=== PATIENT | female | born 1995 | race Caucasian/White ===

== ENCOUNTER 2018-04-21 10:37 | Emergency (ER) | payer SELFPAY ==
[2018-04-21 13:28] LABS: Urine Blood 2+ (NEG); Urine Glucose NEGATIVE (NEG); Urine Protein 1+ (NEG)
[2018-04-21] MEDS ORDERED: NA CHLORIDE 0.9% 1,000 ML ONE (13:29)
[2018-04-21] MEDS ORDERED: PANTOPRAZOLE 40 MG INJ ONE (13:43)
[2018-04-21 13:47] LABS: Absolute Monocytes 0.5 K/uL (0.1-1.3); Basophils % 0.5 % (0-1.3); Eosinophils % 0.9 % (0-4.4); Hematocrit 41.1 % (36.0-45.0); Lymphocytes % 22.9 % (15.3-44.8); MCV 88.7 fL (80-100); MPV 9.9 fL (7.6-11.3); Monocytes % 6.1 % (3.3-12.3); RBC Red Blood Cell Count 4.63 M/uL (3.86-4.86)
[2018-04-21 13:49] LABS: Urine Bacteria LOADED /HPF (<20)
[2018-04-21 13:50] LABS: Urine Culture Reflex Order REFLEXED; Urine Mucus 1+ /HPF (NONE SEEN)
[2018-04-21 13:57] LABS: ALT/SGPT 18 U/L (12-78); AST/SGOT 13 U/L (15-37); Albumin 4.3 g/dL (3.4-5.0); Alkaline Phosphatase 112 U/L (45-117); BUN Blood Urea Nitrogen 13 mg/dL (7-18); Bicarbonate 30 mmol/L (21-32); Bilirubin Direct 0.2 mg/dL (0-0.2); Bilirubin Total 0.5 mg/dL (0.2-1.0); Glucose Level 88 mg/dL (74-106); Lipase 102 U/L (73-393); Potassium 3.7 mmol/L (3.5-5.1); Protein, Total 8.2 g/dL (6.4-8.2); Sodium Level 138 mmol/L (136-145)
[2018-04-21] MEDS ORDERED: CEFTRIAXONE/SWI 1gm 1 GM/10 ML SYR ONE (14:14)
[2018-04-21] MEDS ORDERED: NA CHLORIDE 0.9% 100 ML IV ONE (14:15)
--- NOTE | 2018-04-21 14:56 | EDPHYS ---
Physician Documentation [facility] Name: Wilma Batres Age: 22 yrs Sex: Female : 1995 Arrival Date: 04/21/2018 Time: 10:42 Bed 26 Private MD: ED Physician Miky Driscoll HPI: 04/21 14:25 This 22 yrs old Female presents to ER via Ambulatory with complaints of kb Abdominal Pain, Vomiting. 14:25 The patient presents with abdominal pain in the upper abdomen. kb 14:25 Onset: The symptoms/episode began/occurred 4 day(s) ago. The symptoms radiate to kb Associated signs and symptoms: Pertinent positives: nausea, vomiting, and diarrhea. The symptoms are described as constant. Modifying factors: The symptoms are alleviated by nothing, the symptoms are aggravated by nothing. Severity of pain: At its worst the pain was moderate in the emergency department the pain is unchanged. The patient has not experienced similar symptoms in the past. The patient has not recently seen a physician. 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 - Social history:: Smoking status: Patient/guardian denies using tobacco. - Ebola Screening: : No symptoms or risks identified at this time. ROS: 14:25 Constitutional: Negative for fever, chills, and weight loss, Cardiovascular: Negative kb for chest pain, palpitations, and edema, Respiratory: Negative for shortness of breath, cough, wheezing, and pleuritic chest pain, Back: Negative for injury and pain, : Negative for injury, bleeding, discharge, and swelling, MS/Extremity: Negative for injury and deformity, Skin: Negative for injury, rash, and discoloration, Neuro: Negative for headache, weakness, numbness, tingling, and seizure. 14:25 Abdomen/GI: Positive for abdominal pain, nausea, vomiting, and diarrhea, Negative for constipation, abdominal cramps, abdominal distension, anorexia. Exam: 14:25 Constitutional: This is a well developed, well nourished patient who is awake, alert, kb and in no acute distress. Head/Face: Normocephalic, atraumatic. Chest/axilla: Normal chest wall appearance and motion. Nontender with no deformity. No lesions are appreciated. Cardiovascular: Regular rate and rhythm with a normal S1 and S2. No gallops, murmurs, or rubs. Normal PMI, no JVD. No pulse deficits. Respiratory: Lungs have equal breath sounds bilaterally, clear to auscultation and percussion. No rales, rhonchi or wheezes noted. No increased work of breathing, no retractions or nasal flaring. Abdomen/GI: Soft, non-tender, with normal bowel sounds. No distension or tympany. No guarding or rebound. No evidence of tenderness throughout. Back: No spinal tenderness. No costovertebral tenderness. Full range of motion. Skin: Warm, dry with normal turgor. Normal color with no rashes, no lesions, and no evidence of cellulitis. MS/ Extremity: Pulses equal, no cyanosis. Neurovascular intact. Full, normal range of motion. Neuro: Awake and alert, GCS 15, oriented to person, place, time, and situation. Cranial nerves II-XII grossly intact. Motor strength 5/5 in all extremities. Sensory grossly intact. Cerebellar exam normal. Normal gait. Vital Signs: 10:58 BP 111 / 67; Pulse 85; Resp 18; Temp 97.6; Pulse Ox 97% ; Weight 47.63 kg; Height 5 ft. sv 4 in. (162.56 cm); Pain 6/10; 13:47 BP 95 / 58; Pulse 66; Pulse Ox 100% on R/A; Pain 6/10; rv 15:07 BP 95 / 67; Pulse 74; Pulse Ox 100% on R/A; rv 10:58 Body Mass Index 18.02 (47.63 kg, 162.56 cm) sv MDM: 13:00 Patient medically screened. kb 14:25 Data reviewed: vital signs, nurses notes. Data interpreted: Pulse oximetry: on room air kb is 100 %. Interpretation: normal. 14:27 Counseling: I had a detailed discussion with the patient and/or guardian regarding: the kb historical points, exam findings, and any diagnostic results supporting the discharge/admit diagnosis, lab results, the need for outpatient follow up, a family practitioner, to return to the emergency department if symptoms worsen or persist or if there are any questions or concerns that arise at home. 04/21 13:04 Order name: Basic Metabolic Panel; Complete Time: 14:02 kb 04/21 13:04 Order name: CBC with Diff; Complete Time: 13:57 kb 04/21 13:04 Order name: Hepatic Function; Complete Time: 14:02 kb 04/21 13:04 Order name: Lipase; Complete Time: 14:02 kb 04/21 13:23 Order name: Urine Dipstick--Ancillary (enter results); Complete Time: 13:33 eb 04/21 13:23 Order name: Urine --Ancillary (enter results); Complete Time: 13:33 eb 04/21 13:04 Order name: IV Saline Lock; Complete Time: 13:46 kb 04/21 13:04 Order name: Labs collected and sent; Complete Time: 13:46 kb 04/21 13:05 Order name: Urine Dipstick-Ancillary (obtain specimen); Complete Time: 13:46 kb 04/21 13:23 Order name: Urine Microscopic Only; Complete Time: 13:51 eb 04/21 13:52 Order name: Urine Culture EDMS Administered Medications: 13:30 Drug: NS 0.9% 1000 ml Route: IV; Rate: 1000 ml; Site: right antecubital; rv 14:14 Follow up: IV Status: Completed infusion rv 13:30 Drug: ProTONIX 40 mg Route: IVP; Site: right antecubital; rv 14:14 Follow up: Response: No adverse reaction rv 14:00 Drug: Rocephin 1 grams Route: IV; Rate: calculated rate; Site: right antecubital; rv 15:05 Follow up: IV Status: Completed infusion rv Disposition: 18:50 Co-signature as Attending Physician, Miky Driscoll MD. rn Disposition: 04/21/18 14:55 Discharged to Home. Impression: Urinary tract infection, site not specified. - Condition is Stable. - Discharge Instructions: Urinary Tract Infection, Adult, [id number]. - Prescriptions for Zofran 4 mg Oral Tablet - take 1 tablet by ORAL route every 6 hours As needed; 20 tablet. Macrobid 100 mg Oral Capsule - take 1 capsule by ORAL route every 12 hours for 7 days; 14 capsule. - Medication Reconciliation Form, Thank You Letter, Antibiotic Education, Prescription Opioid Use form. - Work release form (04/21/18 15:09). eb - Follow up: Emergency Department; When: As needed; Reason: Worsening of condition. Follow up: Private Physician; When: 2 - 3 days; Reason: Recheck today's complaints, Continuance of care, Re-evaluation by your physician. Signatures: Dispatcher [employer] Keturah Gipson, GEOFF TRANSIT VEHICLE INSPECTOR-Angelia De Santiago, RN RN Miky Fall MD MD rn Vicente, Ronaldo, RN RN rv Botello, Elizabeth eb Corrections: (The following items were deleted from the chart) 14:27 14:27 Counseling: I had a detailed discussion with the patient and/or guardian louis regarding: the historical points, exam findings, and any diagnostic results supporting the discharge/admit diagnosis, lab results, radiology results, the need for outpatient follow up, a family practitioner, to return to the emergency department if symptoms worsen or persist or if there are any questions or concerns that arise at home, louis 15:07 14:55 04/21/2018 14:55 Discharged to Home. Impression: Urinary tract infection, site rv not specified. Condition is Stable. Discharge Instructions: Urinary Tract Infection, Adult, [id number]. Prescriptions for Zofran 4 mg Oral Tablet - take 1 tablet by ORAL route every 6 hours As needed; 20 tablet, Macrobid 100 mg Oral Capsule - take 1 capsule by ORAL route every 12 hours for 7 days; 14 capsule. and Forms are Medication Reconciliation Form, Thank You Letter, Antibiotic Education, Prescription Opioid Use. Follow up: Emergency Department; When: As needed; Reason: Worsening of condition. Follow up: Private Physician; When: 2 - 3 days; Reason: Recheck today's complaints, Continuance of care, Re-evaluation by your physician. kb
--- NOTE | 2018-04-21 14:56 | ER ---
Nurse's Notes [facility] Name: Wilma Batres Age: 22 yrs Sex: Female : 1995 Arrival Date: 04/21/2018 Time: 10:42 Bed 26 Private MD: Diagnosis: Urinary tract infection, site not specified Presentation: 04/21 10:56 Presenting complaint: Patient states: RUQ pain started Wednesday and diarrhea and vomiting sv this morning. Transition of care: patient was not received from another setting of care. Onset of symptoms was April 18, 2018. Care prior to arrival: None. 10:56 Method Of Arrival: Ambulatory sv 10:56 Acuity: AMOR 3 sv 13:04 Risk Assessment: Do you want to hurt yourself or someone else? Patient reports no rv desire to harm self or others. Initial Sepsis Screen: Does the patient meet any 2 criteria? No. Patient's initial sepsis screen is negative. Does the patient have a suspected source of infection? No. Patient's initial sepsis screen is negative. Triage Assessment: 10:59 General: Appears uncomfortable, slender, Behavior is calm, cooperative, appropriate for sv age. Pain: Complains of pain in right upper quadrant Pain currently is 6 out of 10 on a pain scale. Neuro: Level of Consciousness is awake, alert, obeys commands, Oriented to person, place, time, situation, Moves all extremities. Full function Gait is steady. Respiratory: Respiratory effort is even, unlabored, Respiratory pattern is regular, symmetrical. GI: Reports upper abdominal pain, diarrhea, nausea, vomiting. 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 - Social history:: Smoking status: Patient/guardian denies using tobacco. - Ebola Screening: : No symptoms or risks identified at this time. Screenin:04 Abuse screen: Denies threats or abuse. Denies injuries from another. Nutritional rv screening: No deficits noted. Tuberculosis screening: No symptoms or risk factors identified. Fall Risk None identified. Assessment: 13:03 General: Appears in no apparent distress. uncomfortable, Behavior is calm, cooperative. rv Pain: Complains of pain in abdomen Pain radiates to back. Neuro: Level of Consciousness is awake, alert, obeys commands, Oriented to person, place, time, situation. Cardiovascular: Capillary refill < 3 seconds. Respiratory: Airway is patent. GI: Bowel sounds present X 4 quads. Abd is soft and non tender X 4 quads. : No signs and/or symptoms were reported regarding the genitourinary system. EENT: No signs and/or symptoms were reported regarding the EENT system. Derm: Skin is intact. Vital Signs: 10:58 BP 111 / 67; Pulse 85; Resp 18; Temp 97.6; Pulse Ox 97% ; Weight 47.63 kg; Height 5 ft. sv 4 in. (162.56 cm); Pain 6/10; 13:47 BP 95 / 58; Pulse 66; Pulse Ox 100% on R/A; Pain 6/10; rv 15:07 BP 95 / 67; Pulse 74; Pulse Ox 100% on R/A; rv 10:58 Body Mass Index 18.02 (47.63 kg, 162.56 cm) sv ED Course: 10:42 Patient arrived in ED. mr 10:57 Triage completed. sv 10:59 Arm band placed on. sv 13:00 Keturah Garg FNP-C is PHCP. kb 13:00 Miky Driscoll MD is Attending Physician. kb 13:04 Patient has correct armband on for positive identification. Bed in low position. Call rv light in reach. Side rails up X 1. Pulse ox on. NIBP on. 13:15 Inserted saline lock: 20 gauge in right antecubital area, using aseptic technique. rv Blood collected. 13:15 Lab(s) recollected, by me, sent to lab. Urine collected: clean catch specimen, clear. rv 15:06 No provider procedures requiring assistance completed. IV discontinued, bleeding rv controlled, No redness/swelling at site. Pressure dressing applied. Administered Medications: 13:30 Drug: NS 0.9% 1000 ml Route: IV; Rate: 1000 ml; Site: right antecubital; rv 14:14 Follow up: IV Status: Completed infusion rv 13:30 Drug: ProTONIX 40 mg Route: IVP; Site: right antecubital; rv 14:14 Follow up: Response: No adverse reaction rv 14:00 Drug: Rocephin 1 grams Route: IV; Rate: calculated rate; Site: right antecubital; rv 15:05 Follow up: IV Status: Completed infusion rv Outcome: 14:55 Discharge ordered by MD. myers 15:06 Discharged to home ambulatory. rv 15:06 Condition: good 15:06 Discharge instructions given to patient, Instructed on discharge instructions, follow up and referral plans. medication usage, Demonstrated understanding of instructions, follow-up care, medications, Prescriptions given X 2. 15:07 Patient left the ED. rv Addendum: 04/25/2018 08:00 Addendum: Culture Results: Positive urine culture. No further action required. Bacteria i w sensitive to prescribed antibiotic. Signatures: Keturah Garg, STEAM SHOVEL OPERATOR-C STEAM SHOVEL OPERATOR-Angelia De Santiago, RN RN Faina Marino Irene, RN Juma Templeton RN RN rv
[2018-04-21 15:18] VITALS: TEMP 97.6
[2018-04-21 15:19] VITALS: O2SAT 100
[2018-04-21 15:20] VITALS: BP 95/67
== END 2018-04-21 15:07 | disposition home or self-care (01) ==
LOC: ER 10:37
DX: N39.0 Urinary tract infection, site not specified (principal); Z88.1 Allergy status to other antibiotic agents
CPT/HCPCS: 36415; 80048; 80076; 81003; 81015; 81025; 83690; 85025; 87077; 87086; 87088; 87186; 96365; 96375; 99284; C9113; J0696; J7030

== ENCOUNTER 2020-03-03 00:21 | Emergency (ER) | payer SELFPAY ==
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
[2020-03-03 01:08] LABS: Absolute Lymphocytes (CBC) 2.2 K/uL (0.7-4.9); Basophils % 0.6 % (0-1.3); Hematocrit 31.3 % (36.0-45.0); Lymphocytes % 22.5 % (15.3-44.8); MPV 9.1 fL (7.6-11.3); RBC Red Blood Cell Count 3.48 M/uL (3.86-4.86)
[2020-03-03] MEDS ORDERED: NA CHLORIDE 0.9% 1,000 ML ONE (01:12)
[2020-03-03 01:21] LABS: BUN Blood Urea Nitrogen 4 mg/dL (7-18); Bicarbonate 27 mmol/L (21-32); Glucose Level 86 mg/dL (74-106); Potassium 3.3 mmol/L (3.5-5.1); Sodium Level 141 mmol/L (136-145)
[2020-03-03 01:47] LABS: Urine Blood NEGATIVE (NEG); Urine Glucose NEGATIVE (NEG); Urine Protein NEGATIVE (NEG); Urine Specific Gravity 1.025 (1.005-1.030)
[2020-03-03] MEDS ORDERED: CALCIUM CARBONATE 500 MG TAB ONE (02:09)
--- NOTE | 2020-03-03 02:09 | ER ---
Nurse's Notes [facility] Name: Wilma Batres Age: 24 yrs Sex: Female : 1995 Arrival Date: 03/03/2020 Time: 00:25 Bed 18 Private MD: Diagnosis: Urinary tract infection, site not specified;Hypokalemia;Hypocalcemia;Dizziness and giddiness Presentation: 03/03 00:32 Chief complaint: Patient states: 4 days episode of dizziness, 2-3 times a day. Pt is 26 weeks and was advised by Ob if it gets worse to come to the ER. Coronavirus screen: Client denies travel out of the [place] in the last 14 days. At this time, the client does not indicate any symptoms associated with coronavirus-19. Ebola Screen: Patient negative for fever greater than or equal to 101.5 degrees Fahrenheit, and additional compatible Ebola Virus Disease symptoms Patient denies exposure to infectious person. Initial Sepsis Screen: Does the patient meet any 2 criteria? HR > 90 bpm. Does the patient have a suspected source of infection? No. Patient's initial sepsis screen is negative. Risk Assessment: Do you want to hurt yourself or someone else? Patient reports no desire to harm self or others. Onset of symptoms was March 03, 2020. 00:32 Method Of Arrival: Ambulatory 00:32 Acuity: AMOR 3 Triage Assessment: 01:26 Respiratory: Onset: The symptoms/episode began/occurred at an unknown time. the patient reports symptoms have resolved. 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 - Social history:: Smoking status: Patient/guardian denies using. Screenin:25 Abuse screen: Denies threats or abuse. Denies injuries from another. Nutritional screening: No deficits noted. Tuberculosis screening: No symptoms or risk factors identified. Fall Risk None identified. Assessment: 01:25 General: Appears in no apparent distress. Behavior is calm, cooperative, appropriate for age. Pain: Denies pain. Neuro: Level of Consciousness is awake, alert, obeys commands, Oriented to person, place, time, situation, Appropriate for age. Neuro: Reports dizziness. Cardiovascular: Heart tones S1 S2 Rhythm is sinus tachycardia. Respiratory: Airway is patent Respiratory effort is even, unlabored, Respiratory pattern is regular, symmetrical, Breath sounds are clear bilaterally. GI: Abdomen is round. : No signs and/or symptoms were reported regarding the genitourinary system. EENT: No signs and/or symptoms were reported regarding the EENT system. Derm: Skin is intact, is healthy with good turgor, Skin is pink, warm \T\ dry. normal. Musculoskeletal: Circulation, motion, and sensation intact. 02:27 Reassessment: Patient appears in no apparent distress at this time. No changes from previously documented assessment. Patient and/or family updated on plan of care and expected duration. Pain level reassessed. Patient is alert, oriented x 3, equal unlabored respirations, skin warm/dry/pink. Vital Signs: 00:32 BP 101 / 69; Pulse 119; Resp 18; Temp 98.7; Pulse Ox 100% ; Weight 46.27 kg; Height 5 ft. 4 in. (162.56 cm); 01:24 BP 93 / 63 Supine; Pulse 129; 01:24 BP 100 / 71 Sitting; Pulse 137; 01:24 BP 93 / 68 Standing; Pulse 134; wh 02:27 BP 102 / 74; Pulse 91; Resp 18; Pulse Ox 100% on R/A; 00:32 Body Mass Index 17.51 (46.27 kg, 162.56 cm) Vitals: 01:28 Heart Tones 164 . ED Course: 00:25 Patient arrived in ED. bp1 00:29 Philip Larkin is Primary Nurse. wh 00:32 Miky Driscoll MD is Attending Physician. rn 00:45 EKG done, by ED staff, reviewed by Miky Driscoll MD. Inserted saline lock: 20 gauge in right antecubital area, using aseptic technique. Blood collected. 01:07 Triage completed. 01:26 Arm band placed on right wrist. 01:27 Patient has correct armband on for positive identification. Placed in gown. Bed in low position. Call light in reach. Side rails up X 1. monitoring analyst on. Pulse ox on. NIBP on. 02:27 No provider procedures requiring assistance completed. IV discontinued, intact, bleeding controlled, No redness/swelling at site. Administered Medications: 01:00 Drug: NS 0.9% 1000 ml Route: IV; Rate: 1000 ml; Site: right antecubital; 02:28 Follow up: Response: No adverse reaction; IV Status: Completed infusion 02:05 Drug: Potassium Chloride 40 mEq Route: PO; 02:28 Follow up: Response: No adverse reaction 02:05 Drug: Calcium Carbonate 500 mg Route: PO; 02: Follow up: Response: No adverse reaction 02:12 Drug: Macrobid 100 mg Route: PO; 02: Follow up: Response: No adverse reaction Outcome: 02:08 Discharge ordered by . rn 02:30 Discharged to home ambulatory. 02:30 Condition: stable 02:30 Discharge instructions given to patient, Instructed on discharge instructions, follow up and referral plans. medication usage, POC Demonstrated understanding of instructions, follow-up care, medications, POC Prescriptions given X 1. 02:31 Patient left the ED. Signatures: Keturah Garg, DIVEMASTER-C DIVEMASTER-Ckb Miky Driscoll MD MD rn Trae, Philip Sophia De La Torre
--- NOTE | 2020-03-03 02:09 | EDPHYS ---
Physician Documentation [facility] Name: Wilma Batres Age: 24 yrs Sex: Female : 1995 Arrival Date: 03/03/2020 Time: 00:25 Bed 18 Private MD: ED Physician Miky Driscoll HPI: 03/03 00:34 This 24 yrs old Female presents to ER via Unassigned with complaints of kb Blurred Vision, Shortness Of Breath, Dizziness. 00:34 The patient presents with dizziness. Onset: The symptoms/episode began/occurred 4 kb day(s) ago. Patient's baseline: Neuro: alert and fully oriented, Motor: no deficits, Ambulation: walks without assistance, Speech: normal. The patient has not experienced similar symptoms in the past. The patient has not recently seen a physician. 00:36 Context: occurred at home, just prior to the episode the patient experienced no kb apparent symptoms. Modifying factors: The symptoms are alleviated by nothing, the symptoms are aggravated by nothing. Associated signs and symptoms: Pertinent positives: blurred vision, , Pertinent negatives: abdominal pain, agitation, ataxia, chest pain, combativeness, confusion, diaphoresis, focal weakness, head injury, headache, nausea, near-syncope, numbness, palpitations, seizure, shortness of breath, syncope, tingling, vomiting. Severity of symptoms: At their worst the symptoms were moderate in the emergency department the symptoms have resolved. Pt reports she has had 2-3 episodes a day of dizziness with blurred vision for the past 4 days. States she called her OB and was told to come to the ER for evaluation if symptoms continued. Pt had an episode just travel pta which prompted her to come in. Pt is 26 weeks , OB at [facility]. . Denies vaginal bleeding/discharge or abd pain. . 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 - Social history:: Smoking status: Patient/guardian denies using. ROS: 00:34 Constitutional: Negative for fever, chills, and weight loss, Eyes: Negative for injury, kb pain, redness, and discharge, ENT: Negative for injury, pain, and discharge, Neck: Negative for injury, pain, and swelling, Cardiovascular: Negative for chest pain, palpitations, and edema, Respiratory: Negative for shortness of breath, cough, wheezing, and pleuritic chest pain, Abdomen/GI: Negative for abdominal pain, nausea, vomiting, diarrhea, and constipation, Back: Negative for injury and pain, MS/Extremity: Negative for injury and deformity, Skin: Negative for injury, rash, and discoloration. 00:34 Neuro: Positive for dizziness, visual changes. Exam: 00:38 Constitutional: This is a well developed, well nourished patient who is awake, alert, kb and in no acute distress. Head/Face: Normocephalic, atraumatic. Eyes: Pupils equal round and reactive to light, extra-ocular motions intact. Lids and lashes normal. Conjunctiva and sclera are non-icteric and not injected. Cornea within normal limits. Periorbital areas with no swelling, redness, or edema. ENT: Nares patent. No nasal discharge, no septal abnormalities noted. Tympanic membranes are normal and external auditory canals are clear. Oropharynx with no redness, swelling, or masses, exudates, or evidence of obstruction, uvula midline. Mucous membranes moist. Neck: Trachea midline, no thyromegaly or masses palpated, and no cervical lymphadenopathy. Supple, full range of motion without nuchal rigidity, or vertebral point tenderness. No Meningismus. Chest/axilla: Normal chest wall appearance and motion. Nontender with no deformity. No lesions are appreciated. Cardiovascular: Regular rate and rhythm with a normal S1 and S2. No gallops, murmurs, or rubs. Normal PMI, no JVD. No pulse deficits. Respiratory: Lungs have equal breath sounds bilaterally, clear to auscultation and percussion. No rales, rhonchi or wheezes noted. No increased work of breathing, no retractions or nasal flaring. Abdomen/GI: Soft, non-tender, with normal bowel sounds. No distension or tympany. No guarding or rebound. No evidence of tenderness throughout. Skin: Warm, dry with normal turgor. Normal color with no rashes, no lesions, and no evidence of cellulitis. MS/ Extremity: Pulses equal, no cyanosis. Neurovascular intact. Full, normal range of motion. Neuro: Awake and alert, GCS 15, oriented to person, place, time, and situation. Cranial nerves II-XII grossly intact. Motor strength 5/5 in all extremities. Sensory grossly intact. Cerebellar exam normal. Normal gait. Vital Signs: 00:32 BP 101 / 69; Pulse 119; Resp 18; Temp 98.7; Pulse Ox 100% ; Weight 46.27 kg; Height 5 wh ft. 4 in. (162.56 cm); 01:24 BP 93 / 63 Supine; Pulse 129; wh 01:24 BP 100 / 71 Sitting; Pulse 137; wh 01:24 BP 93 / 68 Standing; Pulse 134; wh 02:27 BP 102 / 74; Pulse 91; Resp 18; Pulse Ox 100% on R/A; wh 00:32 Body Mass Index 17.51 (46.27 kg, 162.56 cm) wh MDM: 00:32 Patient medically screened. rn 02:05 Differential diagnosis: anemia, dehydration, UTI, electrolyte problem. Data reviewed: rn vital signs, nurses notes, lab test result(s), EKG, and as a result, I will discharge patient. Counseling: I had a detailed discussion with the patient and/or guardian regarding: the historical points, exam findings, and any diagnostic results supporting the discharge/admit diagnosis, lab results, the need for outpatient follow up, to return to the emergency department if symptoms worsen or persist or if there are any questions or concerns that arise at home. Response to treatment: the patient's symptoms have markedly improved after treatment, and as a result, I will discharge patient. Special discussion: I discussed with the patient/guardian in detail that at this point there is no indication for admission to the hospital. It is understood, however, that if the symptoms persist or worsen the patient needs to return immediately for re-evaluation. ED course: Pt feels better, no longer feeling dizzy, + mild electrolyte abnormalities, better with fluids, + UTI, has appt with her OB this week, will dc home with abx and return precautions. . 03/03 00:34 Order name: CBC with Diff; Complete Time: 01:33 kb 03/03 00:34 Order name: Basic Metabolic Panel; Complete Time: 01:33 kb 09/13 01:43 Order name: Urine Dipstick--Ancillary (enter results); Complete Time: 02:00 tt3 03/03 00:34 Order name: IV Start; Complete Time: kb 03/03 00:34 Order name: Orthostatics; Complete Time: kb 03/03 00:34 Order name: Urine Dipstick-Ancillary (obtain specimen); Complete Time: : kb 03/03 00:34 Order name: EKG; Complete Time: 00:35 kb 03/03 00:34 Order name: EKG - Nurse/Tech; Complete Time: kb 03/03 00:35 Order name: FHT's; Complete Time: : kb Administered Medications: 01:00 Drug: NS 0.9% 1000 ml Route: IV; Rate: 1000 ml; Site: right antecubital; 02:28 Follow up: Response: No adverse reaction; IV Status: Completed infusion 02:05 Drug: Potassium Chloride 40 mEq Route: PO; 02:28 Follow up: Response: No adverse reaction 02:05 Drug: Calcium Carbonate 500 mg Route: PO; 02:28 Follow up: Response: No adverse reaction 02:12 Drug: Macrobid 100 mg Route: PO; 02:28 Follow up: Response: No adverse reaction Disposition: 04:46 Co-signature as Attending Physician, Miky Driscoll MD. rn Disposition: 03/03/20 02:08 Discharged to Home. Impression: Urinary tract infection, site not specified, Hypokalemia, Hypocalcemia, Dizziness and giddiness. - Condition is Stable. - Discharge Instructions: Dizziness, Urinary Tract Infection, Adult, and Urinary Tract Infection. - Prescriptions for Macrobid 100 mg Oral Capsule - take 1 capsule by ORAL route every 12 hours for 7 days; 14 capsule. - Medication Reconciliation Form, Thank You Letter, Antibiotic Education, Prescription Opioid Use form. - Follow up: Private Physician; When: As needed; Reason: Recheck today's complaints, Re-evaluation by your physician. - Problem is an ongoing problem. - Symptoms have improved. Signatures: Dispatcher [employer] Keturah Gipson, SUPERVISOR LENDING ACTIVITIES-C SUPERVISOR LENDING ACTIVITIES-Miky Gant MD MD rn [place], Winsy Corrections: (The following items were deleted from the chart) 02:31 02:08 03/03/2020 02:08 Discharged to Home. Impression: Urinary tract infection, site wh not specified; Hypokalemia; Hypocalcemia; Dizziness and giddiness. Condition is Stable. Forms are Medication Reconciliation Form, Thank You Letter, Antibiotic Education, Prescription Opioid Use. Follow up: Private Physician; When: As needed; Reason: Recheck today's complaints, Re-evaluation by your physician. Problem is an ongoing problem. Symptoms have improved. rn
[2020-03-03] MEDS ORDERED: POTASSIUM CL SA 10 MEQ TAB PO ONE (02:16)
[2020-03-03] MEDS ORDERED: NITROFURAN MACRO 100 MG CAP PO ONE (02:22)
[2020-03-03 02:40] VITALS: TEMP 98.7; O2SAT 100
[2020-03-03 02:43] VITALS: BP 102/74
--- NOTE | 2020-03-03 09:44 | EKG ---
Test Date: 2020-03-03 Test Time: 00:47:05 Principal Hardware Architect: MEASUREMENT RESULTS: Intervals: Rate: 122 NV: 128 QRSD: 70 QT: 308 QTc: 438 [place]: P: 71 NV: 128 QRS: 87 T: 57 INTERPRETIVE STATEMENTS: Sinus tachycardia Otherwise normal ECG No previous ECG available for comparison Electronically Signed On 03-03-20 09:43:58 CDT by Kota Ladd
== END 2020-03-03 02:31 | disposition home or self-care (01) ==
LOC: ER 00:21
DX: O23.42 Unspecified infection of urinary tract in pregnancy, second trimester (principal); O99.280 Endocrine, nutritional and metabolic diseases complicating pregnancy, unspecified trimester; E83.51 Hypocalcemia; E87.6 Hypokalemia; Z3A.26 26 weeks gestation of pregnancy; Z88.1 Allergy status to other antibiotic agents
CPT/HCPCS: 36415; 80048; 81003; 85025; 93005; 96360; 99285; J7030

== ENCOUNTER 2021-03-08 17:04 | Emergency (ER) | payer OTHER ==
[2021-03-08 17:43] LABS: Urine Blood Negative (Negative); Urine Glucose Negative (Negative); Urine Protein Negative (Negative); Urine Specific Gravity >=1.030 (1.005-1.030)
--- NOTE | 2021-03-08 18:06 | RAD REPORT ---
EXAM DESCRIPTION: CT - Stone Protocol - 03/08/2021 5:50 pm CLINICAL HISTORY: FLANK PAIN COMPARISON: CT ABD PELVIS W CONTRAST dated 08/11/2007 TECHNIQUE: Axial 3 mm thick images were obtained without oral or IV contrast. The [id number] span s the entirety of the system including uppermost abdomen and lung bases. All CT scans are performed using dose optimization technique as appropriate and may include automated exposure control or mA/KV adjustment according to patient size. FINDINGS: No hydronephrosis is present and no obstructing ureteral calculi. No suspicious renal mass es. Isodense masses and pyelonephritis are not excluded on a stone protocol CT scan. No significant a drenal finding. No urinary bladder suspicious finding. Uterus is retroverted with no focal abnormality. Left ovary does not show suspicious finding. . Right ovary is enlarged relative to the left and could contain complex or hemorrhagic cyst. No cyst ruptur e. Imaged portions of the liver, spleen and pancreas show no suspicious findings on non-contrast imaging . No gallbladder or biliary tree abnormality identified. Stomach is filled with food. No gastric wall thickening or gastric wall mass. No dilated small bowel loops. No appendicitis. There is a large amount of stool filling but not dilating the entirety of the colon. No hernia, mass or bulky lymphadenopathy noted. No free air, free fluid or inflammatory stranding. No significant bony abnormality. IMPRESSION: No hydronephrosis present. No obstructing or nonobstructing calculi seen. Isodense masses and pyelonephritis are not excluded on stone protocol technique. Right ovary is enlarged relative to the left and could contain 1 or more cysts. A complex or hemorrha gic cyst cannot be excluded. There is no free fluid or evidence for ovarian cyst rupture. Constipation pattern with a large amount of stool filling the entirety of the colon.
[2021-03-08 18:07] LABS: Absolute Lymphocytes (CBC) 1.7 K/uL (0.7-4.9); Hematocrit 36.8 % (36.0-45.0); Lymphocytes % 49.3 % (15.3-44.8); MPV 9.3 fL (7.6-11.3); RBC Red Blood Cell Count 4.64 M/uL (3.86-4.86)
[2021-03-08] MEDS ORDERED: NA CHLORIDE 0.9% 1,000 ML ONE (18:27)
[2021-03-08 18:33] LABS: Potassium 4.1 mmol/L (3.5-5.1)
--- NOTE | 2021-03-08 18:43 | ER ---
Nurse's Notes [facility] Name: Wilma Batres Age: 25 yrs Sex: Female : 1995 Arrival Date: 03/08/2021 Time: 17:07 Bed 6 Private MD: Diagnosis: Constipation Presentation: 03/08 17:19 Chief complaint: Patient states: right low back pain radiating to RLQ x 1 week ago. Pt aa5 also reports burning with urination. Pt denies fever, denies nausea/vomiting/diarrhea. Coronavirus screen: At this time, the client does not indicate any symptoms associated with coronavirus-19. Ebola Screen: Patient negative for fever greater than or equal to 101.5 degrees Fahrenheit, and additional compatible Ebola Virus Disease symptoms. Initial Sepsis Screen: Does the patient meet any 2 criteria? No. Patient's initial sepsis screen is negative. Does the patient have a suspected source of infection? No. Patient's initial sepsis screen is negative. Risk Assessment: Do you want to hurt yourself or someone else? Patient reports no desire to harm self or others. Onset of symptoms was February 2021. 17:19 Method Of Arrival: Ambulatory aa5 17:19 Acuity: AMOR 3 aa5 Historical: - Allergies: 17:19 Amoxicillin; aa5 - PMHx: 17:20 None; aa5 - PSHx: 17:20 section; Bladder repair (after cut from ); aa5 - Immunization history:: Client reports having NOT received the Covid vaccine. - Social history:: Smoking status: Patient denies any tobacco usage or history of. Screenin:14 Abuse screen: Denies threats or abuse. Denies injuries from another. Nutritional ch5 screening: No deficits noted. Tuberculosis screening: No symptoms or risk factors identified. Fall Risk None identified. Assessment: 18:08 Reassessment: No changes from previously documented assessment. 5 18:14 Pain: Complains of pain in right lower quadrant that radiates to her back. GI: Reports ch5 lower abdominal pain. Vital Signs: 17:19 BP 95 / 75; Pulse 95; Resp 16 S; Temp 99.0(TE); Pulse Ox 100% on R/A; Weight 40.37 kg aa5 (R); Height 5 ft. 4 in. (162.56 cm) (R); 19:30 BP 102 / 64; Pulse 94; Resp 18; Temp 98.9; Pulse Ox 99% on R/A; Pain 0/10; wg 17:19 Body Mass Index 15.28 (40.37 kg, 162.56 cm) [facility] ED Course: 17:07 Patient arrived in ED. as 17:18 Keturah Garg FNP-C [facility]. kb 17:18 Senthil Schuster MD is Attending Physician. kb 17:18 Arm band placed on. aa5 17:20 Triage completed. aa5 17:43 Dani Garrido, RN is Primary Nurse. ch5 17:50 CT Stone Protocol In Process Unspecified. EDMS 18:05 Basic Metabolic Panel Sent. 5 18:05 CBC with Diff Sent. ch5 18:14 Patient has correct armband on for positive identification. Bed in low position. Call ch5 light in reach. Side rails up X 1. 18:14 No provider procedures requiring assistance completed. Inserted saline lock: 20 gauge ch5 in right antecubital area, using aseptic technique. 18:18 Urine --Ancillary (enter results) Sent. 5 19:30 IV discontinued, intact, bleeding controlled, No redness/swelling at site. Pressure wg dressing applied. Administered Medications: 18:05 Drug: NS 0.9% 1000 ml Route: IV; Rate: 1000 ml; Site: right antecubital; [facility] 19:41 Follow up: IV Status: Completed infusion; IV Intake: 1000ml 19:13 Drug: Dulcolax (bisacodyl) Delayed Release Tablet 5 mg Route: PO; 19:41 Follow up: Response: No adverse reaction wg Intake: 19:41 IV: 1000ml; Total: 1000ml. wg Outcome: 18:42 Discharge ordered by . kb 19:42 Discharged to home ambulatory. wg 19:42 Condition: stable 19:42 Discharge instructions given to patient, Instructed on discharge instructions, follow up and referral plans. medication usage, Demonstrated understanding of instructions, follow-up care, medications. 19:42 Patient left the ED. wg Signatures: Dispatcher [employer] EDNH Keturah Garg FNP-C FNP-Aleisha Rosenberg Audri, RN RN [facility] Dani Garrido, RN RN [facility] Kevin Kelley RN Corrections: (The following items were deleted from the chart) 17 17:20 PSHx: None; aa5 aa5 18:16 18:08 Pain: Complains of pain in abdomen [place] [id number] 18:16 18:08 GI: Reports nausea, 5 5
--- NOTE | 2021-03-08 18:43 | EDPHYS ---
Physician Documentation [facility] Name: Wilma Batres Age: 25 yrs Sex: Female : 1995 Arrival Date: 03/08/2021 Time: 17:07 Bed 6 Private MD: ED Physician Senthil Schuster HPI: 03/08 17:36 This 25 yrs old Female presents to ER via Ambulatory with complaints of kb Abdominal Pain. 17:36 The patient complains of pain in the right flank. The pain radiates to the right lower kb quadrant. Onset: The symptoms/episode began/occurred 1 week(s) ago. Modifying factors: The symptoms are alleviated by nothing. the symptoms are aggravated by nothing. Associated signs and symptoms: Pertinent positives: dysuria. Severity of pain: At its worst the pain was moderate in the emergency department the pain is unchanged. The patient has not experienced similar symptoms in the past. The patient has not recently seen a physician. Pt reports right flank pain that radiates to right lower quadrant for a week. States she had dysuria at the beginning that resolved after taking azo. Historical: - Allergies: 17:19 Amoxicillin; aa5 - PMHx: 17:20 None; aa5 - PSHx: 17:20 section; Bladder repair (after cut from ); aa5 - Immunization history:: Client reports having NOT received the Covid vaccine. - Social history:: Smoking status: Patient denies any tobacco usage or history of. ROS: 17:35 Constitutional: Negative for fever, chills, and weight loss. kb 17:35 Abdomen/GI: Positive for abdominal pain. 17:35 : Positive for flank pain, burning with urination. 17:35 All other systems are negative. Exam: 17:35 Constitutional: This is a well developed, well nourished patient who is awake, alert, kb and in no acute distress. Head/Face: Normocephalic, atraumatic. ENT: Moist Mucous membranes Cardiovascular: Regular rate and rhythm with a normal S1 and S2. No gallops, murmurs, or rubs. No pulse deficits. Respiratory: Respirations even and unlabored. No increased work of breathing, no retractions or nasal flaring. Skin: Warm, dry with normal turgor. Normal color. MS/ Extremity: Pulses equal, no cyanosis. Neurovascular intact. Full, normal range of motion. Neuro: Awake and alert, GCS 15, oriented to person, place, time, and situation. Moves all extremities. Normal gait. Psych: Awake, alert, with orientation to person, place and time. Behavior, mood, and affect are within normal limits. 17:35 Abdomen/GI: Inspection: abdomen appears normal, Bowel sounds: normal, in all quadrants, Palpation: soft, in all quadrants, mild abdominal tenderness, in the right lower quadrant. 17:35 Back: CVA tenderness, that is moderate, is noted on the right. Vital Signs: 17:19 BP 95 / 75; Pulse 95; Resp 16 S; Temp 99.0(TE); Pulse Ox 100% on R/A; Weight 40.37 kg aa5 (R); Height 5 ft. 4 in. (162.56 cm) (R); 19:30 BP 102 / 64; Pulse 94; Resp 18; Temp 98.9; Pulse Ox 99% on R/A; Pain 0/10; wg 17:19 Body Mass Index 15.28 (40.37 kg, 162.56 cm) aa5 MDM: 17:18 Patient medically screened. 17:36 Differential diagnosis:. Data reviewed: vital signs, nurses notes. Data interpreted: Pulse oximetry: on room air is 100 %. Interpretation: normal. 18:41 Counseling: I had a detailed discussion with the patient and/or guardian regarding: the historical points, exam findings, and any diagnostic results supporting the discharge/admit diagnosis, lab results, radiology results, the need for outpatient follow up, a family practitioner, to return to the emergency department if symptoms worsen or persist or if there are any questions or concerns that arise at home. 03/08 17:21 Order name: Basic Metabolic Panel 03/08 17:21 Order name: CBC with Diff 03/08 17:21 Order name: Urine Microscopic Only; Complete Time: 19:09 kb 03/08 17:22 Order name: Basic Metabolic Panel; Complete Time: 18:41 EDOK 03/08 17:22 Order name: CBC with Automated Diff; Complete Time: 18:28 EDOK 03/08 17:43 Order name: Urine Dipstick-Ancillary; Complete Time: 17:52 EDOK 03/08 17:21 Order name: CT Stone Protocol; Complete Time: 18:11 kb 03/08 17:21 Order name: IV Saline Lock; Complete Time: 18:06 kb 03/08 17:21 Order name: Labs collected and sent; Complete Time: 18:06 kb 03/08 17:43 Order name: Urine --Ancillary (enter results) eb 03/08 17:44 Order name: Urine --Ancillary; Complete Time: 19:09 EDOK 03/08 19:06 Order name: Urine Culture [facility] 03/08 17:21 Order name: Urine Dipstick-Ancillary (obtain specimen); Complete Time: 17:42 kb Administered Medications: 18:05 Drug: NS 0.9% 1000 ml Route: IV; Rate: 1000 ml; Site: right antecubital; [facility] 19:41 Follow up: IV Status: Completed infusion; IV Intake: 1000ml 19:13 Drug: Dulcolax (bisacodyl) Delayed Release Tablet 5 mg Route: PO; 19:41 Follow up: Response: No adverse reaction Disposition Summary: 03/08/21 18:42 Discharge Ordered Location: Home kb Condition: Stable kb Diagnosis - Constipation kb Followup: kb - With: Emergency Department - When: As needed - Reason: Worsening of condition Followup: kb - With: Private Physician - When: 2 - 3 days - Reason: Recheck today's complaints, Continuance of care, Re-evaluation by your physician Discharge Instructions: - Discharge Summary Sheet kb - Constipation, Adult, [id number] kb Forms: - Medication Reconciliation Form kb - Thank You Letter kb - Antibiotic Education kb - Prescription Opioid Use kb Addendum: 03/10/2021 10:10 Co-signature as Attending Physician, Senthil Schuster MD I agree with the assessment and k dr plan of care. Signatures: Dispatcher [employer] EDKeturah Solitario, CONSULTING PRACTICE MANAGER-C CONSULTING PRACTICE MANAGER-Senthil Shields MD MD [facility] Annlaee Powell RN RN aa5 Dani Garrido RN RN ch5 Kevin Kelley RN Corrections: (The following items were deleted from the chart) 03/08 17:24 17:20 PSHx: None; aaKelvin aaKelvin
[2021-03-08 19:06] LABS: Urine Bacteria 20-50 /HPF (<20); Urine Mucus 4+ /HPF (NONE SEEN); Urine RBC <5 /HPF (NONE SEEN)
[2021-03-08] MEDS ORDERED: BISACODYL E.C. 5 MG TAB PO ONE ×2 (19:35→19:38)
[2021-03-08 20:53] VITALS: BP 102/64; TEMP 98.9; O2SAT 99
== END 2021-03-08 19:42 | disposition home or self-care (01) ==
LOC: ER 17:04
DX: K59.00 Constipation, unspecified (principal); Z88.1 Allergy status to other antibiotic agents
CPT/HCPCS: 96361; 87088; 85025; 87086; 80048; 36415; 81025; 76377; 74176; 96360; 99284; J7030; 81003; 81015

== ENCOUNTER 2022-02-28 12:40 | Inpatient (IN) | payer OTHER ==
--- OUTSIDE RECORDS SUMMARY | 2022-02-28 13:02 | XMS REPORT | Continuity of Care Document ---
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 F [place], [place] [address] LOC: F.ERS PHONE #: [phone] EXAM DATE: 06/25/2020 STATUS: REG ER FAX #: [phone] RAD NO: Page 2 Signed Report Patient Name: DEBORAH SANDOVAL Unit No: [id number] EXAMS: CPT CODE: [id number] US PELVIS COMPLETE 82630 (Continued) [facility] NAME: DEBORAH SANDOVAL Radiology Department PHYS: Alf Hamilton [address] : 1995 AGE: 24 SEX: F [place], [place] [address] LOC: F.ERS PHONE #: [phone] EXAM DATE: 06/25/2020 STATUS: REG ER FAX #: [phone] RAD NO: Page 3 Signed ReportCoronavirus 2019 nCoV [id number] 01:53:00 Test Item Value Reference Range Interpretation Comments Coronavirus 2019 nCoV Negative Negative This result does not Bedside (test code = rule ou t co-infections [id number]) with otherpath ogens. * False negative results may occur if a specimen isimproperly co llected, transported or handled. False negativer esults may also occur if amplification i nhibitors arepresent in t he specimen or if inadequate leve ls of virusesare pres ent in the specimen. * As with any molecular t est, if the virus mutat es in thetarget regio n, COVID-19 may no t be detected or may bedetected less predictably.APARNA T PERFORMED UNDER AN EMERGENCY USE AUTHORIZATION F ROM FDA - CT ABD PELVIS [id number] 01:53:00 [facility] : 1995 Sex: F Patient Name: DEBORAH SANDOVAL Unit No: [id number] EXAMS: CPT CODE: [id number] CT ABD PELVIS W/CONT 01492 STUDY: - CT ABD PELVIS W/CONT 06/25/2020 1:00 AM Ordering Physician: Alf Patel MD Patient Name: DEBORAH SANDOVAL MR: [id number] : 1995; Age: 24 years y/o Female Clinical Indication: s/p 1219, bladdeer anuj, abd pain, fever, tachy,n/v Comparison: None TECHNIQUE: Multiple contiguous postcontrast transaxial CT images were obtained from the diaphragm through the symphysis pubis. Sagittal and coronal reformatted images were prepared. CT imaging performed at this location utilizes radiation dose optimization techniques which include one or more of the following: -Automated exposure control -Adjustment of the mA and/or kV according to patient size -Use of iterative reconstruction technique IV CONTRAST: [id number] Radiation Dose DLP: 350.55 mGy-cm CT ABDOMEN AND PELVIS WITHCONTRAST: VISUALIZED LUNG BASES: No significant abnormality. BOWEL GAS: Moderate constipation. APPENDIX: Limited visualization of the appendix likely gas-filled projecting medially from the cecum and obscured by adjacent bowel loops. STOMACH: Under distended mildly thick-walled stomach. PERITONEUM ANDMESENTERY: Free Air: No definitive pneumoperitoneum is appreciated. Some gas seen posteriorly to theleft hepatic lobe appears to be present in the gastric antrum. A percutaneous catheter is seen in the anterior lower pelvis with tip located in the right lower abdominal quadrant. Free Fluid: Low-attenuation fluid collection dependently in the right hemipelvis measuring 4.8 x 2.5 x 4.8 cm associated with mild [facility] NAME: DEBORAH SANDOVAL Radiology Department PHYS: Alf Hamilton [address] : 1995 AGE: 24 SEX: F [place], [place] [address] LOC: MarioERS PHONE #: [phone] EXAM DATE: 06/25/2020 STATUS: REG ER FAX #: [phone] RAD NO: Page 1 Signed Report 1 Patient Name: DEBORAH SANDOVAL Unit No: [id number] EXAMS: CPT CODE: [id number] CT ABD PELVIS W/CONT 81404 (Continued) peripheral enhancement suggesting abscess or less likely a rightadnexal cystic structure. Ill-defined low-attenuation in the left adnexal region appears to represent follicles in the left ovary rather than free fluid. Mesenteric and peritoneal fat: Mild to moderatehazy induration throughout the peritoneal fat greatest in the lower abdomen and pelvis. LYMPH NODES:Multiple nonspecific small mesenteric and respiratory lymph nodes. VASCULAR: Abdominal Aorta: Normalcaliber abdominal aorta without aneurysm or dissection. IVC: Normal caliber nonenhanced. ABDOMINAL ORGANS: Liver: Normal size and morphology without discrete lesion. Gallbladder: Normal appearing gallbladder without calcified gallstones, gallbladder wall thickening, or pericholecystic inflammation. Biliary Tree: Normal without dilatation. Kidneys: Normal size kidneys without focal lesion or nephrolithiasis. Heterogeneous enhancement in the left superior renal pole suspicious for nephritis. Bilateral ureteral stents are in place extending from the renal pelves to the urinary bladder. Adrenal Glands:Normal size and morphology without discrete lesion. Pancreas: Normal size and morphology without discrete lesion. Spleen: Mild to moderate splenomegaly measuring 14.7 cm cranial caudal dimension without discrete lesion. PELVIC ORGANS: Urinary bladder: Under distended thick-walled urinary bladder. [facility] NAME: DEBORAH SANDOVAL Radiology Department PHYS: Alf Hamilton [address] : 1995 AGE: 24 SEX: F [place], [place] [address] LOC: [place] PHONE #: [phone] EXAM DATE: 06/25/2020 STATUS: REG ER FAX #: [phone] RAD NO: Page 2 Signed Report 1 Patient Name: DEBORAH SANDOVAL Unit No: [id number] EXAMS: CPT CODE: [id number] CT ABD PELVIS W/CONT 63206 (Continued) Minimal urinary bladder enhancement on delayed images limiting assessment forcontrast extravasation. Reproductive organs: Mildly enlarged and heterogeneous recently uterus. SOFT TISSUES: No suspicious soft tissue lesion or abnormality. OSSEOUS STRUCTURES: No fracture, dislocation, or suspicious focal osseous lesion. IMPRESSION: Mild to moderate induration within the peritoneal fat greatest in the lower abdomen and pelvis suggesting nonspecific inflammation or infection. Low-attenuation collection in the right hemipelvis exhibiting mild peripheral enhancement suspicious for an abscess although a right ovarian cystic lesion is difficult to exclude with absolute certainty. Follow-up pelvic ultrasound may be helpful. Heterogeneous enhancement superiorly in the left kidney nephritis. Under distended thick-walled urinary bladder limiting further characterization. Underlying cystitis cannot be excluded. Mild splenomegaly. Moderate constipation. Status post lower abdominal percutaneous stent and bilateral ureteral stent placement. Prominent to enlarged recently uterus. SL: [facility] Radiology DepartmentPHYS: Alf Hamilton [address] : 1995 AGE: 24 SEX: F [place] [address] LOC: .ERS PHONE #: [phone] EXAM DATE: 06/25/2020 STATUS: REG ER FAX #: [phone] RAD NO: Page 3 Signed Report 1 Patient Name: DEBORAH SANDOVAL Unit No: [id number] EXAMS: CPT CODE: [id number] CT ABD PELVIS W/CONT 56696 (Continued) at 0153 Reported and signed by: Maksim Shields MD CC: Laureano Wolf MD Technologist: Anuj Mcmahon, RT CTDI: 3.42 DLP: 350.55 Trnscrbd D/ (0153) [email or web address] [facility] NAME: [facility] Radiology Department PHYS: Alf Hamilton [address] : 1995 AGE: 24 SEX: F [place] [address] LOC: F.ERS PHONE #: [phone] EXAM DATE: 06/25/2020 STATUS: REG ER FAX #: [phone] RAD NO: Page 4 Signed Re port 1 Patient Name: DEBORAH SANDOVAL Unit No: [id number] EXAMS: CPT CODE: [id number] CT ABD PELVIS W/CONT 92033 (Continued) Orig Print D/T: S: 06/25/2020 (0156) [facility] NAME: DEBORAH SANDOVAL Radiology Department PHYS: Alf Hamilton [address] : 1995 AGE: 24 SEX: F [place], [place] [address] LOC: [place] PHONE #: [phone] EXAM DATE: 06/25/2020 STATUS: REG ER FAX #: [phone] RAD NO: Page 5 Signed Report 1COMPREHENSIVE METABOLIC [id number] 00:50:00 Test Item Value Reference Range Interpretation Comments SODIUM (test code = NA) 138 mEq/L 135-145 N POTASSIUM (test code = K) 3.1 mEq/L 3.5-5.0 L CHLORIDE (test code = CL) 101 mEq/L 100-115 N CARBON DIOXIDE (test code = CO2) 27 mEq/L 22-31 N ANION GAP (test code = GAP) 13.30 10-20 N GLUCOSE (test code = GLU) 163 mg/dL 65-110 H BLOOD UREA NITROGEN (test code = 13 mg/dL 7-18 N BUN) GLOMERULAR FILTRATION RATE (test 78 ml/min >60 N code = GFR) CREATININE (test code = CREAT) 0.9 mg/dL 0.5-1.0 N TOTAL PROTEIN (test code = PROT) 6.7 gm/dL 6.3-8.2 N ALBUMIN (test code = ALB) 2.7 gm/dL 3.4-4.8 L CALCIUM (test code = CA) 8.0 mg/dL 8.4-10.2 L BILIRUBIN TOTAL (test code = BILT) 0.3 mg/dL 0.2-1.0 N SGOT/AST (test code = AST) 14 units/L 15-37 L SGPT/ALT (test code = ALT) 13 units/L 12-78 N ALKALINE PHOSPHATASE TOTAL (test 88 units/L 46-116 N code = ALKP) [id number] 00:50:00 Test Item Value Reference Range Interpretation Comments LIPASE (test code = LIP) 84 units/L 73-393 N [id number] 00:50:00 Test Item Value Reference Range Interpretation Comments TROPONIN-I (test code = TROPI) <0.017 ng/mL <0.056 N LACTIC [id number] 00:50:00 Test Item Value Reference Range Interpretation Comments LACTIC ACID (test code = LACT) 1.2 MMOL/L 0.5-2.2 N PROTHROMBIN [id number] 00:48:00 Test Item Value Reference Range Interpretation Comments PROTHROMBIN TIME PATIENT (test code 13.2 secs 10.4-12.4 H = PTP) IS PATIENT ON ANTICOAGULANTS ? NINTERNATIONAL NORMAL [id number] 00:48:00 Test Item Value Reference Range Interpretation Comments INTERNATIONAL NORMAL 1.22 The INR is to be used RATIO (test code = INR) only for monitoring oral anticoagulantth erapy. INDICATION INR VALUE 1. Prophylaxis inc luding high risk surge ry 2.0 - 2.52. Deep veno us thrombosis. Pul monary embolism. Atria l fibrillation or bioprosthetic h eart valves 2.0 - 3. 03. Mechanical hear t valves or recurrent sy stemic embolism. 3.0 - 3.5 IS PATIENT ON ANTICOAGULANTS ? NTHROMBOPLASTIN TIME [id number] 00:48:00 Test Item Value Reference Range Interpretation Comments THROMBOPLASTIN TIME PARTIAL (test 35.9 secs 22-38 N code = PTT) IS PATIENT ON ANTICOAGULANTS ? N- XR CHEST 1 [id number] 00:32:00 [facility] 1995 Sex: F Patient Name: DEBORAH SANDOVAL Unit No: [id number] EXAMS: CPT CODE: [id number] XR CHEST 1 V 57668 Chest x-ray 1 view History: Code sepsis Comparison: None. Findings: Overlying shield projects over the visualized upper abdomen. Mediastinum: The cardiomediastinal contours are unremarkable. Lungs and pleural spaces: There is no focal consolidation. No pulmonary vascularity is normal. Impression: No acute cardiopulmonary findings. at 0032 Reported and signed by: ADAM NAVAS MD CC: Laureano Wolf MD Technologist: RT Tye Trnscrbd D/ (003) [email or web address] Orig Print D/T: S: 06/25/2020 (0036) [facility] NAME: DEBORAH SANDOVAL Radiology Department PHYS: Alf Hamilton [address] : 1995 AGE: 24 SEX: F [place], [place] [address] LOC: [place] PHONE #: [phone] EXAM DATE: 06/24/2020 STATUS: REG ER FAX #: [phone] RAD NO: Page 1 Signed ReportCBC W/AUTO [id number] 00:26:00 Test Item Value Reference Range Interpretation Comments WHITE BLOOD CELL (test code = WBC) 7.3 K/mm3 6.6-12.1 N RED BLOOD CELL (test code = RBC) 3.56 M/mm3 3.45-5.01 N HEMOGLOBIN (test code = HGB) 9.4 g/dL 10.7-13.9 L HEMATOCRIT (test code = HCT) 30.7 % 32.1-42.1 L MEAN CELL VOLUME (test code = MCV) 86 fL 84.1-94.8 N MEAN CELL HGB (test code = MCH) 26.4 pg 27-35 L MEAN CELL HGB CONCETRATION (test 30.6 gm/dL 32.2-34.1 L code = MCHC) RED CELL DISTRIBUTION WIDTH (test 15.1 % 12.4-16.5 N code = RDW) PLATELET COUNT (test code = PLT) 626 K/mm3 133-385 H MEAN PLATELET VOLUME (test code = 10.2 fl 9.1-12.7 N MPV) NEUTROPHIL % (test code = NT%) 71.4 % 56.5-79.4 N LYMPHOCYTE % (test code = LY%) 19.5 % 14.3-34.3 N MONOCYTE % (test code = MO%) 5.1 % 5.1-10.4 N EOSINOPHIL % (test code = EO%) 2.5 % 0.1-3.0 N BASOPHIL % (test code = BA%) 1.1 % 0.1-1.0 H NEUTROPHIL # (test code = NT#) 5.2 K/mm3 LYMPHOCYTE # (test code = LY#) 1.4 K/mm3 MONOCYTE # (test code = MO#) 0.4 K/mm3 EOSINOPHIL # (test code = EO#) 0.18 K/mm3 BASOPHIL # (test code = BA#) 0.1 K/mm3 RBC MORPHOLOGY REQUIRED (test code NORMAL NORMAL = RBCM) PLATELET MORPHOLOGY REQUIRED (test NORMAL NORMAL code = PLTMR) UA RFLX MICR CULT IF [id number] 00:13:00 Test Item Value Reference Range Interpretation Comments UA COLOR (test code = FAMILIA YELLOW A COLU) UA APPEARANCE (test code CLOUDY CLEAR A = APPU) UA GLUCOSE DIPSTICK (test NEGATIVE NEG code = DGLUU) UA BILIRUBIN DIPSTICK NEGATIVE NEG (test code = BILU) UA KETONE DIPSTICK (test 1+ NEG A code = KETU) UA SPECIFIC GRAVITY (test 1.014 1.001-1.035 N code = SGU) UA BLOOD DIPSTICK (test 3+ NEG A code = DWAIN) UA PH DIPSTICK (test code 6.0 5-9 = ANGELES) UA PROTEIN DIPSTICK (test 2+ NEG A code = PROU) UA UROBILINIOGEN DIPSTICK NEGATIVE mg/dL NEG (test code = URO) UA NITRITE DIPSTICK (test POSITIVE NEG A code = CLEM) UA LEUKOCYTE ESTERASE 3+ NEG A DIPSTICK (test code = LEUU) UA WBC (test code = WBCU) TOO NUMEROUS TO CNT NONE SEEN A #/hpf UA RBC (test code = RBCU) TOO NUMEROUS TO CNT NONE SEEN A #/hpf UA EPITHELIAL CELLS (test RARE #/HPF RARE-FEW code = EPIU) UA BACTERIA (test code = NEGATIVE /HPF RARE-FEW BACU) UA MUCUS (test code = 3+ NONE SEEN MUCU) UA YEAST (test code = RARE #/hpf NONE SEEN A YEASTU) Indication for culture: Dysuria/FrequencySpecimen Description: CLEAN CATCHSpecimen Comment: CLEAN CATCHPLACENTA THIRD [id number] 12:24:00 Test Item Value Reference Range Interpretation Comments PLACENTA THIRD TRIMESTER (test code = PLACIII) RUN DATE: 06/25/20 [facility] PAGE 1 RUN TIME: 1913 Specimen Inquiry RUN USER: INTERFACE PATIENT: DEBORAH SANDOVAL LOC: JyothiKIRSTIE U #: [id number] AGE/SX: 24/F ROOM: [facility] RE06/07/20REG DR: Laureano Wolf MD : [birth year] BED: A DIS: 06/14/20 STATUS: DIS IN TLOC: SPEC #: [id number] RECD: 06/10/20 STATUS: AISSATOU DOBBS #: [id number] EARL: 06/08/20- SUBM DR: Laureano Wolf MD ENTERED: 06/10/20 SP TYPE: PLACIII OTHR DR: ORDERED: LEVEL V SURGICA CODES: [id number] - PLACENTA, NOS PROCEDURES: LEVEL V SURGICA (Incomplete) TISSUES: PLACENTA, NOS - PLACENTA CLINICAL HISTORY 24 year old, 40.1 weeks, section, nonreassuring monitoring (kr) FINAL DIAGNOSIS Placenta, coon gestation (40.1 weeks): - delayed villous maturation - acute subchorionitis (Stage 1 - early, Grade 1 - moderate) - acute funisitis (Stage 2 - intermediate, Grade 1 - mild) - meconium macrophages in membranes - umbilical cord: insertion 5 cm from margin, 3-vessel, 8 cm length - placental weight: actual 654 gms/expected mean 510 gms (50-75th percentile) CPT: 49207, 60407 cds/wpd GROSS DESCRIPTION The specimen was received in a container, labeled with the patient's name, unit number and designated "placenta". The following attributes are observed: Cord insertion: 5 cm from margin Cord length: 8 cm Number of vessels: 3 Cord color: Blue-mayer Other cord findings: None surface findings: Steel blue, wrinkled, glistening and contains complete circumvallate insertion of the membranes (in A4) Vasculature: Unremarkable blood vasculature Membranes rupture site: At the margin Membrane color: Mayer Other membrane findings: Thickened and opaque CONTINUED ON NEXT PAGE RUN DATE: 06/25/20 [facility] PAGE 2 RUN TIME: 1913 Specimen Inquiry RUN USER: INTERFACE SPEC #: [id number] PATIENT: DEBORAH SANDOVAL #[id number] (Continued) --- GROSS DESCRIPTION (Continued) The trimmed placental weight: 564 gm Disk measurement: 19 x 18 x 3.5 cm in greatest dimension Accessory lobes: None Maternal surface: Lobulated, intact and contains pinpoint calcium deposits Parenchyma: Red, beefy, and spongy Parenchyma lesions: None Cassettes: A1 through A4 hz/wpd 06/10/20 MICROSCOPIC DESCRIPTION GMS stain of the umbilical cord on block A1 is negative for fungi. cds/wpd Signed Deniz Cerda 06/24/20 1224 END OF REPORT - XR CYSTOURETHRO [id number] 10:56:00 [facility] : 1995 Sex: F Patient Name: DEBORAH SANDOVAL Unit No: [id number] EXAMS: CPT CODE: [id number] XR CYSTOURETHRO VDNG 95404 Exam: Cystogram Exam date: June 24, 2020 Comparison: None. HISTORY: Bladder injury . Director Of Coding film demonstrates bilateral ureteral stents with the distal pigtail in the region of the bladder and peritoneal drain in the lower pelvic region. Marked amount of fecal matter is identified throughout the visualized colon. There is no evidence of obstruction or ileus. Visualized osseous structures demonstrate no acute findings. Contrast was instilled in a retrograde manner. With approximately 200 mL within the bladder the patient complained of extreme back pain. Scan into the region of the kidneys dem onstrated contrast refluxing through the ureteral stent into the renal collecting system distending the collecting system. The exam was stopped at that time secondary to the patient's intolerance. The bladder was incompletely distended. There is irregularity at the dome of the bladder. No contrast extr avasation was identified however, the bladder was not distended to a point of maximal bladder distention. Contrast was then allowed to drain into the bottle. IMPRESSION: Irregularity at the dome of the bladder. There is no definite extravasation however, the patient could not tolerate filling of the bladder to a point of maximal stress. Ureteral reflux of contrast into the bilateral collecting systems causing the patient pain. Constipation. These findings were given by phone to Dr. Oh post exam 06/24/2020. Total number of images four Total fluoroscopy time 75 seconds Total patient dose 66.63 mGy Total DAP 6.52 Gycm2 at 1056 Reported and signed by: Rubina Mccauley MD CC: Laureano Wolf MD; Steven Oh MD Technologist: Merle Lemus, RT, CT Trnscrbd D/ (5982) [email or web address] Orig Print D/T: S: 06/24/2020 (9790) [facility] NAME: DEBORAH SANDOVAL Radiology Department PHYS: SONDRA Steven Oh MD [address] : 1995 AGE: 24 SEX: F [place] [address] LOC: F.RAD PHONE #: [phone] EXAM DATE: 06/24/2020 STATUS: REG CLI FAX #: [phone] RAD NO: Page 1 Signed Report- CT ABD PELVIS [id number] 19:36:00[facility] : 1995 Sex: F Patient Name: DEBORAH SANDOVAL Unit No: [id number] EXAMS: CPT CODE: [id number] CT ABD PELVIS W/CONT [address]3460 CT ABDOMEN AND PELVIS WITH CONTRAST INDICATION: R ABDOMINAL PAIN S/P SURGERY. TECHNIQUE: Isovue Intravenous contrast was administered followed by CT imaging of the abdomen and pelvis with axial, coronaland sagittal reconstructions. CT imaging performed at this location utilizes radiation dose optimization technique which includes one or more of the followin) Automated exposure control; 2) Adjustment of the mA and/or kV according to patient's size; 3) Use of iterative reconstruction techniques. DLP (mGy-cm): 322 COMPARISONS: None. FINDINGS: There is no acute osseous fracture or dislocation. There are recent surgical changes suggesting section. There is mild edema in the surgical bed soft tissues but no organized soft tissue fluid collection. There is a small amount of subcutaneous emphysema. The aorta reveals no aneurysm or acute process. The inferior vena cava reveals no acute process. The lung bases reveal no acute process. There is a 6 mm nonspecific hypodense lesion in the posterior inferior right hepatic segment that requires no specific additional follow-up in a patient of this age without significant risk factors. There is no acute hepatic process. The gallbladder and bile ducts reveal no acute process. The pancreas reveals no acute process. The spleen reveals no acute process. The adrenal glands reveal no acute process or mass. There is no acute renal process. There are normally positioned bilateral ureteral stents. [facility] NAME: DEBORAH SANDOVAL Radiology Department PHYS: CEE Yaw Ross [address] : 1995 AGE: 24 SEX: [place] [address] LOC: [place] PHONE #: [phone] EXAM DATE: 06/18/2020 STATUS: REG ER FAX #: [phone] RAD NO: Page 1 Signed Report 1 Patient Name: DEBORAH SANDOVAL Unit No: [id number] EXAMS: CPT CODE: [id number] CT ABD PELVIS W/CONT 12886 (Continued) The urinary bladder is minimally distended with an intraluminal catheter present. There is urinary bladder wall thickening. There is a trace amount of nonorganized simple density free fluid in the right pelvis. There is an immediately adjacent percutaneous peritoneal drain catheter. There is a 1.3 x 1.8 x 0.9 cm small organizedappearing fluid collection in the left pelvis on axial image 93 and coronal image 36. There is no intra-abdominal free gas. There is no lymphadenopathy. There is a typical appearance of the uterus with generalized prominence and hypodensity of the endometrial stripe. There is no gas in the endometrial canal. There is no bowel obstruction. There is no bowel mucosal thickening or inflammation. There is a moderate amount of retained colonic stool. The appendix appears normal as visualized. Postcontrast images reveal no leakage of contrast from the urinary system. The bilateral ureters appear patent and there is contrast in the urinary bladder. There is no peritoneal contrast spillage. There is no evidence of active peritoneal hemorrhage. IMPRESSION: 1. There are postoperative changes suggesting recent section. There is a 1.3 x 1.8 x 0.9 cm is nonspecific complex density (28 HU) postoperative fluid collection in the left peritoneum of the pelvis interposed between the left uterus and urinary bladder. There is a trace amount of simple density free fluid in the anterior pelvis adjacent to the percutaneous peritoneal drain catheter. 2. There is no intraabdominal free gas. 3. Normally positioned bilateral ureteral stents. No evidence of urinary obstruction, perforation or ureteral contrast leakage into the peritoneum. 4. The urinary bladder is suboptimally distended around a intraluminal catheter. There is urinary bladder wall thickening which may be due to spasm and under distention or cystitis. 5. There is a moderate amount of retained colonic stool predominantly in the right colon. There is no bowel obstruction or perforation. 6. Normal appendix. [facility] NAME: DEBORAH SANDOVAL Radiology Department PHYS: Yaw Giles [address] : 1995 AGE: 24 SEX: F [place], [place] [address] LOC: MarioERS PHONE #: [phone] DATE: 06/18/2020 STATUS: REG ER FAX #: [phone] RAD NO: Page 2 Signed Report 1 Patient Name: DEBORAH SANDOVAL Unit No: [id number] EXAMS: CPT CODE: [id number] CT ABD PELVIS W/CONT 35780 (Continued) at 1936 Reported and signed by: Felix Shine DO CC: Yaw Ross MD; Laureano Wolf MD Technologist: Jose Luis Martinez, RT,CT CTDI: 3.34 DLP: 321.89 Trnscrbd D/ (193) [id number] [facility] NAME: DEBORAH SANDOVAL Radiology Department PHYS: [facility] [address] : 1995 AGE: 24 SEX: F [place] [id number] LOC: F.ERS PHONE #: [phone] EXAMDATE: 06/18/2020 STATUS: REG ER FAX #: [phone] RAD NO: Page 3 Signed Report 1 Patient Name: DEBORAH SANDOVAL Unit No: [id number] EXAMS: CPT CODE: [id number] CT ABD PELVIS W/CONT 90242 (Continued) Orig Print D/T: S: 06/18/2020 (194) [facility] NAME: DEBORAH SANDOVAL Radiology Department PHYS: [facility],Yaw [address] : 1995 AGE: 24 SEX: F [place], [place] [address] LOC: F.ERS PHONE #: [phone] EXAM DATE: 06/18/2020 STATUS: REG ER FAX #: [phone] RAD NO: Page 4 Signed Report 1COMPREHENSIVE METABOLIC [id number] 19:18:00 Test Item Value Reference Range Interpretation Comments SODIUM (test code = NA) 142 mEq/L 135-145 N POTASSIUM (test code = K) 4.0 mEq/L 3.5-5.0 N CHLORIDE (test code = CL) 105 mEq/L 100-115 N CARBON DIOXIDE (test code = CO2) 30 mEq/L 22-31 N ANION GAP (test code = GAP) 11.10 10-20 N GLUCOSE (test code = GLU) 78 mg/dL 65-110 N BLOOD UREA NITROGEN (test code = 11 mg/dL 7-18 N BUN) GLOMERULAR FILTRATION RATE (test 90 ml/min >60 N code = GFR) CREATININE (test code = CREAT) 0.8 mg/dL 0.5-1.0 N TOTAL PROTEIN (test code = PROT) 5.7 gm/dL 6.3-8.2 L ALBUMIN (test code = ALB) 2.2 gm/dL 3.4-4.8 L CALCIUM (test code = CA) 7.8 mg/dL 8.4-10.2 L BILIRUBIN TOTAL (test code = BILT) 0.2 mg/dL 0.2-1.0 N SGOT/AST (test code = AST) 22 units/L 15-37 N SGPT/ALT (test code = ALT) 21 units/L 12-78 N ALKALINE PHOSPHATASE TOTAL (test 96 units/L 46-116 N code = ALKP) CBC W/AUTO [id number] 18:48:00 Test Item Value Reference Range Interpretation Comments WHITE BLOOD CELL (test code = WBC) 6.6 K/mm3 6.6-12.1 N RED BLOOD CELL (test code = RBC) 3.31 M/mm3 3.45-5.01 L HEMOGLOBIN (test code = HGB) 8.8 g/dL 10.7-13.9 L HEMATOCRIT (test code = HCT) 29.0 % 32.1-42.1 L MEAN CELL VOLUME (test code = MCV) 88 fL 84.1-94.8 N MEAN CELL HGB (test code = MCH) 26.6 pg 27-35 L MEAN CELL HGB CONCETRATION (test 30.3 gm/dL 32.2-34.1 L code = MCHC) RED CELL DISTRIBUTION WIDTH (test 14.9 % 12.4-16.5 N code = RDW) PLATELET COUNT (test code = PLT) 594 K/mm3 133-385 H MEAN PLATELET VOLUME (test code = 9.5 fl 9.1-12.7 N MPV) NEUTROPHIL % (test code = NT%) 59.2 % 56.5-79.4 N LYMPHOCYTE % (test code = LY%) 28.4 % 14.3-34.3 N MONOCYTE % (test code = MO%) 4.9 % 5.1-10.4 L EOSINOPHIL % (test code = EO%) 5.9 % 0.1-3.0 H BASOPHIL % (test code = BA%) 0.8 % 0.1-1.0 N NEUTROPHIL # (test code = NT#) 3.9 K/mm3 LYMPHOCYTE # (test code = LY#) 1.9 K/mm3 MONOCYTE # (test code = MO#) 0.3 K/mm3 EOSINOPHIL # (test code = EO#) 0.39 K/mm3 BASOPHIL # (test code = BA#) 0.1 K/mm3 RBC MORPHOLOGY REQUIRED (test code NORMAL NORMAL = RBCM) PLATELET MORPHOLOGY REQUIRED (test NORMAL NORMAL code = PLTMR) UA RFLX MICR CULT IF [id number] 17:21:00 Test Item Value Reference Range Interpretation Comments UA COLOR (test code = YELLOW YELLOW COLU) UA APPEARANCE (test code CLOUDY CLEAR A = APPU) UA GLUCOSE DIPSTICK (test NEGATIVE NEG code = DGLUU) UA BILIRUBIN DIPSTICK NEGATIVE NEG (test code = BILU) UA KETONE DIPSTICK (test NEGATIVE NEG code = KETU) UA SPECIFIC GRAVITY (test 1.011 1.001-1.035 N code = SGU) UA BLOOD DIPSTICK (test 3+ NEG A code = DWAIN) UA PH DIPSTICK (test code 6.0 5-9 = ANGELES) UA PROTEIN DIPSTICK (test 2+ NEG A code = PROU) UA UROBILINIOGEN DIPSTICK NEGATIVE mg/dL NEG (test code = URO) UA NITRITE DIPSTICK (test NEG NEG code = CLEM) UA LEUKOCYTE ESTERASE 2+ NEG A DIPSTICK (test code = LEUU) UA WBC (test code = WBCU) 16-20 #/hpf NONE SEEN A UA RBC (test code = RBCU) TOO NUMEROUS TO CNT NONE SEEN A #/hpf UA EPITHELIAL CELLS (test FEW #/HPF RARE-FEW code = EPIU) UA BACTERIA (test code = FEW /HPF RARE-FEW BACU) UA MUCUS (test code = RARE NONE SEEN MUCU) Indication for culture: Suprapubic PainSpecimen Description: CLEAN CATCHCBC W/AUTO [id number] 18:54:00 Test Item Value Reference Range Interpretation Comments WHITE BLOOD CELL (test 8.2 K/mm3 6.6-12.1 N code = WBC) RED BLOOD CELL (test 3.23 M/mm3 3.45-5.01 L code = RBC) HEMOGLOBIN (test code = 8.8 g/dL 10.7-13.9 L HGB) HEMATOCRIT (test code = 28.0 % 32.1-42.1 L HCT) MEAN CELL VOLUME (test 87 fL 84.1-94.8 N code = MCV) MEAN CELL HGB (test code 27.2 pg 27-35 N = MCH) MEAN CELL HGB 31.4 gm/dL 32.2-34.1 L CONCETRATION (test code = MCHC) RED CELL DISTRIBUTION 15.2 % 12.4-16.5 N WIDTH (test code = RDW) PLATELET COUNT (test 367 K/mm3 133-385 Results verified by code = PLT) repeat analysis MEAN PLATELET VOLUME 10.6 fl 9.1-12.7 N (test code = MPV) NEUTROPHIL % (test code 67.9 % 56.5-79.4 N = NT%) LYMPHOCYTE % (test code 22.9 % 14.3-34.3 N = LY%) MONOCYTE % (test code = 5.0 % 5.1-10.4 L MO%) EOSINOPHIL % (test code 3.3 % 0.1-3.0 H = EO%) BASOPHIL % (test code = 0.2 % 0.1-1.0 N BA%) NEUTROPHIL # (test code 5.6 K/mm3 = NT#) LYMPHOCYTE # (test code 1.9 K/mm3 = LY#) MONOCYTE # (test code = 0.4 K/mm3 MO#) EOSINOPHIL # (test code 0.27 K/mm3 = EO#) BASOPHIL # (test code = 0.0 K/mm3 BA#) RBC MORPHOLOGY REQUIRED NORMAL NORMAL (test code = RBCM) PLATELET MORPHOLOGY NORMAL NORMAL REQUIRED (test code = PLTMR) COMPREHENSIVE METABOLIC [id number] 09:11:00 Test Item Value Reference Range Interpretation Comments SODIUM (test code = NA) 142 mEq/L 135-145 N POTASSIUM (test code = K) 3.9 mEq/L 3.5-5.0 N CHLORIDE (test code = CL) 107 mEq/L 100-115 N CARBON DIOXIDE (test code = CO2) 29 mEq/L 22-31 N ANION GAP (test code = GAP) 10.00 10-20 N GLUCOSE (test code = GLU) 81 mg/dL 65-110 N BLOOD UREA NITROGEN (test code = 5 mg/dL 7-18 L BUN) GLOMERULAR FILTRATION RATE (test 125 ml/min >60 N code = GFR) CREATININE (test code = CREAT) 0.6 mg/dL 0.5-1.0 N TOTAL PROTEIN (test code = PROT) 4.0 gm/dL 6.3-8.2 L ALBUMIN (test code = ALB) 1.5 gm/dL 3.4-4.8 L CALCIUM (test code = CA) 7.5 mg/dL 8.4-10.2 L BILIRUBIN TOTAL (test code = 0.2 mg/dL 0.2-1.0 N BILT) SGOT/AST (test code = AST) 24 units/L 15-37 N SGPT/ALT (test code = ALT) 20 units/L 12-78 N ALKALINE PHOSPHATASE TOTAL (test 105 units/L 46-116 N code = ALKP) CBC W/AUTO [id number] 09:03:00 Test Item Value Reference Range Interpretation Comments WHITE BLOOD CELL (test 7.7 K/mm3 6.6-12.1 Resul ts verified by code = WBC) repeat analysis RED BLOOD CELL (test 2.96 M/mm3 3.45-5.01 L code = RBC) HEMOGLOBIN (test code = 8.0 g/dL 10.7-13.9 L HGB) HEMATOCRIT (test code = 25.8 % 32.1-42.1 L HCT) MEAN CELL VOLUME (test 87 fL 84.1-94.8 N code = MCV) MEAN CELL HGB (test code 27.0 pg 27-35 N = MCH) MEAN CELL HGB 31.0 gm/dL 32.2-34.1 L CONCETRATION (test code = MCHC) RED CELL DISTRIBUTION 15.0 % 12.4-16.5 N WIDTH (test code = RDW) PLATELET COUNT (test 261 K/mm3 133-385 N code = PLT) MEAN PLATELET VOLUME 11.1 fl 9.1-12.7 N (test code = MPV) NEUTROPHIL % (test code 71.0 % 56.5-79.4 N = NT%) LYMPHOCYTE % (test code 22.0 % 14.3-34.3 N = LY%) MONOCYTE % (test code = 4.4 % 5.1-10.4 L MO%) EOSINOPHIL % (test code 1.7 % 0.1-3.0 N = EO%) BASOPHIL % (test code = 0.1 % 0.1-1.0 N BA%) NEUTROPHIL # (test code 5.5 K/mm3 = NT#) LYMPHOCYTE # (test code 1.7 K/mm3 = LY#) MONOCYTE # (test code = 0.3 K/mm3 MO#) EOSINOPHIL # (test code 0.13 K/mm3 = EO#) BASOPHIL # (test code = 0.0 K/mm3 BA#) RBC MORPHOLOGY REQUIRED NORMAL NORMAL (test code = RBCM) PLATELET MORPHOLOGY NORMAL NORMAL REQUIRED (test code = PLTMR) COMPREHENSIVE METABOLIC [id number] 07:39:00 Test Item Value Reference Range Interpretation Comments SODIUM (test code = NA) 138 mEq/L 135-145 N POTASSIUM (test code = K) 3.6 mEq/L 3.5-5.0 N CHLORIDE (test code = CL) 105 mEq/L 100-115 N CARBON DIOXIDE (test code = CO2) 26 mEq/L 22-31 N ANION GAP (test code = GAP) 10.40 10-20 N GLUCOSE (test code = GLU) 91 mg/dL 65-110 N BLOOD UREA NITROGEN (test code = 7 mg/dL 7-18 N BUN) GLOMERULAR FILTRATION RATE (test 125 ml/min >60 N code = GFR) CREATININE (test code = CREAT) 0.6 mg/dL 0.5-1.0 N TOTAL PROTEIN (test code = PROT) 3.8 gm/dL 6.3-8.2 L ALBUMIN (test code = ALB) 1.5 gm/dL 3.4-4.8 L CALCIUM (test code = CA) 7.5 mg/dL 8.4-10.2 L BILIRUBIN TOTAL (test code = 0.2 mg/dL 0.2-1.0 N BILT) SGOT/AST (test code = AST) 28 units/L 15-37 N SGPT/ALT (test code = ALT) 16 units/L 12-78 N ALKALINE PHOSPHATASE TOTAL (test 107 units/L 46-116 N code = ALKP) CBC W/AUTO [id number] 07:10:00 Test Item Value Reference Range Interpretation Comments WHITE BLOOD CELL (test 15.1 K/mm3 6.6-12.1 H code = WBC) RED BLOOD CELL (test 2.83 M/mm3 3.45-5.01 L code = RBC) HEMOGLOBIN (test code = 7.9 g/dL 10.7-13.9 L HGB) HEMATOCRIT (test code = 24.6 % 32.1-42.1 L HCT) MEAN CELL VOLUME (test 87 fL 84.1-94.8 N code = MCV) MEAN CELL HGB (test code 27.9 pg 27-35 N = MCH) MEAN CELL HGB 32.1 gm/dL 32.2-34.1 L CONCETRATION (test code = MCHC) RED CELL DISTRIBUTION 14.9 % 12.4-16.5 N WIDTH (test code = RDW) PLATELET COUNT (test 221 K/mm3 133-385 Results verified by code = PLT) repeat analysis MEAN PLATELET VOLUME 11.6 fl 9.1-12.7 N (test code = MPV) NEUTROPHIL % (test code 78.8 % 56.5-79.4 N = NT%) LYMPHOCYTE % (test code 13.9 % 14.3-34.3 L = LY%) MONOCYTE % (test code = 4.8 % 5.1-10.4 L MO%) EOSINOPHIL % (test code 1.7 % 0.1-3.0 N = EO%) BASOPHIL % (test code = 0.1 % 0.1-1.0 N BA%) NEUTROPHIL # (test code 11.9 K/mm3 = NT#) LYMPHOCYTE # (test code 2.1 K/mm3 = LY#) MONOCYTE # (test code = 0.7 K/mm3 MO#) EOSINOPHIL # (test code 0.26 K/mm3 = EO#) BASOPHIL # (test code = 0.0 K/mm3 BA#) RBC MORPHOLOGY REQUIRED NORMAL NORMAL (test code = RBCM) PLATELET MORPHOLOGY NORMAL NORMAL REQUIRED (test code = PLTMR) COMPREHENSIVE METABOLIC [id number] 10:31:00 Test Item Value Reference Range Interpretation Comments SODIUM (test code = NA) 140 mEq/L 135-145 N POTASSIUM (test code = 4.5 mEq/L 3.5-5.0 N K) CHLORIDE (test code = 108 mEq/L 100-115 N CL) CARBON DIOXIDE (test 27 mEq/L 22-31 N code = CO2) ANION GAP (test code = 9.80 10-20 L GAP) GLUCOSE (test code = 59 mg/dL 65-110 L GLU) BLOOD UREA NITROGEN 6 mg/dL 7-18 L (test code = BUN) GLOMERULAR FILTRATION 90 ml/min >60 N RATE (test code = GFR) CREATININE (test code = 0.8 mg/dL 0.5-1.0 N CREAT) TOTAL PROTEIN (test 3.8 gm/dL 6.3-8.2 L code = PROT) ALBUMIN (test code = 1.6 gm/dL 3.4-4.8 L ALB) CALCIUM (test code = 7.6 mg/dL 8.4-10.2 L CA) BILIRUBIN TOTAL (test 0.4 mg/dL 0.2-1.0 N code = BILT) SGOT/AST (test code = 39 units/L 15-37 H Result s verified by AST) repeat analysis SGPT/ALT (test code = 16 units/L 12-78 N ALT) ALKALINE PHOSPHATASE 119 units/L 46-116 H Results verified by TOTAL (test code = repeat an alysis ALKP) [id number] 10:31:00 Test Item Value Reference Range Interpretation Comments AMYLASE (test code = GT) 127 units/L 30-110 H [id number] 10:31:00 Test Item Value Reference Range Interpretation Comments LIPASE (test code = LIP) 43 units/L 73-393 L HGB [id number] 07:51:00 Test Item Value Reference Range Interpretation Comments HEMOGLOBIN (test code = HGB) 8.6 g/dL 10.7-13.9 L HEMATOCRIT (test code = HCT) 27.2 % 32.1-42.1 L CBC W/AUTO [id number] 01:33:00 Test Item Value Reference Range Interpretation Comments WHITE BLOOD CELL (test 15.0 K/mm3 6.6-12.1 H code = WBC) RED BLOOD CELL (test 2.87 M/mm3 3.45-5.01 L code = RBC) HEMOGLOBIN (test code = 7.8 g/dL 10.7-13.9 L RESU LTS VERIFIED BY HGB) REPEAT ANALYSIS HEMATOCRIT (test code = 23.9 % 32.1-42.1 L RESU LTS VERIFIED BY HCT) REPEAT ANALYSIS MEAN CELL VOLUME (test 83 fL 84.1-94.8 L code = MCV) MEAN CELL HGB (test code 27.2 pg 27-35 N = MCH) MEAN CELL HGB 32.6 gm/dL 32.2-34.1 N CONCETRATION (test code = MCHC) RED CELL DISTRIBUTION 14.4 % 12.4-16.5 N WIDTH (test code = RDW) PLATELET COUNT (test 156 K/mm3 133-385 N code = PLT) MEAN PLATELET VOLUME 11.4 fl 9.1-12.7 N (test code = MPV) NEUTROPHIL % (test code 82.5 % 56.5-79.4 H = NT%) LYMPHOCYTE % (test code 13.0 % 14.3-34.3 L = LY%) MONOCYTE % (test code = 3.7 % 5.1-10.4 L MO%) EOSINOPHIL % (test code 0.1 % 0.1-3.0 N = EO%) BASOPHIL % (test code = 0.2 % 0.1-1.0 N BA%) NEUTROPHIL # (test code 12.4 K/mm3 = NT#) LYMPHOCYTE # (test code 2.0 K/mm3 = LY#) MONOCYTE # (test code = 0.6 K/mm3 MO#) EOSINOPHIL # (test code 0.02 K/mm3 = EO#) BASOPHIL # (test code = 0.0 K/mm3 BA#) RBC MORPHOLOGY REQUIRED NORMAL NORMAL (test code = RBCM) PLATELET MORPHOLOGY NORMAL NORMAL REQUIRED (test code = PLTMR) PROTHROMBIN [id number] 13:18:00 Test Item Value Reference Range Interpretation Comments PROTHROMBIN TIME PATIENT (test code 11.5 secs 10.4-12.4 N = PTP) THROMBOPLASTIN TIME [id number] 13:18:00 Test Item Value Reference Range Interpretation Comments THROMBOPLASTIN TIME PARTIAL (test 26.0 secs 22-38 N code = PTT) [id number] 13:18:00 Test Item Value Reference Range Interpretation Comments FIBRINOGEN (test code = FIB) 313 mg/dL 309-518 N CBC W/AUTO [id number] 12:44:00 Test Item Value Reference Range Interpretation Comments WHITE BLOOD CELL (test code = WBC) 17.3 K/mm3 6.6-12.1 H RED BLOOD CELL (test code = RBC) 3.71 M/mm3 3.45-5.01 N HEMOGLOBIN (test code = HGB) 10.2 g/dL 10.7-13.9 L HEMATOCRIT (test code = HCT) 32.8 % 32.1-42.1 MEAN CELL VOLUME (test code = MCV) 88 fL 84.1-94.8 N MEAN CELL HGB (test code = MCH) 27.5 pg 27-35 N MEAN CELL HGB CONCETRATION (test 31.1 gm/dL 32.2-34.1 L code = MCHC) RED CELL DISTRIBUTION WIDTH (test 13.9 % 12.4-16.5 N code = RDW) PLATELET COUNT (test code = PLT) 165 K/mm3 133-385 N MEAN PLATELET VOLUME (test code = 12.3 fl 9.1-12.7 N MPV) NEUTROPHIL % (test code = NT%) 92.0 % 56.5-79.4 H LYMPHOCYTE % (test code = LY%) 2.8 % 14.3-34.3 L MONOCYTE % (test code = MO%) 4.6 % 5.1-10.4 L EOSINOPHIL % (test code = EO%) 0.0 % 0.1-3.0 L BASOPHIL % (test code = BA%) 0.1 % 0.1-1.0 N NEUTROPHIL # (test code = NT#) 15.9 K/mm3 LYMPHOCYTE # (test code = LY#) 0.5 K/mm3 MONOCYTE # (test code = MO#) 0.8 K/mm3 EOSINOPHIL # (test code = EO#) 0 K/mm3 BASOPHIL # (test code = BA#) 0.0 K/mm3 RBC MORPHOLOGY REQUIRED (test code NORMAL NORMAL = RBCM) PLATELET MORPHOLOGY REQUIRED (test NORMAL NORMAL code = PLTMR) RESULTS VERIFIED BY [facility] W/AUTO [id number] 10:53:00 Test Item Value Reference Range Interpretation Comments WHITE BLOOD CELL (test 14.6 K/mm3 6.6-12.1 H code = WBC) RED BLOOD CELL (test 2.47 M/mm3 3.45-5.01 L code = RBC) HEMOGLOBIN (test code = 6.7 g/dL 10.7-13.9 LL RESU LTS CALLED TO HGB) JOSE.READ B ACK & CONFIRMED? Y. BY F.LAB.[facility] 06/08 1053.RESULTS VERIFIED BY REP EAT ANALYSIS HEMATOCRIT (test code = 21.4 % 32.1-42.1 L HCT) MEAN CELL VOLUME (test 87 fL 84.1-94.8 N code = MCV) MEAN CELL HGB (test code 27.1 pg 27-35 N = MCH) MEAN CELL HGB 31.3 gm/dL 32.2-34.1 L CONCETRATION (test code = MCHC) RED CELL DISTRIBUTION 14.2 % 12.4-16.5 N WIDTH (test code = RDW) PLATELET COUNT (test 155 K/mm3 133-385 N code = PLT) MEAN PLATELET VOLUME 11.6 fl 9.1-12.7 N (test code = MPV) NEUTROPHIL % (test code 91.9 % 56.5-79.4 H = NT%) LYMPHOCYTE % (test code 2.9 % 14.3-34.3 L = LY%) MONOCYTE % (test code = 4.8 % 5.1-10.4 L MO%) EOSINOPHIL % (test code 0.0 % 0.1-3.0 L = EO%) BASOPHIL % (test code = 0.1 % 0.1-1.0 N BA%) NEUTROPHIL # (test code 13.4 K/mm3 = NT#) LYMPHOCYTE # (test code 0.4 K/mm3 = LY#) MONOCYTE # (test code = 0.7 K/mm3 MO#) EOSINOPHIL # (test code 0 K/mm3 = EO#) BASOPHIL # (test code = 0.0 K/mm3 BA#) RBC MORPHOLOGY REQUIRED NORMAL NORMAL (test code = RBCM) PLATELET MORPHOLOGY NORMAL NORMAL REQUIRED (test code = PLTMR) PROTHROMBIN [id number] 10:05:00 Test Item Value Reference Range Interpretation Comments PROTHROMBIN TIME PATIENT (test code 11.9 secs 10.4-12.4 N = PTP) Comments to Route Sales Specialist: DRAWING IN ORTHROMBOPLASTIN TIME [id number] 10:05:00 Test Item Value Reference Range Interpretation Comments THROMBOPLASTIN TIME PARTIAL (test 27.1 secs 22-38 N code = PTT) Comments to Route Sales Specialist: DRAWING IN [id number] 10:05:00 Test Item Value Reference Range Interpretation Comments FIBRINOGEN (test code = FIB) 266 mg/dL 309-518 L Comments to Route Sales Specialist: DRAWING IN ORPROTHROMBIN [id number] 07:07:00 Test Item Value Reference Range Interpretation Comments PROTHROMBIN TIME PATIENT (test code 11.0 secs 10.4-12.4 N = PTP) THROMBOPLASTIN TIME [id number] 07:07:00 Test Item Value Reference Range Interpretation Comments THROMBOPLASTIN TIME PARTIAL (test 28.0 secs 22-38 N code = PTT) [id number] 07:07:00 Test Item Value Reference Range Interpretation Comments FIBRINOGEN (test code = FIB) 138 mg/dL 309-518 L CBC W/AUTO [id number] 06:26:00 Test Item Value Reference Range Interpretation Comments WHITE BLOOD CELL (test code = WBC) 12.5 K/mm3 6.6-12.1 H RED BLOOD CELL (test code = RBC) 3.30 M/mm3 3.45-5.01 L HEMOGLOBIN (test code = HGB) 8.4 g/dL 10.7-13.9 L HEMATOCRIT (test code = HCT) 28.7 % 32.1-42.1 L MEAN CELL VOLUME (test code = MCV) 87 fL 84.1-94.8 N MEAN CELL HGB (test code = MCH) 25.5 pg 27-35 L MEAN CELL HGB CONCETRATION (test 29.3 gm/dL 32.2-34.1 L code = MCHC) RED CELL DISTRIBUTION WIDTH (test 13.9 % 12.4-16.5 N code = RDW) PLATELET COUNT (test code = PLT) 230 K/mm3 133-385 N MEAN PLATELET VOLUME (test code = 11.9 fl 9.1-12.7 N MPV) NEUTROPHIL % (test code = NT%) 79.7 % 56.5-79.4 H LYMPHOCYTE % (test code = LY%) 15.3 % 14.3-34.3 N MONOCYTE % (test code = MO%) 4.1 % 5.1-10.4 L EOSINOPHIL % (test code = EO%) 0.2 % 0.1-3.0 N BASOPHIL % (test code = BA%) 0.2 % 0.1-1.0 N NEUTROPHIL # (test code = NT#) 10.0 K/mm3 LYMPHOCYTE # (test code = LY#) 1.9 K/mm3 MONOCYTE # (test code = MO#) 0.5 K/mm3 EOSINOPHIL # (test code = EO#) 0.03 K/mm3 BASOPHIL # (test code = BA#) 0.0 K/mm3 RBC MORPHOLOGY REQUIRED (test code NORMAL NORMAL = RBCM) PLATELET MORPHOLOGY REQUIRED (test NORMAL NORMAL code = PLTMR) CAPILLARY BLOOD [id number] 06:03:00 Test Item Value Reference Range Interpretation Comments CAPILLARY BLOOD GAS PH (test code 7.172 7.35-7.45 LL = PHC) CAPILLARY BLOOD GAS PCO2 (test 65.5 mmHg code = PCO2C) CBG HCO3 (test code = HCO3C) 23.5 meq/L CBG BASE EXCESS (test code = BEC) -6.3 CAPILLARY BLOOD GAS TYPE (test CBLA code = TYPEC) CAPILLARY BLOOD GAS FIO2 (test 21.0 % code = FIO2C) CAPILLARY BLOOD [id number] 06:02:00 Test Item Value Reference Range Interpretation Comments CAPILLARY BLOOD GAS PH (test code 7.272 7.35-7.45 L = PHC) CAPILLARY BLOOD GAS PCO2 (test 45.4 mmHg code = PCO2C) CAPILLARY BLOOD GAS PO2 (test code 18.5 mmHg = PO2C) CBG HCO3 (test code = HCO3C) 20.5 meq/L CBG BASE EXCESS (test code = BEC) -6.4 CBG O2 SATURATION (test code = 23.1 % SATC) CAPILLARY BLOOD GAS TYPE (test CBLV code = TYPEC) CAPILLARY BLOOD GAS FIO2 (test 21.0 % code = FIO2C) COMPREHENSIVE METABOLIC [id number] 17:43:00 Test Item Value Reference Range Interpretation Comments SODIUM (test code = NA) 137 mEq/L 135-145 N POTASSIUM (test code = K) 4.1 mEq/L 3.5-5.0 N CHLORIDE (test code = CL) 103 mEq/L 100-115 N CARBON DIOXIDE (test code = CO2) 25 mEq/L 22-31 N ANION GAP (test code = GAP) 13.30 10-20 N GLUCOSE (test code = GLU) 64 mg/dL 65-110 L BLOOD UREA NITROGEN (test code = 6 mg/dL 7-18 L BUN) GLOMERULAR FILTRATION RATE (test 125 ml/min >60 N code = GFR) CREATININE (test code = CREAT) 0.6 mg/dL 0.5-1.0 N TOTAL PROTEIN (test code = PROT) 6.0 gm/dL 6.3-8.2 L ALBUMIN (test code = ALB) 2.6 gm/dL 3.4-4.8 L CALCIUM (test code = CA) 8.0 mg/dL 8.4-10.2 L BILIRUBIN TOTAL (test code = 0.4 mg/dL 0.2-1.0 N BILT) SGOT/AST (test code = AST) 17 units/L 15-37 N SGPT/ALT (test code = ALT) 11 units/L 12-78 L ALKALINE PHOSPHATASE TOTAL (test 259 units/L 46-116 H code = ALKP) AG HEPATITIS B [id number] 16:53:00 Test Item Value Reference Range Interpretation Comments AG HEPATITIS B SURFACE (test code NONREACTIVE NONREACTIVE = HBSAG) AB HEPATITIS C [id number] 16:53:00 Test Item Value Reference Range Interpretation Comments AB HEPATITIS C (test code = NONREACTIVE NONREACTIVE HCVAB) SIGNAL TO CUTOFF (test code = 0.06 <0.80 N CUTOFF) AB [id number] 16:53:00 Test Item Value Reference Range Interpretation Comments AB TREPONEMA (test code = TREPAB) NONREACTIVE NONREACTIVE AG HEPATITIS B [id number] 16:28:00 Test Item Value Reference Range Interpretation Comments AG HEPATITIS B SURFACE (test code NONREACTIVE NONREACTIVE = HBSAG) AB HEPATITIS C [id number] 16:28:00 Test Item Value Reference Range Interpretation Comments AB HEPATITIS C (test code = HCVAB) NONREACTIVE SIGNAL TO CUTOFF (test code = CUTOFF) <0.80 AB [id number] 16:28:00 Test Item Value Reference Range Interpretation Comments AB TREPONEMA (test code = TREPAB) NONREACTIVE NONREACTIVE CBC W/AUTO [id number] 15:48:00 Test Item Value Reference Range Interpretation Comments WHITE BLOOD CELL (test code = WBC) 7.2 K/mm3 6.6-12.1 N RED BLOOD CELL (test code = RBC) 3.75 M/mm3 3.45-5.01 N HEMOGLOBIN (test code = HGB) 9.4 g/dL 10.7-13.9 L HEMATOCRIT (test code = HCT) 30.9 % 32.1-42.1 L MEAN CELL VOLUME (test code = MCV) 82 fL 84.1-94.8 L MEAN CELL HGB (test code = MCH) 25.1 pg 27-35 L MEAN CELL HGB CONCETRATION (test 30.4 gm/dL 32.2-34.1 L code = MCHC) RED CELL DISTRIBUTION WIDTH (test 13.8 % 12.4-16.5 N code = RDW) PLATELET COUNT (test code = PLT) 253 K/mm3 133-385 N MEAN PLATELET VOLUME (test code = 11.7 fl 9.1-12.7 N MPV) NEUTROPHIL % (test code = NT%) 69.0 % 56.5-79.4 N LYMPHOCYTE % (test code = LY%) 23.6 % 14.3-34.3 N MONOCYTE % (test code = MO%) 6.2 % 5.1-10.4 N EOSINOPHIL % (test code = EO%) 0.4 % 0.1-3.0 N BASOPHIL % (test code = BA%) 0.4 % 0.1-1.0 N NEUTROPHIL # (test code = NT#) 4.9 K/mm3 LYMPHOCYTE # (test code = LY#) 1.7 K/mm3 MONOCYTE # (test code = MO#) 0.4 K/mm3 EOSINOPHIL # (test code = EO#) 0.03 K/mm3 BASOPHIL # (test code = BA#) 0.0 K/mm3 RBC MORPHOLOGY REQUIRED (test code NORMAL NORMAL = RBCM) PLATELET MORPHOLOGY REQUIRED (test NORMAL NORMAL code = PLTMR) COVID 19 Asymptomatic IH [id number] 15:30:00 Test Item Value Reference Range Interpretation Comments COVID 19 NEGATIVE NEGATIVE This test has b een Asymptomatic IH AG authorize d only for the (test code = detection ofpro teins from COVNONPUIAG) SARS-CoV-2, not for any other viruses orpathogens. Ne gative results should be treated as presumptive andconfirmed wi th a molecular assay , if necessary for patientmanageme nt. Negative result s do not rule out COVID- 19 andshould not b e used as the sole basis for treatment orpat ient management deci sions, including infec tion controldecision s. Negative result s should be considered i n thecontext of a patient's recent exposure s, history and thepresence of clinical signs and symptoms consis tent withCOVID-19. T his test has not been FD A cleared or approved; th e test hasbeen authori zed by FDA under an Emerge ncy Use Authorization(E UA) for use by laborato kelly certified under the CLIA thatmeet the re quirements to perform mode rate, high or waivedcomple xity tests. This aparna t is authorized for use at thePoint of Car e (POC), i.e., in patien t care settingsoperati ng under a CLIA Certificat e of Waiver, Certifi hillary ofCompliance, o r Certificate of Accreditation. This test is only authori zed for the duration of thedeclaration that circumstances e xist justifying theauthorizatio n of emergency use o f in vitro diagnostic test sfor detection and/o r diagnosis of CO VID-19 under Exmojcn69 4(b)(1) of the Act, 21 U.S .C. 360bbb-3(b)(1), unless theauthorizatio n is terminated or r evoked sooner. COMPREHENSIVE METABOLIC [id number] 16:14:00 Test Item Value Reference Range Interpretation Comments SODIUM (test code = NA) 137 mEq/L 135-145 N POTASSIUM (test code = K) 4.0 mEq/L 3.5-5.0 N CHLORIDE (test code = CL) 105 mEq/L 100-115 N CARBON DIOXIDE (test code = CO2) 23 mEq/L 22-31 N ANION GAP (test code = GAP) 13.00 10-20 N GLUCOSE (test code = GLU) 78 mg/dL 65-110 N BLOOD UREA NITROGEN (test code = 5 mg/dL 7-18 L BUN) GLOMERULAR FILTRATION RATE (test 154 ml/min >60 N code = GFR) CREATININE (test code = CREAT) 0.5 mg/dL 0.5-1.0 N TOTAL PROTEIN (test code = PROT) 5.9 gm/dL 6.3-8.2 L ALBUMIN (test code = ALB) 2.5 gm/dL 3.4-4.8 L CALCIUM (test code = CA) 8.3 mg/dL 8.4-10.2 L BILIRUBIN TOTAL (test code = 0.3 mg/dL 0.2-1.0 N BILT) SGOT/AST (test code = AST) 17 units/L 15-37 N SGPT/ALT (test code = ALT) 13 units/L 12-78 N ALKALINE PHOSPHATASE TOTAL (test 238 units/L 46-116 H code = ALKP) CBC W/AUTO [id number] 15:46:00 Test Item Value Reference Range Interpretation Comments WHITE BLOOD CELL (test code = WBC) 6.6 K/mm3 6.6-12.1 N RED BLOOD CELL (test code = RBC) 3.70 M/mm3 3.45-5.01 N HEMOGLOBIN (test code = HGB) 9.5 g/dL 10.7-13.9 L HEMATOCRIT (test code = HCT) 31.5 % 32.1-42.1 L MEAN CELL VOLUME (test code = MCV) 85 fL 84.1-94.8 N MEAN CELL HGB (test code = MCH) 25.7 pg 27-35 L MEAN CELL HGB CONCETRATION (test 30.2 gm/dL 32.2-34.1 L code = MCHC) RED CELL DISTRIBUTION WIDTH (test 13.2 % 12.4-16.5 N code = RDW) PLATELET COUNT (test code = PLT) 248 K/mm3 133-385 N MEAN PLATELET VOLUME (test code = 12.0 fl 9.1-12.7 N MPV) NEUTROPHIL % (test code = NT%) 71.2 % 56.5-79.4 N LYMPHOCYTE % (test code = LY%) 22.9 % 14.3-34.3 N MONOCYTE % (test code = MO%) 4.6 % 5.1-10.4 L EOSINOPHIL % (test code = EO%) 0.6 % 0.1-3.0 N BASOPHIL % (test code = BA%) 0.2 % 0.1-1.0 N NEUTROPHIL # (test code = NT#) 4.7 K/mm3 LYMPHOCYTE # (test code = LY#) 1.5 K/mm3 MONOCYTE # (test code = MO#) 0.3 K/mm3 EOSINOPHIL # (test code = EO#) 0.04 K/mm3 BASOPHIL # (test code = BA#) 0.0 K/mm3 RBC MORPHOLOGY REQUIRED (test code NORMAL NORMAL = RBCM) PLATELET MORPHOLOGY REQUIRED (test NORMAL NORMAL code = PLTMR) RUPTURE OF [id number] 11:57:00 Test Item Value Reference Range Interpretation Comments RUPTURE OF MEMBRANES (test code NON-RUPTURED = ROM) Specimen Comment: NOT RUPTURED
[2022-02-28 13:18] LABS: Urine Blood 1+ (Negative); Urine Glucose Negative (Negative); Urine Protein 1+ (Negative); Urine Specific Gravity 1.025 (1.005-1.030); Urine pH 5.5 (5.0-7.0)
[2022-02-28] MEDS ORDERED: NA CHLORIDE 0.9% 1,000 ML ONE (13:45)
[2022-02-28] MEDS ORDERED: CEFTRIAXONE 1000 MG/VIAL ONE (13:45)
--- NOTE | 2022-02-28 13:45 | RAD REPORT ---
EXAM DESCRIPTION: RAD - Chest Single View - 02/28/2022 1:30 pm CLINICAL HISTORY: abdominal pain COMPARISON: CHEST PA AND LAT 2 VIEW dated 07/27/2014 FINDINGS: Lines: None. Lungs: No evidence of edema or pneumonia. Pleural: No significant pleural effusions or pneumothorax. Cardiac: The heart size is within normal limits. Mediastinum: Within normal limits. Bones: No acute fractures. Other: None IMPRESSION: No acute cardiopulmonary disease.
[2022-02-28 13:46] LABS: Absolute Lymphocytes (CBC) 0.4 K/uL (0.7-4.9); Hematocrit 40.2 % (36.0-45.0); Lymphocytes % 4.5 % (15.3-44.8); MCV 84.4 fL (80-100); MPV 8.7 fL (7.6-11.3); RBC Red Blood Cell Count 4.77 M/uL (3.86-4.86)
[2022-02-28] MEDS ORDERED: KETOROLAC 30 MG/ML INJ ONE (13:46)
[2022-02-28 13:51] LABS: Protime INR 1.09
[2022-02-28 14:05] LABS: Urine RBC <5 /HPF (None Seen)
[2022-02-28 14:06] LABS: Urine Bacteria >50 /HPF (<20)
[2022-02-28 14:11] LABS: Urine Specific Gravity/Preg 1.025 (1.005-1.030)
[2022-02-28 14:15] LABS: Albumin 4.1 g/dL (3.4-5.0); Bilirubin Total 0.6 mg/dL (0.2-1.0); Magnesium 2.1 mg/dL (1.8-2.4); Potassium 4.2 mmol/L (3.5-5.1); Protein, Total 7.9 g/dL (6.4-8.2)
--- NOTE | 2022-02-28 14:35 | RAD REPORT ---
EXAM DESCRIPTION: US - Renal Ultrasound-Complete - 02/28/2022 2:14 pm CLINICAL HISTORY: PAIN COMPARISON: No comparisonsStone Protocol dated 03/08/2021 FINDINGS: Both kidneys are normal in size, shape and echotexture. The right kidney measures 11.3 cm. No hydronephrosis, focal mass or perinephric fluid. The left kidney measures 9.4 cm. No hydronephrosis, focal mass or perinephric fluid. The urinary bladder is incompletely distended without gross abnormality seen. IMPRESSION: Unremarkable renal sonogram.
[2022-02-28 14:42] LABS: SARS-CoV-2 Antigen Rapid Res Negative (Negative)
[2022-02-28] MEDS ORDERED: NA CHLORIDE 0.9% 500 ML ONE (14:47)
--- NOTE | 2022-02-28 15:21 | EDPHYS ---
Physician Documentation [facility] Name: Wilma Batres Age: 26 yrs Sex: Female : 1995 Arrival Date: 02/28/2022 Time: 12:46 Bed 13 Private MD: ED Physician Aldo Rosario HPI: 02/28 13:23 This 26 yrs old Female presents to ER via Ambulatory with complaints of snw Abdominal Pain, Vomiting/Diarrhea. 13:23 The patient presents with abdominal pain more left flank. Onset: The symptoms/episode snw began/occurred suddenly, this morning. The symptoms radiate to the left flank. Associated signs and symptoms: Pertinent positives: nausea, vomiting, and diarrhea. The symptoms are described as sharp. Modifying factors: The symptoms are alleviated by nothing. Severity of pain: At its worst the pain was moderate this morning. The patient has experienced similar episodes in the past. The patient has not recently seen a physician. LMP 02/02/22. 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 - Social history:: Smoking status: Patient denies any tobacco usage or history of. ROS: 13:21 Eyes: Negative for injury, pain, redness, and discharge, ENT: Negative for injury, snw pain, and discharge, Neck: Negative for injury, pain, and swelling, Cardiovascular: Negative for chest pain, palpitations, and edema, Respiratory: Negative for shortness of breath, cough, wheezing, and pleuritic chest pain, Abdomen/GI: Negative for abdominal pain, nausea, vomiting, diarrhea, and constipation. 13:21 MS/Extremity: Negative for injury and deformity, Skin: Negative for injury, rash, and discoloration, Neuro: Negative for headache, weakness, numbness, tingling, and seizure, Psych: Negative for depression, anxiety, suicide ideation, homicidal ideation, and hallucinations. 13:21 Constitutional: Positive for body aches, chills, malaise. 13:21 Back: Positive for flank pain, on the left. 13:21 : Positive for urinary symptoms, flank pain, burning with urination. Exam: 13:22 Head/Face: Normocephalic, atraumatic. Eyes: Pupils equal round and reactive to light, snw extra-ocular motions intact. Lids and lashes normal. Conjunctiva and sclera are non-icteric and not injected. Cornea within normal limits. Periorbital areas with no swelling, redness, or edema. ENT: Nares patent. No nasal discharge, no septal abnormalities noted. Tympanic membranes are normal and external auditory canals are clear. Oropharynx with no redness, swelling, or masses, exudates, or evidence of obstruction, uvula midline. Mucous membranes moist. Neck: Trachea midline, no thyromegaly or masses palpated, and no cervical lymphadenopathy. Supple, full range of motion without nuchal rigidity, or vertebral point tenderness. No Meningismus. Chest/axilla: Normal chest wall appearance and motion. Nontender with no deformity. No lesions are appreciated. 13:22 Respiratory: Lungs have equal breath sounds bilaterally, clear to auscultation and percussion. No rales, rhonchi or wheezes noted. No increased work of breathing, no retractions or nasal flaring. Abdomen/GI: Soft, non-tender, with normal bowel sounds. No distension or tympany. No guarding or rebound. No evidence of tenderness throughout. 13:22 Skin: Warm, dry with normal turgor. Normal color with no rashes, no lesions, and no evidence of cellulitis. MS/ Extremity: Pulses equal, no cyanosis. Neurovascular intact. Full, normal range of motion. Neuro: Awake and alert, GCS 15, oriented to person, place, time, and situation. Cranial nerves II-XII grossly intact. Motor strength 5/5 in all extremities. Sensory grossly intact. Cerebellar exam normal. Normal gait. Psych: Awake, alert, with orientation to person, place and time. Behavior, mood, and affect are within normal limits. 13:22 Constitutional: The patient appears alert, awake, frail. 13:22 Cardiovascular: Rate: tachycardic, Rhythm: regular, Pulses: no pulse deficits are appreciated, Heart sounds: normal. 13:22 Back: pain, that is moderate, of the left mid back, CVA tenderness, that is moderate, is noted on the left. Vital Signs: 12:53 BP 96 / 56; Pulse 132; Resp 16; Temp 99.2(TE); Pulse Ox 99% ; Weight 44.45 kg; Height 5 ll1 ft. 4 in. (162.56 cm); Pain 6/10; 13:18 BP 83 / 64; Pulse 131; Resp 21; Pulse Ox 100% on R/A; jg9 13:30 BP 83 / 69; Pulse 90; Resp 17 S; Pulse Ox 100% on R/A; jg9 13:45 BP 79 / 62; Pulse 93; Resp 16 S; Pulse Ox 99% on R/A; jg9 13:48 BP 81 / 67; Pulse 98; Resp 17 S; Pulse Ox 97% on R/A; jg9 14:00 BP 63 / 45; Pulse 101; Resp 18 S; Pulse Ox 100% on R/A; jg9 14:06 BP 79 / 61; Pulse 88; Resp 17 S; Pulse Ox 100% on R/A; jg9 14:15 BP 81 / 66; Pulse 96; Resp 25 S; Pulse Ox 94% on R/A; jg9 14:23 BP 81 / 68; Pulse 84; Resp 17 S; Pulse Ox 100% on R/A; jg9 14:30 BP 81 / 65; Pulse 104; Resp 20 S; Pulse Ox 96% on R/A; jg9 14:45 BP 79 / 66; Pulse 95; Resp 16 S; Pulse Ox 100% on R/A; jg9 15:00 BP 77 / 60; Pulse 92; Resp 14 S; Pulse Ox 98% on R/A; jg9 16:15 BP 102 / 70; Pulse 108; Resp 17 S; Pulse Ox 98% on R/A; Pain 2/10; jg9 16:30 BP 88 / 60; Pulse 113; Resp 16 S; Pulse Ox 92% on R/A; jg9 16:45 BP 90 / 63; Pulse 103; Resp 12 S; Pulse Ox 100% on R/A; jg9 17:00 BP 76 / 53; Pulse 96; Resp 17 S; Pulse Ox 100% on R/A; jg9 17:15 BP 81 / 62; Pulse 96; Resp 18 S; Pulse Ox 100% ; jg9 17:30 BP 89 / 66; Pulse 95; Resp 12 S; Pulse Ox 100% ; jg9 18:30 BP 91 / 63; Pulse 105; Resp 21 S; Pulse Ox 100% on R/A; jg9 19:15 BP 92 / 61; Pulse 99; Resp 17; Pulse Ox 100% on R/A; jb4 20:26 BP 102 / 66; Pulse 105; Resp 16; Temp 100.3(O); Pulse Ox 96% on R/A; jb4 12:53 Body Mass Index 16.82 (44.45 kg, 162.56 cm) ll1 MDM: 13:03 Patient medically screened. snw 13:07 Data reviewed: vital signs, nurses notes. ED course: A. possible UTI B. HR > >90 C. snw pending BP presently 96/56 but pt with low BMI and previous ED visits show similar blood pressures. 13:19 ED course: Pt states post C/S bladder injury, pt in septic shock post delivery. States snw s/s of current problem started this am. PCN causes hives. Discussed plan to treat for sepsis, awaiting results to r/o severe sepsis. 13:53 ED course: Pt's third BP is 81/67. Pt meets markers for severe sepsis with shock. snw Antibiotics started. Will give 30ml/kg bolus. +1350ml. 14:32 Post IV fluid administration reassessment for Sepsis: Client prescribed 30 mL/kg IVF. snw Focused Assessment performed: February 28, 2022 at 14:32 Heart: Regular rate/rhythm noted. HR down to 92 Lungs: Noted to be clear bilaterally. Capillary refill examination performed. Capillary refill noted to be brisk. Peripheral pulse evaluation performed. Peripheral pulses noted to be 3+ normal. Current vital signs reviewed: Yes. Neuro: Neurological examination improved from previous exam. Cardio: Cardiovascular examination improved from previous exam. Heart rate and blood pressure have improved. Respiratory: Respiratory exam improved from previous exam. Other: Pt with decreased pain, just had renal pelvis us. No results yet. Discussed admission. Pt voices understanding. Post 30ml/kg bolus re-evaluation complete. No need for pressors at this time. 14:33 Physician consultation: Jorge Chance was called at 14:34, was contacted at 14:34, snw regarding admission, to the telemetry unit. 15:19 Physician consultation: was contacted at 15:19. snw 02/28 13:05 Order name: Blood Culture Adult (2) snw 02/28 13:05 Order name: CBC with Diff; Complete Time: 13:48 snw 02/28 13:05 Order name: CMP; Complete Time: 14:25 snw 02/28 13:05 Order name: Lactate; Complete Time: 14:25 snw 02/28 13:05 Order name: Protime (+inr); Complete Time: 13:55 snw 02/28 13:05 Order name: Ptt, Activated; Complete Time: 13:55 snw 02/28 13:05 Order name: Urine Culture snw 02/28 13:05 Order name: Urine Microscopic Only; Complete Time: 14:25 snw 02/28 13:05 Order name: Chest Single View XRAY; Complete Time: 13:48 snw 02/28 13:06 Order name: Magnesium; Complete Time: 14:25 snw 02/28 13:18 Order name: Urine Dipstick-Ancillary; Complete Time: 13:19 EDMS 02/28 13:19 Order name: Urine --Ancillary (enter results); Complete Time: 14:25 eb 02/28 13:19 Order name: US Rp Exam Complete; Complete Time: 14:39 snw 02/28 13:37 Order name: SARS RAPID; Complete Time: 15:13 snw 02/28 13:05 Order name: Cardiac monitoring; Complete Time: 13:38 snw 02/28 13:05 Order name: EKG - Nurse/Tech; Complete Time: 13:37 snw 02/28 13:05 Order name: IV Saline Lock - Large Bore; Complete Time: 13:37 snw 02/28 13:05 Order name: Labs collected and sent; Complete Time: 13:37 snw 02/28 13:05 Order name: O2 Per Protocol; Complete Time: 13:20 snw 02/28 13:05 Order name: O2 Sat Monitoring; Complete Time: 13:20 snw 02/28 13:05 Order name: Urine Test (obtain specimen); Complete Time: 13:28 snw EC:39 Rate is 86 beats/min. Rhythm is regular. QRS [place] is Normal. [place] interval is normal. QRS snw interval is normal. QT interval is normal. No Q waves. T waves are Normal. No ST changes noted. Clinical impression: Normal ECG. Administered Medications: 13:45 Drug: Ketorolac 15 mg {Note: 7/10 BACK PAIN, RASS-0.} Route: IVP; Site: right jg9 antecubital; 14:40 Follow up: Response: No adverse reaction; Pain is decreased jg9 13:45 Drug: NS 0.9% 1000 ml Route: IV; Rate: 1 bolus; Site: right antecubital; jg9 14:40 Follow up: IV Status: Completed infusion; IV Intake: 1000ml jg9 13:49 Not Given (Other Intervention Used): Rocephin (cefTRIAXone) 1 grams IM once jg9 13:51 Drug: Rocephin (cefTRIAXone) 1 grams Route: IV; Rate: bolus; Site: right antecubital; jg9 14:40 Follow up: Response: No adverse reaction; IV Status: Completed infusion; IV Intake: [id number] 14:40 Drug: NS 0.9% 500 ml Route: IV; Rate: bolus; Site: right antecubital; jg9 15:26 Follow up: IV Status: Completed infusion; IV Intake: 500ml jg9 15:50 Not Given (not availablee): D5 -1/4 NS 1000 ml IV at 100 ml/hr continuous jg9 16:09 Drug: D5-1/2 NS 1000 ml Route: IV; Rate: 100 ml/hr; Site: right antecubital; jg9 Disposition Summary: 02/28/22 15:20 Hospitalization Ordered Hospitalization Status: Inpatient Admission snw Provider: Jorge Chance snw Condition: Stable snw Problem: new snw Symptoms: are unchanged snw Bed/Room Type: Standard snw Location: [facility](02/28/22 18:29) Room Assignment: [facility]-(02/28/22 18:29) Diagnosis - urosepsis snw - Severe sepsis with septic shock snw Forms: - Medication Reconciliation Form snw - SBAR form snw Signatures: Dispatcher [employer] Nicky Tavarez RN RN dw Waters, Shelly, GEOFF WILD OYSTER HARVESTER-Csnw Olena Stone RN RN ll1 Ariane Corado RN RN jg9 Corrections: (The following items were deleted from the chart) 13:37 13:05 Accucheck ordered. snw jg9 16:34 16:34 Home Meds: Vitamin Oral tab 1 tab once daily; jg9 jg9 18:29 15:20 Telemetry/MedSurg (Inpatient) snw dw 18:29 15:20 snw dw 20:09 13:53 ED course: Pt's third BP is 81/67. Pt meets markers for severe sepsis. snw Antibiotics started. Will give 30ml/kg bolus. +1350ml. snw 20:09 14:32 Post IV fluid administration reassessment for Sepsis: Client prescribed 30 mL/kg snw IVF. Focused Assessment performed: February 28, 2022 at 14:32 Heart: Regular rate/rhythm noted. HR down to 92 Lungs: Noted to be clear bilaterally. Capillary refill examination performed. Capillary refill noted to be brisk. Peripheral pulse evaluation performed. Peripheral pulses noted to be 3+ normal. Current vital signs reviewed: Yes. Neuro: Neurological examination improved from previous exam. Cardio: Cardiovascular examination improved from previous exam. Heart rate and blood pressure have improved. Respiratory: Respiratory exam improved from previous exam. Other: Pt with decreased pain, just had renal pelvis us. No results yet. Discussed admission. snw
--- NOTE | 2022-02-28 15:21 | ER ---
Nurse's Notes [facility] Name: Wilma Batres Age: 26 yrs Sex: Female : 1995 Arrival Date: 02/28/2022 Time: 12:46 Bed 13 Private MD: Diagnosis: urosepsis;Severe sepsis with septic shock Presentation: 02/28 12:53 Chief complaint: Patient states: N/V/D, abd pain, dysuria since 4 am. Daughter was sick ll1 with N/V/D. Coronavirus screen: Vaccine status: Patient reports being unvaccinated. Client denies travel out of the [place] in the last 14 days. diarrhea, fatigue, muscle pain, nausea, vomiting. Client presents with at least one sign or symptom that may indicate coronavirus-19. Standard/surgical mask placed on the client. Ebola Screen: Patient denies travel to an Ebola-affected area in the 21 days before illness onset. Initial Sepsis Screen: Does the patient meet any 2 criteria? HR > 90 bpm. No. Patient's initial sepsis screen is negative. Does the patient have a suspected source of infection? Yes: Acute abdominal pain. Risk Assessment: Do you want to hurt yourself or someone else? Patient reports no desire to harm self or others. Onset of symptoms was February 28, 2022. 12:53 Method Of Arrival: Ambulatory ll1 12:53 Acuity: AMOR 2 ss Triage Assessment: 12:55 General: Appears uncomfortable, ill, Behavior is cooperative, appropriate for age. kr3 Pain: Complains of pain in abdomen Quality of pain is described as aching, crampy. GI: Reports lower abdominal pain, upper abdominal pain, cramping, diarrhea, nausea, vomiting. 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 - Social history:: Smoking status: Patient denies any tobacco usage or history of. Screenin:33 Abuse screen: Denies threats or abuse. Denies injuries from another. Nutritional jg9 screening: patient is thin but reports her diet is good when she is not ill. Tuberculosis screening: No symptoms or risk factors identified. Fall Risk None identified. Assessment: 13:00 Reassessment: Patient and/or family updated on plan of care and expected duration. Pain jg9 level reassessed. Patient is alert, oriented x 3, equal unlabored respirations, skin warm/dry/pink. 13:53 Reassessment: Sepsis alert initated. jg9 14:00 Reassessment: Patient and/or family updated on plan of care and expected duration. Pain jg9 level reassessed. Patient is alert, oriented x 3, equal unlabored respirations, skin warm/dry/pink. Patient states feeling better. 15:00 Reassessment: Patient and/or family updated on plan of care and expected duration. Pain jg9 level reassessed. Patient is alert, oriented x 3, equal unlabored respirations, skin warm/dry/pink. 16:00 GI: Bowel sounds present X 4 quads. Abd is soft and non tender X 4 quads. jg9 16:00 Reassessment: Patient and/or family updated on plan of care and expected duration. Pain jg9 level reassessed. Patient is alert, oriented x 3, equal unlabored respirations, skin warm/dry/pink. 17:00 Reassessment: Patient and/or family updated on plan of care and expected duration. Pain jg9 level reassessed. Patient is alert, oriented x 3, equal unlabored respirations, skin warm/dry/pink. 18:00 Reassessment: Patient and/or family updated on plan of care and expected duration. Pain jg9 level reassessed. Patient is alert, oriented x 3, equal unlabored respirations, skin warm/dry/pink. 19:15 Reassessment: Patient appears in no apparent distress at this time. Patient and/or jb4 family updated on plan of care and expected duration. Pain level reassessed. Patient is alert, oriented x 3, equal unlabored respirations, skin warm/dry/pink. Patient states feeling better. 20:26 Reassessment: Patient appears in no apparent distress at this time. Patient and/or jb4 family updated on plan of care and expected duration. Pain level reassessed. Patient is alert, oriented x 3, equal unlabored respirations, skin warm/dry/pink. Pt ambulated to the restroom and back to bed with steady gait. Vital Signs: 12:53 BP 96 / 56; Pulse 132; Resp 16; Temp 99.2(TE); Pulse Ox 99% ; Weight 44.45 kg; Height 5 ll1 ft. 4 in. (162.56 cm); Pain 6/10; 13:18 BP 83 / 64; Pulse 131; Resp 21; Pulse Ox 100% on R/A; jg9 13:30 BP 83 / 69; Pulse 90; Resp 17 S; Pulse Ox 100% on R/A; jg9 13:45 BP 79 / 62; Pulse 93; Resp 16 S; Pulse Ox 99% on R/A; jg9 13:48 BP 81 / 67; Pulse 98; Resp 17 S; Pulse Ox 97% on R/A; jg9 14:00 BP 63 / 45; Pulse 101; Resp 18 S; Pulse Ox 100% on R/A; jg9 14:06 BP 79 / 61; Pulse 88; Resp 17 S; Pulse Ox 100% on R/A; jg9 14:15 BP 81 / 66; Pulse 96; Resp 25 S; Pulse Ox 94% on R/A; jg9 14:23 BP 81 / 68; Pulse 84; Resp 17 S; Pulse Ox 100% on R/A; jg9 14:30 BP 81 / 65; Pulse 104; Resp 20 S; Pulse Ox 96% on R/A; jg9 14:45 BP 79 / 66; Pulse 95; Resp 16 S; Pulse Ox 100% on R/A; jg9 15:00 BP 77 / 60; Pulse 92; Resp 14 S; Pulse Ox 98% on R/A; jg9 16:15 BP 102 / 70; Pulse 108; Resp 17 S; Pulse Ox 98% on R/A; Pain 2/10; jg9 16:30 BP 88 / 60; Pulse 113; Resp 16 S; Pulse Ox 92% on R/A; jg9 16:45 BP 90 / 63; Pulse 103; Resp 12 S; Pulse Ox 100% on R/A; jg9 17:00 BP 76 / 53; Pulse 96; Resp 17 S; Pulse Ox 100% on R/A; jg9 17:15 BP 81 / 62; Pulse 96; Resp 18 S; Pulse Ox 100% ; jg9 17:30 BP 89 / 66; Pulse 95; Resp 12 S; Pulse Ox 100% ; jg9 18:30 BP 91 / 63; Pulse 105; Resp 21 S; Pulse Ox 100% on R/A; jg9 19:15 BP 92 / 61; Pulse 99; Resp 17; Pulse Ox 100% on R/A; jb4 20:26 BP 102 / 66; Pulse 105; Resp 16; Temp 100.3(O); Pulse Ox 96% on R/A; jb4 12:53 Body Mass Index 16.82 (44.45 kg, 162.56 cm) ll1 ED Course: 12:46 Patient arrived in ED. mr 12:55 Triage completed. ll1 12:56 Arm band placed on Patient placed in an exam room, on a stretcher. ll1 12:59 Ariane Corado, RN is Primary Nurse. jg9 13:03 Bharati Javier FNP-C [facility]. snw 13:03 Aldo Rosario MD is Attending Physician. snw 13:10 Inserted saline lock: 22 gauge in right antecubital area, using aseptic technique. jg9 Blood collected. 13:32 Chest Single View XRAY In Process Unspecified. EDMS 14:16 US Rp Exam Complete In Process Unspecified. EDMS 15:20 Jorge Chance is Hospitalizing Provider. snw 16:00 Patient has correct armband on for positive identification. Bed in low position. Call jg9 light in reach. Side rails up X 1. 17:00 Patient requests food. brother vahid her chic-filet. jg9 19:08 Primary Nurse role handed off by Ariane Corado, RN mw2 19:15 No provider procedures requiring assistance completed. Patient admitted, IV remains in jb4 place. Administered Medications: 13:45 Drug: Ketorolac 15 mg {Note: 7/10 BACK PAIN, RASS-0.} Route: IVP; Site: right jg9 antecubital; 14:40 Follow up: Response: No adverse reaction; Pain is decreased jg9 13:45 Drug: NS 0.9% 1000 ml Route: IV; Rate: 1 bolus; Site: right antecubital; jg9 14:40 Follow up: IV Status: Completed infusion; IV Intake: 1000ml jg9 13:49 Not Given (Other Intervention Used): Rocephin (cefTRIAXone) 1 grams IM once jg9 13:51 Drug: Rocephin (cefTRIAXone) 1 grams Route: IV; Rate: bolus; Site: right antecubital; jg9 14:40 Follow up: Response: No adverse reaction; IV Status: Completed infusion; IV Intake: [id number] 14:40 Drug: NS 0.9% 500 ml Route: IV; Rate: bolus; Site: right antecubital; jg9 15:26 Follow up: IV Status: Completed infusion; IV Intake: 500ml jg9 15:50 Not Given (not availablee): D5 -1/4 NS 1000 ml IV at 100 ml/hr continuous jg9 16:09 Drug: D5-1/2 NS 1000 ml Route: IV; Rate: 100 ml/hr; Site: right antecubital; jg9 Intake: 14:40 IV: 1000ml; Total: 1000ml. jg9 14:40 IV: 10ml; Total: 1010ml. jg9 15:26 IV: 500ml; Total: 1510ml. jg9 Outcome: 15:20 Decision to Hospitalize by Provider. snw 20:46 Patient left the ED. jb4 Signatures: Dispatcher [employer] EDMS Bharati Javier, LANCEC FREIGHT CLAIM INVESTIGATOR-Miracle SureshFaina Shelby RN Anuj López RN RN jb4 Linda Moon 2 Olena Stone RN RN ll1 Ariane Corado RN RN jg9 Phoebe Stokes RN RN kr3 Sofie Chan kc6 Corrections: (The following items were deleted from the chart) 15:09 13:18 BP 83 / 64; kc6 jg9 15:09 13:30 BP 83 / 69; kc6 jg9 15:09 13:45 BP 79 / 62; kc6 jg9 15:09 13:48 BP 81 / 67; kc6 jg9 15:09 14:00 BP 63 / 45; kc6 jg9 15:09 14:06 BP 79 / 61; kc6 jg9 15:09 14:15 BP 81 / 66; kc6 jg9 15:09 14:23 BP 81 / 68; kc6 jg9 16:19 12:53 Acuity: AMOR 3 ll1 ss 16:34 16:34 Home Meds: Vitamin Oral tab 1 tab once daily; jg9 jg9 16:35 16:33 LMP N/A - Irregular menses jg9 jg9 16:37 14:00 Reassessment: Patient and/or family updated on plan of care and expected jg9 duration. Pain level reassessed. Patient is alert, oriented x 3, equal unlabored respirations, skin warm/dry/pink. jg9
[2022-02-28] MEDS ORDERED: D5 0.45 NS 1,000 ML IV ONE (16:15)
--- NOTE | 2022-02-28 17:07 | P.HP ---
Certification for Inpatient Patient admitted to: Inpatient With expected LOS: >2 Midnights Practitioner: I am a practitioner with admitting privileges, knowledge of patient current condition, hospital course, and medical plan of care. Services: Services provided to patient in accordance with Admission requirements found in Title 42 Section 412.3 of the Code of Federal Regulations Patient History Date of Service: 02/28/22 Reason for admission: Fever and chills, left flank pain History of Present Illness: 26-year-old woman with no known past medical history presented to the ED with a complaint of fever, chills, rigors, nausea and vomiting of onset this morning. Patient states that she started experiencing left flank pain yesterday. Symptoms associated with dysuria and increased urinary frequency. She suspected UTI, so she came to the emergency department for evaluation. Patient noted to have low blood pressure in the ED. no leukocytosis, no fever recorded. Sepsis protocol initiated in the ED. Patient given a bolus of normal saline and IV Rocephin. Renal ultrasound was unremarkable. She is admitted for further management of acute pyelonephritis. Allergies Penicillins Allergy (Mild, Verified 07/24/11 15:37) Hives Amoxicillin-Pot Clavulanate Allergy (Uncoded 01/11/15 20:12) Unknown - Past Medical/Surgical History -: None -: section - Family History Family History: Reviewed- Non-Contributory - Social History Smoking Status: Never smoker Alcohol use: No CD- Drugs: No Place of Residence: Home Review of Systems Other: She denied abdominal pain or diarrhea. She denied any cough. Except as documented, all other systems reviewed and negative. Physical Examination - Physical Exam General: Alert, In no apparent distress, Oriented x3 HEENT: Atraumatic, Mucous membr. moist/pink, Sclerae nonicteric Neck: Supple, JVD not distended Respiratory: Clear to auscultation bilaterally, Normal air movement Cardiovascular: No edema, Regular rate/rhythm, No murmurs Gastrointestinal: Normal bowel sounds, Soft and benign, Non-distended, No tenderness Musculoskeletal: No swelling Integumentary: No rashes, No cyanosis Neurological: Normal strength at 5/5 x4 extr, Cranial nerves 3-12 intact Lymphatics: No axilla or inguinal lymphadenopathy - Studies Laboratory Data (last 24 hrs) 02/28/22 13:15: PT 12.0, INR 1.09, APTT 33.7 02/28/22 13:15: Sodium 137, Potassium 4.2, BUN 17, Creatinine 0.75, Glucose 98, Magnesium 2.1, Total Bilirubin 0.6, AST 9 L, ALT 13, Alkaline Phosphatase 91 02/28/22 13:15: WBC 9.10, Hgb 13.6, Hct 40.2, Plt Count 269 Assessment and Plan - Problems (Diagnosis) (1) Acute pyelonephritis Current Visit: Yes Status: Acute (2) Sepsis Current Visit: Yes Status: Acute - Plan Admit to the medical floor. Continue rocephin started in the ED. Follow cultures pain management as needed. Continue IV hydration. I suspect patient has soft blood pressure given his lean body habitus. - Advance Directives Does patient have a Living Will: No Does patient have a Durable POA for Healthcare: No
[2022-02-28] MEDS ORDERED: ACETAMINOPHEN 500 MG TAB PO PRN (20:33)
[2022-02-28] MEDS ORDERED: ONDANSETRON 4 MG/2 ML VIAL IV PRN (20:33)
[2022-02-28] MEDS ORDERED: MORPHINE 2 MG/ML SYR IV PRN (20:33)
[2022-02-28] MEDS ORDERED: ACETAMINOPHEN 500 MG TAB ONE (20:48)
[2022-02-28 20:56] VITALS: BMI 15.6
[2022-02-28] MEDS: NA CHLORIDE 0.9% 1,000 ML IV SCH (21:20)
[2022-02-28 23:27] VITALS: O2SAT 96
[2022-03-01 06:38] LABS: Absolute Lymphocytes (CBC) 1.2 K/uL (0.7-4.9); Hematocrit 32.6 % (36.0-45.0); Lymphocytes % 28.9 % (15.3-44.8); MCV 84.3 fL (80-100); MPV 9.6 fL (7.6-11.3); RBC Red Blood Cell Count 3.87 M/uL (3.86-4.86)
[2022-03-01 06:40] LABS: Phosphorus 2.7 mg/dL (2.5-4.9); Potassium 3.6 mmol/L (3.5-5.1)
[2022-03-01] MEDS ORDERED: POTASSIUM CL SA 10 MEQ TAB PO ONE ×2 (07:30→07:36)
[2022-03-01] MEDS: NA CHLORIDE 0.9% 1,000 ML IV SCH (07:44)
[2022-03-01] MEDS: CEFTRIAXONE 1,000 MG in NA CHLORIDE 0.9% 50 ML IVPB SCH (08:31)
[2022-03-01] MEDS ORDERED: ENOXAPARIN 40 MG/0.4 ML SQ SCH (09:00)
--- NOTE | 2022-03-01 13:58 | P.PN ---
Subjective Date of Service: 03/01/22 Chief Complaint: Fever and chills, left flank pain Patient states she feels much better today. Her sister blood pressure is ranging from the 80s to the 90s. I suspect this is her baseline. Patient confirmed that. Her appetite has improved. She has no fever. Physical Examination - Vital Signs Temperature: 98.5 F Blood Pressure: 93/59 Pulse: 59 Respirations: 16 Pulse Ox (%): 100 - Studies Laboratory Data (last 24 hrs) 02/28/22 13:15: Sodium 137, Potassium 4.2, BUN 17, Creatinine 0.75, Glucose 98, Magnesium 2.1, Total Bilirubin 0.6, AST 9 L, ALT 13, Alkaline Phosphatase 91 Assessment And Plan - Current Problems (Diagnosis) (1) Acute pyelonephritis Current Visit: Yes Status: Acute (2) Sepsis Current Visit: Yes Status: Acute - Plan Physical Exam General: Alert, In no apparent distress, Oriented x3 HEENT: Atraumatic, Mucous membr. moist/pink, Sclerae nonicteric Neck: Supple, JVD not distended Respiratory: Clear to auscultation bilaterally, Normal air movement Cardiovascular: No edema, Regular rate/rhythm, No murmurs Gastrointestinal: Normal bowel sounds, Soft and benign, Non-distended, No tenderness Musculoskeletal: No swelling Integumentary: No rashes, No cyanosis Neurological: Normal strength at 5/5 x4 extr, Cranial nerves 3-12 intact Lymphatics: No axilla or inguinal lymphadenopathy Plan: Urine culture is growing gram-negative rods. Blood cultures: No growth to date. Continue rocephin. Follow cultures pain management as needed. Continue IV hydration.
[2022-03-02 05:00] LABS: Potassium 3.7 mmol/L (3.5-5.1)
[2022-03-02] MEDS: NA CHLORIDE 0.9% 1,000 ML IV SCH (06:59)
--- NOTE | 2022-03-02 08:50 | P.DS ---
Admission Date: 02/28/22 Discharge Date: 03/02/22 Disposition: ROUTINE DISCHARGE Discharge Condition: FAIR Reason for Admission: Fever and chills, left flank pain - Problems (1) Acute pyelonephritis Status: Acute (2) Sepsis Status: Acute Brief History of Present Illness: 26-year-old woman with no known past medical history presented to the ED with a complaint of fever, chills, rigors, nausea and vomiting of onset this morning. Patient states that she started experiencing left flank pain yesterday. Symptoms associated with dysuria and increased urinary frequency. She suspected UTI, so she came to the emergency department for evaluation. Patient noted to have low blood pressure in the ED. no leukocytosis, no fever recorded. Sepsis protocol initiated in the ED. Patient given a bolus of normal saline and IV Rocephin. Renal ultrasound was unremarkable. She is admitted for further management of acute pyelonephritis. Hospital Course: And admitted to the medical floor and treated with IV Rocephin. Urine culture grew E. coli which is pansensitive. His symptoms resolved with treatment. Patient hydrated with IV fluid. She endorsed low blood pressure at baseline. Blood cultures yielded no growth. She has clinically improved and deemed stable for discharge. She is discharged with ciprofloxacin to continue treatment for UTI/pyelonephritis. Vital Signs/Physical Exam: Temp Pulse Resp BP Pulse Ox 97.8 F 68 16 94/54 L 97 03/02/22 04:30 03/02/22 04:30 03/02/22 04:30 03/02/22 04:30 03/02/22 04:30 General: Alert, In no apparent distress, Oriented x3 HEENT: Mucous membr. moist/pink, Sclerae nonicteric Neck: JVD not distended Respiratory: Clear to auscultation bilaterally, Normal air movement Cardiovascular: No edema, Regular rate/rhythm, Normal S1 S2 Gastrointestinal: Soft and benign, Non-distended, No tenderness Musculoskeletal: No swelling Integumentary: No rashes, No cyanosis Neurological: Normal strength at 5/5 x4 extr Laboratory Data at Discharge: WBC 4.20 K/uL (4.3-10.9) L D 03/01/22 05:47 Hgb 11.2 g/dL (12.0-15.0) L 03/01/22 05:47 Hct 32.6 % (36.0-45.0) L D 03/01/22 05:47 Plt Count 218 K/uL (152-406) 03/01/22 05:47 PT 12.0 SECONDS (9.5-12.5) 02/28/22 13:15 INR 1.09 02/28/22 13:15 APTT 33.7 SECONDS (24.3-36.9) 02/28/22 13:15 Sodium 141 mmol/L (136-145) 03/02/22 04:02 Potassium 3.7 mmol/L (3.5-5.1) 03/02/22 04:02 BUN 7 mg/dL (7-18) 03/02/22 04:02 Creatinine 0.58 mg/dL (0.55-1.3) 03/02/22 04:02 Glucose 98 mg/dL (74-106) 03/02/22 04:02 Phosphorus 2.7 mg/dL (2.5-4.9) 03/01/22 05:47 Magnesium 2.0 mg/dL (1.8-2.4) 03/01/22 05:47 Total Bilirubin 0.6 mg/dL (0.2-1.0) 02/28/22 13:15 AST 9 U/L (15-37) L 02/28/22 13:15 ALT 13 U/L (12-78) 02/28/22 13:15 Alkaline Phosphatase 91 U/L (45-117) 02/28/22 13:15 Home Medications: Ciprofloxacin HCl [Cipro] 500 mg PO BID #10 03/02/22 New Medications: Ciprofloxacin HCl [Cipro] 500 mg PO BID #10 Followup: NONE,NONE [Primary Care Provider] - Time spent managing pt's care (in minutes): 35
[2022-03-02] MEDS: CEFTRIAXONE 1,000 MG in NA CHLORIDE 0.9% 50 ML IVPB SCH (09:01)
[2022-03-02 17:00] VITALS: BP 89/58; TEMP 99
--- NOTE | 2022-03-03 15:43 | EKG ---
Test Date: 2022-02-28 Test Time: 13:39:03 Member [employer]: GIGI MEASUREMENT RESULTS: Intervals: Rate: 86 CT: 124 QRSD: 76 QT: 342 QTc: 409 Lenora: P: 58 CT: 124 QRS: 83 T: 52 INTERPRETIVE STATEMENTS: Normal sinus rhythm Normal ECG Compared to ECG 03/03/2020 00:47:05 Sinus tachycardia no longer present Electronically Signed On 03-03-22 15:41:13 CDT by Eric Liz
== END 2022-03-02 16:45 | disposition home or self-care (01) | DRG 872 ==
LOC: ER 12:40 → ERHOLD 16:46 → 2ND-WC 20:36
PROVIDERS: ADMIT Internal Medicine; ATTEND Internal Medicine
DX: A41.51 Sepsis due to Escherichia coli [E. coli] (principal); N10 Acute pyelonephritis; Z88.0 Allergy status to penicillin; Z88.1 Allergy status to other antibiotic agents; Z28.310 Unvaccinated for COVID-19; Z20.822 Contact with and (suspected) exposure to COVID-19
CPT/HCPCS: 36415; 71045; 76770; 80048; 80053; 81003; 81015; 81025; 83605; 83735; 84100; 85025; 85610; 85730; 87040; 87077; 87086; 87088; 87186; 87811; 93005; 96361; 96365; 96375; 99284; J1650; J7030; J7040; J7799

== ENCOUNTER 2023-07-07 09:10 | Inpatient (IN) | payer SELFPAY ==
[2023-07-07 10:11] LABS: Specific Gravity 1.025 (1.005-1.030); Urine Bacteria >50 /HPF (<20); Urine Bilirubin NEGATIVE (Negative); Urine Blood Trace (Negative); Urine Clarity Extremely Turbid (Clear); Urine Color Yellow (Yellow); Urine Glucose NEGATIVE (Negative); Urine Mucus 4+ /HPF (None Seen); Urine Protein TRACE (Negative); Urine Urobilinogen 1+ (Normal); Urine WBC Clump Occasional /HPF (None Seen); Urine pH 5.5 (5.0-7.0)
[2023-07-07] MEDS ORDERED: CIPROFLOXACIN 400mg IV 400 MG/200 ML BAG IV ONE (10:21)
--- NOTE | 2023-07-07 10:25 | ER ---
Nurse's Notes [facility] Name: Wilma Batres Age: 27 yrs Sex: Female : 1995 Arrival Date: 07/07/2023 Time: 09:10 Bed 11 Private MD: Diagnosis: UTI/ Urinary tract infection, site not specified Presentation: 07/07 09:25 Chief complaint: Patient states: Fever and back pain started Wednesday. Urine has "bad ll1 smell" to it with dysuria. Coronavirus screen: Client denies travel out of the [place] in the last 14 days. At this time, the client does not indicate any symptoms associated with coronavirus-19. Ebola Screen: Patient denies travel to an Ebola-affected area in the 21 days before illness onset. Initial Sepsis Screen: Does the patient meet any 2 criteria? No. Patient's initial sepsis screen is negative. Does the patient have a suspected source of infection? Yes: Dysuria/Frequency/Urgency/UTI Skin breakdown/wound. Risk Assessment: Do you want to hurt yourself or someone else? Patient reports no desire to harm self or others. Onset of symptoms was July 05, 2023. 09:25 Method Of Arrival: Ambulatory [facility] 09:25 Acuity: AMOR 3 ll1 Triage Assessment: 09:26 General: Appears uncomfortable, ill, Behavior is calm, cooperative, appropriate for ll1 age. Pain: Complains of pain in back Pain currently is 4 out of 10 on a pain scale. Quality of pain is described as aching. : Reports burning with urination, urinary frequency, foul smelling urine. 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 - Social history:: Smoking status: Patient denies any tobacco usage or history of. - Family history:: not pertinent. - Hospitalizations: : No recent hospitalization is reported. Screenin:13 [facility] ED Fall Risk Assessment (Adult) Score/Fall Risk Level 0 - 2 = Low Risk. Abuse iw screen: Denies threats or abuse. Denies injuries from another. Nutritional screening: No deficits noted. Tuberculosis screening: No symptoms or risk factors identified. Assessment: 10:12 General: Appears in no apparent distress. Behavior is calm, cooperative. Pain: iw Complains of pain in back. Neuro: Level of Consciousness is awake, alert, obeys commands, Oriented to person, place, time, situation, Moves all extremities. Full function. : Reports burning with urination, pain in lower back. Derm: Skin is intact, is healthy with good turgor. Musculoskeletal: Range of motion: intact in all extremities. 11:30 Reassessment: Patient appears in no apparent distress at this time. Patient and/or iw family updated on plan of care and expected duration. Pain level reassessed. Patient is alert, oriented x 3, equal unlabored respirations, skin warm/dry/pink. PT c/o feeling dizzy and nausea, ERP notified. 13:47 Reassessment: No changes from previously documented assessment. Patient and/or family ll1 updated on plan of care and expected duration. Pain level reassessed. 16:58 Reassessment: No changes from previously documented assessment. Patient and/or family ll1 updated on plan of care and expected duration. Pain level reassessed. 17:07 Reassessment: No changes from previously documented assessment. Patient and/or family ll1 updated on plan of care and expected duration. Pain level reassessed. Vital Signs: 09:25 BP 103 / 87; Pulse 85; Resp 17; Temp 98; Pulse Ox 96% ; Weight 46.72 kg; Height 5 ft. 4 ll1 in. ; Pain 4/10; 11:32 BP 97 / 64; Pulse 87; Resp 16 S; Pulse Ox 100% on R/A; iw 12:00 BP 96 / 77; Pulse 79; Resp 18; Pulse Ox 100% on R/A; me1 13:00 BP 87 / 65; Pulse 72; Resp 14; Pulse Ox 100% on R/A; me1 13:30 BP 89 / 72; Pulse 72; Resp 18; Pulse Ox 100% on R/A; me1 13:47 BP 90 / 67; Pulse 72; ll1 14:08 BP 95 / 69; Pulse 74; Resp 16; ll1 15:00 BP 106 / 80; Pulse 80; Resp 17; Pulse Ox 100% ; ll1 16:58 BP 106 / 62; Pulse 86; Resp 17; Pulse Ox 98% on R/A; ll1 09:25 Body Mass Index 17.68 (46.72 kg, 162.56 cm) ll1 09:25 Pain Scale: Adult ll1 ED Course: 09:12 Patient arrived in ED. rg4 09:18 Miky Driscoll MD is Attending Physician. rn 09:24 Arm band placed on Patient placed in an exam room, on a stretcher. ll1 09:25 Cindy Stoner, ABDULLAHI is Primary Nurse. iw 09:26 Triage completed. ll1 10:13 Patient has correct armband on for positive identification. Provided Education on: . iw 10:13 No provider procedures requiring assistance completed. iw 14:08 Abdifatah Driscoll MD is Hospitalizing Provider. rn 14:58 Inserted saline lock: 22 gauge in left antecubital area, using aseptic technique. Blood ds4 collected. 16:12 US Transvaginal Ob In Process Unspecified. EDMS 17:07 HCG-Quantitative Sent. ll1 19:54 Patient admitted, IV remains in place. vc1 Administered Medications: 10:31 Drug: Ciprofloxacin IVPB 400 mg 200 ml IVPB once over 60 mins Volume: 200 ml; Route: iw IVPB; Infused Over: 60 mins; Site: right antecubital; 11:31 Follow up: Response: No adverse reaction; IV Status: Completed infusion me1 11:58 Drug: NS 0.9% IV 1000 ml IV at 1000 ml once Route: IV; Rate: 1000 ml; Site: right iw antecubital; 13:39 Follow up: IV Status: Completed infusion; IV Intake: 1000ml me1 11:58 Drug: Ondansetron IVP 4 mg IVP once; over 2 minutes Route: IVP; Site: right antecubital;iw 13:02 Follow up: Response: No adverse reaction; Nausea is decreased me1 13:39 Drug: NS 0.9% IV 1000 ml IV at 1000 ml once Route: IV; Rate: 1000 ml; Site: right me1 antecubital; 16:59 Follow up: Response: No adverse reaction; IV Status: Completed infusion; IV Intake: ll1 1000ml Medication: 10:13 VIS not applicable for this client. iw Intake: 13:39 IV: 1000ml; Total: 1000ml. me1 16:59 IV: 1000ml; Total: 2000ml. ll1 Outcome: 10:24 Discharge ordered by . rn 14:08 Decision to Hospitalize by Provider. rn 19:54 Admitted to Med/surg accompanied by tech, via wheelchair, room 209, vc1 19:54 Condition: good 19:54 Instructed on the need for admit, 19:54 Patient left the ED. vc1 Signatures: Dispatcher [employer] Cindy Suarez, RN Miky Carranza MD MD rn Swanson, Donovan ds4 Narda Blackwood rg4 Olena Stone RN RN 1 Marcy Burdick RN RN 1 Cheryl Moreno RN RN al1
--- NOTE | 2023-07-07 10:25 | EDPHYS ---
Physician Documentation [facility] Name: Wilma Batres Age: 27 yrs Sex: Female : 1995 Arrival Date: 07/07/2023 Time: 09:10 Bed 11 Private MD: ED Physician Miky Driscoll HPI: 07/07 09:34 This 27 yrs old Female presents to ER via Ambulatory with complaints of Back rn Pain, Fever. 09:34 The patient presents with pain that is acute, with no known mechanism of injury. The rn symptoms are located in the low back. Onset: The symptoms/episode began/occurred 2 day(s) ago. The pain does not radiate. Associated signs and symptoms: Pertinent positives: dysuria, fever, Pertinent negatives: abdominal pain, urinary retention, vomiting. Modifying factors: The patient symptoms are alleviated by nothing, the patient symptoms are aggravated by Urinating. Severity of symptoms: At their worst the symptoms were mild, in the emergency department the symptoms are unchanged. The patient has experienced similar episodes in the past. Patient reports right lower back pain associated with fever and dysuria. Has had urinary tract infections and sepsis in the past due to urinary infections. Reports subjective fever and chills. Positive for nausea but no vomiting. No history of kidney stones. Not . No cough or shortness of breath.. 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 - Social history:: Smoking status: Patient denies any tobacco usage or history of. - Family history:: not pertinent. - Hospitalizations: : No recent hospitalization is reported. ROS: 09:34 Constitutional: Positive for fever and chills Cardiovascular: Negative for chest pain, rn palpitations, and edema, Respiratory: Negative for shortness of breath, cough, wheezing, and pleuritic chest pain, Abdomen/GI: Negative for abdominal pain, nausea, vomiting, diarrhea, and constipation, Back: Positive for lower back pain : Positive for dysuria MS/Extremity: Negative for injury and deformity, Neuro: Negative for headache, weakness, numbness, tingling, and seizure, Exam: 09:34 Constitutional: This is a well developed, well nourished patient who is awake, alert, rn and in no acute distress. Cardiovascular: Regular rate and rhythm. No pulse deficits. Respiratory: No increased work of breathing, no retractions or nasal flaring. Abdomen/GI: Soft, nontender, no peritoneal signs Back: No spinal tenderness. No costovertebral tenderness. Full range of motion. MS/ Extremity: Pulses equal, no cyanosis. Neurovascular intact. Full, normal range of motion. Equal circumference. Neuro: Awake and alert, GCS 15 14:26 ECG was reviewed by the Attending Physician. rn Vital Signs: 09:25 BP 103 / 87; Pulse 85; Resp 17; Temp 98; Pulse Ox 96% ; Weight 46.72 kg; Height 5 ft. 4 ll1 in. ; Pain 4/10; 11:32 BP 97 / 64; Pulse 87; Resp 16 S; Pulse Ox 100% on R/A; iw 12:00 BP 96 / 77; Pulse 79; Resp 18; Pulse Ox 100% on R/A; me1 13:00 BP 87 / 65; Pulse 72; Resp 14; Pulse Ox 100% on R/A; me1 13:30 BP 89 / 72; Pulse 72; Resp 18; Pulse Ox 100% on R/A; me1 13:47 BP 90 / 67; Pulse 72; ll1 14:08 BP 95 / 69; Pulse 74; Resp 16; ll1 15:00 BP 106 / 80; Pulse 80; Resp 17; Pulse Ox 100% ; ll1 16:58 BP 106 / 62; Pulse 86; Resp 17; Pulse Ox 98% on R/A; ll1 09:25 Body Mass Index 17.68 (46.72 kg, 162.56 cm) ll1 09:25 Pain Scale: Adult ll1 MDM: 09:18 Patient medically screened. rn 10:23 Differential diagnosis: Pyelonephritis UTI. Data reviewed: vital signs, nurses notes, rn circulating test result(s), and as a result, I will discharge patient. Counseling: I had a detailed discussion with the patient and/or guardian regarding the historical points, exam findings, and any diagnostic results supporting the discharge/admit diagnosis, lab results, the need for outpatient follow up, to return to the emergency department if symptoms worsen or persist or if there are any questions or concerns that arise at home. Special discussion: I discussed with the patient/guardian in detail that at this point there is no indication for admission to the hospital. It is understood, however, that if the symptoms persist or worsen the patient needs to return immediately for re-evaluation. ED course: Patient with obvious urinary tract infection that is consistent with her symptomatology. Afebrile here with normal vital signs. No clinical signs of sepsis at this time. Clinically is a sending infection but not necessarily pyelonephritis at this time. Will give antibiotics and discharged with return precautions.. 14:06 ED course: Patient initially with normal blood pressure, diagnosed with urinary tract rn infection, possibly ascending infection. Initial plan was to administer antibiotics and discharged home. Initially received ciprofloxacin IV prior to any abnormal blood pressures or signs of sepsis. While patient getting antibiotics and shortly after was reevaluated and noted to have borderline low blood pressure. Decision to discharge home reversed, will get septic workup including blood cultures and lactic acid. Patient is getting second liter bolus due to the low blood pressures obtained with good response of blood pressure. Long discussion with patient and joint decision made to admit patient for further care.. 14:06 ED course: I personally spent 35 minutes engaged in work directly related to the rn individual patient's care. This does not include any time spent performing procedures. The patient has been deemed critically ill because of repeat assessments, fluid resuscitation and septic workup due to hypotensive episodes, consultation and admission.. 15:26 ED course: Still waiting on urine test to return. Patient reports negative rn test 1 week ago. . 15:31 ED course: Patient's test returned positive. Patient reports 1 to 2 weeks rn late, LMP early May, patient possibly just a couple weeks . Had negative test a week prior which is why original UPT was not performed. CT scan canceled and ultrasound ordered instead.. 07/07 09:18 Order name: Urinalysis w/ reflexes; Complete Time: 10:14 rn 07/07 10:18 Order name: Urine Culture EDMA 07/07 14:06 Order name: Blood Culture Adult (2) rn 07/07 14:06 Order name: CBC with Diff; Complete Time: 15:26 rn 07/07 14:06 Order name: CMP; Complete Time: 15:26 rn 07/07 14:06 Order name: Lactate w/ 2H reflex if indic.; Complete Time: 15: rn 07/07 14:06 Order name: Protime (+inr); Complete Time: 15: rn 07/07 14:06 Order name: Ptt, Activated; Complete Time: 15: rn 07/07 14:59 Order name: PREGU; Complete Time: 15:27 ld1 07/07 16:28 Order name: HCG-Quantitative; Complete Time: 17:38 rn 07/07 15:31 Order name: US Transvaginal Ob; Complete Time: 16:28 rn 07/07 14:06 Order name: EKG; Complete Time: 14: rn 07/07 10:14 Order name: IV Start; Complete Time: 10: rn 07/07 14:06 Order name: Cardiac monitoring; Complete Time: 14: rn 07/07 14:06 Order name: EKG - Nurse/Tech; Complete Time: 14: rn 07/07 14:06 Order name: IV Saline Lock - Large Bore; Complete Time: 14:07/07 14:06 Order name: Labs collected and sent; Complete Time: 14:07/07 14:06 Order name: O2 Per Protocol; Complete Time: 14:07/07 14:06 Order name: O2 Sat Monitoring; Complete Time: 14:07/07 14:06 Order name: Vital Signs; Complete Time: 14:07/07 17:03 Order name: Labs - recollect needed: Recollect HCG; Complete Time: 17:11 mv EC:26 Rate is 71 beats/min. Rhythm is regular. QRS [place] is Normal. CA interval is normal. QRS rn interval is normal. QT interval is normal. No Q waves. T waves are Normal. No ST changes noted. Clinical impression: Normal ECG. Interpreted by me. Reviewed by me. Administered Medications: 10:31 Drug: Ciprofloxacin IVPB 400 mg 200 ml IVPB once over 60 mins Volume: 200 ml; Route: iw IVPB; Infused Over: 60 mins; Site: right antecubital; 11:31 Follow up: Response: No adverse reaction; IV Status: Completed infusion me1 11:58 Drug: NS 0.9% IV 1000 ml IV at 1000 ml once Route: IV; Rate: 1000 ml; Site: right iw antecubital; 13:39 Follow up: IV Status: Completed infusion; IV Intake: 1000ml me1 11:58 Drug: Ondansetron IVP 4 mg IVP once; over 2 minutes Route: IVP; Site: right antecubital;iw 13:02 Follow up: Response: No adverse reaction; Nausea is decreased me1 13:39 Drug: NS 0.9% IV 1000 ml IV at 1000 ml once Route: IV; Rate: 1000 ml; Site: right me1 antecubital; 16:59 Follow up: Response: No adverse reaction; IV Status: Completed infusion; IV Intake: ll1 1000ml Disposition Summary: 07/07/23 14:08 Hospitalization Ordered Notes: Hospitalization Status: Inpatient Admission rn Provider: Abdifatah Driscoll rn Location: Telemetry/[facility] (Inpatient)(07/07/23 14:08) rn Condition: Stable(07/07/23 14:08) rn Problem: new(07/07/23 14:08) rn Symptoms: have improved(07/07/23 14:08) rn Bed/Room Type: Standard rn Room Assignment: [facility](07/07/23 18:26) Diagnosis - UTI/ Urinary tract infection, site not specified(07/07/23 14:08) rn Forms: - Medication Reconciliation Form rn - SBAR form rn - 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 Total time: 35 minutes rn Signatures: Dispatcher [employer] Cindy Suarez RN RN Miky Driscoll MD MD rn Lewis, Lynsay RN RN 1 Cheryl Moreno RN RN il1 Hoda Haque Corrections: (The following items were deleted from the chart) 14:06 10:24 Home rn rn 14:06 10:24 new rn rn 14:06 10:24 have improved rn rn 14:06 10:24 Stable rn rn 14:06 10:24 UTI/ Urinary tract infection, site not specified rn rn 15:30 14:15 Abdomen Pelvis W Con+CT.RAD.BRZ ordered. EDMA EDMS 16:59 14:06 Accucheck ordered. rn ll1 18:26 14:08 rn mv
[2023-07-07] MEDS ORDERED: ONDANSETRON 4 MG/2 ML VIAL ONE (11:44)
[2023-07-07] MEDS ORDERED: NA CHLORIDE 0.9% 1,000 ML ONE ×3 (11:44→21:56)
[2023-07-07 14:57] LABS: Absolute Lymphocytes (CBC) 1.3 K/uL (0.7-4.9); Hematocrit 30.2 % (36.0-45.0); Lymphocytes % 25.5 % (15.3-44.8); MCV 86.2 fL (80-100); MPV 9.6 fL (7.6-11.3); Platelets 212 thou/uL (152-406)
[2023-07-07 15:06] LABS: Protime INR 1.23
[2023-07-07 15:12] LABS: Specific Gravity 1.025 (1.005-1.030)
[2023-07-07 15:16] LABS: AST/SGOT 7 U/L (15-37); Albumin 3.1 g/dL (3.4-5.0); Alkaline Phosphatase 66 U/L (45-117); BUN Blood Urea Nitrogen 12 mg/dL (7-18); Bicarbonate 23 mEq/L (21-32); Bilirubin Total 0.3 mg/dL (0.2-1.0); Glomerular Filtration Rate 127 ml/min (=/>90); Glucose Level 81 mg/dL (74-106); Potassium 3.6 mEq/L (3.5-5.1); Protein, Total 6.4 g/dL (6.4-8.2); Sodium Level 138 mEq/L (136-145)
[2023-07-07 15:17] LABS: ALT/SGPT < 10 U/L (13-56)
--- NOTE | 2023-07-07 16:24 | RAD REPORT ---
EXAM DESCRIPTION: US - Transvaginal OB - 07/07/2023 4:10 pm CLINICAL HISTORY: ABD CRAMPING, COMPARISON: <Comparisons> FINDINGS: The uterus is normal sized. Endometrial thickness is 12 mm. No gestational sac or other IU P findings are evident. The maternal adnexa and ovaries are within normal limits. Normal Doppler blood flow was demonstrated to both ovaries. IMPRESSION: Thickened endometrial stripe is noted (12 mm) without gestational sac or IUP. If the pat ient has a positive HCG level, this would be considered a of unknown location. Follow-up se rial HCG levels and pelvic sonography in 7-10 days would be recommended.
--- NOTE | 2023-07-07 17:53 | P.HP ---
Certification for Inpatient Patient admitted to: Inpatient With expected LOS: >2 Midnights Patient will require the following post-hospital care: None Practitioner: I am a practitioner with admitting privileges, knowledge of patient current condition, hospital course, and medical plan of care. Services: Services provided to patient in accordance with Admission requirements found in Title 42 Section 412.3 of the Code of Federal Regulations Patient History Date of Service: 07/07/23 Reason for admission: Ascending UTI History of Present Illness: 27-year-old otherwise healthy female presents emergency department chief complaint of fever, dysuria for the past 24 to 48 hours. She has a history of multiple urinary tract infections in the past after having a complicated with a bladder injury requiring repair. She was evaluated in the emergency department her labs are significant for white blood cell 5.3 lactic acid 1.1 UA concerning for urinary tract infection, urine test was positive subsequent beta hCG was obtained which was 31 pelvic ultrasound was also obtained which showed thickened endometrial stripe noted without gestational sac or IUP. Follow-up serial hCG levels and pelvic sonography in 7 to 10 days to be recommended. Patient with history of pyelonephritis, unable to obtain CT given clinically likely to pyelonephritis. Will admit for antibiotics with Rocephin. Allergies Penicillins Allergy (Mild, Verified 07/24/11 15:37) Hives Amoxicillin-Pot Clavulanate Allergy (Uncoded 01/11/15 20:12) Unknown Home Medications: Ciprofloxacin HCl [Cipro] 500 mg PO BID #10 03/02/22 - Past Medical/Surgical History Diabetic: No -: None -: section -: Bladder repair Psychosocial/ Personal History: Lives at home with family - Social History Alcohol use: No CD- Drugs: No Caffeine use: Yes Review of Systems 10-point ROS is otherwise unremarkable General: Fever, Chills, Malaise Genitourinary: Dysuria Physical Examination - Physical Exam General: Alert, In no apparent distress, Oriented x3 HEENT: Atraumatic, PERRLA, Mucous membr. moist/pink, EOMI Neck: Supple, 2+ carotid pulse no bruit, No LAD Respiratory: Clear to auscultation bilaterally, Normal air movement Cardiovascular: Regular rate/rhythm, Normal S1 S2 Gastrointestinal: Normal bowel sounds Musculoskeletal: No tenderness Integumentary: No rashes Neurological: Normal speech, Normal strength at 5/5 x4 extr, Normal tone - Studies Laboratory Data (last 24 hrs) 07/07/23 07/07/23 07/07/23 14:45 14:45 14:45 WBC 5.30 Hgb 10.4 L Hct 30.2 L Plt Count 212 PT 13.5 H INR 1.23 APTT 35.1 Sodium 138 Potassium 3.6 BUN 12 Creatinine 0.61 Glucose 81 Total Bilirubin 0.3 AST 7 L ALT < 10 L Alkaline Phosphatase 66 Assessment and Plan - Plan Assessment: UTI-concern for ascending urinary tract infection/pyelonephritis Early Plan: UTI-concern for ascending urinary tract infection/pyelonephritis Penicillin allergic but has tolerated Rocephin in the past Previous UTIs pansensitive E. coli Fevers last 2 days up to 101.7 Await urine and blood cultures Early Last menstrual cycle mid May, hCG 31 Ultrasound with no gestational sac, recommend follow-up hCG/ultrasound in 7 days DVT PPX: SCDs Code status: Full Discharge Plan: Home Plan to discharge in: 48 Hours - Advance Directives Does patient have a Living Will: No Does patient have a Durable POA for Healthcare: No - Code Status/Comfort Care Code Status Assessed: Yes (Full code) Critical Care: No Time Spent Managing Pts Care (In Minutes): 55
[2023-07-07 21:16] VITALS: BMI 17.6
[2023-07-07] MEDS ORDERED: ACETAMINOPHEN 500 MG TAB PO PRN (21:53)
[2023-07-07] MEDS: NA CHLORIDE 0.9% 1,000 ML IV SCH (21:53)
[2023-07-07] MEDS: CEFTRIAXONE 1,000 MG in NA CHLORIDE 0.9% 50 ML IVPB SCH (22:11)
[2023-07-08 05:57] LABS: Potassium 3.9 mEq/L (3.5-5.1)
[2023-07-08 05:58] LABS: Absolute Lymphocytes (CBC) 2.2 K/uL (0.7-4.9); Hematocrit 33.4 % (36.0-45.0); Lymphocytes % 43.7 % (15.3-44.8); MCV 86.1 fL (80-100); MPV 9.2 fL (7.6-11.3); Platelets 275 thou/uL (152-406); RBC Red Blood Cell Count 3.88 M/uL (3.86-4.86)
[2023-07-08] MEDS ORDERED: NA CHLORIDE 0.9% 1,000 ML IV ONE (06:17)
--- NOTE | 2023-07-08 08:12 | RAD REPORT ---
EXAM DESCRIPTION: US - Renal Ultrasound-Complete - 07/08/2023 7:40 am CLINICAL HISTORY: uti, r/o obstruction /stone COMPARISON: Renal Ultrasound-Complete dated 02/28/2022 TECHNIQUE: Sonographic grayscale and color flow images of the kidneys and bladder were obtained. FINDINGS: Both kidneys are normal in size, shape, and echotexture. The right kidney measures 11.5 cm in length. No hydronephrosis, focal mass, or echogenic calculi. The left kidney measures 9.2 cm in length. No hydronephrosis, focal mass, or echogenic calculi. The urinary bladder is without gross abnormality seen. Borderline enlarged spleen measuring 12.7 cm in length. IMPRESSION: Unremarkable renal sonogram. Borderline enlarged spleen.
[2023-07-08] MEDS ORDERED: PRENATAL VITAMIN PO SCH (09:00)
[2023-07-08] MEDS: CEFTRIAXONE 1,000 MG in NA CHLORIDE 0.9% 50 ML IVPB SCH ×2 (10:47→20:39)
--- NOTE | 2023-07-08 11:33 | P.PN ---
Date of Service: 07/08/23 Subjective: Improving, less back pain No acute events overnight ROS: 10 point ROS as noted above, otherwise negative Physical exam GEN: Alert, oriented, NAD HEENT: Normal conjunctiva, sclera anicteric CV: Regular rate and rhythm, no edema Pulm: Nonlabored respirations on room air ABD: Soft, nontender, nondistended MSK: No joint tenderness Integumentary: No rashes Neuro: Normal speech, normal affect Vitals reviewed Assessment: UTI-concern for ascending urinary tract infection/pyelonephritis Early Plan UTI-concern for ascending urinary tract infection/pyelonephritis Preliminary urine culture 4+ gram-negative rods greater than 100,000 CFU Continue empiric Rocephin await urine culture Early Discussed hCG [id number], ultrasound results Recommend repeat hCG testing, pelvic ultrasound around 07/07/2023 VTE: SCD/ambulation Code: Full Dispo: 1 to 2 days Time Spent Managing Pts Care (In Minutes): 35
[2023-07-08] MEDS: MULTIVITAMIN TAB PO SCH (15:24)
[2023-07-08] MEDS: FOLIC ACID 1 MG TABLET PO SCH (15:24)
[2023-07-08] MEDS: NA CHLORIDE 0.9% 1,000 ML IV SCH (17:53)
[2023-07-08 23:39] VITALS: O2SAT 100
[2023-07-09] MEDS: NA CHLORIDE 0.9% 1,000 ML IV SCH ×3 (03:40→13:53)
[2023-07-09 07:33] LABS: Hematocrit 32.3 % (36.0-45.0); Lymphocytes % 46.6 % (15.3-44.8); MCV 86.2 fL (80-100); Platelets 286 thou/uL (152-406); RBC Red Blood Cell Count 3.75 M/uL (3.86-4.86)
[2023-07-09 07:45] LABS: Potassium 3.6 mEq/L (3.5-5.1)
[2023-07-09] MEDS: FOLIC ACID 1 MG TABLET PO SCH (08:47)
[2023-07-09] MEDS: CEFTRIAXONE 1,000 MG in NA CHLORIDE 0.9% 50 ML IVPB SCH ×2 (08:47→20:04)
[2023-07-09] MEDS: MULTIVITAMIN TAB PO SCH (08:47)
[2023-07-09] MEDS ORDERED: NA CHLORIDE 0.9% 1,000 ML IV ONE (09:20)
--- NOTE | 2023-07-09 12:58 | P.PN ---
Date of Service: 07/09/23 Subjective: Improving, less back pain No acute events overnight ROS: 10 point ROS as noted above, otherwise negative Physical exam GEN: Alert, oriented, NAD HEENT: Normal conjunctiva, sclera anicteric CV: Regular rate and rhythm, no edema Pulm: Nonlabored respirations on room air ABD: Soft, nontender, nondistended MSK: No joint tenderness Integumentary: No rashes Neuro: Normal speech, normal affect Vitals reviewed Assessment: UTI-concern for ascending urinary tract infection/pyelonephritis Early Plan UTI-concern for ascending urinary tract infection/pyelonephritis Urine culture resulted with pansensitive E. coli Continue Rocephin for now Blood pressure still on the soft side continue IV fluids Plan for DC when blood pressure normalized Early Discussed hCG , ultrasound results Recommend repeat hCG testing, pelvic ultrasound around 07/14/2023 VTE: SCD/ambulation Code: Full Dispo: 1 to 2 days Time Spent Managing Pts Care (In Minutes): 35
[2023-07-09] MEDS ORDERED: NA CHLORIDE 0.9% 1,000 ML IV SCH (18:06)
[2023-07-10 04:06] LABS: Absolute Lymphocytes (CBC) 2.7 K/uL (0.7-4.9); Hematocrit 35.8 % (36.0-45.0); Lymphocytes % 43.9 % (15.3-44.8); MCV 86.5 fL (80-100); Platelets 328 thou/uL (152-406); RBC Red Blood Cell Count 4.14 M/uL (3.86-4.86)
[2023-07-10 04:20] LABS: Potassium 3.8 mEq/L (3.5-5.1)
[2023-07-10] MEDS: FOLIC ACID 1 MG TABLET PO SCH (08:13)
[2023-07-10] MEDS: CEFTRIAXONE 1,000 MG in NA CHLORIDE 0.9% 50 ML IVPB SCH (08:14)
[2023-07-10] MEDS: MULTIVITAMIN TAB PO SCH (08:14)
--- NOTE | 2023-07-10 15:20 | P.DS ---
Admission Date: 07/07/23 Discharge Date: 07/10/23 Disposition: ROUTINE DISCHARGE Discharge Condition: GOOD Reason for Admission: Ascending UTI Brief History of Present Illness: 27-year-old otherwise healthy female presents emergency department chief complaint of fever, dysuria for the past 24 to 48 hours. She has a history of multiple urinary tract infections in the past after having a complicated with a bladder injury requiring repair. She was evaluated in the emergency department her labs are significant for white blood cell 5.3 lactic acid 1.1 UA concerning for urinary tract infection, urine test was positive subsequent beta hCG was obtained which was 31 pelvic ultrasound was also obtained which showed thickened endometrial stripe noted without gestational sac or IUP. Follow-up serial hCG levels and pelvic sonography in 7 to 10 days to be recommended. Patient with history of pyelonephritis, unable to obtain CT given clinically likely to pyelonephritis. Will admit for antibiotics with Rocephin. Hospital Course: Assessment: UTI-concern for ascending urinary tract infection/pyelonephritis Early Patient was admitted to the hospital for clinical pyelonephritis. She was having urinary symptoms, fevers at home and came to the emergency department for evaluation. In the emergency department urine test was performed was positive, hCG level was 31 on 07/07/2023, subsequent pelvic ultrasound was performed which showed no gestational sac or IUP. This is consistent with very early . Patient was admitted to the hospital for treatment for clinical pyelonephritis, UTI. Blood cultures with no growth, urine culture with pansensitive E. coli. Blood pressure was low throughout duration of hospitalization, previous records reviewed and patient blood pressure typically runs in the 80s to 90s systolic. Patient has been tolerating diet, ambulatory, afebrile and feeling well for the past 2 days. She will be discharged home with prescription for Keflex 500 mg by mouth twice daily for 10 days Please follow-up with primary care doctor in 1 to 2 weeks Please follow-up with [employer] in the next 1 week Recommend repeat hCG, pelvic ultrasound between 07/14/2023 and 07/17/2023 hCG 31 on 07/07/2023 Prescription for Keflex 500 mg by mouth twice daily sent to [facility] in [place] Please also begin taking vitamins If you begin to experience abdominal pain or vaginal bleeding go to the closest emergency department for further evaluation/to rule out ectopic . Vital Signs/Physical Exam: Temp Pulse Resp BP Pulse Ox 98.7 F 87 12 87/56 L 100 07/10/23 12:16 07/10/23 12:16 07/10/23 12:16 07/10/23 12:16 07/10/23 12:16 General: Alert, In no apparent distress, Oriented x3 HEENT: Atraumatic, PERRLA Neck: Supple, JVD not distended Respiratory: Clear to auscultation bilaterally, Normal air movement Cardiovascular: Regular rate/rhythm, Normal S1 S2 Gastrointestinal: Normal bowel sounds Musculoskeletal: No tenderness Integumentary: No rashes Neurological: Normal speech, Normal tone Laboratory Data at Discharge: WBC 6.10 thou/uL (4.3-10.9) 07/10/23 03:35 Hgb 12.3 g/dL (12.0-15.0) D 07/10/23 03:35 Hct 35.8 % (36.0-45.0) L 07/10/23 03:35 Plt Count 328 thou/uL (152-406) 07/10/23 03:35 PT 13.5 SECONDS (9.5-12.5) H 07/07/23 14:45 INR 1.23 07/07/23 14:45 APTT 35.1 SECONDS (24.3-36.9) 07/07/23 14:45 Sodium 136 mEq/L (136-145) 07/10/23 03:35 Potassium 3.8 mEq/L (3.5-5.1) 07/10/23 03:35 BUN 9 mg/dL (7-18) 07/10/23 03:35 Creatinine 0.66 mg/dL (0.55-1.02) 07/10/23 03:35 Glucose 92 mg/dL (74-106) 07/10/23 03:35 Total Bilirubin 0.3 mg/dL (0.2-1.0) 07/07/23 14:45 AST 7 U/L (15-37) L 07/07/23 14:45 ALT < 10 U/L (13-56) L 07/07/23 14:45 Alkaline Phosphatase 66 U/L (45-117) 07/07/23 14:45 Home Medications: cephALEXin [Cephalexin] 500 mg PO BID 10 Days #20 tab 07/10/23 New Medications: cephALEXin [Cephalexin] 500 mg PO BID 10 Days #20 tab Physician Discharge Instructions: Patient was admitted to the hospital for clinical pyelonephritis. She was having urinary symptoms, fevers at home and came to the emergency department for evaluation. In the emergency department urine test was performed was positive, hCG level was 31 on 07/07/2023, subsequent pelvic ultrasound was performed which showed no gestational sac or IUP. This is consistent with very early . Patient was admitted to the hospital for treatment for clinical pyelonephritis, UTI. Blood cultures with no growth, urine culture with pansensitive E. coli. Blood pressure was low throughout duration of hospitalization, previous records reviewed and patient blood pressure typically runs in the 80s to 90s systolic. Patient has been tolerating diet, ambulatory, afebrile and feeling well for the past 2 days. She will be discharged home with prescription for Keflex 500 mg by mouth twice daily for 10 days Please follow-up with primary care doctor in 1 to 2 weeks Please follow-up with [facility] [employer] in the next 1 week Recommend repeat hCG, pelvic ultrasound between 07/14/2023 and 07/17/2023 hCG 31 on 07/07/2023 Prescription for Keflex 500 mg by mouth twice daily sent to [facility] in [place] Please also begin taking vitamins If you begin to experience abdominal pain or vaginal bleeding go to the closest emergency department for further evaluation/to rule out ectopic . Diet: Regular Activity: Ad junie Followup: NONE,NONE [Primary Care Provider] - 1-2 Weeks Time spent managing pt's care (in minutes): 30
[2023-07-10 16:48] VITALS: BP 99/63; TEMP 98.1
--- NOTE | 2023-07-12 17:12 | EKG ---
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
== END 2023-07-10 16:40 | disposition home or self-care (01) | DRG 833 ==
LOC: ER 09:10 → ERHOLD 18:13 → 2ND 19:35
PROVIDERS: ADMIT Hospitalist; ATTEND Hospitalist
DX: O23.01 Infections of kidney in pregnancy, first trimester (principal); B96.20 Unspecified Escherichia coli [E. coli] as the cause of diseases classified elsewhere; Z88.1 Allergy status to other antibiotic agents; Z88.0 Allergy status to penicillin; Z3A.00 Weeks of gestation of pregnancy not specified
CPT/HCPCS: 36415; 76770; 76817; 80048; 80053; 81001; 81025; 83605; 84702; 85025; 85610; 85730; 87040; 87077; 87086; 87088; 87186; 93005; 96361; 96365; 96375; 99285; J0696; J0744; J2405; J7030

== ENCOUNTER 2024-03-01 09:13 | Emergency (ER) | payer OTHER ==
[2024-03-01 09:54] LABS: Absolute Lymphocytes (CBC) 1.5 K/uL (0.7-4.9); Absolute Monocytes 0.3 K/uL (0.1-1.3); Absolute Neutrophil 4.5 K/uL (1.8-8.0); Basophils % 0.4 % (0-1.3); Eosinophils % 0.5 % (0-4.4); Hematocrit 27.6 % (36.0-45.0); Hemoglobin 9.2 g/dL (12.0-15.0); Lymphocytes % 24.2 % (15.3-44.8); MCH 27.8 pg (27.0-35.0); MCHC 33.3 g/dL (32.0-36.0); MCV 83.5 fL (80-100); MPV 8.3 fL (7.6-11.3); Monocytes % 4.4 % (3.3-12.3); Neutrophils % 70.5 % (41.7-73.7); Nucleated Red Blood Cells % 0.1 % (0-0); Platelets 310 thou/uL (152-406); RBC Red Blood Cell Count 3.31 M/uL (3.86-4.86); Red Cell Distribution Width 14.2 % (12.1-15.2)
[2024-03-01 10:01] LABS: ALT/SGPT < 14 U/L (13-56); AST/SGOT 11 U/L (15-37); Albumin 2.5 g/dL (3.4-5.0); Albumin/Globulin Ratio 0.7 (1.1-1.8); Alkaline Phosphatase 73 U/L (45-117); Anion Gap 9.4 mEq/L (5.0-15.0); BUN Blood Urea Nitrogen 6 mg/dL (7-18); Bicarbonate 23 mEq/L (21-32); Bilirubin Direct < 0.2 mg/dL (0-0.2); Bilirubin Total 0.2 mg/dL (0.2-1.0); Globulin 3.7 g/dL (2.3-3.5); Glomerular Filtration Rate 127 ml/min (=/>90); Glucose Level 68 mg/dL (74-106); Potassium 3.4 mEq/L (3.5-5.1); Protein, Total 6.2 g/dL (6.4-8.2); Sodium Level 137 mEq/L (136-145)
[2024-03-01] MEDS ORDERED: NA CHLORIDE 0.9% 1,000 ML ONE (10:02)
--- NOTE | 2024-03-01 10:41 | RAD REPORT ---
EXAM DESCRIPTION: US - OB Limited - 03/01/2024 10:13 am CLINICAL HISTORY: ABD CRAMPING, Pelvic pain COMPARISON: Transvaginal OB dated 07/07/2023 FINDINGS: Limited examination requested by the emergency room. A single cephalic presenting gestatio n is identified. Heart rate normal. Estimated gestational age is 27 weeks 3 days, RODRICK 05/28/2024. Amn iotic fluid volume as within normal limits with ELLIOT of 13.7 cm. Placenta is posteriorly located. Cerv ix measures 3.3 cm and appears closed.
--- NOTE | 2024-03-01 11:44 | ER ---
Nurse's Notes [facility] Name: Wilma Batres Age: 28 yrs Sex: Female : 1995 Arrival Date: 03/01/2024 Time: 09:13 Bed 14 Private MD: Diagnosis: 27 weeks gestation of ;Weakness;Dizziness and giddiness;UTI/ Urinary tract infection, site not specified Presentation: 03/01 09:24 Chief complaint: Patient states: Near syncope, nausea, dizziness started suddenly while ll1 typing at work this AM. Approximately 27 weeks G3, P1. Coronavirus screen: Client denies travel out of the [place] in the last 14 days. At this time, the client does not indicate any symptoms associated with coronavirus-19. Ebola Screen: Patient denies travel to an Ebola-affected area in the 21 days before illness onset. Initial Sepsis Screen: Does the patient meet any 2 criteria? No. Patient's initial sepsis screen is negative. Does the patient have a suspected source of infection? No. Patient's initial sepsis screen is negative. Risk Assessment: Do you want to hurt yourself or someone else? Patient reports no desire to harm self or others. Onset of symptoms was March 01, 2024. 09:24 Method Of Arrival: Wheelchair ll1 09:24 Acuity: AMOR 2 ll1 LIVER TRIMMER: 12:54 unknown, me1 Historical: - Allergies: 09:26 Amoxicillin; ll1 09:26 PENICILLINS; ll1 - PMHx: 09:26 None; ll1 - PSHx: 09:26 Bladder repair (after cut from ); section; I\T\D; ll1 - Immunization history:: Adult Immunizations up to date. - Infectious Disease History:: Denies. - Social history:: Smoking status: Patient denies any tobacco usage or history of. - Family history:: not pertinent. Screenin:36 [facility] ED Fall Risk Assessment (Adult) History of falling in the last 3 months, ap3 including since admission No falls in past 3 months (0 pts) Confusion or Disorientation No (0 pts) Intoxicated or Sedated No (0 pts) Impaired Gait No (0 pts) Mobility Assist Device Used No (0 pt) Altered Elimination No (0 pt) Score/Fall Risk Level 0 - 2 = Low Risk Oriented to surroundings, Maintained a safe environment, Educated pt \T\ family on fall prevention, incl call for assistance when getting out of bed, Assessed \T\ reinforced patient's understanding of fall precautions, Hourly rounding (assess needs \T\ fall precautionary measures) done, Used ambulatory aids as needed (educated on \T\ assisted with), Used gait belt as appropriate. Abuse screen: Denies threats or abuse. Nutritional screening: No deficits noted. Tuberculosis screening: No symptoms or risk factors identified. Assessment: 10:36 General: Appears in no apparent distress. Behavior is calm, cooperative, appropriate ap3 for age. Pain: Denies pain. Neuro: Level of Consciousness is awake, alert, obeys commands, Oriented to person, place, time, situation, Reports weakness near syncope. Cardiovascular: Patient's skin is warm and dry. Respiratory: Airway is patent Respiratory effort is even, unlabored, Respiratory pattern is regular, symmetrical. Vital Signs: 09:24 BP 85 / 63; Pulse 82; Resp 17; Temp 98; Pulse Ox 100% ; Weight 52.16 kg; Height 5 ft. 4 ll1 in. ; Pain 0/10; 10:35 BP 93 / 61; Pulse 80; Resp 17; Pulse Ox 100% on R/A; ap3 12:30 BP 99 / 72; Pulse 73; Resp 16; Temp 98.3; Pulse Ox 100% ; me1 13:00 BP 93 / 68; Pulse 77; Resp 16; Temp 98.1; Pulse Ox 100% on R/A; me1 09:24 Body Mass Index 19.74 (52.16 kg, 162.56 cm) ll1 09:24 Pain Scale: Adult ll1 ED Course: 09:16 Patient arrived in ED. ra3 09:20 Aldo Rosario MD is Attending Physician. noel 09:25 Triage completed. ll1 09:26 Arm band placed on Patient placed in an exam room, on a stretcher. ll1 09:28 Nancy Rainey, ABDULLAHI is Primary Nurse. ap3 09:37 Inserted saline lock: 20 gauge in right antecubital area, using aseptic technique. jr12 Blood collected. Flushed with 10 mL NS. 09:38 Abo/rh Typing Sent. jr12 09:38 Basic Metabolic Panel Sent. jr12 09:38 CBC with Diff Sent. jr12 09:38 Test, Urine Sent. jr12 09:38 Urinalysis w/ reflexes Sent. jr12 10:15 US OB Limited In Process Unspecified. EDMS 10:36 Patient has correct armband on for positive identification. Bed in low position. Call ap3 light in reach. Side rails up X 1. Adult w/ patient. Provided Education on: use of call light. Pulse ox on. NIBP on. 12:53 No provider procedures requiring assistance completed. me1 13:24 IV discontinued, intact, bleeding controlled, No redness/swelling at site. Pressure me1 dressing applied. Administered Medications: 10:35 Drug: NS 0.9% IV 1000 ml IV at 1 bolus Per protocol; 1000 mL bolus Route: IV; Rate: 1 ap3 bolus; Site: right antecubital; 11:54 Follow up: IV Status: Completed infusion; IV Intake: 1000ml ap3 12:11 Drug: Potassium PO Effervescent Tablet 25 mEq PO once; dissolve in 4 ounces of water or me1 juice Route: PO; 13:16 Follow up: Response: No adverse reaction me1 13:08 Drug: Rocephin IV 1 grams IV at per protocol once; Given slow IV push per pharmacy me1 instructions Route: IV; Rate: per protocol; Site: right antecubital; 13:16 Follow up: Response: No adverse reaction; IV Status: Completed infusion me1 13:08 Drug: Cefdinir PO 300 mg PO once Route: PO; me1 13:16 Follow up: Response: No adverse reaction me1 Medication: 10:37 VIS not applicable for this client. ap3 Intake: 11:54 IV: 1000ml; Total: 1000ml. ap3 Outcome: 11:44 Discharge ordered by . noel 13:24 Discharged to home ambulatory, with family, me1 13:24 Condition: stable 13:24 Discharge instructions given to patient, family, Instructed on discharge instructions, follow up and referral plans. medication usage, Demonstrated understanding of instructions, follow-up care, medications, Prescriptions given X 1, 13:24 Patient left the ED. me1 Signatures: Dispatcher [employer] Aldo Blanco MD MD cha Prokisch, Amanda, RN RN ap3 Olena Stone RN RN 1 Cheryl Moreno RN RN me1 Charo Galvan 12 Kathy Schmitz ra3 Corrections: (The following items were deleted from the chart) 09:26 09:24 Chief complaint: Patient states: Near syncope, nausea, dizziness started suddenly ll1 while typing at work this AM. ll1
--- NOTE | 2024-03-01 11:44 | EDPHYS ---
Physician Documentation [facility] Name: Wilma Batres Age: 28 yrs Sex: Female : 1995 Arrival Date: 03/01/2024 Time: 09:13 Bed 14 Private MD: TIGIST Physician Aldo Rosario HPI: 03/01 11:40 This 28 yrs old Female presents to ER via Wheelchair with complaints of 27 wks noel preg dizziness weakness. 11:40 The patient presents to the emergency department with WEAKNESS, DIZZINESS. The noel estimated gestational age is 27 weeks. course: care: at a clinic. WEAK , DIZZY. The patient presents with dizziness, generalized weakness. Context: occurred at an unknown location. Modifying factors: The symptoms are alleviated by nothing, the symptoms are aggravated by nothing. Associated signs and symptoms: The patient has no apparent associated signs or symptoms. Patient's baseline: Neuro: alert and fully oriented. Severity of symptoms: At their worst the symptoms were mild in the emergency department the symptoms are unchanged. The patient has experienced similar episodes in the past, several times. 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 - Infectious Disease History:: Denies. - Social history:: Smoking status: Patient denies any tobacco usage or history of. - Family history:: not pertinent. ROS: 11:40 Constitutional: Negative for fever, chills, and weight loss, Eyes: Negative for injury, noel pain, redness, and discharge, ENT: Negative for injury, pain, and discharge, Neck: Negative for injury, pain, and swelling, Cardiovascular: Negative for chest pain, palpitations, and edema, Respiratory: Negative for shortness of breath, cough, wheezing, and pleuritic chest pain, Abdomen/GI: Negative for abdominal pain, nausea, vomiting, diarrhea, and constipation, Back: Negative for injury and pain, : Negative for injury, bleeding, discharge, and swelling, MS/Extremity: Negative for injury and deformity, Skin: Negative for injury, rash, and discoloration, Psych: Negative for depression, anxiety, suicide ideation, homicidal ideation, and hallucinations, Allergy/Immunology: Negative for hives, rash, and allergies, Endocrine: Negative for neck swelling, polydipsia, polyuria, polyphagia, and marked weight changes, Hematologic/Lymphatic: Negative for swollen nodes, abnormal bleeding, and unusual bruising, 11:40 Neuro: Positive for dizziness, weakness, Exam: 11:40 Constitutional: This is a well developed, well nourished patient who is awake, alert, noel and in no acute distress. Head/Face: Normocephalic, atraumatic. Eyes: Pupils equal round and reactive to light, extra-ocular motions intact. Lids and lashes normal. Conjunctiva and sclera are non-icteric and not injected. Cornea within normal limits. Periorbital areas with no swelling, redness, or edema. ENT: Nares patent. No nasal discharge, no septal abnormalities noted. Tympanic membranes are normal and external auditory canals are clear. Oropharynx with no redness, swelling, or masses, exudates, or evidence of obstruction, uvula midline. Mucous membranes moist. Neck: Trachea midline, no thyromegaly or masses palpated, and no cervical lymphadenopathy. Supple, full range of motion without nuchal rigidity, or vertebral point tenderness. No Meningismus. Chest/axilla: Normal chest wall appearance and motion. Nontender with no deformity. No lesions are appreciated. Cardiovascular: Regular rate and rhythm with a normal S1 and S2. No gallops, murmurs, or rubs. Normal PMI, no JVD. No pulse deficits. Respiratory: Lungs have equal breath sounds bilaterally, clear to auscultation and percussion. No rales, rhonchi or wheezes noted. No increased work of breathing, no retractions or nasal flaring. Abdomen/GI: Soft, non-tender, with normal bowel sounds. No distension or tympany. No guarding or rebound. No evidence of tenderness throughout. Back: No spinal tenderness. No costovertebral tenderness. Full range of motion. Skin: Warm, dry with normal turgor. Normal color with no rashes, no lesions, and no evidence of cellulitis. MS/ Extremity: Pulses equal, no cyanosis. Neurovascular intact. Full, normal range of motion. Neuro: Awake and alert, GCS 15, oriented to person, place, time, and situation. Cranial nerves II-XII grossly intact. Motor strength 5/5 in all extremities. Sensory grossly intact. Cerebellar exam normal. Normal gait. Psych: Awake, alert, with orientation to person, place and time. Behavior, mood, and affect are within normal limits. 11:40 ECG was reviewed by the Attending Physician. Vital Signs: 09:24 BP 85 / 63; Pulse 82; Resp 17; Temp 98; Pulse Ox 100% ; Weight 52.16 kg; Height 5 ft. 4 ll1 in. ; Pain 0/10; 10:35 BP 93 / 61; Pulse 80; Resp 17; Pulse Ox 100% on R/A; ap3 12:30 BP 99 / 72; Pulse 73; Resp 16; Temp 98.3; Pulse Ox 100% ; me1 13:00 BP 93 / 68; Pulse 77; Resp 16; Temp 98.1; Pulse Ox 100% on R/A; me1 09:24 Body Mass Index 19.74 (52.16 kg, 162.56 cm) ll1 09:24 Pain Scale: Adult ll1 MDM: 09:20 Patient medically screened. noel 09:20 Patient medically screened. noel 12:56 Differential diagnosis: Michael zamora. Differential Diagnosis sepsis, flu. Differential noel diagnosis: generalized weakness, . Data reviewed: vital signs, nurses notes, lab test result(s), radiologic studies, ultrasound. Consideration of Admission/Observation Escalation of care including admission/observation considered. I considered the following discharge prescriptions or medication management in the emergency department Medications were administered in the Emergency Department. See MAR. Test considered but Not performed: Ultrasound NO RENAL USG. Counseling: I had a detailed discussion with the patient and/or guardian regarding the historical points, exam findings, and any diagnostic results supporting the discharge/admit diagnosis, lab results, radiology results. 03/01 09:21 Order name: Abo/rh Typing; Complete Time: 11:37 [facility] 03/01 09:21 Order name: Basic Metabolic Panel; Complete Time: 11:37 [facility] 03/01 09:21 Order name: CBC with Diff; Complete Time: 11:37 [facility] 03/01 09:21 Order name: Test, Urine; Complete Time: 12:55 [facility] 03/01 09:21 Order name: Urinalysis w/ reflexes; Complete Time: 12:55 [facility] 03/01 09:21 Order name: LFT's; Complete Time: 11:37 [facility] 03/01 12:09 Order name: Urine Culture EDMS 03/01 09:21 Order name: US OB Limited; Complete Time: 11:37 [facility] 03/01 09:21 Order name: EKG; Complete Time: 09:22 [facility] 03/01 09:21 Order name: IV Saline Lock; Complete Time: 09:38 [facility] 03/01 09:21 Order name: Labs collected and sent; Complete Time: 09:38 [facility] 03/01 09:21 Order name: NPO; Complete Time: 09:29 [facility] 03/01 09:21 Order name: EKG - Nurse/Tech; Complete Time: 11:06 [facility] 03/01 11:38 Order name: Misc. Order: GET UA; Complete Time: 11:52 [facility] EC:40 Rate is 77 beats/min. QRS [place] is Normal. AR interval is normal. QRS interval is noel normal. QT interval is normal. No Q waves. T waves are Normal. No ST changes noted. Clinical impression: Normal ECG and No evidence of ischemia. Interpreted by me. Reviewed by me. Administered Medications: 10:35 Drug: NS 0.9% IV 1000 ml IV at 1 bolus Per protocol; 1000 mL bolus Route: IV; Rate: 1 ap3 bolus; Site: right antecubital; 11:54 Follow up: IV Status: Completed infusion; IV Intake: 1000ml ap3 12:11 Drug: Potassium PO Effervescent Tablet 25 mEq PO once; dissolve in 4 ounces of water or me1 juice Route: PO; 13:16 Follow up: Response: No adverse reaction me1 13:08 Drug: Rocephin IV 1 grams IV at per protocol once; Given slow IV push per pharmacy me1 instructions Route: IV; Rate: per protocol; Site: right antecubital; 13:16 Follow up: Response: No adverse reaction; IV Status: Completed infusion me1 13:08 Drug: Cefdinir PO 300 mg PO once Route: PO; me1 13:16 Follow up: Response: No adverse reaction me1 Disposition Summary: 03/01/24 11:44 Discharge Ordered Notes: Location: Home noel Problem: new noel Symptoms: have improved noel Condition: Stable noel Diagnosis - 27 weeks gestation of noel - Weakness noel - Dizziness and giddiness noel - UTI/ Urinary tract infection, site not specified noel Followup: noel - With: Private Physician - When: 2 - 3 days - Reason: Recheck today's complaints, Continuance of care, Re-evaluation by your physician Discharge Instructions: - Discharge Summary Sheet noel - Dizziness noel - Urinary Tract Infection, Adult noel - Weakness noel - Third Trimester of noel - Urinary Tract Infection, Adult, [id number] noel - Second Trimester of noel - Third Trimester of , [id number] noel - Weakness, [id number]-[id number] noel - Second Trimester of , Xqex-[id number] noel - Dizziness, Fgmz-on-Nkgr noel Forms: - Medication Reconciliation Form noel - Antibiotic Education noel - Prescription Opioid Use noel - Patient Portal Instructions noel - Leadership Thank You Letter noel Prescriptions: - cefdinir 300 mg Oral capsule - take 1 capsule ORAL route every 12 hours; 14 capsule; Refills: 0, Product noel Selection Permitted Signatures: Dispatcher [employer] Aldo Blanco MD MD cha Prokisch, Amanda, RN RN ap3 Olena Stone RN RN ll1 Cheryl Moreno RN RN me1
[2024-03-01] MEDS ORDERED: POTASSIUM 25 MEQ EFFERV TAB ONE (11:57)
[2024-03-01 12:03] LABS: Specific Gravity 1.005 (1.005-1.030)
[2024-03-01 12:06] LABS: Specific Gravity 1.005 (1.005-1.030); Sqamous Epithelial <5 /HPF (None Seen); Urine Bacteria 20-50 /HPF (<20); Urine Bilirubin NEGATIVE (Negative); Urine Blood Negative (Negative); Urine Clarity Extremely Turbid (Clear); Urine Color Light-Yellow (Yellow); Urine Culture Reflex Order REFLEXED; Urine Glucose NEGATIVE (Negative); Urine Ketones NEGATIVE (Negative); Urine Microscopic Reflex YN ORDER UMIC; Urine Mucus Slight /HPF (None Seen); Urine Nitrite 2+ (Negative); Urine Protein NEGATIVE (Negative); Urine Urobilinogen Normal (Normal); Urine pH 6.5 (5.0-7.0)
[2024-03-01] MEDS ORDERED: CEFTRIAXONE 1000 MG/VIAL ONE (13:00)
[2024-03-01] MEDS ORDERED: CEFDINIR 300 MG CAP PO ONE (13:00)
[2024-03-01 13:58] VITALS: O2SAT 100
[2024-03-01 14:11] VITALS: BP 93/68; TEMP 98.1
--- NOTE | 2024-03-02 16:24 | EKG ---
Test Date: 2024-03-01 Test Time: 10:55:37 Handle Bender: RM MEASUREMENT RESULTS: Intervals: Rate: 77 RI: 116 QRSD: 70 QT: 408 QTc: 461 Ruffin: P: 64 RI: 116 QRS: 36 T: 40 INTERPRETIVE STATEMENTS: Normal sinus rhythm with sinus arrhythmia Normal ECG Compared to ECG 07/07/2023 14:15:36 No significant changes Electronically Signed On 03-02-24 16:21:49 CDT by Olvin Lezama
== END 2024-03-01 13:24 | disposition home or self-care (01) ==
LOC: ER 09:13
DX: O23.42 Unspecified infection of urinary tract in pregnancy, second trimester (principal); N39.0 Urinary tract infection, site not specified; Z3A.27 27 weeks gestation of pregnancy
CPT/HCPCS: 96361; 93005; 87088; 85025; 81001; 87086; 80048; 36415; 86900; 81025; 86901; 80076; 87077; 87186; 76815; 96374; 99284; J7030; J0696

== ENCOUNTER 2025-01-26 21:28 | Inpatient (IN) | payer OTHER ==
--- OUTSIDE RECORDS SUMMARY | 2025-01-26 21:35 | XMS REPORT | Continuity of Care Document ---
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 Aortic root (test code = 5334493308) 2.48 cm Ao root annulus (test code = 3332444329) 2.48 cm BSA (test code = 6865796073) 1.57 m2 LVOT diameter (test code = 4934205142) 1.90 cm LVOT area (test code = 6522551993) 2.80 cm2 LA size (test code = 3737921528) 3.1 cm ACS (test code = 0948132806) 1.93 cm LVIDD (test code = 2825827607) 4.70 cm Left Ventricular End Diastolic Volume by Teichholz Method (test code = 8424364) 100.5 mL IVS (test code = 1568747997) 0.93 cm Interventricular Septum Diastolic Thickness by 2D (test code = 7364804) 0.93 cm LVPWD (test code = 8108453988) 1.06 cm PW (test code = 7232646018) 1.06 cm 0.6-1.1 EF(Teich) (test code = 0657168553) 64.40 % LVIDS (test code = 8934945245) 3.00 cm Left Ventricular End Systolic Volume by Teichholz Method (test code = 0769088) 35.7 mL FS (test code = 8774160114) 35 % EF - 2D (test code = 29504719) 64.40 % PV PEAK VELOCITY (test code = 4901951424) 92.2 cm/s PV peak gradient (test code = 4845775225) 3.4 mmHg MV E-F slope (test code = 0341720626) 41.60 cm/s MV Peak E Chintan (test code = 0757973434) 88.0 cm/s MV valve area p 1/2 method (test code = 3439594190) 9.70 cm2 MV dec slope (test code = 3873475609) 1137.00 cm/s2 MV P1/2t max chintan (test code = 8425390331) 88.00 cm/s MV Peak A Chintan (test code = 4881687591) 74.9 cm/s E/A ratio (test code = 2638551586) 1.17 ratio LVOT stroke volume (test code = 7245413174) 51.70 cm3 LVOT peak chintan (test code = 8642969397) 102.7 cm/s LVOT mn grad (test code = 6171843491) 1.8 mmHg AV LVOT peak gradient (test code = 0755702608) 4.2 mmHg LVOT peak VTI (test code = 7437256621) 18.3 cm LV V1 mean (test code = 9499705357) 59.80 cm/s Aortic valve mean velocity (test code = 4221170166) 83.3 cm/s Ao peak chintan (test code = 0193545469) 153.3 cm/s Ao VTI (test code = 0858171431) 23.5 cm AV area by cont VTI (test code = 8726763086) 2.2 cm2 AV area peak chintan (test code = 8333793078) 1.9 cm2 Ao max PG (test code = 9818518561) 9.40 mm[Hg] AV peak gradient (test code = 9645064744) 9.4 mmHg AV valve area (test code = 9887478463) 2.21 cm2 AV mean gradient (test code = 3771860471) 3.5 mmHg TR Peak Chintan (test code = 8661632308) 263.8 cm/s Triscuspid Valve Regurgitation Peak Gradient (test code = 3764783506) 27.8 mmHg LAV(MOD-sp4) (test code = 1805253389) 22.30 mL LA Volume Index (BP) (test code = 0076725950) 14.8 mL/m2 LA volume (BP) (test code = 8310912808) 23.3 mL LAV(MOD-sp2) (test code = 2084781105) 23.30 mL RVOT area (test code = 5476973219) 2.57 cm2 Radiology Study observation (narrative) (test code = 49868-5) TAMMIE (test code = TAMMIE) ?Left?Ventricle: Left ventricle size is normal. Normal wall thickness. Normal wall motion. Low normal systolic function with a visually estimated EF of 50%. Normal diastolic function. ?Right?Ventricle: Right ventricle size is normal. Normal systolic function. ?Tricuspid?Valve: Insufficient tricuspid regurgitation jet to estimate RVSP . ?RA pressure is 0-5 mmHg. Left VentricleLeft ventricle size is normal. Normal wall thickness. Normal wall motion. Low normal systolic function with a visually estimated EF of 50%. Normal diastolic function.Right VentricleRight ventricle size is normal. Normal systolic function.Left AtriumLeft atrium size is normal.Right AtriumRight atrium size is normal.IVC/SVCIVC diameter is less than or equal to 21 mm and decreases greater than 50% during inspiration; therefore the estimated right atrial pressure is normal (~0-5 mmHg).Mitral ValveMitral valve structure is normal. Trace transvalvular regurgitation.Tricusp id ValveTricuspid valve structure is normal. Trace transvalvular regurgitation. Insufficient tricuspid regurgitation jet to estimate RVSP . RA pressure is 0-5 mmHg.Aortic ValveAortic valve opens well.Pulmonic ValveNot well visualized.Ascending AortaNormal sized aorta.PericardiumThe pericardium is normal. No pericardial effusion.Study DetailsStudy quality was adequate. A complete echocardiogram was performed using 2D, color flow Doppler and spectral Doppler. [facility] [id number] 17:03:00* Test Item Value Reference Range Interpretation Comme nts AG HEPATITIS B SURFACE (test code = HBSAG) NON REACTIVE NONREACTIVE AB HEPATITIS C [id number] 17:03:00* Test Item Value Reference Range Interpretation Comme nts AB HEPATITIS C (test code = HCVAB) NONREACTIVE NONREACTIVE SIGNAL TO CUTOFF (test code = CUTOFF) 0.12 <0.80 N AB [id number] 17:03:00* Test Item Value Reference Range Interpretation Comme nts AB TREPONEMA (test code = TREPAB) NONREACTIVE NONREACTIVE COMPREHENSIVE METABOLIC [id number] 16:19:00* Test Item Value Reference Range Interpretation Comme nts SODIUM (test code = NA) 137 mEq/L 136-145 N POTASSIUM (test code = K) 3.8 mEQ/L 3.4-4.5 N Please note new normal range as of October 2023 CHLORIDE (test code = CL) 109 mEq/L 98-107 H Please note new normal range as of October 2023 CARBON DIOXIDE (test code = CO2) 26 mEq/L 22-31 N ANION GAP (test code = GAP) 5.8 10-20 L GLUCOSE (test code = GLU) 76 mg/dL 74-106 N Please note new normal range as of October 2023 BLOOD UREA NITROGEN (test code = BUN) 6 mg/dL 8-23 L Please note ne w normal range as of October 2023 CREATININE (test code = CREAT) 0.5 mg/dL 0.55-1.02 L Please note new normal range as of October 2023 TOTAL PROTEIN (test code = PROT) 5.9 g/dL 5.7-8.2 N Please note new normal range as of October 2023 ALBUMIN (test code = ALB) 3.7 g/dL 3.2-4.8 N Please note new normal range as of October 2023 CALCIUM (test code = CA) 8.7 mg/dL 8.3-10.6 N Please note new normal range as of October 2023 BILIRUBIN TOTAL (test code = BILT) 0.3 mg/dL 0.3-1.2 N Please note n ew normal range as of October 2023 SGOT/AST (test code = AST) 17 units/L < 34 SGPT/ALT (test code = ALT) 11 units/L 10-49 N ALKALINE PHOSPHATASE TOTAL (test code = ALKP) 71 units/L 46-116 N Please note n ew normal range as of October 2023 GLOMERULAR FILTRATION RATE (test code = GFR) 132.57 ml/min >60 N The Glomerular Filtration Rate is a calculated parameterbased on serum Creatinine, patient age and sex. GFR valuesless than 60 mL/min/1.73 square meters are indicative ofChronic Kidney Disease. Values less than 15 mL/min/1.73square meters indicate Kidney failure. The calculation forGFR is based on the CKD-EPI (2021) calculation. This formulais race indifferent and is the recommended formula for GFRby the National Kidney Foundation for Adults.The GFR will not calculate if the sex is unknown or if thepatient's age is <18 years. CBC W/AUTO [id number] 13:46:00* Test Item Value Reference Range Interpretation Comme nts WHITE BLOOD CELL (test code = WBC) 7.8 K/mm3 6.5-12.3 N RED BLOOD CELL (test code = RBC) 3.27 M/mm3 3.51-4.69 L HEMOGLOBIN (test code = HGB) 9.0 g/dL 10.1-13.8 L HEMATOCRIT (test code = HCT) 28.5 % 32.5-41.8 L MEAN CELL VOLUME (test code = MCV) 87.2 fL 84.6-96.6 N MEAN CELL HGB (test code = MCH) 27.5 pg 27.3-33.9 N MEAN CELL HGB CONCETRATION ( test code = MCHC) 31.6 gm/dL 32.0-34.2 L RED CELL DISTRIBUTION WIDTH (test code = RDW) 13.5 % 12.2-16.3 N PLATELET COUNT (test code = PLT) 280 K/mm3 134-363 N MEAN PLATELET VOLUME (test c ode = MPV) 10.8 fL 9.2-12.7 N NEUTROPHIL % (test code = NT%) 76.6 % 57.9-77.3 N LYMPHOCYTE % (test code = LY%) 18.8 % 14.5-29.7 N MONOCYTE % (test code = MO%) 3.3 % 3.6-10.2 L EOSINOPHIL % (test code = EO%) 0.6 % 0.0-3.0 N BASOPHIL % (test code = BA%) 0.4 % 0.1-0.9 N NEUTROPHIL # (test code = NT#) 6.0 K/mm3 LYMPHOCYTE # (test code = LY#) 1.5 K/mm3 MONOCYTE # (test code = MO#) 0.3 K/mm3 EOSINOPHIL # (test code = EO#) 0.05 K/mm3 BASOPHIL # (test code = BA#) 0.0 K/mm3 DRUGS OF ABUSE [id number] 17:44:00* Test Item Value Reference Range Interpretation Comme nts UR COCAINE (test code = COCAU) Negative Negative DETECTION CUT OF F: 150 ng/mL UR CANNABINOIDS (test code = CANU) Negative Negative DETECTION CUT OF F: 50 ng/mL UR AMPHETAMINE (test code = AMPHU) Negative Negative DETECTION CUT OF F: 500 ng/mL UR BARBITURATE QUAL (test code = BARBQLU) Negative Negative DETECTION CUT OF F: 200 ng/mL UR BENZODIAZEPINE (test code = BENZU) Negative Negative DETECTION CUT OF F: 200 ng/mL UR OPIATES QUAL (test code = OPIAQLU) Negative Negative DETECTION CUT OF F: 300 ng/mL UR PHENCYCLIDINE (PCP) (test code = PHENCU) Negative NEGATIVE DETECTION C UT OFF: 25 ng/mL UA RFLX MICR CULT IF [id number] 17:37:00* Test Item Value Reference Range Interpretation Comme nts UA COLOR (test code = COLU) YELLOW YELLOW UA APPEARANCE (test code = APPU) CLEAR CLEAR UA GLUCOSE DIPSTICK (test co de = DGLUU) NEGATIVE NEG UA BILIRUBIN DIPSTICK (test code = BILU) NEGATIVE NEG UA KETONE DIPSTICK (test cod e = KETU) NEGATIVE NEG UA SPECIFIC GRAVITY (test co de = SGU) 1.016 1.001-1.035 N UA BLOOD DIPSTICK (test code = DWAIN) NEG NEG UA PH DIPSTICK (test code = ANGELES) 6.0 5-9 UA PROTEIN DIPSTICK (test co de = PROU) NEGATIVE NEG UA UROBILINIOGEN DIPSTICK (t est code = URO) 2.0 mg/dL NEG UA NITRITE DIPSTICK (test co de = CLEM) NEG NEG UA LEUKOCYTE ESTERASE DIPSTI CK (test code = LEUU) TRACE NEG A UA WBC (test code = WBCU) 3-5 #/hpf NONE SEEN A UA RBC (test code = RBCU) 3-5 #/hpf NONE SEEN A UA EPITHELIAL CELLS (test co de = EPIU) RARE #/HPF RARE-FEW UA MUCUS (test code = MUCU) RARE NONE SEEN Indication for culture: Suprapubic PainSpecimen Description: CLEAN CATCH COMPREHENSIVE METABOLIC [id number] 17:00:00* Test Item Value Reference Range Interpretation Comme nts SODIUM (test code = NA) 138 mEq/L 136-145 N POTASSIUM (test code = K) 4.0 mEQ/L 3.4-4.5 N Please note new normal range as of October 2023 CHLORIDE (test code = CL) 108 mEq/L 98-107 H Please note new normal range as of October 2023 CARBON DIOXIDE (test code = CO2) 25 mEq/L 22-31 N ANION GAP (test code = GAP) 9.0 10-20 L GLUCOSE (test code = GLU) 92 mg/dL 74-106 N Please note new normal range as of October 2023 BLOOD UREA NITROGEN (test code = BUN) 11 mg/dL 8-23 N Please note ne w normal range as of October 2023 CREATININE (test code = CREAT) 0.8 mg/dL 0.55-1.02 N Please note new normal range as of October 2023 TOTAL PROTEIN (test code = PROT) 6.9 g/dL 5.7-8.2 N Please note new normal range as of October 2023 ALBUMIN (test code = ALB) 3.9 g/dL 3.2-4.8 N Please note new normal range as of October 2023 CALCIUM (test code = CA) 8.9 mg/dL 8.3-10.6 N Please note new normal range as of October 2023 BILIRUBIN TOTAL (test code = BILT) 0.3 mg/dL 0.3-1.2 N Please note n ew normal range as of October 2023 SGOT/AST (test code = AST) 15 units/L < 34 SGPT/ALT (test code = ALT) 8 units/L 10-49 L ALKALINE PHOSPHATASE TOTAL (test code = ALKP) 76 units/L 46-116 N Please note n ew normal range as of October 2023 GLOMERULAR FILTRATION RATE (test code = GFR) 104.15 ml/min >60 N The Glomerular Filtration Rate is a calculated parameterbased on serum Creatinine, patient age and sex. GFR valuesless than 60 mL/min/1.73 square meters are indicative ofChronic Kidney Disease. Values less than 15 mL/min/1.73square meters indicate Kidney failure. The calculation forGFR is based on the CKD-EPI (2020) calculation. This formulais race indifferent and is the recommended formula for GFRby the National Kidney Foundation for Adults.The GFR will not calculate if the sex is unknown or if thepatient's age is <18 years. THYROID STIMULATING [id number] 17:00:00* Test Item Value Reference Range Interpretation Comme nts THYROID STIMULATING HORMONE (test code = TSH) 1.91 0.55-4.78 N Please note new normal range as of October 2023Test Performed in MicroInternational Units/mL TROPONIN-I (HIGH SENSITIVITY)2024-02-03 17:00:00* Test Item Value Reference Range Interpretation Comme nts TROPONIN-I (HIGH SENSITIVITY) (test code = TROPI) <2.5 pg/mL < 34 N Please note new normal range as of October 2023 CBC W/AUTO [id number] 16:42:00* Test Item Value Reference Range Interpretation Comme nts WHITE BLOOD CELL (test code = WBC) 8.8 K/mm3 6.5-12.3 N RED BLOOD CELL (test code = RBC) 3.64 M/mm3 3.51-4.69 N HEMOGLOBIN (test code = HGB) 10.3 g/dL 10.1-13.8 N HEMATOCRIT (test code = HCT) 31.5 % 32.5-41.8 L MEAN CELL VOLUME (test code = MCV) 86.5 fL 84.6-96.6 N MEAN CELL HGB (test code = MCH) 28.3 pg 27.3-33.9 N MEAN CELL HGB CONCETRATION ( test code = MCHC) 32.7 gm/dL 32.0-34.2 N RED CELL DISTRIBUTION WIDTH (test code = RDW) 13.8 % 12.2-16.3 N PLATELET COUNT (test code = PLT) 313 K/mm3 134-363 N MEAN PLATELET VOLUME (test c ode = MPV) 10.5 fL 9.2-12.7 N NEUTROPHIL % (test code = NT%) 70.0 % 57.9-77.3 N LYMPHOCYTE % (test code = LY%) 23.1 % 14.5-29.7 N MONOCYTE % (test code = MO%) 5.3 % 3.6-10.2 N EOSINOPHIL % (test code = EO%) 0.8 % 0.0-3.0 N BASOPHIL % (test code = BA%) 0.3 % 0.1-0.9 N NEUTROPHIL # (test code = NT#) 6.2 K/mm3 LYMPHOCYTE # (test code = LY#) 2.0 K/mm3 MONOCYTE # (test code = MO#) 0.5 K/mm3 EOSINOPHIL # (test code = EO#) 0.07 K/mm3 BASOPHIL # (test code = BA#) 0.0 K/mm3 HCG [id number] 17:20:00* Test Item Value Reference Range Interpretation Comme nts HCG SERUM (test code = HCG) 115558 INTERPRETATION:V ALUES BETWEEN 15-20 milliInternational units/mL NEED TO BERETESTED WITHIN 48 HOURS. All units for these ranges are in milliInternationalunits/mL0-1 WK AFTER CONCEPTION 0-50 1-2 WKS AFTER CONCEPTION 40-3002-3 WKS AFTER CONCEPTION 100-1,0003-4 WKS AFTER CONCEPTION 500-6,0001-2 MONTHS AFTER CONCEPTION 5,000-200,0002-3 MONTHS AFTER CONCEPTION 10,000-100,0002ND TRIMESTER 3,000-50,0003RD TRIMESTER 1,000-50,000 SPECIMENS WITH AN HCG LEVEL FROM 0-6 milliInternationalunits/mL SHOULD BE CONSIDERED NEGATIVE - DUP AB/PEL/SC/[id number] 13:53:00 [facility] : 1995 Sex: F Patient Name: WILMA BATRES Unit No: [id number] EXAMS: CPT CODE: [id number] DUP AB/PEL/SC/LTD 17569 CLINICAL HISTORY: 11 weeks preg, abd pain COMPARISON: None available. TECHNIQUE: transabdominal and endovaginal sonography was performed. Dedicated ultrasound evaluation of the right upper quadrant. FINDINGS: Abdomen: Pancreas: The pancreas is unremarkable. Liver: The liver measures 11.1 cm in length in the right mid clavicular line. Hepatic echogenicity is normal and the margin is smooth. There is no focal abnormality of the liver. Portal and hepatic venous flow is confirmed with normal waveforms. Gallbladder/Biliary: 2 small nonmobile echogenic foci seen with internal peripheral vascularity. There is no wall thickening or pericholecystic fluid. There is no pain with direct transducer pressure over the gallbladder.The common bile duct measures 0.3 cm. The right kidney measures 9.1 x 4.2x 4.1 cm in bipolar length. The renal cortex is normal in thickness measuring 0.7 cm There is no free fluid in the subhepatic space. Pelvis: An intrauterine gestational sac is present. An embryo is identified .Cardiac activity is visualized and documented at a normal rate (100-180 beats per minute). Subchorionic hemorrhage measuring 2.9 x 0.4 x 2.7 cm Based on a crown rump length averaging 0.47 cm, the estimated gestational age is 11 weeks, 4 days +/- 7 days. Estimated date of delivery by ultrasound is May 29, 2024. The uterus measures 13.1 x 8.1 x 10.7 cm The right ovary measures 3.5 x 2.2 x 2.2 cm. Normal arterial and venous blood flow on color and spectral Doppler interrogation. The left ovary measures 2.2 x 2.3 x 1.8 cm. Normal arterial and venous blood flow on color spectral Doppler interrogation. There is no pelvic free fluid. IMPRESSION: Single live intrauterine gestation with mean sonographic age of 11 weeks,4 days. The estimated date of delivery is May 29, 2024.. [facility] NAME: WILMA BATRES Radiology Department PHYS: Khloe Kruger MD [address] : 1995 AGE: 27 SEX: F [place], [place] [address] LOC: [place] PHONE #: [phone] EXAM DATE: 11/12/2023 STATUS: REG ER FAX #: [phone] RAD NO: Page 1 Signed Report (CONTINUED) Patient Name: WILMA BATRES Unit No: [id number] EXAMS: CPT CODE: [id number] DUP AB/PEL/SC/LTD 42259 (Continued) Subchorionic hemorrhage surrounding the anterior and inferior portion of the gestational sac. 2 nonmobile echogenic structures within the gallbladder wall containing per ipheral/internal vascularity, concerning for polyps. at 1353 Reported and signed by: Kristel Oquendo MD CC: Khloe Hanson MD; Feng Taylor DO Technologist: Gemma Thorpe RDMS Probe: Trnscrbd D/ (1353) t.[id number].[id number] Orig Print D/T: S: 11/12/2023 (1356) [facility] NAME: WILMA BATRES Radiology Department PHYS: Khloe Kruger MD [address] : 1995 AGE: 27 SEX: F [place] [address] LOC: MarioERS PHONE #: [phone] EXAM DATE: 11/12/2023 STATUS: REG ER FAX #: [phone] RAD NO: Page 2 Signed Report Patient Name: WILMA BATRES Unit No: [id number] EXAMS: CPT CODE: [id number] DUP AB/PEL/SC/LTD 38806 (Continued) [facility] NAME: WILMA BATRES Radiology Department PHYS: hKloe Kruger MD [address] : 1995 AGE: 27 SEX:F [place] [address] LOC: Jyothi.ERS PHONE #: [phone] EXAM DATE: 11/12/2023STATUS: REG ER FAX #: [phone] RAD NO: Page 3 Signed Report- US ABDOMEN [id number] 13:53:00[facility] : 1995 Sex: F Patient Name: WILMA BATRES Unit No: [id number] EXAMS: CPT CODE: [id number] US ABDOMEN LTD 51835 CLINICAL HISTORY: 11 weeks preg, abd pain COMPARISON: None available. TECHNIQUE: transabdominal and endovaginal sonography was performed. Dedicated ultrasound evaluation of the right upper quadrant. FINDINGS: Abdomen: Pancreas: The pancreas is unremarkable. Liver: The liver measures 11.1 cm in length inthe right mid clavicular line. Hepatic echogenicity is normal and the margin is smooth. There is nofocal abnormality of the liver. Portal and hepatic venous flow is confirmed with normal waveforms. Gallbladder/Biliary: 2 small nonmobile echogenic foci seen with internal peripheral vascularity. There is no wall thickening or pericholecystic fluid. There is no pain with direct transducer pressure over the gallbladder.The common bile duct measures 0.3 cm. The right kidney measures 9.1 x 4.2 x 4.1cm in bipolar length. The renal cortex is normal in thickness measuring 0.7 cm There is no free fluid in the subhepatic space. Pelvis: An intrauterine gestational sac is present. An embryo is identified .Cardiac activity is visualized and documented at a normal rate (100-180 beats per minute). Subchorionic hemorrhage measuring 2.9 x 0.4 x 2.7 cm Based on a crown rump length averaging 0.47 cm, the estimated gestational age is 11 weeks, 4 days +/- 7 days. Estimated date of delivery by ultrasoundis May 29, 2024. The uterus measures 13.1 x 8.1 x 10.7 cm The right ovary measures 3.5 x 2.2 x 2 .2 cm. Normal arterial and venous blood flow on color and spectral Doppler interrogation. The left ovary measures 2.2 x 2.3 x 1.8 cm. Normal arterial and venous blood flow on color spectral Doppler interrogation. There is no pelvic free fluid. IMPRESSION: Single live intrauterine gestation with mean sonographic age of 11 weeks,4 days. The estimated date of delivery is May 29, 2024.. [facility] NAME: WILMA BATRES Radiology Department PHYS: Khloe Kruger MD [address] : 1995 AGE: 27 SEX: F [place] [id number] LOC: .ERS PHONE #: [phone] EXAM DATE: 11/12/2023 STATUS: REG ER FAX #: [phone] RAD NO: Page 1 Signed Report (CONTINUED) Patient Name: WILMA BATRES Unit No: [id number] EXAMS: CPT CODE: [id number] US ABDOMEN LTD [id number] (Continued) Subchorionic hemorrhage surrounding the anterior and inferior portion of the gestational sac. 2 nonmobile echogenic structures within the gallbladder wall containing peripheral/internal vascularity, concerning for polyps. at 1353 Reported and signed by: Kristel Oquendo MD CC: Khloe Hanson MD; Feng Taylor DO Technologist: Gemma Thorpe RDMS Probe: Trnscrbd D/ (1353) t.SDR.BS32 Orig Print D/T: S: 11/12/2023 (1356) [facility] NAME: WILMA BATRES Radiology Department PHYS: Khloe Kruger MD [address] : 1995 AGE: 27 SEX: F [place] [address] LOC: .ERS PHONE #: [phone] EXAM DATE: 11/12/2023 STATUS: REG ER FAX #: [phone] RAD NO: Page 2 Signed Report Patient Name: WILMA BATRES Unit No: [id number] EXAMS: CPT CODE: [id number] US ABDOMEN LTD 43512 (Continued) [facility] NAME: WILMA BATRES Radiology Department PHYS: Khloe Kruger MD [address] : 1995 AGE: 27 SEX: F [place], [place] [address] LOC: FMartinERS PHONE #: [phone] EXAM DATE: 11/12/2023 STATUS: REG ER FAX #: [phone] RAD NO: Page 3 Signed Report- US PREG EVAL 1ST [id number] 13:53:00[facility] : 1995 Sex: F Patient Name: WILMA BATRES Unit No: [id number] EXAMS: CPT CODE: [id number] US PREG EVAL 1ST TRIMTR 60600 CLINICAL HISTORY: 11 weeks preg, abd pain COMPARISON: None available. TECHNIQUE: transabdominal and endovaginal sonography was performed. Dedicated ultrasound evaluation of the right upper quadrant. FINDINGS: Abdomen: Pancreas: The pancreas is unremarkable. Liver: The liver measures 11.1 cm in length in the right mid clavicular line. Hepatic echogenicity is normal and the margin is smooth. There is no focal abnormality of the liver. Portal and hepatic venous flow is confirmed with normal waveforms. Gallbladder/Biliary: 2 small nonmobile echogenic foci seen with internal peripheral vascularity. There is no wall thickening or pericholecystic fluid. There is no pain with direct transducerpressure over the gallbladder.The common bile duct measures 0.3 cm. The right kidney measures 9.1 x4.2 x 4.1 cm in bipolar length. The renal cortex is normal in thickness measuring 0.7 cm There is no free fluid in the subhepatic space. Pelvis: An intrauterine gestational sac is present. An embryo is identified .Cardiac activity is visualized and documented at a normal rate (100- 180 beats per minute). Subchorionic hemorrhage measuring 2.9 x 0.4 x 2.7 cm Based on a crown rump length averaging 0.47 cm, the estimated gestational age is 11 weeks, 4 days +/- 7 days. Estimated date of delivery by ultrasound is May 29, 2024. The uterus measures 13.1 x 8.1 x 10.7 cm The right ovary measures 3.5x 2.2 x 2.2 cm. Normal arterial and venous blood flow on color and spectral Doppler interrogation. The left ovary measures 2.2 x 2.3 x 1.8 cm. Normal arterial and venous blood flow on color spectral Doppler interrogation. There is no pelvic free fluid. IMPRESSION: Single live intrauterine gestation with mean sonographic age of 11 weeks,4 days. The estimated date of delivery is May 29, 2024.. [facility] [place] [facility] NAME: WILMA BATRES Radiology Department PHYS: Khloe Kruger MD [address] : 1995 AGE: 27 SEX: F [place], [place] [address] LOC: LEONA PHONE #: [phone] EXAM DATE: 11/12/2023 STATUS: REG ER FAX #: [phone] RAD NO: Page 1 Signed Report (CONTINUED) Patient Name: WILMA BATRES Unit No: [id number] EXAMS: CPT CODE: [id number] US PREG EVAL 1ST TRIMTR 58347 (Continued) Subchorionic hemorrhage surrounding the anterior and inferior portion of the gestational sac. 2 nonmobile echogenic structures within the gallbladder wall co ntaining peripheral/internal vascularity, concerning for polyps. at 1353 Reported and signed by: Kristel Oquendo MD CC: Khloe Hanson MD; Feng Taylor DO Technologist: Gemma Thorpe RDMS Probe: Trnscrbd D/ (1353) t.[id number].[id number] Print D/T: S: 11/12/2023 (1356) [facility] NAME: WILMA BATRES Radiology Department PHYS: Khloe Kruger MD [address] : 1995 AGE: 27 SEX: F [place], [place] [address] LOC: F.ERS PHONE #: [phone] EXAM DATE: 11/12/2023 STATUS: REG ER FAX #: [phone] RAD NO: Page 2 Signed Report Patient Name: WILMA BATRES Unit No: [id number]: CPT CODE: [id number] US PREG EVAL 1ST TRIMTR 64627 (Continued) [facility] PHYS: Khloe Kruger MD [address] : 1995 AGE: 27 SEX: F [place] [address] LOC: F.ERS PHONE #: [phone] EXAM DATE: 11/12/2023 STATUS: REG ER FAX #: [phone] RAD NO: Page 3 Signed ReportBASIC METABOLIC [id number] 13:46:00* Test Item Value Reference Range Interpretation Comme nts SODIUM (test code = NA) 139 mEq/L 135-145 N POTASSIUM (test code = K) 4.1 mEq/L 3.5-5.0 N CHLORIDE (test code = CL) 102 mEq/L 100-115 N CARBON DIOXIDE (test code = CO2) 26 mEq/L 22-31 N ANION GAP (test code = GAP) 14.90 10-20 N GLUCOSE (test code = GLU) 85 mg/dL 65-110 N BLOOD UREA NITROGEN (test code = BUN) 8 mg/dL 7-18 N GLOMERULAR FILTRATION RATE (test code = GFR) 128 ml/min >60 N The Glomerular Filtration Rate is a calculated parameterbased on serum Creatinine, patient age and sex. GFR valuesless than 60 mL/min/1.73 square meters are indicative ofChronic Kidney Disease. Values less than 15 mL/min/1.73square meters indicate Kidney failure. The calculation forGFR is based on the CKD-EPI (2020) calculation. This formulais race indifferent and is the recommended formula for GFRby the National Kidney Foundation for Adults.The GFR will not calculate if the sex is unknown or if thepatient's age is <18 years. CREATININE (test code = CREAT) 0.6 mg/dL 0.5-1.0 N CALCIUM (test code = CA) 9.6 mg/dL 8.4-10.2 N LIVER [id number] 13:46:00* Test Item Value Reference Range Interpretation Comme nts TOTAL PROTEIN (test code = PROT) 7.3 gm/dL 6.3-8.2 N ALBUMIN (test code = ALB) 3.5 gm/dL 3.4-4.8 N BILIRUBIN TOTAL (test code = BILT) 0.2 mg/dL 0.2-1.0 N BILIRUBIN DIRECT (test code = BILD) 0.1 mg/dL <0.2 N SGOT/AST (test code = AST) 18 units/L 15-37 N SGPT/ALT (test code = ALT) 21 units/L 12-78 N ALKALINE PHOSPHATASE TOTAL ( test code = ALKP) 65 units/L 46-116 N UA RFLX MICR CULT IF [id number] 11:54:00* Test Item Value Reference Range Interpretation Comme nts UA COLOR (test code = COLU) YELLOW YELLOW UA APPEARANCE (test code = APPU) CLOUDY CLEAR A UA GLUCOSE DIPSTICK (test co de = DGLUU) NEGATIVE NEG UA BILIRUBIN DIPSTICK (test code = BILU) NEGATIVE NEG UA KETONE DIPSTICK (test cod e = KETU) NEGATIVE NEG UA SPECIFIC GRAVITY (test co de = SGU) 1.018 1.001-1.035 N UA BLOOD DIPSTICK (test code = DWAIN) NEG NEG UA PH DIPSTICK (test code = ANGELES) 6.0 5-9 UA PROTEIN DIPSTICK (test co de = PROU) NEGATIVE NEG UA UROBILINIOGEN DIPSTICK (t est code = URO) 2.0 mg/dL NEG UA NITRITE DIPSTICK (test co de = CLEM) NEG NEG UA LEUKOCYTE ESTERASE DIPSTI CK (test code = LEUU) 3+ NEG A UA WBC (test code = WBCU) 21-30 #/hpf NONE SEEN A UA RBC (test code = RBCU) 6-10 #/hpf NONE SEEN A UA EPITHELIAL CELLS (test co de = EPIU) MANY #/HPF RARE-FEW A UA BACTERIA (test code = BACU) FEW /HPF RARE-FEW UA MUCUS (test code = MUCU) 2+ NONE SEEN A UA YEAST (test code = YEASTU) RARE #/hpf NONE SEEN A Indication for culture: Suprapubic PainSpecimen Description: CLEAN CATCHCBC W/AUTO [id number] 11:21:00* Test Item Value Reference Range Interpretation Comme nts WHITE BLOOD CELL (test code = WBC) 8.4 K/mm3 6.5-12.3 N RED BLOOD CELL (test code = RBC) 4.21 M/mm3 3.51-4.69 N HEMOGLOBIN (test code = HGB) 12.0 g/dL 10.1-13.8 N HEMATOCRIT (test code = HCT) 35.6 % 32.5-41.8 N MEAN CELL VOLUME (test code = MCV) 84.6 fL 84.6-96.6 N MEAN CELL HGB (test code = MCH) 28.5 pg 27.3-33.9 N MEAN CELL HGB CONCETRATION ( test code = MCHC) 33.7 gm/dL 32.0-34.2 N RED CELL DISTRIBUTION WIDTH (test code = RDW) 14.1 % 12.2-16.3 N PLATELET COUNT (test code = PLT) 335 K/mm3 134-363 N MEAN PLATELET VOLUME (test c ode = MPV) 11.0 fL 9.2-12.7 N NEUTROPHIL % (test code = NT%) 78.2 % 57.9-77.3 H LYMPHOCYTE % (test code = LY%) 16.9 % 14.5-29.7 N MONOCYTE % (test code = MO%) 4.0 % 3.6-10.2 N EOSINOPHIL % (test code = EO%) 0.5 % 0.0-3.0 N BASOPHIL % (test code = BA%) 0.2 % 0.1-0.9 N NEUTROPHIL # (test code = NT#) 6.6 K/mm3 LYMPHOCYTE # (test code = LY#) 1.4 K/mm3 MONOCYTE # (test code = MO#) 0.3 K/mm3 EOSINOPHIL # (test code = EO#) 0.04 K/mm3 BASOPHIL # (test code = BA#) 0.0 K/mm3 POCT URINALYSIS W SPECIFIC [id number] 21:41:00* Test Item Value Reference Range Interpretation Comme nts POCT U SP GRAV (test code = 3255) * 1.005-1.025 A POCT PH U (test code = 3254) 7 mg/dl 5-8 POCT U LEUK EST (test code = 3263) Negative - Negative POCT U NIT (test code = 3262) negative Negative - Negati ve POCT U PROT (test code = 3259) trace Negative - Negat saeid POCT U GLU (test code = 3256) negative Negative - Negati ve POCT U KETONE (test code = 3258) negative Negative - Neg ative POCT U UROBILI (test code = 3260) 1 mg/dl 0.2-1 POCT U BILI (test code = 3261) negative Negative - Negat saeid POCT U BLD (test code = 3257) negative Negative - Negati ve POCT U COLOR (test code = 3266) Yellow POCT U APPEAR (test code = 3267) cloudy Lab Interpretation (test cod e = 90093-1) Abnormal [facility]- XR CHEST 1 [id number] 16:18:00 [facility] : 1995 Sex: F Patient Name: WILMA BATRES Unit No: [id number] EXAMS: CPT CODE: [id number] XR CHEST 1 V 30711 Clinical Indication: MID LINE INSERTION Comparison: Chest radiograph 06/25/2020 FINDINGS: Left upper extremity central venous catheter tip overlies the medial brachiocephalic vein. No focal consolidation, pleural effusion or pneumothorax. The cardiac silhouette is within normal limits. Midline trachea. Left aortic arch. No acute osseous abnormalities. IMPRESSION: Left upper extremity central venous catheter overlies the medial brachiocephalic vein. SL: MTELESMANICH-H at 1618 Reported and signed by: Ha Johnson MD CC: Laureano Wolf MD; Petrona Phillips MD Technologist: RT Barbie Trnscrbd D/ (0018) t.MT17 Orig Print D/T: S: 07/01/2020 (5528) [facility] NAME: WILMA BATRES Radiology Department PHYS: INA. Petrona Phillips [address] : 1995 AGE: 24 SEX: F [place], [place] [address] LOC: Jyothi.2604 A PHONE #: [phone] EXAM DATE: 07/01/2020 STATUS: ADM IN FAX #: [phone] RAD NO: Page 1 Signed ReportCOMPREHENSIVE METABOLIC PANEL 2020-06-26 06:29:00* Test Item Value Reference Range Interpretation Comme nts SODIUM (test code = NA) 140 mEq/L 135-145 N POTASSIUM (test code = K) 3.4 mEq/L 3.5-5.0 L CHLORIDE (test code = CL) 106 mEq/L 100-115 N CARBON DIOXIDE (test code = CO2) 26 mEq/L 22-31 N ANION GAP (test code = GAP) 11.40 10-20 N GLUCOSE (test code = GLU) 92 mg/dL 65-110 N BLOOD UREA NITROGEN (test co de = BUN) 8 mg/dL 7-18 N GLOMERULAR FILTRATION RATE ( test code = GFR) 105 ml/min >60 N CREATININE (test code = CREAT) 0.7 mg/dL [...] ALT) 29 units/L 12-78 ALKALINE PHOSPHATASE TOTAL ( test code = ALKP) 65 units/L 46-116 N CBC W/AUTO [id number] 06:13:00* Test Item Value Reference Range Interpretation Comme nts WHITE BLOOD CELL (test code = WBC) [...] pg 27-35 N MEAN CELL HGB CONCETRATION ( test code = MCHC) 31.4 gm/dL 32.2-34.1 L RED CELL DISTRIBUTION WIDTH (test code = RDW) 15.2 % 12.4-16.5 N PLATELET COUNT (test code = PLT) 431 K/mm3 133-385 H MEAN PLATELET VOLUME (test c ode = MPV) 10.9 fl 9.1-12.7 N NEUTROPHIL % (test code = NT%) 82.0 [...] = BA#) 0.1 K/mm3 RBC MORPHOLOGY REQUIRED (erin t code = RBCM) NORMAL NORMAL PLATELET MORPHOLOGY REQUIRED (test code = PLTMR) NORMAL NORMAL FLUID [id number] 17:30:00* Test Item Value Reference Range Interpretation Comments FLUID CREATININE (test code = CREATF) 0.6 mg/dL 0.60-1.30 N Reference interv als and other method performancespecifications have not been established for this test. Thetest result should be integrated into the clinical contextfor interpretation. BODY FLUID SOURCE YELENA drainFLUID [id number] 17:30:00* Test Item Value Reference Range Interpretation Comments FLUID CREATININE (test code = CREATF) 0.6 mg/dL 0.60-1.30 Reference interv als and other method performancespecifications have not been established for this test. Thetest result should be integrated into the clinical contextfor interpretation. BODY FLUID SOURCE YELENA drainLACTIC [id number] 12:14:00* Test Item Value Reference Range Interpretation Comme nts LACTIC ACID (test code = LACT) 0.7 MMOL/L 0.5-2.2 N COMPREHENSIVE METABOLIC [id number] 12:09:00* Test Item Value Reference Range Interpretation Comme nts SODIUM (test code = NA) 140 mEq/L 135-145 N POTASSIUM (test code = K) 3.7 mEq/L 3.5-5.0 N CHLORIDE (test code = CL) 107 mEq/L 100-115 N CARBON DIOXIDE (test code = CO2) 25 mEq/L 22-31 N ANION GAP (test code = GAP) 11.30 10-20 N GLUCOSE (test code = GLU) 112 mg/dL 65-110 H BLOOD UREA NITROGEN (test co de = BUN) 8 mg/dL 7-18 N GLOMERULAR FILTRATION RATE ( test code = GFR) 125 ml/min >60 N CREATININE (test code = CREAT) 0.6 mg/dL [...] 13 units/L 12-78 N ALKALINE PHOSPHATASE TOTAL ( test code = ALKP) 69 units/L 46-116 N CBC W/AUTO [id number] 11:56:00* Test Item Value Reference Range Interpretation Comme nts WHITE BLOOD CELL (test code = WBC) [...] pg 27-35 L MEAN CELL HGB CONCETRATION ( test code = MCHC) 30.7 gm/dL 32.2-34.1 L RED CELL DISTRIBUTION WIDTH (test code = RDW) 15.2 % 12.4-16.5 N PLATELET COUNT (test code = PLT) 429 K/mm3 133-385 H MEAN PLATELET VOLUME (test c ode = MPV) 9.8 fl 9.1-12.7 N NEUTROPHIL % (test code = NT%) 81.9 [...] = BA#) 0.0 K/mm3 RBC MORPHOLOGY REQUIRED (erin t code = RBCM) NORMAL NORMAL PLATELET MORPHOLOGY REQUIRED (test code = PLTMR) NORMAL NORMAL - DUP AB/PEL/SC/[id number] 02:10:00 [facility] 1995 Sex: F Patient Name: WILMA BATRES Unit No: [id number] EXAMS: CPT CODE: [id number] DUP AB/PEL/SC/LTD 17733 STUDY: - US PELVIS COMPLETE, - DUP AB/PEL/SC/LTD 06/25/2020 1:04 AM Ordering Physician: Alf Patel MD Patient Name: WILMA BATRES MR: [id number] : 1995; Age: 24 years y/o Female Clinical Indication: s/p , bladder anuj, repaired, now pelvic pain, Comparison: None TRANSABDOMINALPELVIC ULTRASOUND: Technique: Grayscale, color, and Doppler transabdominal imaging of the pelvis was performed with standard technique. The patient refused transvaginal pelvic ultrasound. UTERUS: Mildly prominent to enlarged recently uterus measuring 11.2 x 6.6 x 7.9 cm associated with mildly heterogeneous myometrium without discrete lesion. The endometrial stripe measures 5 mm maximumthickness associated with small fluid in the mid [...] of the under distended thick-walled urinary bladder cont aining the distal extents of bilateral ureteral stents. FLUID: The fluid collection in the right hemipelvis on recent CT is not demonstrated on ultrasound. OTHER FINDINGS: None. IMPRESSION: Mildly prominent to enlarged heterogeneous recently uterus. Mild endometrial fluid without solid c omponents or hyperemia to suggest retained products of conception. The right hemipelvis fluid seen on recent CT is not demonstrated on this examination. However, no right ovarian cystic lesion is present [facility] NAME: BATRES,WILMA Radiology Department PHYS: ULYSSESBA Alf Patel [address] : 1995 AGE: 24 SEX: F [place] [address] LOC: MarioERS PHONE #: [phone] EXAM DATE: 06/25/2020 STATUS: REG ER FAX #: [phone] RAD NO: Page 1 Signed Report (CONTINUED) Patient Name: WILMA BATRES Unit No: [id number] EXAMS: CPT CODE: [id number] DUP AB/PEL/SC/LTD 21622 (Continued) on ultrasound suggesting the fluid seen on recent CT either represents free fluid or developing abscess. Incompletely visualized under distended thick-walled urinary bladder containing the distal extents of bilateral ureteral stents. SL: TPAINTER-H at 0210 Reported and signed by: Maksim Shields MD CC: Laureano Wolf MD Technologist: Juany Mendez RDMS, RVT Probe: Trnscrbd D/ (021) [id number] Orig Print D/T: S: 06/25/2020 (021) [facility] NAME: DENISE BATRESENA Radiology Department PHYS: Alf [place] [address] : 1995 AGE: 24 SEX: F [place] [address] LOC: MarioERS PHONE #: [phone] EXAM DATE: 06/25/2020 STATUS: REG ER FAX #: [phone] RAD NO: Page 2 Signed Report Patient Name: WILMA BATRES Unit No: [id number] EXAMS: CPT CODE: [id number] DUP AB/PEL/SC/LTD 02836 (Continued) [facility] NAME: WILMA BATRES Radiology Department PHYS: Alf Hamilton [address] : 1995 AGE: 24 SEX: F [place], [place] [address] LOC: FALFONSO PHONE #: [phone] EXAM DATE: 06/25/2020 STATUS: REG ER FAX #: [phone] RAD NO: Page 3 Signed Report- US PELVIS COMPLETE 2020-06-25 02:10:00 [facility] : 1995 Sex: F Patient Name: WILMA BATRES Unit No: [id number] EXAMS: CPT CODE: [id number] US PELVIS COMPLETE 75063NLEFC: - US PELVIS COMPLETE, - DUP AB/PEL/SC/LTD 06/25/2020 1:04 AM Ordering Physician: Alf Patel MD Patient Name: WILMA BATRES MR: [id number] : 1995; Age: 24 years y/o Female Clinical Indication: s/p c- section, bladder anuj, repaired, now pelvic pain, Comparison: None TRANSABDOMINAL PELVIC ULTRASOUND: Technique: Grayscale, color, and Doppler transabdominal imaging of the pelvis was performed with standard technique. The patient refused transvaginal pelvic ultrasound. UTERUS: Mildly prominent to enlarged recently uterus measuring 11.2 x 6.6 x 7.9 cm associated withmildly heterogeneous myometrium without discrete lesion. The endometrial stripe measures 5 mm maximum thickness associated with small fluid in the mid to lower uterine segment. No endometrial hyperemia. RIGHT OVARY AND ADNEXA: General: Normal size right ovary measuring 3.1 x 1.9 x 2.9 cm containingsubcentimeter simple follicles. Doppler: Normal low resistance arterial and venous blood flow is demonstrated. LEFT OVARY AND ADNEXA: General: Normal size left ovary measuring 2.2 x 1.3 x 2.5 cm without suspicious focal lesion. Doppler: Normal low resistance arterial and venous blood flow is demonstrated. URINARY BLADDER: Limited visualization of the under distended thick-walled urinary bladder co ntaining the distal extents of bilateral ureteral stents. FLUID: The fluid collection in the right hemipelvis on recent CT is not demonstrated on ultrasound. OTHER FINDINGS: None. IMPRESSION: Mildly prominent to enlarged heterogeneous recently uterus. Mild endometrial fluid without solid components or hyperemia to suggest retained products of conception. The right hemipelvis fluid seenon recent CT is not demonstrated on this examination. However, no right ovarian cystic lesion is present [facility] NAME: WILMA BATRES Radiology Department PHYS: Alf Hamilton [address] : 1995 AGE: 24 SEX: F [place], [place] [address] LOC: MarioERS PHONE #: [phone] EXAM DATE: 06/25/2020 STATUS: REG ER FAX #: [phone] RAD NO: Page 1 Signed Report (CONTINUED) Patient Name: WILMA BATRES Unit No: [id number] EXAMS: CPT CODE: [id number] US PELVIS COMPLETE 19921 (Continued) on ultrasound suggesting the fluid seen on recent CTeither represents free fluid or developing abscess. Incompletely visualized under distended thick-walled urinary bladder containing the distal extents of bilateral ureteral stents. SL: RUBEN-H at 0210 Reported and signed by: MD Mckenzie CC: Laureano Wolf MD Technologist: Juany Mendez RDMS, RVT Probe: Trnscrbd D/ (0210) [id number] Orig Print D/T: S: 06/25/2020 (0213) [facility] NAME: WILMA BATRES Radiology Department PHYS: Alf Hmailton [address] : 1995 AGE: 24 SEX: F [place], [place] [address] LOC: .ERS PHONE #: [phone] EXAM DATE:06/25/2020 STATUS: REG ER FAX #: [phone] RAD NO: Page 2 Signed Report Patient Name: WILMA BATRES Unit No: [id number] EXAMS: CPT CODE: [id number] US PELVIS COMPLETE 87797 (Continued) [facility] PHYS: Alf Larsen [address] : 1995 AGE: 24 SEX: F [place], [place] [address] LOC: F.ERS PHONE #: [phone] EXAM DATE: 06/25/2020 STATUS: REG ER FAX #: [phone] RAD NO: Page 3 Signed ReportCoronavirus 2019 nCoV [id number] 01:53:00* Test Item Value Reference Range Interpretation Comme nts Coronavirus 2019 nCoV Bedside (test code = [id number]) Negative Negative This result does not rule out co-infections with otherpathogens. * False negative results may occur if a specimen isimproperly collected, transported or handled. False negativeresults may also occur if amplification inhibitors arepresent in the specimen or if inadequate levels of virusesare present in the specimen. * As with any molecular test, if the virus mutates in thetarget region, COVID-19 may not be detected or may bedetected less predictably.TEST PERFORMED UNDER AN EMERGENCY USE AUTHORIZATION FROM FDA - CT ABD PELVIS [id number] 01:53:00 [facility] : 1995 Sex: F Patient Name: WILMA BATRES Unit No: [id number] EXAMS: CPT CODE: [id number] CT ABD PELVIS W/CONT 99303 STUDY: - CT ABD PELVIS W/CONT 06/25/2020 1:00 AM Ordering Physician: Alf Patel MD PatientName: WILMA BATRES MR: [id number] : 1995; Age: 24 years y/o Female [...] iterative reconstruction technique IV CONTRAST: [id number] Radiation Dose DLP: 350.55 mGy-cm CT ABDOMEN AND PELVIS WITH CONTRAST: VISUALIZED LUNG BASES: No significant abnormality. BOWEL GAS: Moderate constipation. APPENDIX: Limited visualization of the appendix likely gas-filled projecting medially from thececum and obscured by adjacent bowel loops. STOMACH: Under distended mildly thick-walled stomach. PERITONEUM AND MESENTERY: Free Air: No definitive pneumoperitoneum is appreciated. Some gas seen posteriorly to the left hepatic lobe appears to be present in the gastric antrum. A percutaneous catheter is seen in the anterior lower pelvis with tip located in the right lower abdominal quadrant. Free Fluid: Low-attenuation fluid collection dependently in the right hemipelvis measuring 4.8 x 2.5 x 4.8 cm associated with mild [facility] NAME: WILMA BATRES Radiology Department PHYS: Alf Hamilton [address] : 1995 AGE: 24 SEX: F [place] [address] LOC: MarioERS PHONE #: [phone] EXAM DATE: 06/25/2020 STATUS: REG ER FAX #: [phone] RAD NO: Page 1 Signed Report 1 Patient Name: WILMA BATRES Unit No: [id number] EXAMS: CPT CODE: [id number] CT ABD PELVIS W/CONT 83124 (Continued) peripheral enhancement suggesting abscess or less likely a right adnexal cystic structure. Ill-defined low-attenuation in the left adnexal region appears to represent follicles in the left ovary rather than free fluid. Mesenteric and peritoneal fat: Mild to moderate hazy induration throughout the peritoneal fat greatest in the lower abdomenand pelvis. LYMPH NODES: Multiple nonspecific small mesenteric and respiratory lymph nodes. VASCULAR: Abdominal Aorta: Normal caliber abdominal aorta without aneurysm or dissection. IVC: Normal caliber nonenhanced. ABDOMINAL ORGANS: Liver: Normal size and morphology without discrete lesion. Gallbladder: Normal appearing gallbladder without calcified gallstones, gallbladder wall thickening, or rubin cholecystic inflammation. Biliary Tree: Normal without dilatation. Kidneys: Normal size kidneys without focal lesion or nephrolithiasis. Heterogeneous enhancement in the left superior renal pole suspicious for nephritis. Bilateral ureteral stents are in place extending from the renal pelves to the urinary bladder. Adrenal Glands: Normal size and morphology without discrete lesion. Pancreas: Normal size and morphology without discrete lesion. Spleen: Mild to moderate splenomegaly measuring 14.7 cm cranial caudal dimension without discrete lesion. PELVIC ORGANS: Urinary bladder: Under distendedthick-walled urinary bladder. [facility] NAME: WILMA BATRES Radiology Department PHYS: Alf Hamilton [address] : 1995 AGE: 24 SEX: F [place], [place] [address] LOC: MarioERS PHONE #: [phone] EXAM DATE: 06/25/2020 STATUS: REG ER FAX#: [phone] RAD NO: Page 2 Signed Report 1 Patient Name: WILMA BATRES Unit No: [id number] EXAMS: CPT CODE: [id number] CT ABD PELVIS W/CONT 84613 (Continued) Minimal urinary bladder enhancementon delayed images limiting assessment for contrast extravasation. Reproductive organs: Mildly enlarged and heterogeneous recently uterus. SOFT TISSUES: No suspicious soft tissue lesion or a bnormality. OSSEOUS STRUCTURES: No fracture, dislocation, or suspicious [...] placement. Prominent to enlarged recently uterus. [facility] NAME: BATRES,WILMA Radiology Department PHYS: Alf Hamilton [address] : 1995 AGE: 24 SEX: F [place] [address] LOC: LEONA PHONE #: [phone] EXAM DATE: 06/25/2020 STATUS: REG ER FAX #: [phone] RAD NO: Page 3 Signed Report 1 Patient Name: WILMA BATRES Unit No: [id number] EXAMS: CPT CODE: [id number] CT ABD PELVIS W/CONT 58560 (Continued) at 0153 Reported and signed by: Maksim Shields MD CC: Laureano Wolf MD Technologist: Anuj Mcmahon, RT CTDI: 3.42 DLP: 350.55 Trnscrbd D/ (0153) [email or web address] [facility] NAME: DENISE BATRESENA Radiology Department PHYS: Alf Hamilton [address] : 1995 AGE: 24 SEX: F [place], [place] [address] LOC: F.ERS PHONE #: [phone] EXAM DATE: 06/25/2020 STATUS: REG ER FAX #: [phone] RAD NO: Page 4 Signed Report 1 Patient Name: WILMA BATRESUnmakayla No: [id number] EXAMS: CPT CODE: [id number] CT ABD PELVIS W/CONT 83870 (Continued) Orig Print D/T: S: 06/25/2020 (0156) [facility] NAME: WILMA BATRES Radiology Department PHYS: Alf Hamilton [address] : 1995 AGE: 24 SEX: F [place], [place] [address] LOC: MarioERS PHONE #: [phone] EXAM DATE: 06/25/2020 STATUS: REG ER FAX #: [phone] RAD NO: Page 5 Signed Report 1COMPREHENSIVE METABOLIC [id number] 00:50:00* Test Item Value Reference Range Interpretation Comme nts SODIUM (test code = NA) 138 mEq/L 135-145 N POTASSIUM (test code = K) 3.1 mEq/L 3.5-5.0 L CHLORIDE (test code = CL) 101 mEq/L 100-115 N CARBON DIOXIDE (test code = CO2) 27 mEq/L 22-31 N ANION GAP (test code = GAP) 13.30 10-20 N GLUCOSE (test code = GLU) 163 mg/dL 65-110 H BLOOD UREA NITROGEN (test co de = BUN) 13 mg/dL 7-18 N GLOMERULAR FILTRATION RATE ( test code = GFR) 78 ml/min >60 N CREATININE (test code = CREAT) 0.9 mg/dL [...] 13 units/L 12-78 N ALKALINE PHOSPHATASE TOTAL ( test code = ALKP) 88 units/L 46-116 N [id number] 00:50:00* Test Item Value Reference Range Interpretation Comme nts LIPASE (test code = LIP) 84 units/L 73-393 N [id number] 00:50:00* Test Item Value Reference Range Interpretation Comme [facility] TROPONIN-I (test code = TROPI) <0.017 ng/mL <0.056 N LACTIC [id number] 00:50:00* Test Item Value Reference Range Interpretation Comme nts LACTIC ACID (test code = LACT) 1.2 MMOL/L 0.5-2.2 N PROTHROMBIN [id number] 00:48:00* Test Item Value Reference Range Interpretation Comme [facility] PROTHROMBIN TIME PATIENT (te st code = PTP) 13.2 secs 10.4-12.4 H IS PATIENT ON ANTICOAGULANTS ? NINTERNATIONAL NORMAL [id number] 00:48:00* Test Item Value Reference Range Interpretation Comme [facility] INTERNATIONAL NORMAL RATIO (test code = INR) 1.22 The INR is to be used only for monitoring oral anticoagulanttherapy. INDICATION INR VALUE 1. Prophylaxis including high risk surgery 2.0 - 2.52. Deep venous thrombosis. Pulmonary embolism. Atrial fibrillation or bioprosthetic heart valves 2.0 - 3.03. Mechanical heart valves or recurrent systemic embolism. 3.0 - 3.5 IS PATIENT ON ANTICOAGULANTS ? NTHROMBOPLASTIN TIME [id number] 00:48:00* Test Item Value Reference Range Interpretation Comme [facility] THROMBOPLASTIN TIME PARTIAL (test code = PTT) 35.9 secs 22-38 N IS PATIENT ON ANTICOAGULANTS ? N- XR CHEST 1 [id number] 00:32:00 [facility] 1995 Sex: F Patient Name: WILMA BATRES Unit No: [id number] EXAMS: CPT CODE: [id number] XR CHEST 1 V 91464 Chestx-ray 1 view History: Code sepsis Comparison: None. Findings: Overlying shield projects over the visualized upper abdomen. Mediastinum: The cardiomediastinal contours are unremarkable. Lungs and pleural spaces: There is no focal consolidation. No pulmonary vascularity is normal. Impression: No acute cardiopulmonary findings. at 0032 Reported and signed by: ADAM NAVAS MD CC: Laureano Wolf MD Technologist: Juan Taylor, RT TrnscrbdD/ (0032) [email or web address] Orig Print D/T: S: 06/25/2020 (0036) [facility] NAME: WILMA BATRES Radiology Department PHYS: Alf Hamilton [address] : 1995 AGE: 24 SEX: F [place], [place] [address] LOC: LEONA PHONE #: [phone] EXAM DATE: 06/24/2020 STATUS: REG ER FAX #: [phone] RAD NO: Page 1 Signed ReportCBC W/AUTO [id number] 00:26:00* Test Item Value Reference Range Interpretation Comme nts WHITE BLOOD CELL (test code = WBC) [...] pg 27-35 L MEAN CELL HGB CONCETRATION ( test code = MCHC) 30.6 gm/dL 32.2-34.1 L RED CELL DISTRIBUTION WIDTH (test code = RDW) 15.1 % 12.4-16.5 N PLATELET COUNT (test code = PLT) 626 K/mm3 133-385 H MEAN PLATELET VOLUME (test c ode = MPV) 10.2 fl 9.1-12.7 N NEUTROPHIL % (test code = NT%) 71.4 [...] = BA#) 0.1 K/mm3 RBC MORPHOLOGY REQUIRED (erin t code = RBCM) NORMAL NORMAL PLATELET MORPHOLOGY REQUIRED (test code = PLTMR) NORMAL NORMAL UA RFLX MICR CULT IF [id number] 00:13:00* Test Item Value Reference Range Interpretation Comme nts UA COLOR (test code = COLU) FAMILIA YELLOW A UA APPEARANCE (test code = APPU) CLOUDY CLEAR A UA GLUCOSE DIPSTICK (test code = DGLUU) NEGATIVE NEG UA BILIRUBIN DIPSTICK (test code = BILU) NEGATIVE NEG UA KETONE DIPSTICK (test code = KETU) 1+ NEG A UA SPECIFIC GRAVITY (test code = SGU) 1.014 1.001-1.035 N UA BLOOD DIPSTICK (test code = DWAIN) 3+ NEG A UA PH DIPSTICK (test code = ANGELES) 6.0 5-9 UA PROTEIN DIPSTICK (test code = PROU) 2+ NEG A UA UROBILINIOGEN DIPSTICK (test code = URO) NEGATIVE mg/dL NEG UA NITRITE DIPSTICK (test code = CLEM) POSITIVE NEG A UA LEUKOCYTE ESTERASE DIPSTICK (test code = LEUU) 3+ NEG A UA WBC (test code = WBCU) TOO NUMEROUS T O CNT #/hpf NONE SEEN A UA RBC (test code = RBCU) TOO NUMEROUS T O CNT #/hpf NONE SEEN A UA EPITHELIAL CELLS (test code = EPIU) RARE #/HPF RARE-FEW UA BACTERIA (test code = BACU) NEGATIVE /HPF RARE-FEW UA MUCUS (test code = MUCU) 3+ NONE SEEN UA YEAST (test code = YEASTU) RARE #/hpf NONE SEEN A Indication for culture: Dysuria/FrequencySpecimen Description: CLEAN CATCHSpecimen Comment: CLEAN CATCHPLACENTA THIRD [id number] 12:24:00* Test Item Value Reference Range Interpretation Comme nts PLACENTA THIRD TRIMESTER (test code = PLACIII) RUN DATE: 06/25/20 [facility] PAGE 1 RUN TIME: 1913 Specimen Inquiry RUN USER: INTERFACE PATIENT: WILMA BATRES LOC: JyothiKIRSTIE U #: [id number] AGE/SX: / ROOM: [facility] RE06/07/20REG DR: Laureano Wolf MD : [birth year] BED: A DIS: 06/14/20 STATUS: DIS IN TLOC: SPEC #: [id number] RECD: 06/10/20 STATUS: AISSATOU DOBBS #: [id number] EARL: 06/08/20- SUBM DR: Laureano Wolf MD ENTERED: 06/10/20 SP TYPE: PLACIII OTHR DR: ORDERED: LEVEL V SURGICA CODES: [id number] - PLACENTA, NOS PROCEDURES: LEVEL V SURGICA [...] gms/expected mean 510 gms (50-75th percentile) CPT: 10446, 02152 cds/wpd GROSS DESCRIPTION The specimen was received in a container, labeled with the patient's name, unit number and designated "placenta". The following attributes are observed: Cord insertion: 5 cm from margin Cord length: 8 cm Number of vessels: 3 Cord color: Blue-cueto Other cord findings: None surface findings: Steel blue, wrinkled, glistening and contains complete circumvallate insertion of the membranes (in A4) Vasculature: Unremarkable blood vasculature Membranes rupture site: At the margin Membrane color: Cueto Other membrane findings: Thickened and opaque CONTINUED ON NEXT PAGE RUN DATE: 06/25/20 [facility] PAGE 2 RUN TIME: 1913 Specimen Inquiry RUN USER: INTERFACE SPEC #: [id number] PATIENT: WILMA BATRES #[id number] (Continued) --- GROSS DESCRIPTION (Continued) The trimmed [...] 1224 END OF REPORT - XR CYSTOURETHRO [id number] 10:56:00 [facility] 1995 Sex: F Patient Name: WILMA BATRES Unit No: [id number] EXAMS: CPT CODE: [id number] XR CYSTOURETHRO VDNG 06935 Exam: Cystogram Exam date: June 24, 2020 Comparison: None. HISTORY: Bladder injury . 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 Marked amount of fecal matter is identified throughout the visualized colon. There is no evidence of obstruction or ileus. Visualized osseous structures demonstrate no acute findings. Contrast was instilled in a retrograde manner. With approximately 200 mL within the bladder the patient complained of extreme back pain. Scan into the region of the kidneys demonstrated contrast refluxing through the ureteral stent into the renal collecting system distending the collecting system. The exam was stopped at that time secondary to the patient's intolerance. The bladder was incompletely distended. There is irregularity at the dome of the bladder. No contrast extravasation was identified however, the bladder was not [...] four Total fluoroscopy time 75 seconds Total patientdose 66.63 mGy Total DAP 6.52 Gycm2 at 1056 Reported and signed by: Rubina Mccauley MD CC: Laureano Wolf MD; Steven Oh MD Technologist: Merle Lemus RT, CT Trnscrbd D/ (4637) t.CER Orig Print D/T: S: 06/24/2020 (3476) [facility] NAME: WILMA BATRES Radiology Department PHYS: SONDRA Steven Oh MD [address] : 1995 AGE: 24 SEX: F [place], [place] [address] LOC: F.RAD PHONE #: [phone] EXAM DATE: 06/24/2020 STATUS: REG CLI FAX #: [phone] RAD NO: Page 1 Signed Report- CT ABD PELVIS W/CONT 2020-06-18 19:36:00 [facility] 1995 Sex: F Patient Name: WILMA BATRES Unit No: [id number] EXAMS: CPT CODE: [id number] CT ABD PELVIS W/CONT 51730 CT ABDOMEN AND PELVIS WITH CONTRAST INDICATION: R ABDOMINAL PAIN S/P SURGERY. TECHNIQUE: Isovue Intravenous contrast was administered followed by CT imaging of the abdomen and pelvis with axial, coronal and sagittal reconstructions. CT imaging performed at this location utilizes radiation dose optimization technique which includes one or more of the followin) Automated exposure control; 2)Adjustment of the mA and/or kV according to [...] segment that requires no specific additional follow-up ilan patient of this age without significant risk factors. There is no acute hepatic process. The gallbladder and bile ducts reveal no acute process. The pancreas reveals no acute process. The spleen reveals no acute process. The adrenal glands reveal no acute process or mass. There is no acute renal process. There are normally positioned bilateral ureteral stents. [facility] NAME: WILMA BATRES Radiology Department PHYS: Yaw Sorensen [address] : 1995 AGE: 24 SEX: F [place], [place] [address] LOC: LEONA PHONE #: [phone] EXAM DATE: 06/18/2020 STATUS: REG ER FAX #: [phone] RAD NO: Page 1 Signed Report 1 Patient Name: WILMA BATRES Unit No: [id number] EXAMS: CPT CODE: [id number] CT ABD PELVIS W/CONT 74041 (Continued) The urinary bladder is minimally distended with an intraluminal catheter present. There is urinary bladder wall thickening. There is a trace amount of nonorganized simple density free fluid in the rightpelvis. There is an immediately adjacent percutaneous peritoneal drain catheter. There is a 1.3 x 1.8 x 0.9 cm small organized appearing fluid collection in the left pelvis on axial image 93 and coronal image 36. There is no intra-abdominal free gas. There is no lymphadenopathy. There is a typical appearance of the uterus with generalized prominence and hypodensity of the endometrial st ripe. There is no gas in the endometrial canal. There is no bowel obstruction. There is no bowel mucosal thickening or inflammation. There is a moderate amount of retained colonic stool. The appendixappears normal as visualized. Postcontrast images reveal no [...] to the percutaneous peritoneal drain catheter. 2. Thereis no intraabdominal free gas. 3. Normally positioned [...] There is no bowel obstruction or perforation. 6.Normal appendix. [facility] NAME: WILMA BATRES Radiology Department PHYS: Yaw Giles [address] : 1995 AGE: 24 SEX: F [place], [place] [address] LOC: LEONA PHONE #: [phone] EXAM DATE: 06/18/2020 STATUS: REG ER FAX #: [phone] RAD NO: Page 2 Signed Report 1 Patient Name: WILMA BATRES Unit No: [id number] EXAMS: CPT CODE: [id number] CT ABD PELVIS W/CONT 18318 (Continued) at 1936 Reported and signed by: Felix Shine DO CC: Yaw Ross MD; Laureano Barreto MD Technologist: Jose Luis Martinez, RT, CT CTDI: 3.34 DLP: 321.89 Trnscrbd D/ (1935) [email or web address] [facility] NAME: WILMA BATRES Radiology Department PHYS: Yaw Giles [address] : 1995 AGE: 24 SEX: F [place] [address] LOC: F.ERS PHONE #: [phone] EXAM DATE: 06/18/2020 STATUS: REG ER FAX #: [phone] RAD NO: Page 3 Signed Report 1 Patient Name: WILMA BATRES Unit No: [id number] EXAMS: CPT CODE: [id number] CT ABD PELVIS W/CONT 49580 (Continued) Orig Print D/T: S: 06/18/2020 (194) [facility] NAME: WILMA BATRES Radiology Department PHYS: Herminio Gilesiro [address] : 1995 AGE: 24 SEX: F [place] [address] LOC: F.ERS PHONE #: [phone] EXAM DATE: 06/18/2020 STATUS: REG ER FAX #: [phone] RAD NO: Page 4 Signed Report 1COMPREHENSIVE METABOLIC [id number] 19:18:00* Test Item Value Reference Range Interpretation Comme nts SODIUM (test code = NA) 142 mEq/L 135-145 N POTASSIUM (test code = K) 4.0 mEq/L 3.5-5.0 N CHLORIDE (test code = CL) 105 mEq/L 100-115 N CARBON DIOXIDE (test code = CO2) 30 mEq/L 22-31 N ANION GAP (test code = GAP) 11.10 10-20 N GLUCOSE (test code = GLU) 78 mg/dL 65-110 N BLOOD UREA NITROGEN (test co de = BUN) 11 mg/dL 7-18 N GLOMERULAR FILTRATION RATE ( test code = GFR) 90 ml/min >60 N CREATININE (test code = CREAT) 0.8 mg/dL [...] 21 units/L 12-78 N ALKALINE PHOSPHATASE TOTAL ( test code = ALKP) 96 units/L 46-116 N CBC W/AUTO [id number] 18:48:00* Test Item Value Reference Range Interpretation Comme nts WHITE BLOOD CELL (test code = WBC) [...] pg 27-35 L MEAN CELL HGB CONCETRATION ( test code = MCHC) 30.3 gm/dL 32.2-34.1 L RED CELL DISTRIBUTION WIDTH (test code = RDW) 14.9 % 12.4-16.5 N PLATELET COUNT (test code = PLT) 594 K/mm3 133-385 H MEAN PLATELET VOLUME (test c ode = MPV) 9.5 fl 9.1-12.7 N NEUTROPHIL % (test code = NT%) 59.2 [...] = BA#) 0.1 K/mm3 RBC MORPHOLOGY REQUIRED (erin t code = RBCM) NORMAL NORMAL PLATELET MORPHOLOGY REQUIRED (test code = PLTMR) NORMAL NORMAL UA RFLX MICR CULT IF [id number] 17:21:00* Test Item Value Reference Range Interpretation Comme nts UA COLOR (test code = COLU) YELLOW YELLOW UA APPEARANCE (test code = APPU) CLOUDY CLEAR A UA GLUCOSE DIPSTICK (test code = DGLUU) NEGATIVE NEG UA BILIRUBIN DIPSTICK (test code = BILU) NEGATIVE NEG UA KETONE DIPSTICK (test code = KETU) NEGATIVE NEG UA SPECIFIC GRAVITY (test code = SGU) 1.011 1.001-1.035 N UA BLOOD DIPSTICK (test code = DWAIN) 3+ NEG A UA PH DIPSTICK (test code = ANGELES) 6.0 5-9 UA PROTEIN DIPSTICK (test code = PROU) 2+ NEG A UA UROBILINIOGEN DIPSTICK (test code = URO) NEGATIVE mg/dL NEG UA NITRITE DIPSTICK (test code = CLEM) NEG NEG UA LEUKOCYTE ESTERASE DIPSTICK (test code = LEUU) 2+ NEG A UA WBC (test code = WBCU) 16-20 #/hpf NONE SEEN A UA RBC (test code = RBCU) TOO NUMEROUS T O CNT #/hpf NONE SEEN A UA EPITHELIAL CELLS (test code = EPIU) FEW #/HPF RARE-FEW UA BACTERIA (test code = BACU) FEW /HPF RARE-FEW UA MUCUS (test code = MUCU) RARE NONE SEEN Indication for culture: Suprapubic PainSpecimen Description: CLEAN CATCHCBC W/AUTO [id number] 18:54:00* Test Item Value Reference Range Interpretation Comme nts WHITE BLOOD CELL (test code = WBC) 8.2 K/mm3 6.6-12.1 N RED BLOOD CELL (test code = RBC) 3.23 M/mm3 3.45-5.01 L HEMOGLOBIN (test code = HGB) 8.8 g/dL 10.7-13.9 L HEMATOCRIT (test code = HCT) 28.0 % 32.1-42.1 L MEAN CELL VOLUME (test code = MCV) 87 fL 84.1-94.8 N MEAN CELL HGB (test code = MCH) 27.2 pg 27-35 N MEAN CELL HGB CONCETRATION (test code = MCHC) 31.4 gm/dL 32.2-34.1 L RED CELL DISTRIBUTION WIDTH (test code = RDW) 15.2 % 12.4-16.5 N PLATELET COUNT (test code = PLT) 367 K/mm3 133-385 Results verified by repeat analysis MEAN PLATELET VOLUME (test code = MPV) 10.6 fl 9.1-12.7 N NEUTROPHIL % (test code = NT%) 67.9 % 56.5-79.4 N LYMPHOCYTE % (test code = LY%) 22.9 % 14.3-34.3 N MONOCYTE % (test code = MO%) 5.0 % 5.1-10.4 L EOSINOPHIL % (test code = EO%) 3.3 % 0.1-3.0 H BASOPHIL % (test code = BA%) 0.2 % 0.1-1.0 N NEUTROPHIL # (test code = NT#) 5.6 K/mm3 LYMPHOCYTE # (test code = LY#) 1.9 K/mm3 MONOCYTE # (test code = MO#) 0.4 K/mm3 EOSINOPHIL # (test code = EO#) 0.27 K/mm3 BASOPHIL # (test code = BA#) 0.0 K/mm3 RBC MORPHOLOGY REQUIRED (test code = RBCM) NORMAL NORMAL PLATELET MORPHOLOGY REQUIRED (test code = PLTMR) NORMAL NORMAL COMPREHENSIVE METABOLIC [id number] 09:11:00* Test Item Value Reference Range Interpretation Comme nts SODIUM (test code = NA) 142 mEq/L 135-145 N POTASSIUM (test code = K) 3.9 mEq/L 3.5-5.0 N CHLORIDE (test code = CL) 107 mEq/L 100-115 N CARBON DIOXIDE (test code = CO2) 29 mEq/L 22-31 N ANION GAP (test code = GAP) 10.00 10-20 N GLUCOSE (test code = GLU) 81 mg/dL 65-110 N BLOOD UREA NITROGEN (test co de = BUN) 5 mg/dL 7-18 L GLOMERULAR FILTRATION RATE ( test code = GFR) 125 ml/min >60 N CREATININE (test code = CREAT) 0.6 mg/dL 0.5-1.0 N TOTAL PROTEIN (test code = PROT) 4.0 gm/dL 6.3-8.2 L ALBUMIN (test code = ALB) 1.5 gm/dL 3.4-4.8 L CALCIUM (test code = CA) 7.5 mg/dL 8.4-10.2 L BILIRUBIN TOTAL (test code = BILT) 0.2 mg/dL 0.2-1.0 N SGOT/AST (test code = AST) 24 units/L 15-37 N SGPT/ALT (test code = ALT) 20 units/L 12-78 N ALKALINE PHOSPHATASE TOTAL ( test code = ALKP) 105 units/L 46-116 N CBC W/AUTO [id number] 09:03:00* Test Item Value Reference Range Interpretation Comme nts WHITE BLOOD CELL (test code = WBC) 7.7 K/mm3 6.6-12.1 Results verified by repeat analysis RED BLOOD CELL (test code = RBC) 2.96 M/mm3 3.45-5.01 L HEMOGLOBIN (test code = HGB) 8.0 g/dL 10.7-13.9 L HEMATOCRIT (test code = HCT) 25.8 % 32.1-42.1 L MEAN CELL VOLUME (test code = MCV) 87 fL 84.1-94.8 N MEAN CELL HGB (test code = MCH) 27.0 pg 27-35 N MEAN CELL HGB CONCETRATION (test code = MCHC) 31.0 gm/dL 32.2-34.1 L RED CELL DISTRIBUTION WIDTH (test code = RDW) 15.0 % 12.4-16.5 N PLATELET COUNT (test code = PLT) 261 K/mm3 133-385 N MEAN PLATELET VOLUME (test code = MPV) 11.1 fl 9.1-12.7 N NEUTROPHIL % (test code = NT%) 71.0 % 56.5-79.4 N LYMPHOCYTE % (test code = LY%) 22.0 % 14.3-34.3 N MONOCYTE % (test code = MO%) 4.4 % 5.1-10.4 L EOSINOPHIL % (test code = EO%) 1.7 % 0.1-3.0 N BASOPHIL % (test code = BA%) 0.1 % 0.1-1.0 N NEUTROPHIL # (test code = NT#) 5.5 K/mm3 LYMPHOCYTE # (test code = LY#) 1.7 K/mm3 MONOCYTE # (test code = MO#) 0.3 K/mm3 EOSINOPHIL # (test code = EO#) 0.13 K/mm3 BASOPHIL # (test code = BA#) 0.0 K/mm3 RBC MORPHOLOGY REQUIRED (test code = RBCM) NORMAL NORMAL PLATELET MORPHOLOGY REQUIRED (test code = PLTMR) NORMAL NORMAL COMPREHENSIVE METABOLIC [id number] 07:39:00* Test Item Value Reference Range Interpretation Comme nts SODIUM (test code = NA) 138 mEq/L 135-145 N POTASSIUM (test code = K) 3.6 mEq/L 3.5-5.0 N CHLORIDE (test code = CL) 105 mEq/L 100-115 N CARBON DIOXIDE (test code = CO2) 26 mEq/L 22-31 N ANION GAP (test code = GAP) 10.40 10-20 N GLUCOSE (test code = GLU) 91 mg/dL 65-110 N BLOOD UREA NITROGEN (test co de = BUN) 7 mg/dL 7-18 N GLOMERULAR FILTRATION RATE ( test code = GFR) 125 ml/min >60 N CREATININE (test code = CREAT) 0.6 mg/dL 0.5-1.0 N TOTAL PROTEIN (test code = PROT) 3.8 gm/dL 6.3-8.2 L ALBUMIN (test code = ALB) 1.5 gm/dL 3.4-4.8 L CALCIUM (test code = CA) 7.5 mg/dL 8.4-10.2 L BILIRUBIN TOTAL (test code = BILT) 0.2 mg/dL 0.2-1.0 N SGOT/AST (test code = AST) 28 units/L 15-37 N SGPT/ALT (test code = ALT) 16 units/L 12-78 N ALKALINE PHOSPHATASE TOTAL ( test code = ALKP) 107 units/L 46-116 N CBC W/AUTO [id number] 07:10:00* Test Item Value Reference Range Interpretation Comme nts WHITE BLOOD CELL (test code = WBC) 15.1 K/mm3 6.6-12.1 H RED BLOOD CELL (test code = RBC) 2.83 M/mm3 3.45-5.01 L HEMOGLOBIN (test code = HGB) 7.9 g/dL 10.7-13.9 L HEMATOCRIT (test code = HCT) 24.6 % 32.1-42.1 L MEAN CELL VOLUME (test code = MCV) 87 fL 84.1-94.8 N MEAN CELL HGB (test code = MCH) 27.9 pg 27-35 N MEAN CELL HGB CONCETRATION (test code = MCHC) 32.1 gm/dL 32.2-34.1 L RED CELL DISTRIBUTION WIDTH (test code = RDW) 14.9 % 12.4-16.5 N PLATELET COUNT (test code = PLT) 221 K/mm3 133-385 Results verified by repeat analysis MEAN PLATELET VOLUME (test code = MPV) 11.6 fl 9.1-12.7 N NEUTROPHIL % (test code = NT%) 78.8 % 56.5-79.4 N LYMPHOCYTE % (test code = LY%) 13.9 % 14.3-34.3 L MONOCYTE % (test code = MO%) 4.8 % 5.1-10.4 L EOSINOPHIL % (test code = EO%) 1.7 % 0.1-3.0 N BASOPHIL % (test code = BA%) 0.1 % 0.1-1.0 N NEUTROPHIL # (test code = NT#) 11.9 K/mm3 LYMPHOCYTE # (test code = LY#) 2.1 K/mm3 MONOCYTE # (test code = MO#) 0.7 K/mm3 EOSINOPHIL # (test code = EO#) 0.26 K/mm3 BASOPHIL # (test code = BA#) 0.0 K/mm3 RBC MORPHOLOGY REQUIRED (test code = RBCM) NORMAL NORMAL PLATELET MORPHOLOGY REQUIRED (test code = PLTMR) NORMAL NORMAL COMPREHENSIVE METABOLIC [id number] 10:31:00* Test Item Value Reference Range Interpretation Comme nts SODIUM (test code = NA) 140 mEq/L 135-145 N POTASSIUM (test code = K) 4.5 mEq/L 3.5-5.0 N CHLORIDE (test code = CL) 108 mEq/L 100-115 N CARBON DIOXIDE (test code = CO2) 27 mEq/L 22-31 N ANION GAP (test code = GAP) 9.80 10-20 L GLUCOSE (test code = GLU) 59 mg/dL 65-110 L BLOOD UREA NITROGEN (test code = BUN) 6 mg/dL 7-18 L GLOMERULAR FILTRATION RATE (test code = GFR) 90 ml/min >60 N CREATININE (test code = CREAT) 0.8 mg/dL 0.5-1.0 N TOTAL PROTEIN (test code = PROT) 3.8 gm/dL 6.3-8.2 L ALBUMIN (test code = ALB) 1.6 gm/dL 3.4-4.8 L CALCIUM (test code = CA) 7.6 mg/dL 8.4-10.2 L BILIRUBIN TOTAL (test code = BILT) 0.4 mg/dL 0.2-1.0 N SGOT/AST (test code = AST) 39 units/L 15-37 H Results verified by repeat analysis SGPT/ALT (test code = ALT) 16 units/L 12-78 N ALKALINE PHOSPHATASE TOTAL (test code = ALKP) 119 units/L 46-116 H Results verified by repeat analysis [id number] 10:31:00* Test Item Value Reference Range Interpretation Comme nts AMYLASE (test code = ALBA) 127 units/L 30-110 H [id number] 10:31:00* Test Item Value Reference Range Interpretation Comme nts LIPASE (test code = LIP) 43 units/L 73-393 L HGB [id number] 07:51:00* Test Item Value Reference Range Interpretation Comme nts HEMOGLOBIN (test code = HGB) 8.6 g/dL 10.7-13.9 L HEMATOCRIT (test code = HCT) 27.2 % 32.1-42.1 L CBC W/AUTO [id number] 01:33:00* Test Item Value Reference Range Interpretation Comme nts WHITE BLOOD CELL (test code = WBC) 15.0 K/mm3 6.6-12.1 H RED BLOOD CELL (test code = RBC) 2.87 M/mm3 3.45-5.01 L HEMOGLOBIN (test code = HGB) 7.8 g/dL 10.7-13.9 L RESULTS VERIFIED BY REPEAT ANALYSIS HEMATOCRIT (test code = HCT) 23.9 % 32.1-42.1 L RESULTS VERIFIED BY REPEAT ANALYSIS MEAN CELL VOLUME (test code = MCV) 83 fL 84.1-94.8 L MEAN CELL HGB (test code = MCH) 27.2 pg 27-35 N MEAN CELL HGB CONCETRATION (test code = MCHC) 32.6 gm/dL 32.2-34.1 N RED CELL DISTRIBUTION WIDTH (test code = RDW) 14.4 % 12.4-16.5 N PLATELET COUNT (test code = PLT) 156 K/mm3 133-385 N MEAN PLATELET VOLUME (test code = MPV) 11.4 fl 9.1-12.7 N NEUTROPHIL % (test code = NT%) 82.5 % 56.5-79.4 H LYMPHOCYTE % (test code = LY%) 13.0 % 14.3-34.3 L MONOCYTE % (test code = MO%) 3.7 % 5.1-10.4 L EOSINOPHIL % (test code = EO%) 0.1 % 0.1-3.0 N BASOPHIL % (test code = BA%) 0.2 % 0.1-1.0 N NEUTROPHIL # (test code = NT#) 12.4 K/mm3 LYMPHOCYTE # (test code = LY#) 2.0 K/mm3 MONOCYTE # (test code = MO#) 0.6 K/mm3 EOSINOPHIL # (test code = EO#) 0.02 K/mm3 BASOPHIL # (test code = BA#) 0.0 K/mm3 RBC MORPHOLOGY REQUIRED (test code = RBCM) NORMAL NORMAL PLATELET MORPHOLOGY REQUIRED (test code = PLTMR) NORMAL NORMAL PROTHROMBIN [id number] 13:18:00* Test Item Value Reference Range Interpretation Comme nts PROTHROMBIN TIME PATIENT (te st code = PTP) 11.5 secs 10.4-12.4 N THROMBOPLASTIN TIME [id number] 13:18:00* Test Item Value Reference Range Interpretation Comme nts THROMBOPLASTIN TIME PARTIAL (test code = PTT) 26.0 secs 22-38 N [id number] 13:18:00* Test Item Value Reference Range Interpretation Comme nts FIBRINOGEN (test code = FIB) 313 mg/dL 309-518 N CBC W/AUTO [id number] 12:44:00* Test Item Value Reference Range Interpretation Comme nts WHITE BLOOD CELL (test code = WBC) [...] pg 27-35 N MEAN CELL HGB CONCETRATION ( test code = MCHC) 31.1 gm/dL 32.2-34.1 L RED CELL DISTRIBUTION WIDTH (test code = RDW) 13.9 % 12.4-16.5 N PLATELET COUNT (test code = PLT) 165 K/mm3 133-385 N MEAN PLATELET VOLUME (test c ode = MPV) 12.3 fl 9.1-12.7 N NEUTROPHIL % (test code = NT%) 92.0 [...] = BA#) 0.0 K/mm3 RBC MORPHOLOGY REQUIRED (erin t code = RBCM) NORMAL NORMAL PLATELET MORPHOLOGY REQUIRED (test code = PLTMR) NORMAL NORMAL RESULTS [facility] W/AUTO [id number] 10:53:00* Test Item Value Reference Range Interpretation Comme nts WHITE BLOOD CELL (test code = WBC) 14.6 K/mm3 6.6-12.1 H RED BLOOD CELL (test code = RBC) 2.47 M/mm3 3.45-5.01 L HEMOGLOBIN (test code = HGB) 6.7 g/dL 10.7-13.9 LL RESULTS CALLED Keila GARCIA.READ BACK & CONFIRMED? Y.BY FMartinLAB.[facility] 06/08/20 1059.RESULTS VERIFIED BY REPEAT ANALYSIS HEMATOCRIT (test code = HCT) 21.4 % 32.1-42.1 L MEAN CELL VOLUME (test code = MCV) 87 fL 84.1-94.8 N MEAN CELL HGB (test code = MCH) 27.1 pg 27-35 N MEAN CELL HGB CONCETRATION (test code = MCHC) 31.3 gm/dL 32.2-34.1 L RED CELL DISTRIBUTION WIDTH (test code = RDW) 14.2 % 12.4-16.5 N PLATELET COUNT (test code = PLT) 155 K/mm3 133-385 N MEAN PLATELET VOLUME (test code = MPV) 11.6 fl 9.1-12.7 N NEUTROPHIL % (test code = NT%) 91.9 % 56.5-79.4 H LYMPHOCYTE % (test code = LY%) 2.9 % 14.3-34.3 L MONOCYTE % (test code = MO%) 4.8 % 5.1-10.4 L EOSINOPHIL % (test code = EO%) 0.0 % 0.1-3.0 L BASOPHIL % (test code = BA%) 0.1 % 0.1-1.0 N NEUTROPHIL # (test code = NT#) 13.4 K/mm3 LYMPHOCYTE # (test code = LY#) 0.4 K/mm3 MONOCYTE # (test code = MO#) 0.7 K/mm3 EOSINOPHIL # (test code = EO#) 0 K/mm3 BASOPHIL # (test code = BA#) 0.0 K/mm3 RBC MORPHOLOGY REQUIRED (test code = RBCM) NORMAL NORMAL PLATELET MORPHOLOGY REQUIRED (test code = PLTMR) NORMAL NORMAL PROTHROMBIN [id number] 10:05:00* Test Item Value Reference Range Interpretation Comme nts PROTHROMBIN TIME PATIENT (te st code = PTP) 11.9 secs 10.4-12.4 N Comments to Emergency Room Specialist: DRAWING IN ORTHROMBOPLASTIN TIME [id number] 10:05:00* Test Item Value Reference Range Interpretation Comme nts THROMBOPLASTIN TIME PARTIAL (test code = PTT) 27.1 secs 22-38 N Comments to Emergency Room Specialist: DRAWING IN [id number] 10:05:00* Test Item Value Reference Range Interpretation Comme nts FIBRINOGEN (test code = FIB) 266 mg/dL 309-518 L Comments to Emergency Room Specialist: DRAWING IN ORPROTHROMBIN [id number] 07:07:00* Test Item Value Reference Range Interpretation Comme nts PROTHROMBIN TIME PATIENT (te st code = PTP) 11.0 secs 10.4-12.4 N THROMBOPLASTIN TIME [id number] 07:07:00* Test Item Value Reference Range Interpretation Comme nts THROMBOPLASTIN TIME PARTIAL (test code = PTT) 28.0 secs 22-38 N [id number] 07:07:00* Test Item Value Reference Range Interpretation Comme nts FIBRINOGEN (test code = FIB) 138 mg/dL 309-518 L CBC W/AUTO [id number] 06:26:00* Test Item Value Reference Range Interpretation Comme nts WHITE BLOOD CELL (test code = WBC) [...] pg 27-35 L MEAN CELL HGB CONCETRATION ( test code = MCHC) 29.3 gm/dL 32.2-34.1 L RED CELL DISTRIBUTION WIDTH (test code = RDW) 13.9 % 12.4-16.5 N PLATELET COUNT (test code = PLT) 230 K/mm3 133-385 N MEAN PLATELET VOLUME (test c ode = MPV) 11.9 fl 9.1-12.7 N NEUTROPHIL % (test code = NT%) 79.7 [...] = BA#) 0.0 K/mm3 RBC MORPHOLOGY REQUIRED (erin t code = RBCM) NORMAL NORMAL PLATELET MORPHOLOGY REQUIRED (test code = PLTMR) NORMAL NORMAL CAPILLARY BLOOD [id number] 06:03:00* Test Item Value Reference Range Interpretation Comme nts CAPILLARY BLOOD GAS PH (test code = PHC) 7.172 7.35-7.45 LL CAPILLARY BLOOD GAS PCO2 (te st code = PCO2C) 65.5 mmHg CBG HCO3 (test code = HCO3C) 23.5 meq/L CBG BASE EXCESS (test code = BEC) -6.3 CAPILLARY BLOOD GAS TYPE (te st code = TYPEC) CBLA CAPILLARY BLOOD GAS FIO2 (te st code = FIO2C) 21.0 % CAPILLARY BLOOD [id number] 06:02:00* Test Item Value Reference Range Interpretation Comme nts CAPILLARY BLOOD GAS PH (test code = PHC) 7.272 7.35-7.45 L CAPILLARY BLOOD GAS PCO2 (te st code = PCO2C) 45.4 mmHg CAPILLARY BLOOD GAS PO2 (erin t code = PO2C) 18.5 mmHg CBG HCO3 (test code = HCO3C) 20.5 meq/L CBG BASE EXCESS (test code = BEC) -6.4 CBG O2 SATURATION (test code = SATC) 23.1 % CAPILLARY BLOOD GAS TYPE (te st code = TYPEC) CBLV CAPILLARY BLOOD GAS FIO2 (te st code = FIO2C) 21.0 % COMPREHENSIVE METABOLIC [id number] 17:43:00* Test Item Value Reference Range Interpretation Comme nts SODIUM (test code = NA) 137 mEq/L 135-145 N POTASSIUM (test code = K) 4.1 mEq/L 3.5-5.0 N CHLORIDE (test code = CL) 103 mEq/L 100-115 N CARBON DIOXIDE (test code = CO2) 25 mEq/L 22-31 N ANION GAP (test code = GAP) 13.30 10-20 N GLUCOSE (test code = GLU) 64 mg/dL 65-110 L BLOOD UREA NITROGEN (test co de = BUN) 6 mg/dL 7-18 L GLOMERULAR FILTRATION RATE ( test code = GFR) 125 ml/min >60 N CREATININE (test code = CREAT) 0.6 mg/dL 0.5-1.0 N TOTAL PROTEIN (test code = PROT) 6.0 gm/dL 6.3-8.2 L ALBUMIN (test code = ALB) 2.6 gm/dL 3.4-4.8 L CALCIUM (test code = CA) 8.0 mg/dL 8.4-10.2 L BILIRUBIN TOTAL (test code = BILT) 0.4 mg/dL 0.2-1.0 N SGOT/AST (test code = AST) 17 units/L 15-37 N SGPT/ALT (test code = ALT) 11 units/L 12-78 L ALKALINE PHOSPHATASE TOTAL ( test code = ALKP) 259 units/L 46-116 H AG HEPATITIS B [id number] 16:53:00* Test Item Value Reference Range Interpretation Comme nts AG HEPATITIS B SURFACE (test code = HBSAG) NONREACTIVE NONREACTIVE AB HEPATITIS C [id number] 16:53:00* Test Item Value Reference Range Interpretation Comme nts AB HEPATITIS C (test code = HCVAB) NONREACTIVE NONREACTIVE SIGNAL TO CUTOFF (test code = CUTOFF) 0.06 <0.80 N AB [id number] 16:53:00* Test Item Value Reference Range Interpretation Comme nts AB TREPONEMA (test code = TREPAB) NONREACTIVE NONREACTIVE AG HEPATITIS B [id number] 16:28:00* Test Item Value Reference Range Interpretation Comme nts AG HEPATITIS B SURFACE (test code = HBSAG) NONREACTIVE NONREACTIVE AB HEPATITIS C [id number] 16:28:00* Test Item Value Reference Range Interpretation Comme nts AB HEPATITIS C (test code = HCVAB) NONREACTIVE SIGNAL TO CUTOFF (test code = CUTOFF) <0.80 AB [id number] 16:28:00* Test Item Value Reference Range Interpretation Comme nts AB TREPONEMA (test code = TREPAB) NONREACTIVE NONREACTIVE CBC W/AUTO [id number] 15:48:00* Test Item Value Reference Range Interpretation Comme nts WHITE BLOOD CELL (test code = WBC) [...] pg 27-35 L MEAN CELL HGB CONCETRATION ( test code = MCHC) 30.4 gm/dL 32.2-34.1 L RED CELL DISTRIBUTION WIDTH (test code = RDW) 13.8 % 12.4-16.5 N PLATELET COUNT (test code = PLT) 253 K/mm3 133-385 N MEAN PLATELET VOLUME (test c ode = MPV) 11.7 fl 9.1-12.7 N NEUTROPHIL % (test code = NT%) 69.0 [...] = BA#) 0.0 K/mm3 RBC MORPHOLOGY REQUIRED (erin t code = RBCM) NORMAL NORMAL PLATELET MORPHOLOGY REQUIRED (test code = PLTMR) NORMAL NORMAL COVID 19 Asymptomatic IH [id number] 15:30:00* Test Item Value Reference Range Interpretation Comme nts COVID 19 Asymptomatic IH AG (test code = COVNONPUIAG) NEGATIVE NEGATIVE This test has be en authorized only for the detection ofproteins from SARS-CoV-2, not for any other viruses orpathogens. Negative results should be treated as presumptive andconfirmed with a molecular assay, if necessary for patientmanagement. Negative results do not rule out COVID-19 andshould not be used as the sole basis for treatment orpatient management decisions, including infection controldecisions. Negative results should be considered in thecontext of a patient's recent exposures, history and thepresence of clinical signs and symptoms consistent withCOVID-19. This test has not been FDA cleared or approved; the test hasbeen authorized by FDA under an Emergency Use Authorization(EUA) for use by laboratories certified under the CLIA thatmeet the requirements to perform moderate, high or waivedcomplexity tests. This test is authorized for use at thePoint of Care (POC), i.e., in patient care settingsoperating under a CLIA Certificate of Waiver, Certificate ofCompliance, or Certificate of Accreditation. This test is only authorized for the duration of thedeclaration that circumstances exist justifying theauthorization of emergency use of in vitro diagnostic testsfor detection and/or diagnosis of COVID-19 under Xokidup703(b)(1) of the Act, 21 U.S.C. 360bbb-3(b)(1), unless theauthorization is terminated or revoked sooner. COMPREHENSIVE METABOLIC [id number] 16:14:00* Test Item Value Reference Range Interpretation Comme nts SODIUM (test code = NA) 137 mEq/L 135-145 N POTASSIUM (test code = K) 4.0 mEq/L 3.5-5.0 N CHLORIDE (test code = CL) 105 mEq/L 100-115 N CARBON DIOXIDE (test code = CO2) 23 mEq/L 22-31 N ANION GAP (test code = GAP) 13.00 10-20 N GLUCOSE (test code = GLU) 78 mg/dL 65-110 N BLOOD UREA NITROGEN (test co de = BUN) 5 mg/dL 7-18 L GLOMERULAR FILTRATION RATE ( test code = GFR) 154 ml/min >60 N CREATININE (test code = CREAT) 0.5 mg/dL 0.5-1.0 N TOTAL PROTEIN (test code = PROT) 5.9 gm/dL 6.3-8.2 L ALBUMIN (test code = ALB) 2.5 gm/dL 3.4-4.8 L CALCIUM (test code = CA) 8.3 mg/dL 8.4-10.2 L BILIRUBIN TOTAL (test code = BILT) 0.3 mg/dL 0.2-1.0 N SGOT/AST (test code = AST) 17 units/L 15-37 N SGPT/ALT (test code = ALT) 13 units/L 12-78 N ALKALINE PHOSPHATASE TOTAL ( test code = ALKP) 238 units/L 46-116 H CBC W/AUTO [id number] 15:46:00* Test Item Value Reference Range Interpretation Comme nts WHITE BLOOD CELL (test code = WBC) [...] pg 27-35 L MEAN CELL HGB CONCETRATION ( test code = MCHC) 30.2 gm/dL 32.2-34.1 L RED CELL DISTRIBUTION WIDTH (test code = RDW) 13.2 % 12.4-16.5 N PLATELET COUNT (test code = PLT) 248 K/mm3 133-385 N MEAN PLATELET VOLUME (test c ode = MPV) 12.0 fl 9.1-12.7 N NEUTROPHIL % (test code = NT%) 71.2 [...] = BA#) 0.0 K/mm3 RBC MORPHOLOGY REQUIRED (erin t code = RBCM) NORMAL NORMAL PLATELET MORPHOLOGY REQUIRED (test code = PLTMR) NORMAL NORMAL RUPTURE OF [id number] 11:57:00* Test Item Value Reference Range Interpretation Comme nts RUPTURE OF MEMBRANES (test c ode = ROM) NON-RUPTURED Specimen Comment: NOT RUPTURED Notes Date/Time Note Provider Source 2024-08-19 17:20:00 Pt given printed and verbal discharge instructions regarding fever, influenza, encouraged hydration. Prescriptions provided. Discussed ibuprofen and to take with food to avoid GI distress. Pt verbalized understanding of instructions, pt awake alert oriented, resp reg unlabored, skin w/d, color appropriate for race, moves all ext well,pt encouraged to follow up with pcp. Advised to seek medical attention for new/prolonged/worsening of symptoms. No adverse reaction to meds given in ER noted upon discharge. PIV d'cd, dressing to site, catheter in tact. Awake, alert oriented, resp reg unlabored, skin w/d, pt leaving amb with steady gait, in no apparent distress. TA Hendricks RN [facility] 2024-08-19 13:13:10 CO body aches, fever, sore throat, and cough starting today. No meds [employer] INST[employer]ER. TA Augustin RN [facility] 2024-05-29 07:06:00 [facility] ([facility]) OB Postpart Progr Note REPORT#:[id number] REPORT STATUS: Signed REPORT INITIALIZATION DATE:05/29/24 TIME: 705 PATIENT: WILMA BATRES UNIT #: [id number] ROOM/BED: 4600-A : 97 AGE: 28 SEX: F ATTEND: Feng Taylor DO ADM AUTHOR: Feng Taylor DO REPT SERVICE DT/TIME: 05/29/24 0706 * ALL edits or amendments must be made on the electronic/computer document * Subjective Subjective Admission EGA: Weeks: 39 Days: 1 EGA at delivery (wks/days): 39 weeks Status/Day: post operative (day 3) Patient reports: Patient reports: Yes no complaints, Yes pain management effective, Yes tolerating po well, Yes voiding well, No nausea, No vomiting Objective General VS: Vital Signs: Date Time Temp Pulse Resp B/P B/P Pulse O2 O2 Flow FiO2 Mean Ox Delivery Rate 05/28 2324 99.0 93 18 96/60 72.2 96 05/28 1530 59.0 05/28 1530 98.8 72 16 86/45 96 05/28 0752 98.4 73 18 90/52 64.8 96 PATIENT WEIGHT: Weight (lb): 130 Weight (oz): Weight (kg): 59.100 Physical Exam Abdomen: soft, no abnormal tenderness, no guarding Incision site: well approximated edges, no drainage, no inflammation Uterus: involution appropriate, non-tender Diagnosis, Assessment Plan Diagnosis, Assessment Plan Assessment: nml progress, acute blood loss anemia Plan: routine care, discharge today at 0837 RPT #:[id number] END OF REPORT [facility] 2024-05-28 10:21:00 [facility] ([facility]) OB Disch REPORT#:[id number] REPORT STATUS: Signed REPORT INITIALIZATION DATE:05/28/24 TIME: 102 PATIENT: WILMA BATRES UNIT #: [id number] ROOM/BED: [address] : 97 AGE: 28 SEX: F ATTEND: Feng Taylor DO ADM AUTHOR: Feng Taylor DO REPT SERVICE DT/TIME: 05/28/24 1021 * ALL edits or amendments must be made on the electronic/computer document * Subjective Subjective Admission EGA: Weeks: 39 Days: 1 EGA at delivery (wks/days): 39 weeks Status/day: post operative (day 3) Patient reports: Patient reports: Yes: pain management effective, tolerating po well, voiding well, tolerating ambulation. No: complaints, nausea, vomiting. Objective General VS: Vital Signs Date Temp Pulse Resp B/P B/P Mean Pulse Ox FiO2 05/27-05/28 97.7-99.0 62-83 17-18 90-98/52-61 64.8-76.0 96-100 Last Documented: Result Date Time Pulse Ox 96 05/28 752 B/P 90/52 05/28 752 B/P Mean 64.8 05/28 752 Temp 98.4 05/28 752 Pulse 73 05/28 752 Resp 18 05/28 752 PATIENT WEIGHT: Weight (lb): 130 Weight (oz): Weight (kg): 59.100 Physical Exam Abdomen: soft, no abnormal tenderness, no guarding Incision site: well approximated edges, no drainage, no inflammation Uterus: involution appropriate, non-tender Lower extremities: Edema: none Discharge Summary General Assessment: nml progress, acute blood loss anemia Hospital course: repeat admit Discharge diagnosis: full-term uncomp delivery Baby A: status: live born Gender: female 1 minute: 8 5 minutes: 9 Plan: routine care, discharge tomorrow Discharge Instructions Additional discharge routines: Attending Follow-Up Discharge meds: Continue taking these medications: PNV WITH FE FUMARATE/FA () 27 MG IRON-800 MCG TAB 1 TABLET ORAL DAILY. MIDODRINE (PROAMATINE) 5 MG TAB 5 MILLIGRAM ORAL THREE TIMES A DAY. FERROUS SULFATE (FEOSOL) 325 MG (65 MG IRON) TAB 325 MILLIGRAM ORAL DAILY. Start taking the following new medications: traMADol (ULTRAM) 50 MG TAB 50 MILLIGRAM ORAL EVERY 6 HOURS NEEDED. as needed for ACUTE PAIN Qty = 20 No Refills IBUPROFEN (MOTRIN) 600 MG TAB 600 MILLIGRAM ORAL FOUR TIMES DAILY NEEDED. as needed for PAIN Qty = 30 No Refills at 1021 RPT #:[id number] END OF REPORT [facility] 2024-05-28 10:19:00 [facility] ([facility]) OB Postpart Progr Note REPORT#:[id number] REPORT STATUS: Signed REPORT INITIALIZATION DATE:05/28/24 TIME: 1019 PATIENT: WILMA BATRES UNIT #: [id number] ROOM/BED: [address] : 97 AGE: 28 SEX: F ATTEND: TaylorFeng DO ADM AUTHOR: Feng Taylor DO REPT SERVICE DT/TIME: 05/28/24 1019 * ALL edits or amendments must be made on the electronic/computer document * Subjective Subjective Admission EGA: Weeks: 39 Days: 1 EGA at delivery (wks/days): 39 weeks Status/Day: post operative (day 2) Patient reports: Patient reports: Yes no complaints, Yes pain management effective, Yes tolerating po well, Yes voiding well, No nausea, No vomiting Objective General VS: Vital Signs: Date Time Temp Pulse Resp B/P B/P Pulse O2 O2 Flow FiO2 Mean Ox Delivery Rate 05/28 0752 98.4 73 18 90/52 64.8 96 05/28 0010 73.0 05/28 0010 99.0 83 17 98/61 98 05/27 1810 76.0 05/27 1810 97.7 62 18 98/61 100 PATIENT WEIGHT: Weight (lb): 130 Weight (oz): Weight (kg): 59.100 Physical Exam Abdomen: soft, no abnormal tenderness, no guarding Incision site: well approximated edges, no drainage, no inflammation Uterus: involution appropriate, non-tender Diagnosis, Assessment Plan Diagnosis, Assessment Plan Assessment: nml progress, acute blood loss anemia Plan: routine care, discharge tomorrow at 1019 RPT #:[id number] END OF REPORT [facility] 2024-05-28 01:41:00 [facility] ([facility]) Clinical Note REPORT#:[id number] REPORT STATUS: Signed REPORT INITIALIZATION DATE:05/28/24 TIME: 0141 PATIENT: WILMA BATRES UNIT #: [id number] [address] AGE: 28 SEX: F ATTEND: Feng Taylor DO ADM AUTHOR: Feng Taylor DO REPT SERVICE DT/TIME: 05/28/24 0141 * ALL edits or amendments must be made on the electronic/computer document * Clinical Note Note: Pt seen and examined at bedside. Pt complaiing of chest pain with breathing. Vitals stable Chest pain reproducible with palpation particularly along ribs. Will start toradol IV [id number] and continue to monitor at this time. Discussed plan with patient and spouse at 1031 RPT #:[id number] END OF REPORT [facility] 2024-05-27 11:22:00 [facility] ([facility]) OB Postpart Progr Note REPORT#:[id number] REPORT STATUS: Signed REPORT INITIALIZATION DATE:05/27/24 TIME: 112 PATIENT: WILMA BATRES UNIT #: [id number] ROOM/BED: [address] : 97 AGE: 28 SEX: F ATTEND: Feng Taylor DO ADM AUTHOR: Feng Taylor DO REPT SERVICE DT/TIME: 05/27/24 1122 * ALL edits or amendments must be made on the electronic/computer document * Subjective Subjective Admission EGA: Weeks: 39 Days: 1 EGA at delivery (wks/days): 39 weeks Status/Day: post operative (day 1) Patient reports: Patient reports: Yes no complaints, Yes pain management effective, Yes tolerating po well, Yes voiding well, Yes tolerating ambulation, No voiding without pain, No nausea, No vomiting Objective General VS: Vital Signs: Date Time Temp Pulse Resp B/P B/P Pulse O2 O2 Flow FiO2 Mean Ox Delivery Rate 05/27 08 71.0 05/27 08 98.3 66 18 92/60 98 05/27 0324 97.7 61 18 100/63 75.1 98 05/27 0052 98.2 63 18 90/56 67.1 98 05/27 0022 97.9 63 18 97/63 74.4 98 05/26 2120 98.1 64 18 94/61 72.0 97 05/26 1836 97.7 66 18 112/73 99 05/26 1300 97.7 65 16 98/62 98 05/26 1230 97.6 66 16 93/57 99 05/26 1200 97.6 63 16 94/57 99 PATIENT WEIGHT: Weight (lb): 130 Weight (oz): Weight (kg): 59.100 Physical Exam Abdomen: soft, no abnormal tenderness, no guarding Incision site: well approximated edges, no drainage, no inflammation Uterus: involution appropriate, non-tender Result Findings/Data: Laboratory Tests: 05/27 654 Hematology Hgb (10.1 - 13.8 g/dL) 8.1 L Hct (32.5 - 41.8 %) 27.0 L Diagnosis, Assessment Plan Diagnosis, Assessment Plan Assessment: nml progress, acute blood loss anemia Plan: routine care, discharge tomorrow at 1122 RPT #:[id number] END OF REPORT [facility] 2024-05-26 08:52:00 [facility] ([facility]) OB Delivery Note REPORT#:[id number] REPORT STATUS: Signed REPORT INITIALIZATION DATE:05/26/24 TIME: 851 PATIENT: WILMA BATRES UNIT #: [id number] ROOM/BED: [facility] : 97 AGE: 28 SEX: F ATTEND: Feng Taylor DO ADM AUTHOR: Feng Taylor DO REPT SERVICE DT/TIME: 05/26/24 0852 * ALL edits or amendments must be made on the electronic/computer document * OB Delivery Nursing Documentation Review Nursing data: The data set between the solid lines has been imported from nursing documentation. Any exceptions have been noted below under Provider comments. _ ROM date: ROM time: Membranes rupture method: Amniotic fluid color: Amniotic fluid amount: Steroids prior to arrival: Antibiotic prophylaxis given: Yes Post hemorrhage risk score: MedRisk Delivery date A: Delivery time A: Birthweight (gm) infant A: Weight (lb) infant A: Weight (oz) A: Gender infant A: Female 1 minute A: 5 minutes infant A: 10 minutes infant A: Cord pH obtained infant A: Vacuum time A: Vacuum # pulls A: Vacuum # popoffs A: QBL at delivery: __ Provider comments on imported nursing data: [] Pre-delivery GBS status: GBS status: negative Admission EGA: Weeks: 39 Days: 1 EGA at delivery (wks/days): 39 weeks Blood Loss/Details Blood loss at delivery: <1K: no sx hypovol=no hem EBL at delivery (ml's): 600 Baby A Information Baby A information Delivery date: 05/26/24 status: live born Wt of baby (grams): 3420 Wt of baby (lbs/oz): 12/27 Gender: female 1 minute: 8 5 minutes: 9 Presentation: vertex ABG details Baby A Cord blood gases: not collected Nuchal cord Baby A Nuchal cord: yes (loose and reduced), double Op/Inv Proc Note - Brief )(Start date: 05/26/2024 )( Procedure(s) performed: repeat low transverse c/s )( Primary Surgeon: Ssuhant Taylor )( [employer] Machine Operator(s): Liliana Irizarry )( Pre-procedure diagnosis: Term , Prior csection x1 )( Post-procedure diagnosis: Same )( Technique/Procedure: After informed consent was obtained, the patient was taken to the operating room where anesthesia was administered and found to be adequate. She was then prepped and draped in sterile fashion in a dorsal supine position with a leftward tilt. A time out procedure was then performed and the OR team agreed to the planned procedure. The patient s abdomen was then tested with an Allis clamp and anesthesia was found to be adequate. A Pfannenstiel skin incision was then made with the scalpel and carried down to the underlying fascia with the bovie. The bovie was then used to score the fascia in the midline and the incision was then extended laterally using bovie electrocautery. The superior aspect of the fascial incision was then grasped with Ronnie clamps, elevated and rectus muscles were dissected off. The inferior aspect of the fascial incision was then grasped with Ronnie clamps, elevated and rectus muscles were dissected off. The rectus muscles were then in the midline and the peritoneum identified in a clear area and entered bluntly. The peritoneum was then extended superior and inferiorly with good visualization of the bladder. The bladder blade was then inserted and the vesicouterine peritoneum was then identified, grasped with pickups and entered sharply using Metzembaum scissors. The incision was then extended laterally and bladder flap created digitally. The bladder blade was then reinserted and the uterus was incised in a transverse fashion with the scalpel. The incision was then extended laterally using blunt dissection. The was then delivered in cephalic presentation atraumatically, nose and mouth were suctioned, cord was clamped and cut, and was handed off to waiting nurse. Nuchal cord was not noted. Cord blood banking was not collected. The placenta was then removed manually and the uterus was exteriorized and was cleared of all clots and debris with a moist lap sponge. The hysterotomy was then repaired using 0 Monocryl in a running locked fashion with good hemostasis noted. The uterus was then returned to the abdomen. The pelvic colic gutters were then cleared off all clots and debris using a moist lap sponge. The hysterotomy and bladder were then reinspected and found to be hemostatic. The rectus muscles and peritoneum were then reapproximated in the midline using 2.0 Vicryl in a mattress suture fashion. The muscle and fascia were then examined and found to be hemostatic. The fascia was then reapproximated using 0 Vicryl in a running fashion. The subcutaneous tissue was then irrigated and bovie cautery was used to obtain hemostasis. The subcutaneous tissue was then reapproximated using 2.0 Plain. The skin was then closed with 3.0 Monocryl in a subcuticular fashion. The patient tolerated the procedure well. She was then taken to recovery room in stable condition. Sponge, lap and needle counts were correct times 3. The radiofrequency scan was performed for retained sponges and was negative. 2 grams of ancef were given prior to the start of surgery for surgical prophylaxis. Anesthesia: combined spinal/epidural )( Estimated blood loss (ml): 600 )( Specimen removed/altered: none Fluids: 900 Urine output: 25cc Condition: stable Delivery Delivery section indication: elective repeat Priority: indicated (add on) Decision to incision time: less than 30 mins : : declined Antibiotic prior to incision: 1 dose )(SCDs applied activated: Yes Uterine incision: low transverse Uterine scar: intact Consent: indication discussed, questions answered, pt consent to op delivery Mother's condition: mother stable Infant's condition: infant stable in room at 0856 RPT #:[id number] END OF REPORT [facility] 2024-05-26 06:43:00 [facility] ([facility]) OB Admission / H P REPORT#:[id number] REPORT STATUS: Signed REPORT INITIALIZATION DATE:05/26/24 TIME: 642 PATIENT: WILMA BATRES UNIT #: [id number] [facility] AGE: 28 SEX: F ATTEND: Feng Taylor DO ADM AUTHOR: Feng Taylor DO REPT SERVICE DT/TIME: 05/26/24 0643 * ALL edits or amendments must be made on the electronic/computer document * OB History Nursing Documentation Review Nursing data: The data set between the solid lines has been imported from nursing documentation. Any exceptions have been noted below under Provider comments. Current data Steroids prior to arrival: ROM date: ROM time: EDC date: Gestational age (labor triage): Post hemorrhage risk score: Prior history : Para: Term: : Abortions spontaneous: Abortions induced: Living children: Ectopic: Stillbirths: Live births: deaths: Number of previous C/S: Reported maternal labs/data Blood type: Rh type: Rubella: Hepatitis B: HIV exposure test: VDRL: Group B beta strep: Not done Rho(D) immune globulin this preg: Monitor mode - UA: Feeding preference: Provider comments on imported nursing data: [] Chief complaint: scheduled HPI: @ 39w4d who presents for repeat csection. complicated by hypotension. Current : Best EDC: 06/01/24 Admission EGA (weeks) 39 Admission EGA (days) 1 EDC based on: LMP, ultrasound, 1st trimester Conditions of : previous uterine incision, symptomatic hypotension in Labs: Blood type: O Rh: positive Rubella: immune Hepatitis B: negative HIV: negative STD: negative Syphilis: currently negative GBS: negative Procedures: none Genetic testing: none Past History Past Surgical History: Reports: . Alcohol Use Denies EtOH use Drug Use Denies recreational drugs Smoking status for patients 13 years old or older: Unknown,if ever smoked Allergies: Coded Allergies: amoxicillin (Intermediate, HIVES/SOB 03/07/24) Review of Systems All systems rev neg: except as marked Objective General VS: Last Documented: Result Date Time B/P Mean 77.0 05/26 620 B/P 103/62 05/26 620 Temp 98.5 05/26 0620 Pulse 89 05/26 620 Vital Signs Date Temp Pulse Resp B/P B/P Mean Pulse Ox FiO2 05/26 98.5 89 103/62 77.0 PATIENT WEIGHT: Weight (lb): Weight (oz): Weight (kg): 58.216190 Physical Exam Abdomen: gravid, no abnormal tenderness, no guarding Uterine activity: Monitor: toco Frequency (description): none Cervical/ exam: Dilatation (cm): 1 Effacement (%): 50 station: - 2 presentation: cephalic Membranes: Membranes: Intact Lower extremities: Edema: none Baby A: Baby A baseline: 135 bpm Baby A variability: moderate 6-25 bpm Baby A accelerations: 15 X 15 Baby A decelerations: none Baby A FHR category: category 1 Diagnosis, Assessment Plan Diagnosis, Assessment Plan Assessment/Impression: previous C/S, for repeat Plan: admit to inpatient, scheduled , delivery Reason-sched C section: elective repeat at 0716 RPT #:[id number] END OF REPORT [facility] 2024-04-23 08:52:00 [id number] [facility] [place] [id number] PATIENT NAME: WILMA BATRES ADMIT DATE: 04/21/24 ACCOUNT NO: [id number] ROOM NO: AGE: 28 SEX: F ADMITTING PHYSICIAN: ATTENDING PHYSICIAN: Nicky Sky MD ADMISSION DATE: 04/21/2024 11:35:00 TRIAGE EVALUATION Seen in OB ED on 04/21/2024 by Nicky Sky MD, triage hospitalist per request of Dr. Taylor. HISTORY OF PRESENT ILLNESS: The patient is a 28-year-old G3, P1-0-1-1 with last menstrual period in 08/2023 and estimated date of confinement 05/29/2024. She presented at 34 and 4/7th weeks, complaining of cramping. She stated on the evening prior after a walk her left side was hurting with increased cramping and pain. She had a bowel movement with some relief, but then the pain recurred irregularly every 10-30 minutes. She took Tylenol with some relief, but then again had onset of pain after arrival in OB ED. She stated the discomfort in the OB ED was 5/10. She denied vaginal bleeding or leakage of fluid and reported good movements. She denied headache, vision changes or other symptoms of preeclampsia. She denied fever, chills, diarrhea, constipation, or dysuria. She reports chronic nausea, but no vomiting. She denies cough, sore throat, loss of taste and smell and other symptoms of COVID. She was previously diagnosed with COVID in 2019. She has not received COVID vaccines. Her care began at approximately [address] Taylor. Her next appointment is on 05/02/2024. She is also to see Dr. Abad, maternal medicine specialist on that day. The has been notable for polyhydramnios on ultrasound. She was diagnosed with pyelonephritis in June. She states with her delivery the bladder was nicked and she has had more frequent urine infections including pyelo in June of 2023. She is currently on Macrobid once daily for suppression. PAST MEDICAL HISTORY: Low blood pressures followed by senior reservations agent with a normal echo. PAST SURGICAL HISTORY: Cyst removed from her left thigh in 2005 and section in 2019. ALLERGIES: PENICILLIN, WHICH CAUSES A RASH. The records from a prior visit also reported shortness of breath with PENICILLIN, however the patient is adamant that this is not the case, only a rash. MEDICATIONS: vitamins, vitamin B6 and D, iron daily, Unisom as needed for nausea and vomiting, daily Macrobid and midodrine for her bradycardia. OBSTETRICAL HISTORY: In 2019, full term section for nonreassuring status, delivered a female infant weighing 8 pounds 10 ounces without PATIENT NAME: WILMA BATRES JUAN CARLOS complications. In July of 2023, first trimester spontaneous abortions requiring medications to complete evacuation of products of conception. No D and C required. As stated above, complication at her sections with nicking of the bladder. GYNECOLOGIC HISTORY: With monthly cycles. The patient reports history of abnormal Pap smear early in the . Plan is for colposcopy after delivery. She reports history of chlamydia in 2019, she was treated and all other STD testing has been negative. SOCIAL HISTORY: The patient denies tobacco or illicit drug use and reports occasional prepregnancy alcohol use. She lives with her partner a 26-year-old healthy male and daughter. She has grandmother also lives in the home. 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 FAMILY HISTORY: Father with diabetes, mother with heart disease and asthma. She also reports her father and other paternal family members have hereditary disease passed through mother's side. She does not remember the name of the condition. Maternal grandmother with lung cancer, she was a smoker. Paternal grandfather with heart disease. Brother with asthma, otherwise noncontributory. REVIEW OF SYSTEMS: Ten-point review of systems negative except as stated above. PHYSICAL EXAMINATION: GENERAL: The patient is a very slender, almost cachectic female, in no acute distress, lying on triage stretcher in OB ED. VITAL SIGNS: Height 5 feet 4 inches, weight prior to the 99 pounds and current weight 126 pounds. Initial blood pressure 87/60 with other pressures during her stay between 74-88/48-52, pulse 96, respirations 18, and temperature 98.6. HEAD AND NECK: Within normal limits without lymphadenopathy or thyromegaly. CHEST: With unlabored breathing. HEART: Regular rate and rhythm. BREASTS: Deferred. BACK: No CVA tenderness. ABDOMEN: Soft, nontender, gravid. PELVIC: Cervix is 1 cm dilated, 60% effaced, -2 station anterior. EXTREMITIES: Without edema. NEUROLOGIC: Nonfocal. The patient is awake, alert and oriented x3. NST is category 1 for gestational age with baseline heart tones in the 130s, multiple 15 x 15 accelerations, no decelerations, and rare contractions seen approximately every 25 minutes. LABORATORY DATA: Urinalysis with 3+ leukocytes, otherwise negative with 3-5 rbc's, 6-10 wbc's, rare epithelial cells, and rare bacteria. Urine culture pending. ASSESSMENT AND PLAN: 28-year-old -0-1-1, presenting with cramping and left sided pain. She had a bladder injury at section and has been on Macrobid suppression due to frequent urinary tract infections since. However, she now appears to have another urinary tract infection and is given a dose of Rocephin. I spoke to Dr. Taylor as the patient was on Macrobid suppression that was not felt to be a good choice for treatment of urinary tract infections. She stated that her only reaction to PENICILLIN with A RASH. It PATIENT NAME: WILMA BATRES was discussed with the patient that patients with ALLERGIES to PENICILLIN have 10-15% risk of allergic reaction to cephalosporins as well. No culture result of prior infections were available. Dr. Taylor agreed that Rocephin would be a reasonable choice for treatment of the current urinary tract infections. She was given IM Rocephin and observed for 30 minutes. No symptoms of itching, rash, shortness of breath or other indications of an allergic reaction during that time. The patient was discharged home in stable condition with reassuring status. No evidence of labor. Her blood pressure on the low side, but normal for her. She is to follow up on 05/02/[address] Taylor as scheduled and she should remind Dr. Taylor on next office day of the pending urine culture. She is to drink greater than 100 ounces of water daily and eat frequent small meals. She is to avoid lifting greater than 10-20 pounds. She is to call or return earlier for vaginal bleeding, leakage of fluid, decreased movements, contractions with increased force and frequency, for flank pain, dysuria, hematuria, temperature greater than 100.4, or other concerns. She and her partner are both given note for absence on day of visit. All instructions given verbally by and questions answered. Dictated By: Nicky Sky MD Date Dictated: 04/23/2024 08:52:14 Date Transcribed: 04/23/2024 09:48:17 DSD/KRISS Receipt ID: [id number] Authenticated and Edited by Nicky Sky MD On 05/01/24 9:40:18 AM at 1018 PATIENT NAME: WILMA BATRES [facility] 2024-04-04 15:53:06 Rx sent to pt pharmacy. LVM for pt to keep bp log and bring to appt on 04/19/24 [facility] 2024-04-04 15:48:28 Plz Rx it Watch BP at home F/u with me 1 month with BP log T [facility] 2024-04-04 15:42:46 Pt states she received clearance from OB to start midodrine. Will forward to Dr. Valerio T [facility] 2024-04-04 15:30:[address] Valerio a few weeks ago and he recommended taking a medication 3 times daily (only after OB approval) Patient states the OB gives approval for her to take the medication and would like Dr. Valerio to send the prescription in. midodrine 2.5 mg 3 times daily. [facility] [address] [place] [address] Jayda Leija [facility] 2024-03-07 20:46:00 [facility] ([facility]) JAMILAH Evaluation Note REPORT#:[id number] REPORT STATUS: Signed REPORT INITIALIZATION DATE:03/07/24 TIME: 2045 PATIENT: WILMA BATRES UNIT #: [id number] ROOM/BED: : 97 AGE: 28 SEX: F ATTEND: Feng Taylor DO ADM AUTHOR: Trish Parra MD REPT SERVICE DT/TIME: 03/07/242045 * ALL edits or amendments must be made on the electronic/computer document * JAMILAH History Chief complaint: loss of mucus plug HPI: 28 year old at 28.1 weeks who presents with concerns about loss of mucus plug. Noted copious amount of mucus after wiping. No vb, lof, ctx. +FM Patient previously admitted for orthostatic hypotension and has pending cardiology follow-up history: : 3 Term: 1 Abortus: 1 Living children: 1 Number of prev : 1 Past medical history: denies PMH Past surgical history: Social history: no alcohol use, no tobacco use, no drug use Allergies Coded Allergies: amoxicillin (Intermediate, HIVES/SOB 03/07/24) Objective General VS: Last Documented: Result Date Time Pulse Ox 99 03/07 1959 Pulse 110 03/07 1959 B/P Mean 60.0 03/07 1954 B/P 81/48 03/07 1954 Temp 98.1 03/07 1934 Resp 17 03/07 1934 Vital Signs Date Temp Pulse Resp B/P B/P Mean Pulse Ox FiO2 03/07 98.1 90-116 17 81-99/48-64 60.0-75.0 92-100 PATIENT WEIGHT: Weight (lb): 115 Weight (oz): Weight (kg): 52.300 Physical Exam HEENT: normocephalic w/o injury, no scleral icterus Lungs: unlabored breathing Neuro: Exam: alert, oriented x3, CNII-XII grossly intact Abdomen: gravid, soft, no abnormal tenderness Musculoskeletal: normal inspection Uterine activity: Monitor: toco Frequency (description): none Pelvic exam: Sterile speculum exam: visually closed, no pooling, no bleeding, cervical mucus present FHR evaluation: Baseline: 135 bpm Variability: moderate 6-25 bpm Accelerations: 15 X 15 Decelerations: none Notes: Reactive Diagnosis, Assessment Plan Diagnosis, Assessment Plan Free Text A P: 28 year old at 28.1 weeks with normal discharge Plan: - Cervix visually closed with normal appearing mucus with no signs of labor - Episode of dizziness during pelvic exam that resolved with rest and position change - labor precautions - f/u with OB at 0012 RPT #:[id number] END OF REPORT [facility] 2024-03-03 08:17:00 [facility] ([facility]) OB Admission / H P REPORT#:[id number] REPORT STATUS: Signed REPORT INITIALIZATION DATE:03/03/24 TIME: 816 PATIENT: WILMA BATRES UNIT #: [id number] ROOM/BED: 3030-A : 97 AGE: 28 SEX: F ATTEND: Feng Taylor DO ADM AUTHOR: Feng Taylor DO REPT SERVICE DT/TIME: 03/03/24816 * ALL edits or amendments must be made on the electronic/computer document * OB History Nursing Documentation Review Nursing data: The data set between the solid lines has been imported from nursing documentation. Any exceptions have been noted below under Provider comments. Current data Steroids prior to arrival: ROM date: ROM time: EDC date: 05/29/24 Gestational age (labor triage): Post hemorrhage risk score: MedRisk Prior history : 3 Para: 1 Term: : Abortions spontaneous: Abortions induced: Living children: Ectopic: Stillbirths: Live births: deaths: Number of previous C/S: Reported maternal labs/data Blood type: Rh type: Rubella: Hepatitis B: HIV exposure test: VDRL: Group B beta strep: Rho(D) immune globulin this preg: Monitor mode - UA: Feeding preference: Provider comments on imported nursing data: [] Chief complaint: symptomatic hypotension HPI: at 27.4 weeks who presents with complaints of dizziness and lightheadedness. Pt has mild anemia currently on iron supplementation. Has been increasing fluid intake and salt intake without improvement. also complicated by history of recurrent pyleonephritis. history: : 2 Term: 1 : 0 Abortus: 0 Living children: 1 Complications (prev preg): none Previous : low uterine trans incis Number of prev : 1 Indication for prior : arrest dilatation/descent Current : Best EDC: 06/02/24 Admission EGA (weeks) 27 Admission EGA (days) 3 EDC based on: LMP, ultrasound, 1st trimester Conditions of : anemia, kidney/bladder infection, hypotension Labs: Blood type: O Rh: positive Rubella: non-immune Hepatitis B: negative HIV: negative STD: negative Syphilis: currently negative GBS: unknown Procedures: none Genetic testing: none Past History Smoking status for patients 13 years old or older: Unknown,if ever smoked Allergies: Coded Allergies: amoxicillin (Intermediate, HIVES/SOB 03/07/24) Review of Systems All systems rev neg: except as marked Objective General VS: Last Documented: Result Date Time B/P Mean 61.0 03/03 1739 Pulse Ox 100 03/03 1739 B/P 80/51 03/03 1739 Temp 98.6 03/03 1739 Pulse 65 03/03 1739 Resp 16 03/03 1739 PATIENT WEIGHT: Weight (lb): 115 Weight (oz): Weight (kg): 52.300 Physical Exam Lungs: unlabored breathing Musculoskeletal: normal inspection Membranes: Membranes: Intact Baby A: Baby A baseline: 135 bpm Baby A FHR category: category 1 Diagnosis, Assessment Plan Diagnosis, Assessment Plan Free Text A P: @ 27w1d who presented with symptomatic hypotension. - Consult cardiology at this time - Will monitor symptoms at 0751 RPT #:[id number] END OF REPORT [facility] 2024-03-02 18:28:00 [facility] ([facility]) Cardiology Consultation REPORT#:[id number] REPORT STATUS: Signed REPORT INITIALIZATION DATE:03/02/24 TIME: 1827 PATIENT: WILMA BATRES JUAN CARLOS UNIT #: [id number] ROOM/BED: 3030-A : 97 AGE: 28 SEX: F ATTEND: Feng Taylor DO ADM AUTHOR: Miguel Jackson Jr, MD REPT SERVICE DT/TIME: 03/02/24 6866 * ALL edits or amendments must be made on the electronic/computer document * History of Present Illness HPI Reason for consult: Hypotension Chief complaint: Hypotension, Dizziness PCP: PCP: Feng Taylor DO HPI: Mrs. Batres is a 28 y/o F w/ no significant PMH who comes in for hypotension. She has never had any prior issues with hypotension. She has been having frequent episodes of hypotension during this which have caused dizziness, hypotension. She says this happens mostly when she eats. She has been eating small frequent meals but still has hypotension. History - Adult longitudinal Smoking status for patients 13 years old or older: Unknown,if ever smoked Allergies: Coded Allergies: amoxicillin (Intermediate, HIVES/SOB 03/02/24) Review of Systems Constitutional: Denies: chills, fatigue, fever, generalized weakness, lethargy, malaise, recent wt loss. Cardiovascular: Reports: palpitations. Denies: chest pain, dyspnea on exertion, edema, orthopnea, parox noctural dyspnea, unstable angina. GI: Denies: abdominal pain, anorexia, constipation, diarrhea, dysphagia, GERD, hematemesis, hematochezia, hiatal hernia, melena, nausea, rectal pain, vomiting. : Denies: dysuria, flank pain, frequency. Endocrine: Denies: polydipsia, polyphagia. Neuro: dizziness. Denies: bladder dysfunction, bowel dysfunction, change in LOC. Objective General VS/I O: Vital Signs: Date Time Temp Pulse Resp B/P B/P Pulse O2 O2 Flow FiO2 Mean Ox Delivery Rate 03/02 1602 63.0 03/02 1602 70 87/48 03/02 1444 61.0 03/02 1444 99.2 95 16 82/49 100 03/02 1243 57.0 03/02 1243 87 77/47 03/02 1230 98.2 86 17 100 03/02 1222 58.0 03/02 1222 87 73/50 03/02 1210 58.0 03/02 1210 93 78/50 03/02 1203 49.0 03/02 1203 73 69/39 03/02 1141 65.0 03/02 1141 98.2 100 03/02 1141 86 89/53 100 PATIENT WEIGHT: Weight (lb): 115 Weight (oz): Weight (kg): 52.300 Physical Exam General appearance: alert, oriented Cardiovascular: CV assessment: regular rate and rhythm, normal heart sounds Respiratory: clear to auscultation, no distress Abdomen: soft, non-tender, normal bowel sounds Neuro/MANAGER OF ADMINISTRATION: alert, oriented X 3, CN II-XII intact Diagnosis, Assessment Plan Free Text DxA P Notes Free Text DxA P Notes: #Hypotension DDx include postprandial hypotension syndrome, POTS, dehydration. -Would reocmmend JOBST compression stockings. -Consult to nutrition. -Recommend to eat >6g of salt in small freuqent meals. -Regular hydration. -Will place outpatient monitor to eval for arrhythmogenic cause as she also has palpitations. at 1835 RPT #:[id number] END OF REPORT [facility] 2024-03-02 12:39:00 [facility] ([facility]) JAMILAH Evaluation Note REPORT#:[id number] REPORT STATUS: Signed REPORT INITIALIZATION DATE:03/02/24 TIME: 123 PATIENT: WILMA BATRES UNIT #: [id number] ROOM/BED: [address] : 97 AGE: 28 SEX: F ATTEND: Feng Taylor DO ADM AUTHOR: Trish Parra MD REPT SERVICE DT/TIME: 03/02/24 1239 * ALL edits or amendments must be made on the electronic/computer document * JAMILAH History Chief complaint: dizziness HPI: 28 yo at 27.3 weeks who presents with complaints of dizziness and lightheadedness. States that she has been having issues for several months however symptoms have progressively worsened and while at work, felt like she was going to pass out. Recent labs showed mild anemia with hemoglobin of 9.5. Has been increasing fluid intake and salt intake without improvement. No fever, chills, chest pain, shortness of breath. No ctx, vb. lof. +FM history: : 3 Term: 1 Abortus: 1 Living children: 1 Notes: History of abnormal pap smear Past medical history: denies PMH Past surgical history: (with cystotomy repair), cyst removed from thigh during childhood Social history: no alcohol use, no tobacco use, no drug use Medications: vitamin Unisom Iron Vitamin B6 Vitamin D Allergies Coded Allergies: amoxicillin (Intermediate, HIVES/SOB 03/02/24) Review of Systems All systems rev neg: except as marked Objective General VS: Last Documented: Result Date Time B/P Mean 65.0 03/02 1141 Pulse Ox 100 03/02 1141 B/P 89/53 03/02 1141 Pulse 86 03/02 1141 Vital Signs Date Temp Pulse Resp B/P B/P Mean Pulse Ox FiO2 03/02 98.2 86 89/53 65.0 100 Physical Exam HEENT: normocephalic w/o injury, no nasal septum deviation Lungs: unlabored breathing Neuro: Exam: alert, oriented x3, normal speech, CNII-XII grossly intact Abdomen: gravid, soft, no abnormal tenderness, no guarding Musculoskeletal: normal inspection Uterine activity: Monitor: toco Frequency (description): none FHR evaluation: Baseline: 130 bpm Variability: moderate 6-25 bpm Accelerations: 15 X 15 Decelerations: none Notes: Reactive Lower extremities: Edema: none Results Findings/Data: Laboratory Tests: 03/02 03/02 1551 1332 Chemistry Sodium (136 - 145 mEq/L) 137 Potassium (3.4 - 4.5 mEQ/L) 3.8 Chloride (98 - 107 mEq/L) 109 H Carbon Dioxide (22 - 31 mEq/L) 26 Anion Gap (10 - 20) 5.8 L BUN (8 - 23 mg/dL) 6 L Creatinine (0.55 - 1.02 mg/dL) 0.5 L Glomerular Filtr Rate (>60 ml/min) 132.57 Glucose (74 - 106 mg/dL) 76 Calcium (8.3 - 10.6 mg/dL) 8.7 Total Bilirubin (0.3 - 1.2 mg/dL) 0.3 AST (< 34 units/L) 17 ALT (10 - 49 units/L) 11 Total Alk Phosphatase (46 - 116 units/L) 71 Total Protein (5.7 - 8.2 g/dL) 5.9 Albumin (3.2 - 4.8 g/dL) 3.7 Hematology WBC (6.5 - 12.3 K/mm3) 7.8 RBC (3.51 - 4.69 M/mm3) 3.27 L Hgb (10.1 - 13.8 g/dL) 9.0 L Hct (32.5 - 41.8 %) 28.5 L MCV (84.6 - 96.6 fL) 87.2 MCH (27.3 - 33.9 pg) 27.5 MCHC (32.0 - 34.2 gm/dL) 31.6 L RDW (12.2 - 16.3 %) 13.5 Plt Count (134 - 363 K/mm3) 280 MPV (9.2 - 12.7 fL) 10.8 Neut % (Auto) (57.9 - 77.3 %) 76.6 Lymph % (Auto) (14.5 - 29.7 %) 18.8 [place] % (Auto) (3.6 - 10.2 %) 3.3 L Eos % (Auto) (0.0 - 3.0 %) 0.6 Baso % (Auto) (0.1 - 0.9 %) 0.4 Neut # (Auto) (K/mm3) 6.0 Lymph # (Auto) (K/mm3) 1.5 [place] # (Auto) (K/mm3) 0.3 Eos # (Auto) (K/mm3) 0.05 Baso # (Auto) (K/mm3) 0.0 Serology Treponema pallidum Ab (NONREACTIVE) NONREACTIVE Hep Bs Antigen (NONREACTIVE) NON REACTIVE Hepatitis C Antibody (NONREACTIVE) NONREACTIVE Hep C Ab Signal/Cutoff (<0.80) 0.12 Diagnosis, Assessment Plan Diagnosis, Assessment Plan Free Text A P: 28 yo at 27.3 weeks with orthostatic hypotension Plan: - Discussed causers for orthostatic hypotension - Given hypotension even while laying down, discussed admission with Dr. Taylor with plan for cardiology consult at 0528 RPT #:[id number] END OF REPORT [facility] 2024-02-03 16:28:00 [facility] ([facility]) EMERGENCY PROVIDER REPORT REPORT#:[id number] REPORT STATUS: Signed DATE:02/03/24 TIME: 1627 PATIENT: WILMA BATRES UNIT #: [id number] ROOM/BED: AGE: 28 SEX: F PCP PHYS: Feng Taylor DO SERVICE AUTHOR: Yaw Mccray MD * ALL edits or amendments must be made on the electronic/computer document * HPI-General Illness General Initial Greet Date/Time 02/03/24 1614 Presentation Chief Complaint Dizziness Free Text HPI Notes Free Text HPI Notes 28 years old patient no past medical history G3, P1 23 weeks while working today started feeling dizzy not his blood pressure was 70/50 reason why was brought to the ER, patient was feeling palpitations and mild shortness of breath, reports having similar episodes on prior that required for her to get a emergent , no other complaints. Review of Systems ROS Statements All systems rev neg except as marked. Free Text ROS Notes Free Text ROS Notes CONSTITUTIONAL: Normal; negative for fever, weight change, fatigue, or aching. HEENT: Eyes normal; negative for, irritation, or visual field defects. Ears normal; Negative for pain . Nose normal; Negative for runny nose, sinus problems , or nosebleeds. Mouth normal; Negative for dental problems,. Throat normal; Negative for hoarseness, difficulty swallowing, or sore throat. SKIN: Normal; Negative for rashes. MUSCULOSKELETAL: Normal; Negative for back pain, joint pain. NEUROLOGIC: Normal; Negative for blackouts, headaches, seizures or dizziness. PSYCHIATRIC: Normal; Negative for anxiety, depression, or phobias. ENDOCRINE: Normal; Negative for diabetes, thyroid.HEMATOLOGIC/LYMPHATI C: Normal; Negative for anemia, swollen glands, or blood disorders. IMMUNOLOGIC: Negative; Negative for steroids, chemotherapy, or cancer. VASCULAR: Normal; Negative for varicose veins, blood clots, or leg ulcers. Past Medical History - Adult Stated Complaint 23 WEEKS ,HYPOTENSIVE [employer],SOB,CHEST PAIN Allergies Coded Allergies: amoxicillin (Intermediate, HIVES/SOB 02/03/24) Home Medications Discontinued Scripts DOCUSATE SODIUM (COLACE) 100 MG PO 0900,2100 DOCUSATE SODIUM (COLACE) 100 MG PO 899,2099 #60 CAP Prov: 07/01/20 DC: 02/03/24 1646 direct entry midwife correction ESOMEPRAZOLE MAG DR (NexIUM) 20 MG PO DAILY ESOMEPRAZOLE MAG DR (NexIUM) 20 MG PO DAILY #14 CAPS Prov: 11/12/23 DC: 02/03/24 1646 Therapy completed Reported Medications DOXYLAMINE (UNISOM) 25 MG PO BEDTIME PYRIDOXINE (VITAMIN B-6) 250 MG PO DAILY PNV WITH FE FUMARATE/FA () 1 TAB PO DAILY DOCUSATE SODIUM (COLACE) 100 MG PO DAILY PRN PRN CONSTIPATION CHOLECALCIFEROL (VITAMIN D3) (VITAMIN D3) 4,000 UNITS PO DAILY NITROFURANTOIN/NITROFURAN MAC (MACROBID) 100 MG PO DAILY Discontinued Reported Medications ONDANSETRON ODT (ZOFRAN ODT) PROMETHAZINE (PHENERGAN) METOCLOPRAMIDE (REGLAN) Physical Exam Vital Signs Vital Signs First Documented: Result Date Time Pulse Ox 98 02/02 1626 B/P 89/62 02/02 1626 B/P Mean 71 02/02 1626 Temp 36.9 02/02 1626 Pulse 80 02/02 1626 Resp 18 02/02 1626 O2 Delivery Room air 02/02 1800 Last Documented: Result Date Time Pulse Ox 100 02/02 1800 B/P 92/67 02/02 1800 B/P Mean 75 02/02 1800 O2 Delivery Room air 02/02 1800 Temp 36.7 02/02 1800 Pulse 90 02/02 1800 Resp 16 02/02 1800 Review of Vital Signs Reviewed, Vital signs normal Basic Physical Exam Basic PE GEN: Well appearing/NAD, HEAD: Atraumatic/NC, ENT: Membranes moist, NECK: Supple, CV: Reg rate rhythm, ABD: Soft/non-tender, EXT: No gross abnormality, SKIN: No rashes, warm/dry, NEURO: alert oriented, NEURO: gross movement NL Interpretation Diagnostics Lab Results Interpretation Results Laboratory Tests 02/03/24 1631: [Embedded Image Not Available] Laboratory Tests: 02/02 02/02 1700 1631 Chemistry Sodium (136 - 145 mEq/L) 138 Potassium (3.4 - 4.5 mEQ/L) 4.0 Chloride (98 - 107 mEq/L) 108 H Carbon Dioxide (22 - 31 mEq/L) 25 Anion Gap (10 - 20) 9.0 L BUN (8 - 23 mg/dL) 11 Creatinine (0.55 - 1.02 mg/dL) 0.8 Glomerular Filtr Rate (>60 ml/min) 104.15 Glucose (74 - 106 mg/dL) 92 Calcium (8.3 - 10.6 mg/dL) 8.9 Total Bilirubin (0.3 - 1.2 mg/dL) 0.3 AST (< 34 units/L) 15 ALT (10 - 49 units/L) 8 L Total Alk Phosphatase (46 - 116 units/L) 76 Troponin I High Sens (< 34 pg/mL) <2.5 Total Protein (5.7 - 8.2 g/dL) 6.9 Albumin (3.2 - 4.8 g/dL) 3.9 TSH (0.55 - 4.78) 1.91 Hematology WBC (6.5 - 12.3 K/mm3) 8.8 RBC (3.51 - 4.69 M/mm3) 3.64 Hgb (10.1 - 13.8 g/dL) 10.3 Hct (32.5 - 41.8 %) 31.5 L MCV (84.6 - 96.6 fL) 86.5 MCH (27.3 - 33.9 pg) 28.3 MCHC (32.0 - 34.2 gm/dL) 32.7 RDW (12.2 - 16.3 %) 13.8 Plt Count (134 - 363 K/mm3) 313 MPV (9.2 - 12.7 fL) 10.5 Neut % (Auto) (57.9 - 77.3 %) 70.0 Lymph % (Auto) (14.5 - 29.7 %) 23.1 [place] % (Auto) (3.6 - 10.2 %) 5.3 Eos % (Auto) (0.0 - 3.0 %) 0.8 Baso % (Auto) (0.1 - 0.9 %) 0.3 Neut # (Auto) (K/mm3) 6.2 Lymph # (Auto) (K/mm3) 2.0 [place] # (Auto) (K/mm3) 0.5 Eos # (Auto) (K/mm3) 0.07 Baso # (Auto) (K/mm3) 0.0 Toxicology Urine Opiates Screen (Negative) Negative Ur Barbiturates, Qual (Negative) Negative Ur Phencyclidine Scrn (NEGATIVE) Negative Ur Amphetamines Screen (Negative) Negative U Benzodiazepines Scrn (Negative) Negative Urine Cocaine Screen (Negative) Negative Urine Cannabinoids (Negative) Negative Urines Urine Color (YELLOW) YELLOW Urine Appearance (CLEAR) CLEAR Urine pH (5 - 9) 6.0 Ur Specific [place] (1.001 - 1.035) 1.016 Urine Protein (NEG) NEGATIVE Urine Glucose (UA) (NEG) NEGATIVE Urine Ketones (NEG) NEGATIVE Urine Blood (NEG) NEG Urine Nitrite (NEG) NEG Urine Bilirubin (NEG) NEGATIVE Urine Urobilinogen (NEG mg/dL) 2.0 Ur Leukocyte Esterase (NEG) TRACE H Urine RBC (NONE SEEN #/hpf) 3-5 H Urine WBC (NONE SEEN #/hpf) 3-5 H Ur Epithelial Cells (RARE - FEW #/HPF) RARE Urine Mucus (NONE SEEN) RARE Microbiology: Date/Time Procedure - Status Source Growth 02/02 1822 Urine Culture - RES URINE Recent Impressions: ULTRASOUND - US LTD 02/02 1643 Report Impression - Status: SIGNED Entered: 02/03/2024 1709 IMPRESSION: 1. Live single intrauterine . 2. Closed and long cervix. Impression By: Katerina Burgos MD Re-Evaluation MDM ED Course Medication(s) Ordered Medication(s) Ordered: Electrolytic, Caloric, And Bandar Sig/Newton Start time Last Medication Dose Route Stop Time Status Admin Sodium Chloride 1,000 ML X1ED STA 02/02 1616 DC 02/02 IV 02/02 1617 1630 Patient Discharge Departure Vital Signs/Condition Vital Signs First Documented: Result Date Time Pulse Ox 98 02/02 1626 B/P 89/62 02/02 1626 B/P Mean 71 02/02 1626 Temp 36.9 02/02 1626 Pulse 80 02/02 1626 Resp 18 02/02 1626 O2 Delivery Room air 02/02 1800 Last Documented: Result Date Time Pulse Ox 100 02/02 1800 B/P 92/67 02/02 1800 B/P Mean 75 02/02 1800 O2 Delivery Room air 02/02 1800 Temp 36.7 02/02 1800 Pulse 90 02/02 1800 Resp 16 02/02 1800 All vital signs available at the time of this entry have been reviewed. Condition Stable, Improved Clinical Impression Clinical Impression Primary Impression: Hypotension Time of Impression 175 Disposition Decision Discharge )( Discharged to Home Yes )( Time 175 )( Date 02/03/24 Discharge/Care Plan Patient Instructions Comfort Tips During , ED Low Blood Pressure, All Causes Free Text Depart Notes Free Text Depart Notes 28 years old patient presents with episodes of hypotension possibly orthostatic hypotension, normal labs, will discharge and warning signs and ER precautions. Patient having a borderline UA however she is in continuous daily dose of Macrobid reason why we will follow urine cultures warning signs and ER precautions given. at 0623 RPT #:[id number] END OF REPORT [facility] 2023-11-12 12:47:00 [facility] ([facility]) EMERGENCY PROVIDER REPORT REPORT#:[id number] REPORT STATUS: Signed DATE:11/12/23 TIME: 1247 PATIENT: WILMA BATRES UNIT #: [id number] ROOM/BED: AGE: 27 SEX: F PCP PHYS: Feng Taylor DO SERVICE AUTHOR: Khloe Hanson MD * ALL edits or amendments must be made on the electronic/computer document * HPI-Abd Pain F Under 40 General Initial Greet Date/Time 11/12/23 1055 Presentation Chief Complaint Abdominal pain, # weeks (11) Hx Obtained From Patient Free Text HPI Notes Free Text HPI Notes 27-year-old female at 11 weeks gestational age presents with sharp RUQ pain with onset this morning. Patient states this pain is has been a sharp stabbing, constant pain with no known exacerbating or alleviating factors. She has been experiencing nausea and vomiting throughout the , which is unchanged today. Reports 1 episode of vomiting today. She denies fever, vaginal bleeding, pelvic pain, constipation or diarrhea. She has received care with Dr. 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 RODRICK 05/29/2024 Risk-Abd Pain F Under 40 )( Ectopic Risk factors reviewed Review of Systems ROS Statements All systems rev neg except as marked. Focused Review of Systems Constitutional Denies: Fever. Respiratory Denies: Shortness of breath. Cardiovascular Denies: Chest pain. GI Reports: Abdominal pain, Nausea, Vomiting. Denies: Constipation, Diarrhea. Female Reports: , Vaginal bleeding - abnl. Denies: Dysuria, Flank pain, Pelvic pain. Musculoskeletal Denies: Back pain, Extremity pain, Extremity swelling. Past Medical History - Adult Stated Complaint 11 WKS PREG,RIGHT SEVERE ABD PAIN X YESTERDAY Allergies Coded Allergies: amoxicillin (Intermediate, HIVES/SOB 11/12/23) Home Medications Active Scripts DOCUSATE SODIUM (COLACE) 100 MG PO 0900,2100 DOCUSATE SODIUM (COLACE) 100 MG PO 0900,2100 #60 CAP Prov: 07/01/20 Discontinued Scripts MAGNESIUM CITRATE (CITROMA 1.745 GM/30ML) 150 ML PO DAILY MAGNESIUM CITRATE (CITROMA 1.745 GM/30ML) 150 ML PO DAILY #300 ML Prov: 07/01/20 DC: 11/12/23 1115 Therapy completed SENNA (SENOKOT) 1 TAB PO DAILY 1700 SENNA (SENOKOT) 1 TAB PO DAILY 1700 #60 TAB Prov: 07/01/20 DC: 11/12/23 1114 Therapy completed IBUPROFEN (MOTRIN) 600 MG PO QID PRN PRN PAIN IBUPROFEN (MOTRIN) 600 MG PO QID PRN PRN PAIN #30 TABS Prov: 06/14/20 DC: 11/12/23 1114 Therapy completed Reported Medications ONDANSETRON ODT (ZOFRAN ODT) DOXYLAMINE (UNISOM) 25 MG PO BEDTIME PYRIDOXINE (VITAMIN B-6) 250 MG PO DAILY PNV WITH FE FUMARATE/FA () 1 TAB PO DAILY PROMETHAZINE (PHENERGAN) METOCLOPRAMIDE (REGLAN) Physical Exam Vital Signs Vital Signs First Documented: Result Date Time Pulse Ox 100 11/11 1100 B/P 106/68 11/11 1100 B/P Mean 80 11/11 1100 O2 Delivery Room air 11/11 1100 Temp 98.2 11/11 1100 Pulse 85 11/11 1100 Resp 20 11/11 1100 Last Documented: Result Date Time Pulse Ox 100 11/11 1300 B/P 105/65 11/11 1300 B/P Mean 78 11/11 1300 O2 Delivery Room air 11/11 1300 Temp 98.2 11/11 1300 Pulse 78 11/11 1300 Resp 18 11/11 1300 Review of Vital Signs Reviewed Focused PE General/Const General/Const Awake, Alert, No acute distress, Well appearing, Well developed , Well hydrated, Well nourished, Cooperative, Not toxic appearing MS Head Head Atraumatic, Normocephalic Resp/Chest Respiratory/Chest Atraumatic, Breath sounds NL, Breath sounds = bilat, No respiratory distress, No rales, No rhonchi, No wheezing Cardiovascular Cardiovascular Heart rate NL, Regular rhythm, Heart sounds NL, No gallop, No murmurs Abdomen/GI Text/Dict Notes moderate epigastric and RUQ tenderness with guarding MS Back Back Atraumatic, Inspection NL, No CVA tenderness Skin Skin Atraumatic, Color NL, No rash, Warm, Dry, Intact, Turgor NL, No swelling Neurologic Neurologic Oriented X3, Speech NL, CN II - XII intact, Gait NL Interpretation Diagnostics Lab Results Interpretation Results Laboratory Tests 11/12/23 1105: [Embedded Image Not Available] Laboratory Tests: 11/11 11/11 1110 1105 Chemistry Sodium (135 - 145 mEq/L) 139 Potassium (3.5 - 5.0 mEq/L) 4.1 Chloride (100 - 115 mEq/L) 102 Carbon Dioxide (22 - 31 mEq/L) 26 Anion Gap (10 - 20) 14.90 BUN (7 - 18 mg/dL) 8 Creatinine (0.5 - 1.0 mg/dL) 0.6 Glomerular Filtr Rate (>60 ml/min) 128 Glucose (65 - 110 mg/dL) 85 Calcium (8.4 - 10.2 mg/dL) 9.6 Total Bilirubin (0.2 - 1.0 mg/dL) 0.2 Direct Bilirubin (<0.2 mg/dL) 0.1 AST (15 - 37 units/L) 18 ALT (12 - 78 units/L) 21 Total Alk Phosphatase (46 - 116 units/L) 65 Total Protein (6.3 - 8.2 gm/dL) 7.3 Albumin (3.4 - 4.8 gm/dL) 3.5 Hematology WBC (6.5 - 12.3 K/mm3) 8.4 RBC (3.51 - 4.69 M/mm3) 4.21 Hgb (10.1 - 13.8 g/dL) 12.0 Hct (32.5 - 41.8 %) 35.6 MCV (84.6 - 96.6 fL) 84.6 MCH (27.3 - 33.9 pg) 28.5 MCHC (32.0 - 34.2 gm/dL) 33.7 RDW (12.2 - 16.3 %) 14.1 Plt Count (134 - 363 K/mm3) 335 MPV (9.2 - 12.7 fL) 11.0 Neut % (Auto) (57.9 - 77.3 %) 78.2 H Lymph % (Auto) (14.5 - 29.7 %) 16.9 [place] % (Auto) (3.6 - 10.2 %) 4.0 Eos % (Auto) (0.0 - 3.0 %) 0.5 Baso % (Auto) (0.1 - 0.9 %) 0.2 Neut # (Auto) (K/mm3) 6.6 Lymph # (Auto) (K/mm3) 1.4 [place] # (Auto) (K/mm3) 0.3 Eos # (Auto) (K/mm3) 0.04 Baso # (Auto) (K/mm3) 0.0 Urines Urine Color (YELLOW) YELLOW Urine Appearance (CLEAR) CLOUDY A Urine pH (5 - 9) 6.0 Ur Specific [place] (1.001 - 1.035) 1.018 Urine Protein (NEG) NEGATIVE Urine Glucose (UA) (NEG) NEGATIVE Urine Ketones (NEG) NEGATIVE Urine Blood (NEG) NEG Urine Nitrite (NEG) NEG Urine Bilirubin (NEG) NEGATIVE Urine Urobilinogen (NEG mg/dL) 2.0 Ur Leukocyte Esterase (NEG) 3+ H Urine RBC (NONE SEEN #/hpf) 6-10 H Urine WBC (NONE SEEN #/hpf) 21-30 H Ur Epithelial Cells (RARE - FEW #/HPF) MANY H Urine Bacteria (RARE - FEW /HPF) FEW Urine Mucus (NONE SEEN) 2+ H Urine Yeast (NONE SEEN #/hpf) RARE H Microbiology: Date/Time Procedure - Status Source Growth 11/11 1153 Urine Culture - RES URINE Recent Impressions: ULTRASOUND - US ABDOMEN LTD 11/11 1211 Report Impression - Status: SIGNED Entered: 11/12/2023 1356 IMPRESSION: Single live intrauterine gestation with mean sonographic age of 11 weeks,4 days. The estimated date of delivery is May 29, 2024.. Subchorionic hemorrhage surrounding the anterior and inferior portion of the gestational sac. 2 nonmobile echogenic structures within the gallbladder wall containing peripheral/internal vascularity, concerning for polyps. Impression By: Dariusz Oquendo MD ULTRASOUND - DUP AB/PEL/SC/LTD 11/11 1243 Report Impression - Status: SIGNED Entered: 11/12/2023 1356 IMPRESSION: Single live intrauterine gestation with mean sonographic age of 11 weeks,4 days. The estimated date of delivery is May 29, 2024.. Subchorionic hemorrhage surrounding the anterior and inferior portion of the gestational sac. 2 nonmobile echogenic structures within the gallbladder wall containing peripheral/internal vascularity, concerning for polyps. Impression By: Dariusz Oquendo MD ULTRASOUND - US PREG EVAL 1ST TRIMTR 11/11 1243 Report Impression - Status: SIGNED Entered: 11/12/2023 1356 IMPRESSION: Single live intrauterine gestation with mean sonographic age of 11 weeks,4 days. The estimated date of delivery is May 29, 2024.. Subchorionic hemorrhage surrounding the anterior and inferior portion of the gestational sac. 2 nonmobile echogenic structures within the gallbladder wall containing peripheral/internal vascularity, concerning for polyps. Impression By: Dariusz Oquendo MD Re-Evaluation MDM ED Course Medication(s) Ordered Medication(s) Ordered: Anti-Infective Agents Sig/Newton Start time Last Medication Dose Route Stop Time Status Admin Nitrofurantoin 100 MG X1ED STA 11/11 1246 DC 11/11 Macrocrystals PO 11/11 1247 1251 Central Nervous System Agents Sig/Newton Start time Last Medication Dose Route Stop Time Status Admin Acetaminophen 1,000 MG X1ED STA 11/11 1133 DC 11/11 PO 11/11 1134 1204 Patient Discharge Departure Vital Signs/Condition Vital Signs First Documented: Result Date Time Pulse Ox 100 11/11 1100 B/P 106/68 11/11 1100 B/P Mean 80 11/11 1100 O2 Delivery Room air 11/11 1100 Temp 98.2 11/11 1100 Pulse 85 11/11 1100 Resp 20 11/11 1100 Last Documented: Result Date Time Pulse Ox 100 11/11 1300 B/P 105/65 11/11 1300 B/P Mean 78 11/11 1300 O2 Delivery Room air 11/11 1300 Temp 98.2 11/11 1300 Pulse 78 11/11 1300 Resp 18 11/11 1300 All vital signs available at the time of this entry have been reviewed. Condition Stable Clinical Impression Clinical Impression Primary Impression: Upper abdominal pain Secondary Impressions: Subchorionic hemorrhage in first trimester Time of Impression 1446 Disposition Decision Discharge )( Discharged to Home Yes )( Time 1446 )( Date 11/12/23 Discharge/Care Plan Counseled Regarding Diagnosis, Lab results, Imaging studies, Prescriptions, Need for follow-up, When to return to ED (Auto) Prescriptions Current Visit Scripts ESOMEPRAZOLE MAG DR (NexIUM) 20 MG PO DAILY ESOMEPRAZOLE MAG DR (NexIUM) 20 MG PO DAILY #14 CAPS For 2 weeks Patient Instructions ED Abdominal Pain, Early , ED Epigastric Pain Uncertain Cause Referrals Provider Referral: Feng Taylor DO Follow-Up: As Scheduled Address: [address] [place] [id number] Discharge Note I have spoken with the patient and/or caregivers. I have explained the patient's condition, diagnoses and treatment plan based on the information available to me at this time. I have answered the patient's and/or caregiver's questions and addressed any concerns. The patient and/or caregivers have as good an understanding of the patient's diagnosis, condition and treatment plan as can be expected at this point. The vital signs have been stable. The patient's condition is stable and appropriate for discharge from the emergency department. The patient will pursue further outpatient evaluation with the primary care physician or other designated or consulting physician as outlined in the discharge instructions. The patient and/or caregivers are agreeable to this plan of care and follow-up instructions have been explained in detail. The patient and/or caregivers have received these instructions in written format and have expressed an understanding of the discharge instructions. The patient and/or caregivers are aware that any significant change in condition or worsening of symptoms should prompt an immediate return to this or the closest emergency department or a call to 911. at 1448 RPT #:[id number] END OF REPORT [facility] 2020-07-03 16:03:00 [id number] [facility] [address], [place] [address] PATIENT NAME: WILMA BATRES ADMIT DATE: 06/25/20 ACCOUNT NO: [id number] ROOM NO: .2604 AGE: 24 SEX: F ADMITTING PHYSICIAN: Laureano Wolf MD ATTENDING PHYSICIAN: Laureano Wolf MD ADMISSION DATE: 06/25/2020 DISCHARGE DATE: 07/01/2020 ATTENDING PHYSICIAN: Laureano Wolf MD DISCHARGE DIAGNOSES: 1. Sepsis due to urinary source. 2. Pseudomonas aeruginosa infection. 3. Severe constipation. HISTORY OF PRESENT ILLNESS: This is a 24-year-old who is postop day 17 status post a primary complicated by bladder injury requiring extensive repair by urology and hemorrhage, who presents with onset of fever and pain. The patient was discharged home on 06/14/2020 from her initial hospital stay with Vasquez and YELENA drain in place. She was seen in office on 06/18/2020 and had worsening abdominal pain. She had a CT scan in the ER, which revealed constipation, but no other acute findings. UA was concerning for infection. She was discharged home on Macrobid. The patient recently had a urology appointment yesterday after cystogram was obtained and her Vasquez catheter was removed. The patient reports onset of fever around 8 to 9 p.m. after Vasquez removal. She also reports right-sided abdominal pain and back pain. She reports low appetite. No nausea or vomiting. She reports feeling fatigued as well. The patient did not take GoLYTELY and has not had a bowel movement prior to her 17 days ago. HOSPITAL COURSE: The patient underwent an evaluation in the emergency room and her clinical assessment was consistent with sepsis due to tachycardia and fever and a code sepsis was called. The patient was started on IV ceftriaxone per urology recommendations to treat for presumed urinary source. Her CT scan showed a [id number] induration in the peritoneal fat in the lower abdomen and pelvis suggesting nonspecific inflammation or infection, a low-attenuating collection in the right hemipelvis, about 4 x 4 x 2 cm, with mild peripheral enhancement, suspicious for an abscess. Mild heterogenous enhancement superiorly in the left kidney consistent with nephritis. An under-distended, thick-walled urinary bladder limiting further characterization, underlying cystitis cannot be excluded. So, therefore, the patient was admitted and was started on IV antibiotics and was given IV fluids and was admitted to the med-surg unit. Urology was consulted and recommendation was to leave the Vasquez out given the patient was spontaneously voiding. Urology also recommended a bowel regimen in order to have the patient have a bowel movement. The patient continued to have high fevers with temps at 39.5 and pulse in the 120s; therefore, IV antibiotic coverage was broadened to include IV clindamycin as well on hospital day #1. The interventional radiology was consulted remotely PATIENT NAME: WILMA BATRES and did not feel that the fluid collection in the right pelvis was amenable to drainage and did not appear to be a true abscess. The patient's temperature curve was improving; however, the patient was febrile after greater than 48 hours of IV antibiotics, and therefore, infectious disease was consulted and recommended to broaden coverage to IV vancomycin and meropenem. The patient's blood cultures were negative, but her urinary culture resulted with Pseudomonas aeruginosa, which was resistant to many antibiotics, however, was sensitive to meropenem. The IV vancomycin was continued approximately 48 hours and she was narrowed down to IV meropenem. Her vital signs and her clinical appearance continued to improve on this regimen and her temperature curve improved. The final recommendations from infectious disease were to carry out a total course of 12 days of IV antibiotics. Case management was consulted and the patient obtained home health with plan for 7 days of outpatient IV antibiotics of IV meropenem. She had a midline placed by general surgery prior to discharge. Regarding her constipation, the patient was given an enema and was placed on a bowel regimen and was able to have normal bowel movements by the time of discharge and the patient was no longer taking any narcotics. On the day of discharge, the patient was clinically stable, afebrile with a normal exam. The patient was instructed to follow up in the office in 3 to 4 days. Her YELENA drain was removed by urology during her course of hospitalization. More than 30 minutes were used for day of discharge management and coordination of care. The discharge medications included IV meropenem, her bowel regimen which included Colace and magnesium citrate, and ibuprofen. The patient was advised to follow up in 3 to 4 days in the office. Dictated By: Laureano Wolf MD WT: DS:F.PEDRITO/YE/DIANA Conf#: [id number]/DID#: [id number] Authenticated and Edited by Laureano Wolf MD On 07/05/20 10:36:16 AM at 1041 PATIENT NAME: WILMA BATRES [facility] 2020-07-03 15:55:00 [id number] [facility] [address] PATIENT NAME: WILMA BATRES ADMIT DATE: 06/07/20 ACCOUNT NO: [id number] ROOM NO: [facility] AGE: 24 SEX: F ADMITTING PHYSICIAN: Laureano Wolf MD ATTENDING PHYSICIAN: Laureano Wolf MD ADMISSION DATE: 06/07/2020 DISCHARGE DATE: 06/14/2020 ATTENDING PHYSICIAN: Laureano Wolf MD DELIVERING PHYSICIAN: Bharati Mcguire MD FINAL DIAGNOSES: 1. Primigravida at 40 weeks. 2. Status post a primary delivery complicated by bladder injury. 3. Prolonged stay due to pain control. HISTORY OF PRESENT ILLNESS: This is a 24-year-old G1, at 40 weeks and 0 days, who presented to labor and delivery for a scheduled elective induction of labor based on patient preference and favorable cervix. HOSPITAL COURSE: The patient was admitted and begun on IV fluids and external monitoring. The patient was started on Pitocin and progressed to complete. The patient began pushing, and after approximately 1 hour and 15 minutes of pushing, the heart rate tracing was nonreassuring with recurrent late decels and a primary delivery was recommended as the station was too high for operative delivery. The patient was taken to the operating room and a viable vigorous female infant was delivered with Apgars 8 and 9 and weight of 8 pounds 10 ounces. After delivery of the placenta and upon plan for closure of the hysterotomy, it was realized that what appeared to be the hysterotomy was actually the uterine cervix. The hysterotomy incision was actually an incision into the anterior vagina, and upon further delineation, it was found that the bladder had an injury as the Vasquez catheter was visualized. Urology was consulted intraoperatively and the bladder was repaired. Bilateral ureteral stents were placed and a Vasquez was left in place as well as well as a YELENA drain. Please see the operative notes of both delivery note and urology bladder repair note, for further details. She received blood products intraoperatively due to increased bleeding, which included 4 units of packed red blood cells, 2 units of FFP, 2 units of cryoprecipitate. The patient was then taken to the unit in a stable condition. Her H and H was trended and was noted to be stable. She required no additional blood products during her stay. The patient had significant issues with pain control postoperatively. It was ultimately well controlled on oxycodone and ibuprofen. Due to pain, the patient was slow to ambulate, but by the time of discharge was ambulating without difficulty. Her Vasquez remained in place during her stay. It was exchanged during the stay for a larger lumen catheter as that initially was requiring flushing in order to be drained. Urology saw the patient postoperatively with plan to remove the Vasquez in 10 to PATIENT NAME: WILMA BATRES 14 days as an outpatient after a cystogram. By the time of discharge, the patient was able to ambulate, eat without difficulty, and was passing flatus. Her YELENA drain remained in place and was recommended by urology to continue until Vasquez was removed. The patient was taught both YELENA drain and Vasquez catheter care for home. The patient was discharged home on postop day 6 with instructions to limit heavy lifting, insert nothing in the vagina for 6 weeks, not to drive while using narcotics, was advised to call for fever, increased vaginal bleeding, foul-smelling lochia, increased breast tenderness, shortness of breath or chest pain, increased incisional pain, redness, or discharge, increased abdominal pain or leg pain, or any other concerns. She was sent home on a regular diet. Her discharge medications included oxycodone, Levsin, ibuprofen, and Colace. The patient was advised to follow up in 1 week in the office and also as well follow up with urology. Dictated By: Laureano Wolf MD WT: DS:F.PEDRITO/YE/DIANA Conf#: [id number]/DID#: [id number] Authenticated by Laureano Wolf MD On 07/05/2020 10:35:03 AM at 1035 PATIENT NAME: WILMA BATRES [facility] 2020-07-01 15:43:00 [facility] ([facility]) Bedside Post Proc - Full REPORT#:[id number] REPORT STATUS: Signed DATE:07/01/20 TIME: 1543 PATIENT: WILMA BATRES UNIT #: [id number] ROOM/BED: 2604-A : 97 AGE: 24 SEX: F ATTEND: Laureano Wolf MD ADM AUTHOR: Petrona Phillips MD * ALL edits or amendments must be made on the electronic/computer document * Bedside Procedure Note Bedside Procedure Note Start date: 07/01/20 Start time: 1500 (time approx) Pre-procedure diagnosis: Need for IV access Post-procedure diagnosis: Need for IV access Procedure performed: Left upper extremity midline IV insertion Performed by: Dr. 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 The LUE was then prepped and draped in sterile fashion. Under US guidance, the mini stick needle was used to access the basilic vein in the upper arm. An 0.018 in wire was then introduced through the needle. The needle was removed, and the scalpel used to make a mony in the skin at the puncture site. A sterile ruler was used to measure the length of the midline IV; the line was cut to 26 cm length. The dilator was then threaded over the wire, the wire was removed, and the midline IV inserted though the dilator, which was then peeled away. Both ports withdraw and flush. A sterile dressing was then applied. A CXR was ordered. Specimens removed/altered: none Implant(s): none Complications: none Estimated blood loss in ml's: 2 cc Findings: CXR showed the tip of the line to be in good position. The line is OK to use. 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 Having daily BMs. Ambulating and voiding without difficulty. Denies fevers/chills. Tolerating PO. Mild midline back pain, thinks it is from laying in bed. Objective General VS/I O: Last Documented: Result Date Time Pulse Ox 100 07/01 1117 B/P 98/63 07/01 1117 B/P Mean 74.7 07/01 1117 Temp 36.7 07/01 1117 Pulse 88 07/01 1117 Resp 18 07/01 1117 O2 Delivery Room air 06/30 0510 Vital Signs Date Temp Pulse Resp B/P B/P Mean Pulse Ox FiO2 06/30-07/01 36.7-37.0 68-88 16-18 90-106/52-69 64.7-81.2 98-100 24 hour I O ending at 0700: 07/01 0700 06/30 1900 Intake Total 1100.00 1200.00 Output Total 1000 Balance 1100.00 200.00 Intake, IV 1100.00 1200.00 Number Voids 4 4 Output, Urine 1000 PATIENT WEIGHT: Weight (lb): Weight (oz): Weight (kg): 45.500 Physical Exam Wound/incision: Location: Pfannenstiel, Other (YELENA drain site- c/d/i) Site condition: edges approximated, incision intact, no drainage, no ecchymosis, no erythema Cardiovascular: normal heart sounds, regular rate and rhythm Respiratory: no distress Abdomen: non-tender, soft, no CVA tenderness, no distention, no guarding, no rebound Extremities: no calf tnederness, no edema Diagnosis, Assessment Plan Free Text A P: 24yo who is POD#23 (06/08) s/p primary complicated by bladder injury (repair by urology Dr. Oh) admitted with sepsis with suspect urinary source (pyelonephritis) and severe constipation. Clinically improved. 1. Sepsis: Urinary source/pyelonephritis. CTAP with 4.8x 2.5 x 4.8 cm possible pelvic abscess in RLQ- reviewed this with IR- not well formed fluid collection, no amenable to drainage. ID following, UCx with pseudomonas, sensitive to meropeneum. Currently on Meropenem, day 5. Vanc d/c'd 06/28 after UCx resulted. Plan for 7 additional days per ID (spoke with Dr. Diaz today) BCx: neg to date UCx: pseudomonas aeruginosa, susceptible to meropenem - : appreciate urology consultation and recommendations. S/p removal of YELENA drain on 06/26 - GI: S/p enema and able to have bowel movement on 06/25, 06/28, 06/29. On colace/mag citrate/senna daily, continue current bowel regimen. -Regular diet -Dispo: case management consulted to arrange home health, IV antibiotics. Discussed with ID, amenable to this plan. Will need midline placed (instead of PIV for home ABx). Dr. Phillips consulted to place this today. IV ABx teaching to occur today. If home health/home ABx set up, will plan discharge home today and plan to continue IV meropenem 500mg q6 hr x7 days at 1252 RPT #:[id number] END OF REPORT [facility] 2020-07-01 12:48:00 [facility] ([facility]) OB-NUCLEAR STATION OPERATOR Progress Note REPORT#:[id number] REPORT STATUS: Signed DATE:07/01/20 TIME: 1248 PATIENT: WILMA BATRES UNIT #: [id number] ROOM/BED: [address] : 97 AGE: 24 SEX: F ATTEND: Laureano Wolf MD ADM AUTHOR: Laureano Wolf MD * ALL edits or amendments must be made on the electronic/computer document * See Addendum Subjective Patient reports: Comments: No complaints. Having daily BMs. Ambulating and voiding without difficulty. Denies fevers/chills. Tolerating PO. Mild midline back pain, thinks it is from laying in bed. Objective General VS/I O: Last Documented: Result Date Time Pulse Ox 100 07/01 1117 B/P 98/63 07/01 1117 B/P Mean 74.7 07/01 1117 Temp 36.7 07/01 1117 Pulse 88 07/01 1117 Resp 18 07/01 1117 O2 Delivery Room air 06/30 0510 Vital Signs Date Temp Pulse Resp B/P B/P Mean Pulse Ox FiO2 06/30-07/01 36.7-37.0 68-88 16-18 90-106/52-69 64.7-81.2 98-100 24 hour I O ending at 0700: 07/01 0700 06/30 1900 Intake Total 1100.00 1200.00 Output Total 1000 Balance 1100.00 200.00 Intake, IV 1100.00 1200.00 Number Voids 4 4 Output, Urine 1000 PATIENT WEIGHT: Weight (lb): Weight (oz): Weight (kg): 45.500 Physical Exam Wound/incision: Location: Pfannenstiel, Other (YELENA drain site- c/d/i) Site condition: edges approximated, incision intact, no drainage, no ecchymosis, no erythema Cardiovascular: normal heart sounds, regular rate and rhythm Respiratory: no distress Abdomen: non-tender, soft, no CVA tenderness, no distention, no guarding, no rebound Extremities: no calf tnederness, no edema Diagnosis, Assessment Plan Free Text A P: 24yo who is POD#23 (06/08) s/p primary complicated by bladder injury (repair by urology Dr. Oh) admitted with sepsis with suspect urinary source (pyelonephritis) and severe constipation. Clinically improved. 1. Sepsis: Urinary source/pyelonephritis. CTAP with 4.8x 2.5 x 4.8 cm possible pelvic abscess in RLQ- reviewed this with IR- not well formed fluid collection, no amenable to drainage. ID following, UCx with pseudomonas, sensitive to meropeneum. Currently on Meropenem, day 5. Vanc d/c'd 06/28 after UCx resulted. Plan for 7 additional days per ID (spoke with Dr. Diaz today) BCx: neg to date UCx: pseudomonas aeruginosa, susceptible to meropenem - : appreciate urology consultation and recommendations. S/p removal of YELENA drain on 06/26 - GI: S/p enema and able to have bowel movement on 06/25, 06/28, 06/29. On colace/mag citrate/senna daily, continue current bowel regimen. -Regular diet -Dispo: case management consulted to arrange home health, IV antibiotics. Discussed with ID, amenable to this plan. Will need midline placed (instead of PIV for home ABx). Dr. Phillips consulted to place this today. IV ABx teaching to occur today. If home health/home ABx set up, will plan discharge home today and plan to continue IV meropenem 500mg q6 hr x7 days at 1252 Addendum 1: 07/01/20 1648 by Laureano Wolf MD Spoke with case management, RN and patient. S/p midline placement by Gen Surg ( CXR with proper location). S/p teaching by home health RN. 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 Pt feels comfortable with administration. Patient comfortable with plan and desires discharge home. Will discharge home today. Follow up in office in 3-4 days. Contact numbers given in case of any issues. All questions answered. at 1650 RPT #:[id number] END OF REPORT [facility] 2020-06-30 22:25:00 [id number] [facility] [address], [place] [address] PATIENT NAME: WILMA BATRES ADMIT DATE: 06/25/20 ACCOUNT NO: [id number] ROOM NO: 2604 AGE: 24 SEX: F ADMITTING PHYSICIAN: Laureano Wolf MD ATTENDING PHYSICIAN: Laureano Wolf MD DATE: 06/30/2020 Patient's condition remains stable. She is still resting in bed, no acute complaints. Vital signs reviewed. The examination of her incision: The edges are well approximated, incision is intact. No drainage. No ecchymosis. General exam is negative. The patient is status post primary , complicated by bladder injury, repaired by urology and was suspected to have a urinary tract infection. The patient's CT scan of the abdomen did show 4.8 x 2.5 x 4.8 cm (?) pelvic abscess in the left lower quadrant. The patient is currently on IV antibiotics, ceftriaxone and clindamycin, was started initially on IV antibiotics, which was then changed to meropenem and vancomycin. Urine culture grew Pseudomonas, susceptible to meropenem. The mattress spring encaser was consulted to arrange for discharging home on antibiotic plan. Dictated By: Demarcus Diaz MD WT: PN:TAMI/SHYLA/DIANA Conf#: [id number]/DID#: [id number] Authenticated by Demarcus Diaz MD On 07/04/2020 09:42:15 AM at 0942 PATIENT NAME: WILMA BATRES [facility] 2020-06-30 09:42:00 [facility] ([facility]) OB-NUCLEAR STATION OPERATOR Progress Note REPORT#:[id number] REPORT STATUS: Signed DATE:06/30/20 TIME: 941 PATIENT: WILMA BATRES UNIT #: [id number] ROOM/BED: 2604-A : 97 AGE: 24 SEX: F ATTEND: Laureano Wolf MD ADM AUTHOR: Wei Thorpe MD * ALL edits or amendments must be made on the electronic/computer document * Subjective Patient reports: Comments: Patient is resting in bed. She has no complaints. She is anxious to go home when possible. She denies nausea/emesis. She reports having a bowel movement yesterday. Objective General VS/I O: Last Documented: Result Date Time Pulse Ox 97 06/30 0815 B/P 96/58 06/30 0815 B/P Mean 70.7 06/30 0815 Temp 98.1 06/30 0815 Pulse 77 06/30 0815 Resp 16 06/30 08 O2 Delivery Room air 06/30 0510 Vital Signs Date Temp Pulse Resp B/P B/P Mean Pulse Ox FiO2 06/29-06/30 97.9-98.8 63-77 16-18 93-100/58-63 70-75 97-100 24 hour I O ending at 0700: 06/30 0700 06/29 1900 Intake Total 1100.00 900.00 Output Total 1000 1600 Balance 100.00 -700.00 Intake, IV 1100.00 900.00 Number Voids 1 3 Output, Urine 1000 1600 PATIENT WEIGHT: Weight (lb): Weight (oz): Weight (kg): 45.500 Physical Exam Wound/incision: Location: Pfannenstiel, Other (YELENA drain site- c/d/i) Site condition: edges approximated, incision intact, no drainage, no ecchymosis, no erythema Cardiovascular: normal heart sounds, regular rate and rhythm Respiratory: no distress Abdomen: non-tender, soft, no distention, no guarding, no rebound Extremities: no calf tnederness, no edema Diagnosis, Assessment Plan Free Text A P: 24yo who is POD#22 (06/08) s/p primary complicated by bladder injury (repair by urology Dr. Oh) admitted with sepsis with suspect urinary source (pyelonephritis) and severe constipation. Patient is now >24hrs afebrile (last fever 101.1 on 06/27). 1. Sepsis: Urinary source/pyelonephritis. CTAP with 4.8x 2.5 x 4.8 cm possible pelvic abscess in RLQ- reviewed this with IR- not well formed fluid collection, no amenable to drainage. ID consulted on 06/27 due to fevers (Dr. Lowe). Recommends to d/c ceftriaxone/ clinda and broaden to vanc/meropenem given prior prolonged initial hospital stay to cover for resistent GNRs. Currently on Meropenem, day4. Vanc d/c'd 06/28 after UCx resulted. Plan for 10d IV abx per ID. BCx: neg to date UCx: pseudomonas aeruginosa, susceptible to meropenem Continue IV abx in house, case mngt consulted 06/28 for possible home health/ discharge planning. - : appreciate urology consultation and recommendations. S/p removal of YELENA drain on 06/26 - GI: S/p enema and able to have bowel movement on 06/25, 06/28, 06/29. On colace/mag citrate/senna daily, continue current bowel regimen. -Regular diet, on LR at 100cc/hr at 1057 RPT #:[id number] END OF REPORT [facility] 2020-06-29 16:19:00 [facility] ([facility]) OB-NUCLEAR STATION OPERATOR Progress Note REPORT#:[id number] REPORT STATUS: Signed DATE:06/29/20 TIME: 1619 PATIENT: WILMA BATRES UNIT #: [id number] ROOM/BED: [address] : 97 AGE: 24 SEX: F ATTEND: Laureano Wolf MD ADM AUTHOR: Kristen Oliveros MD * ALL edits or amendments must be made on the electronic/computer document * Subjective Patient reports: Patient reports: Yes ambulating, Yes tolerating diet, Yes vaginal bleeding (lochia), No complaints, No abdominal pain, No back pain, No fever, No nausea, No pelvic pain Comments: Reports having small BM yesterday after drinking mag citrate. Objective General VS/I O: Last Documented: Result Date Time Pulse Ox 100 06/29 1208 B/P 97/63 06/29 1208 B/P Mean 74.4 06/29 1208 O2 Delivery Room air 06/29 120 Temp 98.4 06/29 1208 Pulse 70 06/29 1208 Resp 18 06/29 1208 Vital Signs Date Temp Pulse Resp B/P B/P Mean Pulse Ox FiO2 06/28-06/29 98.4-99.0 67-75 16-19 94-97/57-63 69.3-74.4 98-100 24 hour I O ending at 0700: 06/29 0700 06/28 1900 Intake Total 1200.00 1301.00 Output Total 2000 100 Balance -800.00 1201.00 Intake, IV 1200.00 1300.00 Intake, Oral 1 Number 1 Bowel Movements Number Voids 5 Output, Urine 2000 100 PATIENT WEIGHT: Weight (lb): Weight (oz): Weight (kg): 45.500 Physical Exam General Appearance: alert, awake, no acute distress Wound/incision: Location: Pfannenstiel, Other (YELENA drain site- c/d/i) Site condition: edges approximated, incision intact, no drainage, no ecchymosis, no erythema Respiratory: no distress, aerating well, symmetric expansion Abdomen: non-tender, soft, no CVA tenderness, no distention, no guarding, no rebound Extremities: no calf tnederness, no edema Fundus: below umbilicus, non-tender Results Results: labs reviewed, vital signs stable Diagnosis, Assessment Plan Free Text A P: 24yo who is POD#21 (06/08) s/p primary complicated by bladder injury (repair by urology Dr. Oh) admitted with sepsis with suspect urinary source (pyelonephritis) and severe constipation. Patient is now >24hrs afebrile (last fever 101.1 on 06/27). - Sepsis: Suspect urinary source/pyelonephritis. CTAP with 4.8x 2.5 x 4.8 cm possible pelvic abscess in RLQ- reviewed this with IR- not well formed fluid collection, no amenable to drainage. ID consulted on 06/27 due to fevers (Dr. Lowe). Recommends to d/c ceftriaxone/ clinda and broaden to vanc/meropenem given prior prolonged initial hospital stay to cover for resistent GNRs. Currently on Meropenem, day 3. Vanc d/c'd 06/28 after UCx resulted. Plan for 10d IV abx per ID. BCx: neg to date UCx: pseudomonas aeruginosa, susceptible to meropenem Continue IV abx in house, case mngt consulted 1/8 for possible home health/ discharge planning. - : appreciate urology consultation and recommendations. S/p removal of YELENA drain on 06/26 - GI: S/p enema and able to have bowel movement on 06/25 and again 06/28 after mag citrate. On colace/mag citrate/senna daily, continue current bowel regimen. Pt continues to decline Golytely. -Regular diet, on LR at 100cc/hr at 1645 RPT #:[id number] END OF REPORT [facility] 2020-06-29 12:39:00 [id number] [facility] [address], [place] [address] PATIENT NAME: WILMA BATRES ADMIT DATE: 06/25/20 ACCOUNT NO: [id number] ROOM NO: 2604 AGE: 24 SEX: F ADMITTING PHYSICIAN: Laureano oWlf MD ATTENDING PHYSICIAN: Laureano Wolf MD DATE: 06/29/2020 ATTENDING PHYSICIAN: Laureano Wolf MD The patient is doing well. No further episodes of fever. PHYSICAL EXAMINATION: VITAL SIGNS: Temperature normal, respirations 18, and blood pressure 100/62. HEENT: Normocephalic and atraumatic. Extraocular muscles are intact. NECK: Supple. LUNGS: Clear. No murmurs. Abdomen soft with slight tenderness in the suprapubic area. LABORATORY STUDIES: Blood cultures negative. Urine culture positive for multidrug-resistant Pseudomonas. IMPRESSION: Complicated pyelonephritis with pseudomonas, pelvic fluid collection, likely pelvic abscess. RECOMMENDATION: Continue IV antibiotics as meropenem. Probably will require a 10-14 days course. Vancomycin was discontinued. We will continue to follow. Dictated By: Demarcus Diaz MD WT: PN:TAMI/SHYLA/DIANA Conf#: [id number]/DID#: [id number] Authenticated by Demarcus Diaz MD On 07/04/2020 09:42:27 AM at 0942 PATIENT NAME: WILMA BATRES [facility] 2020-06-28 13:57:00 [id number] [facility] [address], [place] [address] PATIENT NAME: WILMA BATRES ADMIT DATE: 06/25/20 ACCOUNT NO: [id number] ROOM NO: [facility] AGE: 24 SEX: F ADMITTING PHYSICIAN: Laureano Wolf MD ATTENDING PHYSICIAN: Laureano Wolf MD DATE: 06/28/2020 SUBJECTIVE: The patient is doing well and has not had any further febrile episodes. OBJECTIVE: VITAL SIGNS: Temperature is 37, pulse 74, respiratory rate 18 and blood pressure 95/62. HEENT: Normocephalic and atraumatic. Extraocular movements not assessed. NECK: Supple. LUNGS: Fair air entry bilaterally. Clear to auscultation. HEART: Sounds S1 and S2. No murmur or gallop. ABDOMEN: Soft. Slight tenderness in the left suprapubic area. LABORATORY DATA: Blood cultures are negative. Urine cultures are positive for Pseudomonas aeruginosa, multidrug-resistant organism. ASSESSMENT: This is a 24-year-old female with: 1. Complicated pyelonephritis with Pseudomonas aeruginosa. 2. Pelvic fluid collection, which is likely a pelvic abscess. RECOMMENDATIONS: Continue antibiotic treatment with meropenem. Will likely need 10 days of intravenous antibiotic treatment. Will discontinue vancomycin. Will follow. Dictated By: Michelet Lowe MD WT: PN:FLAUREN/YANA/DIANA Conf#: [id number]/DID#: [id number] Authenticated by Michelet Lowe MD On 07/04/2020 12:19:55 PM at 1220 PATIENT NAME: WILMA BATRES [facility] 2020-06-28 09:18:00 [facility] ([facility]) OB-NUCLEAR STATION OPERATOR Progress Note REPORT#:[id number] REPORT STATUS: Signed DATE:06/28/20 TIME: 917 PATIENT: WILMA BATRES UNIT #: [id number] [address] AGE: 24 SEX: F ATTEND: Laureano Wolf MD ADM AUTHOR: Wei Thorpe MD * ALL edits or amendments must be made on the electronic/computer document * Subjective Patient reports: Comments: Patient resting with no complaints. She denies fever/chills. Denies nausea/ emesis. She denies having additional bowel movements since her enema. She did not finish her mag citrate from last night due to being frustrated from having to have her IV redone. Objective General VS/I O: Last Documented: Result Date Time Pulse Ox 97 06/28 0753 B/P 95/62 06/28 0753 B/P Mean 72.9 06/28 0753 Temp 99.3 06/28 0753 Pulse 100 06/28 0753 Resp 18 06/28 0753 O2 Delivery Room air 06/28 0406 Vital Signs Date Temp Pulse Resp B/P B/P Mean Pulse Ox FiO2 06/27-06/28 98.2-100.0 73-102 16-19 93-109/58-74 69.7-85.6 97-100 24 hour I O ending at 0700: 06/28 0700 06/27 1900 Intake Total 3000.00 Output Total 1500 Balance 3000.00 -1500 Intake, IV 2450.00 Intake, Oral 550 Number Voids 7 5 Output, Urine 1500 PATIENT WEIGHT: Weight (lb): Weight (oz): Weight (kg): 45.500 Physical Exam Wound/incision: Location: Pfannenstiel, Other (YELENA drain site- c/d/i) Site condition: incision intact Cardiovascular: normal heart sounds, regular rate and rhythm Respiratory: clear to auscultation, no distress, aerating well, symmetric expansion Abdomen: non-tender, soft, no CVA tenderness, no distention, no guarding, YELENA drain in place Extremities: full range of motion, no edema Diagnosis, Assessment Plan Free Text A P: 24yo who is POD20 (06/08) s/p primary complicated by bladder injury (repair by urology Dr. Oh) admitted with sepsis with suspect urinary source (pyelonephritis) and severe constipation. Patient is now 24hrs afebrile. - Sepsis: Suspect urinary source/pyelonephritis. CTAP with 4.8x 2.5 x 4.8 cm possible pelvic abscess in RLQ- reviewed this with IR- not well formed fluid collection, no amenable to drainage. ID consulted on 06/27 due to fevers (Dr. Lowe). Recommends to d/c ceftriaxone/ clinda and broaden to vanc/meropenem given prior prolonged initial hospital stay to cover for resistent GNRs. BCx neg to date UCx: pseudomonas aeruginosa, suseptible to meropenem Will discuss POC with ID in regards to recommendations for antibiotics once pt is discharged. - : appreciate urology consultation and recommendations. S/p removal of YELENA drain on 06/26 -GI: S/p enema and able to have bowel movement on 06/25. Pt unwilling to drink Golytely. On colace/mag citrate/senna daily -Patient has not had BM since 06/25 -Regular diet, on LR at 100cc/hr at 1004 RPT #:[id number] END OF REPORT [facility] 2020-06-27 19:17:00 [facility] Infect Dis Consult Note_ Brief REPORT#:[id number] REPORT STATUS: Signed DATE:06/27/20 TIME: 1916 PATIENT: WILMA BATRES UNIT #: [id number] ROOM/BED: [address] : 97 AGE: 24 SEX: F ATTEND: Laureano Wolf MD ADM AUTHOR: Michelet Lowe MD * ALL edits or amendments must be made on the electronic/computer document * History - Adult longitudinal Smoking status for patients 13 years old or older: Never Smoker Allergies: Coded Allergies: amoxicillin (HIVES 06/24/20) Infect. Dis. Consult - Brief Free Text A P: [id number] at 1917 RPT #:[id number] END OF REPORT [facility] 2020-06-27 19:17:00 [id number] [facility] [address], [place] [address] PATIENT NAME: WILMA BATRES ADMIT DATE: 06/25/20 ACCOUNT NO: [id number] ROOM NO: [id number] AGE: 24 SEX: F ADMITTING PHYSICIAN: Laureano Wolf MD ATTENDING PHYSICIAN: Laureano Wolf MD CONSULTATION DATE: 06/27/2020 CONSULTING PHYSICIAN: Michelet Lowe MD PHYSICIAN REQUESTING CONSULTATION: Laureano Wolf MD REASON FOR CONSULTATION: Consultation requested regardin. Gram-negative sepsis. 2. Pyelonephritis. 3. Pelvic abscess. Thank you for this consultation. HISTORY OF PRESENT ILLNESS: A 24-year-old female, who had a primary section on 06/08/2020, had a bladder injury requiring extensive repair done by urology. Had a Vasquez catheter in place and a YELENA drain in place. Was discharged home on oral antibiotic regimen of Macrobid. The patient had a Vasquez catheter that was removed prior to discharge, developed fever around 24 hours later with lower abdominal pain and back pain. The patient was evaluated in the Emergency Room. Urinalysis showed nitrites positive with wbc's too numerous to count. A CT scan of the abdomen and pelvis was done, which showed mild to moderate induration within the peritoneal fat, possible abscess in the right hemipelvis, thick-walled urinary bladder. The patient also had an ultrasound of the pelvis done, which revealed enlarged heterogeneous uterus. The patient was also evaluated by urology. On admission, the right YELENA drain was removed. White count is 7.3. Urine cultures that were done are showing Pseudomonas aeruginosa, a multidrug-resistant organism. REVIEW OF SYSTEMS: HEENT: Denies any headaches, visual complaints, sinus congestion, earache, throat pain, neck pain. RESPIRATORY: No cough, shortness of breath. CARDIOVASCULAR: No chest pain. No palpitation. GASTROINTESTINAL: No nausea, vomiting, or diarrhea. GENITOURINARY: As above. PAST MEDICAL HISTORY: As above. PAST SURGICAL HISTORY: As above. ALLERGIES: AMOXICILLIN, TOLERATED CEPHALOSPORINS WELL. CHRONIC MEDICATIONS: None. PATIENT NAME: WILMA BATRES FAMILY HISTORY: Noncontributory. SOCIAL HISTORY: No active alcohol, tobacco, or drug use. PHYSICAL EXAMINATION: VITAL SIGNS: Blood pressure 89/51, temperature 36.6, pulse 72, respiratory rate 18. T-max during hospitalization was 39.3. HEENT: Normocephalic and atraumatic. Extraocular movements are not assessed. NECK: Supple. LUNGS: Fair air entry bilaterally, clear to auscultation. HEART: Sounds S1 and S2. No murmur or gallop. ABDOMEN: Soft. There is some mild tenderness in the suprapubic area. No CVA tenderness. LABORATORY DATA: BUN of 8, creatinine 0.8, glucose 92. WBC count of 8.5, hemoglobin 8.8, platelets 431. ASSESSMENT: A 24-year-old female, who had a section, complicated by injury to the bladder, requiring surgical repair. 1. Gram-negative sepsis. 2. Pyelonephritis secondary to multidrug-resistant Pseudomonas aeruginosa. 3. Pelvic fluid collection with probable abscess. RECOMMENDATIONS: Continue antibiotic treatment with intravenous meropenem. Continue vancomycin also until all culture results are finalized. Probable conservative management of the pelvic fluid collection/abscess unless there is clinical change. Thank you, Dr. Wolf for this consultation. We will follow up the patient along with you. Dictated By: Michelet Lowe MD WT: CON:FLAUREN/YANA/DIANA Conf#: [id number]/DID#: [id number] cc: Laureano Wolf MD Authenticated by Michelet Lowe MD On 06/28/2020 05:22:35 PM at 1723 PATIENT NAME: WILMA BATRES [facility] 2020-06-27 09:07:00 [facility] ([facility]) OB-NUCLEAR STATION OPERATOR Progress Note REPORT#:[id number] REPORT STATUS: Signed DATE:06/27/20 TIME: 906 PATIENT: WILMA BATRES UNIT #: [id number] ROOM/BED: [address] : 97 AGE: 24 SEX: F ATTEND: Laureano Wolf MD ADM AUTHOR: Laureano Wolf MD * ALL edits or amendments must be made on the electronic/computer document * Subjective Patient reports: Comments: Pt reports feeling low appetite since removal of YELENA drain. No nausea/vomiting. [place] chills/sweats last night. Still ambulating and voiding w/o difficulty. No BMs yesterday. Did not drink Golytely. Objective General VS/I O: Last Documented: Result Date Time Pulse Ox 99 06/27 732 B/P 89/51 06/27 732 B/P Mean 0.0 06/27 732 Temp 36.6 06/27 732 Pulse 72 06/27 732 Resp 18 06/27 732 O2 Delivery Room air 06/27 034 Vital Signs Date Temp Pulse Resp B/P B/P Mean Pulse Ox FiO2 06/26-06/27 36.6-39.3 72-113 16-19 89-138/51-65 0.0-89.7 97-100 24 hour I O ending at 0700: 06/27 0700 06/26 1900 Intake Total 1300.00 50.00 Output Total 1200 1960 Balance 100.00 -1910.00 Intake, IV 1300.00 50.00 Output, 10 Drainage Output, Urine 1200 1950 PATIENT WEIGHT: Weight (lb): Weight (oz): Weight (kg): 45.500 Physical Exam Wound/incision: Location: Pfannenstiel, Other (YELENA drain site- c/d/i) Site condition: incision intact Cardiovascular: normal heart sounds, regular rate and rhythm Respiratory: clear to auscultation, no distress, aerating well, symmetric expansion Abdomen: non-tender, soft, no CVA tenderness, no distention, no guarding, YELENA drain in place Extremities: full range of motion, no edema Diagnosis, Assessment Plan Free Text A P: 24yo who is POD19 (06/08) s/p primary complicated by bladder injury (repair by urology Dr. Oh) admitted with sepsis with suspect urinary source (pyelonephritis) and severe constipation. Afebrile yesterday, but febrile again overnight. - Sepsis: Suspect urinary source/pyelonephritis. CTAP with 4.8x 2.5 x 4.8 cm possible pelvic abscess in RLQ- reviewed this with IR- not well formed fluid collection, no amenable to drainage. Consulted ID this AM (Dr. Lowe). Recommends to d/c ceftriaxone/clinda and broaden to vanc/meropenem given prior prolonged initial hospital stay to cover for resistent GNRs. BCx neg to date, UCx with > 100K GNRs. Formal consult placed, apprciate recommendations. - : appreciate urology consultation and recommendations. S/p removal of YELENA drain on 06/26 - GI: S/p enema and able to have bowel movement on 06/25. Pt unwilling to drink Golytely. On colace. Add mag citrate daily and senna daily - Regular diet, on LR at 100cc/hr at 0953 RPT #:[id number] END OF REPORT [facility] 2020-06-27 09:07:00 [facility] ([facility]) OB-NUCLEAR STATION OPERATOR Progress Note REPORT#:[id number] REPORT STATUS: Signed DATE:06/27/20 TIME: 906 PATIENT: WILMA BATRES UNIT #: [id number] ROOM/BED: [address] : 97 AGE: 24 SEX: F ATTEND: Laureano Wolf MD ADM AUTHOR: Laureano Wolf MD * ALL edits or amendments must be made on the electronic/computer document * See Addendum Subjective Patient reports: Comments: Pt reports feeling low appetite since removal of YELENA drain. No nausea/vomiting. [place] chills/sweats last night. Still ambulating and voiding w/o difficulty. No BMs yesterday. Did not drink Golytely. Objective General VS/I O: Last Documented: Result Date Time Pulse Ox 99 06/27 732 B/P 89/51 06/27 732 B/P Mean 0.0 06/27 732 Temp 36.6 06/27 732 Pulse 72 06/27 732 Resp 18 06/27 732 O2 Delivery Room air 06/27 348 Vital Signs Date Temp Pulse Resp B/P B/P Mean Pulse Ox FiO2 06/26-06/27 36.6-39.3 72-113 16-19 89-138/51-65 0.0-89.7 97-100 24 hour I O ending at 0700: 07 0700 0106 1900 Intake Total 1300.00 50.00 Output Total 1200 1960 Balance 100.00 -1910.00 Intake, IV 1300.00 50.00 Output, 10 Drainage Output, Urine 1200 1950 PATIENT WEIGHT: Weight (lb): Weight (oz): Weight (kg): 45.500 Physical Exam Wound/incision: Location: Pfannenstiel, Other (YELENA drain site- c/d/i) Site condition: incision intact Cardiovascular: normal heart sounds, regular rate and rhythm Respiratory: clear to auscultation, no distress, aerating well, symmetric expansion Abdomen: non-tender, soft, no CVA tenderness, no distention, no guarding, YELENA drain in place Extremities: full range of motion, no edema Diagnosis, Assessment Plan Free Text A P: 24yo who is POD19 (06/08) s/p primary complicated by bladder injury (repair by urology Dr. Oh) admitted with sepsis with suspect urinary source (pyelonephritis) and severe constipation. Afebrile yesterday, but febrile again overnight. - Sepsis: Suspect urinary source/pyelonephritis. CTAP with 4.8x 2.5 x 4.8 cm possible pelvic abscess in RLQ- reviewed this with IR- not well formed fluid collection, no amenable to drainage. Consulted ID this AM (Dr. Lowe). Recommends to d/c ceftriaxone/clinda and broaden to vanc/meropenem given prior prolonged initial hospital stay to cover for resistent GNRs. BCx neg to date, UCx with > 100K GNRs. Formal consult placed, apprciate recommendations. - : appreciate urology consultation and recommendations. S/p removal of YELENA drain on 06/26 - GI: S/p enema and able to have bowel movement on 06/25. Pt unwilling to drink Golytely. On colace. Add mag citrate daily and senna daily - Regular diet, on LR at 100cc/hr at 0953 Addendum 1: 06/27/20 1245 by Laureano Wolf MD Microbiology:Microbiology Date/Time Procedure - Status Source Growth 06/24 2346 Blood Culture - RES BLOOD 06/24 2346 Blood Culture Gram Stain - RES BLOOD 06/24 2346 Blood Culture - RES BLOOD 06/24 2346 Blood Culture Gram Stain - RES BLOOD 06/24 2344 Urine Culture - COMP URINE PSEUDOMONAS AERUGINOSA Reviewed UCx with ID. Continue ABx as above. at 1250 RPT #:[id number] END OF REPORT [facility] 2020-06-26 11:15:00 [facility] ([facility]) Urology Progress Note REPORT#:[id number] REPORT STATUS: Signed DATE:06/26/20 TIME: 1115 PATIENT: WILMA BATRES UNIT #: [id number] ROOM/BED: [address] : 97 AGE: 24 SEX: F ATTEND: Laureano Wolf MD ADM AUTHOR: Gilmar Oh MD * ALL edits or amendments must be made on the electronic/computer document * Subjective HPI: Patient reports feeling better today. Temperature improving. She has had multiple bowel movements since yesterday. Review of Systems Constitutional: Denies: chills, fever. GI: Denies: abdominal pain, nausea, vomiting. : Denies: urinary retention. All systems rev neg: except as marked Objective General VS/I O: Last Documented: Result Date Time Pulse Ox 99 06/26 657 B/P 94/67 06/26 657 B/P Mean 76.0 06/26 657 Temp 98.2 06/26 657 Pulse 93 06/26 657 Resp 18 06/26 657 O2 Delivery Room air 06/25 2319 24 hour I O ending at 0700: 06/26 0700 06/25 1900 Intake Total 150.00 2625.00 Output Total 270 5 Balance -120.00 2620.00 Intake, IV 150.00 1800.00 Intake, Oral 825 Number 1 Bowel Movements Number Voids 6 Output, 20 5 Drainage Output, Urine 250 PATIENT WEIGHT: Weight (lb): Weight (oz): Weight (kg): 45.500 Physical Exam General appearance: alert, awake, oriented Head/Eyes: atraumatic Neck: full range of motion Abdomen: soft, non-tender Genitourinary: deferred Extremities: moves all Musculoskeletal: full range of motion Diagnosis, Assessment Plan Free Text A P: 1. Pyelonephritis - Continue with Rocephin/Clindamycin - Treat with targeted therapy when urine culture is finalized - Fluid creatinine WNL, YELENA drain removed today and dressing was placed 2. 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 Was febrile overnight, but did not feel fever. Had issues with nursing staff as ice packs were left on for too long. Pt then spoke with discharge planner and issue was resolved. Tolerating PO. Voiding without difficulty. Had 3 BMs after enema. Last BM was softer stool. Objective General VS/I O: Last Documented: Result Date Time Pulse Ox 99 06/26 657 B/P 94/67 06/26 657 B/P Mean 76.0 06/26 657 Temp 36.8 06/26 657 Pulse 93 06/26 0558 Resp 18 06/26 657 O2 Delivery Room air 06/25 2319 Vital Signs Date Temp Pulse Resp B/P B/P Mean Pulse Ox FiO2 06/25-06/26 36.8-39.5 76-120 14-20 87-98/47-67 60.5-76.8 95-100 24 hour I O ending at 0700: 01/06 0700 06/25 1900 Intake Total 150.00 2625.00 Output Total 270 5 Balance -120.00 2620.00 Intake, IV 150.00 1800.00 Intake, Oral 825 Number 1 Bowel Movements Number Voids 6 Output, 20 5 Drainage Output, Urine 250 PATIENT WEIGHT: Weight (lb): Weight (oz): Weight (kg): 45.500 Physical Exam General Appearance: alert, awake, no acute distress Wound/incision: Location: Pfannenstiel Site condition: incision intact Respiratory: aerating well, symmetric expansion Abdomen: non-tender, soft, no CVA tenderness, no distention, no guarding, YELENA drain in place Extremities: full range of motion, no edema Results Findings/Data: Laboratory Tests 06/26 06/25 06/25 0509 1130 1130 Chemistry Sodium (135 - 145 mEq/L) 140 140 Potassium (3.5 - 5.0 mEq/L) 3.4 L 3.7 Chloride (100 - 115 mEq/L) 106 107 Carbon Dioxide (22 - 31 mEq/L) 26 25 Anion Gap (10 - 20) 11.40 11.30 BUN (7 - 18 mg/dL) 8 8 Creatinine (0.5 - 1.0 mg/dL) 0.7 0.6 Glomerular Filtr Rate (>60 ml/min) 105 125 Glucose (65 - 110 mg/dL) 92 112 H Lactic Acid (0.5 - 2.2 MMOL/L) 0.7 Calcium (8.4 - 10.2 mg/dL) 7.6 L 7.1 L Total Bilirubin (0.2 - 1.0 mg/dL) 0.4 0.2 AST (15 - 37 units/L) 31 12 L ALT (12 - 78 units/L) 29 13 Total Alk Phosphatase (46 - 116 units/L) 65 69 Total Protein (6.3 - 8.2 gm/dL) 4.8 L 5.0 L Albumin (3.4 - 4.8 gm/dL) 2.1 L 2.2 L Laboratory Tests 06/26 06/25 0509 1130 Hematology WBC (6.6 - 12.1 K/mm3) 8.5 7.3 RBC (3.45 - 5.01 M/mm3) 3.25 L 3.00 L Hgb (10.7 - 13.9 g/dL) 8.8 L 8.0 L Hct (32.1 - 42.1 %) 28.0 L 26.1 L MCV (84.1 - 94.8 fL) 86 87 MCH (27 - 35 pg) 27.1 26.7 L MCHC (32.2 - 34.1 gm/dL) 31.4 L 30.7 L RDW (12.4 - 16.5 %) 15.2 15.2 Plt Count (133 - 385 K/mm3) 431 H 429 H MPV (9.1 - 12.7 fl) 10.9 9.8 Neut % (Auto) (56.5 - 79.4 %) 82.0 H 81.9 H Lymph % (Auto) (14.3 - 34.3 %) 13.8 L 10.0 L [place] % (Auto) (5.1 - 10.4 %) 2.6 L 6.4 Eos % (Auto) (0.1 - 3.0 %) 0.1 0.3 Baso % (Auto) (0.1 - 1.0 %) 0.8 0.4 Neut # (Auto) (K/mm3) 6.9 6.0 Lymph # (Auto) (K/mm3) 1.2 0.7 [place] # (Auto) (K/mm3) 0.2 0.5 Eos # (Auto) (K/mm3) 0.01 0.02 Baso # (Auto) (K/mm3) 0.1 0.0 Laboratory Tests 06/25 1105 Other Body Source Fluid Creatinine (0.60 - 1.30 mg/dL) 0.6 Diagnosis, Assessment Plan Free Text A P: 24yo who is POD18 (06/08) s/p primary complicated by bladder injury (repair by urology Dr. Oh) admitted with sepsis with suspect urinary source (pyelonephritis) and severe constipation. Febrile yesterday and overnight , now afebrile. Temp curve appears to be improving. - Sepsis: Suspect urinary source/pyelonephritis. CTAP also with 4.8x 2.5 x 4.8 cm possible pelvic abscess in RLQ. Will discuss with IR if amenable to drainage. Continue IV ceftriaxone/clindamycin, Follow up UCx/BCx - : appreciate urology consultation and recommendations. Will discuss management/removal of YELENA drain today - GI: S/p enema and able to have bowel movement. 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 Was febrile overnight, but did not feel fever. Had issues with nursing staff as ice packs were left on for too long. Pt then spoke with discharge planner and issue was resolved. Tolerating PO. Voiding without difficulty. Had 3 BMs after enema. Last BM was softer stool. Objective General VS/I O: Last Documented: Result Date Time Pulse Ox 99 06/26 0558 B/P 94/67 06/26 657 B/P Mean 76.0 06/26 657 Temp 36.8 06/26 657 Pulse 93 06/26 657 Resp 18 06/26 657 O2 Delivery Room air 06/25 2319 Vital Signs Date Temp Pulse Resp B/P B/P Mean Pulse Ox FiO2 06/25-06/26 36.8-39.5 76-120 14-20 87-98/47-67 60.5-76.8 95-100 24 hour I O ending at 0700: 06/26 0700 06/25 1900 Intake Total 150.00 2625.00 Output Total 270 5 Balance -120.00 2620.00 Intake, IV 150.00 1800.00 Intake, Oral 825 Number 1 Bowel Movements Number Voids 6 Output, 20 5 Drainage Output, Urine 250 PATIENT WEIGHT: Weight (lb): Weight (oz): Weight (kg): 45.500 Physical Exam General Appearance: alert, awake, no acute distress Wound/incision: Location: Pfannenstiel Site condition: incision intact Respiratory: aerating well, symmetric expansion Abdomen: non-tender, soft, no CVA tenderness, no distention, no guarding, YELENA drain in place Extremities: full range of motion, no edema Results Findings/Data: Laboratory Tests 06/26 06/25 06/25 0509 1130 1130 Chemistry Sodium (135 - 145 mEq/L) 140 140 Potassium (3.5 - 5.0 mEq/L) 3.4 L 3.7 Chloride (100 - 115 mEq/L) 106 107 Carbon Dioxide (22 - 31 mEq/L) 26 25 Anion Gap (10 - 20) 11.40 11.30 BUN (7 - 18 mg/dL) 8 8 Creatinine (0.5 - 1.0 mg/dL) 0.7 0.6 Glomerular Filtr Rate (>60 ml/min) 105 125 Glucose (65 - 110 mg/dL) 92 112 H Lactic Acid (0.5 - 2.2 MMOL/L) 0.7 Calcium (8.4 - 10.2 mg/dL) 7.6 L 7.1 L Total Bilirubin (0.2 - 1.0 mg/dL) 0.4 0.2 AST (15 - 37 units/L) 31 12 L ALT (12 - 78 units/L) 29 13 Total Alk Phosphatase (46 - 116 units/L) 65 69 Total Protein (6.3 - 8.2 gm/dL) 4.8 L 5.0 L Albumin (3.4 - 4.8 gm/dL) 2.1 L 2.2 L Laboratory Tests 06/26 06/25 0509 1130 Hematology WBC (6.6 - 12.1 K/mm3) 8.5 7.3 RBC (3.45 - 5.01 M/mm3) 3.25 L 3.00 L Hgb (10.7 - 13.9 g/dL) 8.8 L 8.0 L Hct (32.1 - 42.1 %) 28.0 L 26.1 L MCV (84.1 - 94.8 fL) 86 87 MCH (27 - 35 pg) 27.1 26.7 L MCHC (32.2 - 34.1 gm/dL) 31.4 L 30.7 L RDW (12.4 - 16.5 %) 15.2 15.2 Plt Count (133 - 385 K/mm3) 431 H 429 H MPV (9.1 - 12.7 fl) 10.9 9.8 Neut % (Auto) (56.5 - 79.4 %) 82.0 H 81.9 H Lymph % (Auto) (14.3 - 34.3 %) 13.8 L 10.0 L [place] % (Auto) (5.1 - 10.4 %) 2.6 L 6.4 Eos % (Auto) (0.1 - 3.0 %) 0.1 0.3 Baso % (Auto) (0.1 - 1.0 %) 0.8 0.4 Neut # (Auto) (K/mm3) 6.9 6.0 Lymph # (Auto) (K/mm3) 1.2 0.7 [place] # (Auto) (K/mm3) 0.2 0.5 Eos # (Auto) (K/mm3) 0.01 0.02 Baso # (Auto) (K/mm3) 0.1 0.0 Laboratory Tests 06/25 1105 Other Body Source Fluid Creatinine (0.60 - 1.30 mg/dL) 0.6 Diagnosis, Assessment Plan Free Text A P: 24yo who is POD18 (06/08) s/p primary complicated by bladder injury (repair by urology Dr. Oh) admitted with sepsis with suspect urinary source (pyelonephritis) and severe constipation. Febrile yesterday and overnight , now afebrile. Temp curve appears to be improving. - Sepsis: Suspect urinary source/pyelonephritis. CTAP also with 4.8x 2.5 x 4.8 cm possible pelvic abscess in RLQ. Will discuss with IR if amenable to drainage. Continue IV ceftriaxone/clindamycin, Follow up UCx/BCx - : appreciate urology consultation and recommendations. Will discuss management/removal of YELENA drain today - GI: S/p enema and able to have bowel movement. Recommend to Golytely to aid in continued bowel motility and BMs - Regular diet, on LR at 100cc/hr at 1012 Addendum 1: 06/26/20 1037 by Laureano Wolf MD Discussed CTAP with IR, Dr. Prince. Does not feel that fluid collection requires drainage given size/characteristics, drainage would also be difficult, would require transgluteal approach. Recommend to continue medical management with IV antibiotics at 1039 RPT #:[id number] END OF REPORT [facility] 2020-06-25 18:03:00 [facility] ([facility]) Clinical Note REPORT#:[id number] REPORT STATUS: Signed DATE:06/25/20 TIME: 1802 PATIENT: WILMA BATRES UNIT #: [id number] ROOM/BED: [address] : 97 AGE: 24 SEX: F ATTEND: Laureano Wolf MD ADM AUTHOR: Laureano Wolf MD * ALL edits or amendments must be made on the electronic/computer document * Clinical Note Note: Brief Note I saw and assessed the patient. Recently febrile again. Pt reports feeling hungry- ordered PB J sandwich. Has been voiding without difficulty. Feeling less fatigued than earlier. No shortness of breath or chest pain. Last Documented: Result Date Time Pulse Ox 100 06/25 1703 B/P 98/66 06/25 1703 B/P Mean 76.5 06/25 1703 Temp 38.7 06/25 1703 Pulse 109 06/25 1703 Resp 16 06/25 1703 O2 Delivery Room air 06/25 1444 Exam unchanged A/P - Continue rocephin/clindamycin, LR at 100cc/hr - Constipation: meds held earlier. Instructed RN to give patient Golytely. Will also order fleets enema - Monitor vitals closely at 1806 RPT #:[id number] END OF REPORT [facility] 2020-06-25 18:03:00 [facility] ([facility]) Clinical Note REPORT#:[id number] REPORT STATUS: Signed DATE:06/25/20 TIME: 1803 PATIENT: WILMA BATRES UNIT #: [id number] ROOM/BED: [address] : 97 AGE: 24 SEX: F ATTEND: Laureano Wolf MD ADM AUTHOR: Laureano Wolf MD * ALL edits or amendments must be made on the electronic/computer document * See Addendum Clinical Note Note: Brief Note I saw and assessed the patient. Recently febrile again. Pt reports feeling hungry- ordered PB J sandwich. Has been voiding without difficulty. Feeling less fatigued than earlier. No shortness of breath or chest pain. Last Documented: Result Date Time Pulse Ox 100 06/25 170 B/P 98/66 06/25 1703 B/P Mean 76.5 06/25 1703 Temp 38.7 06/25 170 Pulse 109 06/25 1703 Resp 16 06/25 1703 O2 Delivery Room air 06/25 1444 Exam unchanged A/P - Continue rocephin/clindamycin, LR at 100cc/hr - Constipation: meds held earlier. Instructed RN to give patient Golytely. Will also order fleets enema - Monitor vitals closely at 1806 Addendum 1: 06/25/201816 by Laureano Wolf MD Correction: mineral oil enema ordered to help with stool softening/lubrication at 1817 RPT #:[id number] END OF REPORT [facility] 2020-06-25 12:10:00 [facility] ([facility]) Clinical Note REPORT#:[id number] REPORT STATUS: Signed DATE:06/25/20 TIME: 1210 PATIENT: WILMA BATRES UNIT #: [id number] ROOM/BED: [address] : 97 AGE: 24 SEX: F ATTEND: Laureano Wolf MD ADM AUTHOR: Laureano Wolf MD * ALL edits or amendments must be made on the electronic/computer document * Clinical Note Note: Brief Note Called by RN regarding vitals. Temp 39.5, pulse 120s. Orders given for tylenol 1 gram x1, LR bolus 1000cc and stat CBC, CMP, lactic acid. I saw and evaluated patient. Pt reports feeling significant fatigue. She is appears fatigued, but is alert and oriented x3 Last Documented: Result Date Time Pulse Ox 98 06/25 120 B/P 92/58 06/25 1202 B/P Mean 69.3 06/25 1202 Temp 39.3 06/25 1202 Pulse 114 06/25 1202 Resp 18 06/25 1202 O2 Delivery Room air 06/25 0420 Lungs CTAB CV tachycardic, 120s Abd soft, not tender, no changes in exam Laboratory Tests: 06/25 06/25 06/25 06/24 06/24 1130 1130 0121 2347 2347 Chemistry Sodium (135 - 145 mEq/L) 140 138 Potassium (3.5 - 5.0 mEq/L) 3.7 3.1 L Chloride (100 - 115 mEq/L) 107 101 Carbon Dioxide (22 - 31 mEq/L) 25 27 Anion Gap (10 - 20) 11.30 13.30 BUN (7 - 18 mg/dL) 8 13 Creatinine (0.5 - 1.0 mg/dL) 0.6 0.9 Glomerular Filtr Rate (>60 ml/min) 125 78 Glucose (65 - 110 mg/dL) 112 H 163 H Lactic Acid (0.5 - 2.2 MMOL/L) 0.7 1.2 Calcium (8.4 - 10.2 mg/dL) 7.1 L 8.0 L Total Bilirubin (0.2 - 1.0 mg/dL) 0.2 0.3 AST (15 - 37 units/L) 12 L 14 L ALT (12 - 78 units/L) 13 13 Total Alk Phosphatase (46 - 116 69 88 units/L) Troponin I (<0.056 ng/mL) <0.017 Total Protein (6.3 - 8.2 gm/dL) 5.0 L 6.7 Albumin (3.4 - 4.8 gm/dL) 2.2 L 2.7 L Lipase (73 - 393 units/L) 84 Coagulation PT (10.4 - 12.4 secs) 13.2 H INR 1.22 PTT (Boo) (22 - 38 secs) 35.9 Hematology WBC (6.6 - 12.1 K/mm3) 7.3 7.3 RBC (3.45 - 5.01 M/mm3) 3.00 L 3.56 Hgb (10.7 - 13.9 g/dL) 8.0 L 9.4 L Hct (32.1 - 42.1 %) 26.1 L 30.7 L MCV (84.1 - 94.8 fL) 87 86 MCH (27 - 35 pg) 26.7 L 26.4 L MCHC (32.2 - 34.1 gm/dL) 30.7 L 30.6 L RDW (12.4 - 16.5 %) 15.2 15.1 Plt Count (133 - 385 K/mm3) 429 H 626 H MPV (9.1 - 12.7 fl) 9.8 10.2 Neut % (Auto) (56.5 - 79.4 %) 81.9 H 71.4 Lymph % (Auto) (14.3 - 34.3 %) 10.0 L 19.5 [place] % (Auto) (5.1 - 10.4 %) 6.4 5.1 Eos % (Auto) (0.1 - 3.0 %) 0.3 2.5 Baso % (Auto) (0.1 - 1.0 %) 0.4 1.1 H Neut # (Auto) (K/mm3) 6.0 5.2 Lymph # (Auto) (K/mm3) 0.7 1.4 [place] # (Auto) (K/mm3) 0.5 0.4 Eos # (Auto) (K/mm3) 0.02 0.18 Baso # (Auto) (K/mm3) 0.0 0.1 Serology SARS CoV-2 RNA Rapid FANG (Negative) Negative 06/24 2345 Urines Urine Color (YELLOW) FAMILIA A Urine Appearance (CLEAR) CLOUDY A Urine pH (5 - 9) 6.0 Ur Specific [place] (1.001 - 1.035) 1.014 Urine Protein (NEG) 2+ H Urine Glucose (UA) (NEG) NEGATIVE Urine Ketones (NEG) 1+ H Urine Blood (NEG) 3+ H Urine Nitrite (NEG) POSITIVE H Urine Bilirubin (NEG) NEGATIVE Urine Urobilinogen (NEG mg/dL) NEGATIVE Ur Leukocyte Esterase (NEG) 3+ H Urine RBC (NONE SEEN #/hpf) TOO NUMEROUS TO CNT H Urine WBC (NONE SEEN #/hpf) TOO NUMEROUS TO CNT H Ur Epithelial Cells (RARE - FEW #/HPF) RARE Urine Bacteria (RARE - FEW /HPF) NEGATIVE Urine Mucus (NONE SEEN) 3+ Urine Yeast (NONE SEEN #/hpf) RARE H A/P: Sepsis with suspected urinary source. Review of CT with concern for possible 4cm right-sided pelvic abscess. Will broaden coverage to zosyn for now. Labs stable and lactic acid 0.7. Will continue to monitor on MSU. If clinically worsens, will transfer to ICU. Strict I/O. at 1231 RPT #:[id number] END OF REPORT [facility] 2020-06-25 12:10:00 [facility] ([facility]) Clinical Note REPORT#:[id number] REPORT STATUS: Signed DATE:06/25/20 TIME: 1210 PATIENT: WILMA BATRES UNIT #: [id number] [address] AGE: 24 SEX: F ATTEND: Laureano Wolf MD ADM AUTHOR: Laureano Wolf MD * ALL edits or amendments must be made on the electronic/computer document * See Addendum Clinical Note Note: Brief Note Called by RN regarding vitals. Temp 39.5, pulse 120s. Orders given for tylenol 1 gram x1, LR bolus 1000cc and stat CBC, CMP, lactic acid. I saw and evaluated patient. Pt reports feeling significant fatigue. She is appears fatigued, but is alert and oriented x3 Last Documented: Result Date Time Pulse Ox 98 06/25 1202 B/P 92/58 06/25 1202 B/P Mean 69.3 06/25 1202 Temp 39.3 06/25 1202 Pulse 114 06/25 1202 Resp 18 06/25 1202 O2 Delivery Room air 06/25 0420 Lungs CTAB CV tachycardic, 120s Abd soft, not tender, no changes in exam Laboratory Tests: 06/25 06/25 06/25 06/24 06/24 1130 1130 0121 2347 2347 Chemistry Sodium (135 - 145 mEq/L) 140 138 Potassium (3.5 - 5.0 mEq/L) 3.7 3.1 L Chloride (100 - 115 mEq/L) 107 101 Carbon Dioxide (22 - 31 mEq/L) 25 27 Anion Gap (10 - 20) 11.30 13.30 BUN (7 - 18 mg/dL) 8 13 Creatinine (0.5 - 1.0 mg/dL) 0.6 0.9 Glomerular Filtr Rate (>60 ml/min) 125 78 Glucose (65 - 110 mg/dL) 112 H 163 H Lactic Acid (0.5 - 2.2 MMOL/L) 0.7 1.2 Calcium (8.4 - 10.2 mg/dL) 7.1 L 8.0 L Total Bilirubin (0.2 - 1.0 mg/dL) 0.2 0.3 AST (15 - 37 units/L) 12 L 14 L ALT (12 - 78 units/L) 13 13 Total Alk Phosphatase (46 - 116 69 88 units/L) Troponin I (<0.056 ng/mL) <0.017 Total Protein (6.3 - 8.2 gm/dL) 5.0 L 6.7 Albumin (3.4 - 4.8 gm/dL) 2.2 L 2.7 L Lipase (73 - 393 units/L) 84 Coagulation PT (10.4 - 12.4 secs) 13.2 H INR 1.22 PTT (Isabella) (22 - 38 secs) 35.9 Hematology WBC (6.6 - 12.1 K/mm3) 7.3 7.3 RBC (3.45 - 5.01 M/mm3) 3.00 L 3.56 Hgb (10.7 - 13.9 g/dL) 8.0 L 9.4 L Hct (32.1 - 42.1 %) 26.1 L 30.7 L MCV (84.1 - 94.8 fL) 87 86 MCH (27 - 35 pg) 26.7 L 26.4 L MCHC (32.2 - 34.1 gm/dL) 30.7 L 30.6 L RDW (12.4 - 16.5 %) 15.2 15.1 Plt Count (133 - 385 K/mm3) 429 H 626 H MPV (9.1 - 12.7 fl) 9.8 10.2 Neut % (Auto) (56.5 - 79.4 %) 81.9 H 71.4 Lymph % (Auto) (14.3 - 34.3 %) 10.0 L 19.5 [place] % (Auto) (5.1 - 10.4 %) 6.4 5.1 Eos % (Auto) (0.1 - 3.0 %) 0.3 2.5 Baso % (Auto) (0.1 - 1.0 %) 0.4 1.1 H Neut # (Auto) (K/mm3) 6.0 5.2 Lymph # (Auto) (K/mm3) 0.7 1.4 [place] # (Auto) (K/mm3) 0.5 0.4 Eos # (Auto) (K/mm3) 0.02 0.18 Baso # (Auto) (K/mm3) 0.0 0.1 Serology SARS CoV-2 RNA Rapid FANG (Negative) Negative 06/24 2345 Urines Urine Color (YELLOW) FAMILIA A Urine Appearance (CLEAR) CLOUDY A Urine pH (5 - 9) 6.0 Ur Specific [place] (1.001 - 1.035) 1.014 Urine Protein (NEG) 2+ H Urine Glucose (UA) (NEG) NEGATIVE Urine Ketones (NEG) 1+ H Urine Blood (NEG) 3+ H Urine Nitrite (NEG) POSITIVE H Urine Bilirubin (NEG) NEGATIVE Urine Urobilinogen (NEG mg/dL) NEGATIVE Ur Leukocyte Esterase (NEG) 3+ H Urine RBC (NONE SEEN #/hpf) TOO NUMEROUS TO CNT H Urine WBC (NONE SEEN #/hpf) TOO NUMEROUS TO CNT H Ur Epithelial Cells (RARE - FEW #/HPF) RARE Urine Bacteria (RARE - FEW /HPF) NEGATIVE Urine Mucus (NONE SEEN) 3+ Urine Yeast (NONE SEEN #/hpf) RARE H A/P: Sepsis with suspected urinary source. Review of CT with concern for possible 4cm right-sided pelvic abscess. Will broaden coverage to zosyn for now. Labs stable and lactic acid 0.7. Will continue to monitor on MSU. If clinically worsens, will transfer to ICU. Strict I/O. at 1231 Addendum 1: 06/25/20 1328 by Laureano Wolf MD Pt with amoxicillin allergy (hives). Will plan to continue ceftriaxone, add clindamycin. at 1329 RPT #:[id number] END OF REPORT [facility] 2020-06-25 12:10:00 [facility] ([facility]) Clinical Note REPORT#:[id number] REPORT STATUS: Signed DATE:06/25/20 TIME: 1210 PATIENT: WILMA BATRES UNIT #: [id number] ROOM/BED: [address] : 97 AGE: 24 SEX: F ATTEND: Laureano Wolf MD ADM AUTHOR: Laureano Wolf MD * ALL edits or amendments must be made on the electronic/computer document * See Addendum Clinical Note Note: Brief Note Called by RN regarding vitals. Temp 39.5, pulse 120s. Orders given for tylenol 1 gram x1, LR bolus 1000cc and stat CBC, CMP, lactic acid. I saw and evaluated patient. Pt reports feeling significant fatigue. She is appears fatigued, but is alert and oriented x3 Last Documented: Result Date Time Pulse Ox 98 06/25 1202 B/P 92/58 06/25 1202 B/P Mean 69.3 06/25 1202 Temp 39.3 06/25 1202 Pulse 114 06/25 1202 Resp 18 06/25 1202 O2 Delivery Room air 06/25 0420 Lungs CTAB CV tachycardic, 120s Abd soft, not tender, no changes in exam Laboratory Tests: 06/25 06/25 06/25 06/24 06/24 1130 1130 0121 2347 2347 Chemistry Sodium (135 - 145 mEq/L) 140 138 Potassium (3.5 - 5.0 mEq/L) 3.7 3.1 L Chloride (100 - 115 mEq/L) 107 101 Carbon Dioxide (22 - 31 mEq/L) 25 27 Anion Gap (10 - 20) 11.30 13.30 BUN (7 - 18 mg/dL) 8 13 Creatinine (0.5 - 1.0 mg/dL) 0.6 0.9 Glomerular Filtr Rate (>60 ml/min) 125 78 Glucose (65 - 110 mg/dL) 112 H 163 H Lactic Acid (0.5 - 2.2 MMOL/L) 0.7 1.2 Calcium (8.4 - 10.2 mg/dL) 7.1 L 8.0 L Total Bilirubin (0.2 - 1.0 mg/dL) 0.2 0.3 AST (15 - 37 units/L) 12 L 14 L ALT (12 - 78 units/L) 13 13 Total Alk Phosphatase (46 - 116 69 88 units/L) Troponin I (<0.056 ng/mL) <0.017 Total Protein (6.3 - 8.2 gm/dL) 5.0 L 6.7 Albumin (3.4 - 4.8 gm/dL) 2.2 L 2.7 L Lipase (73 - 393 units/L) 84 Coagulation PT (10.4 - 12.4 secs) 13.2 H INR 1.22 PTT (Boo) (22 - 38 secs) 35.9 Hematology WBC (6.6 - 12.1 K/mm3) 7.3 7.3 RBC (3.45 - 5.01 M/mm3) 3.00 L 3.56 Hgb (10.7 - 13.9 g/dL) 8.0 L 9.4 L Hct (32.1 - 42.1 %) 26.1 L 30.7 L MCV (84.1 - 94.8 fL) 87 86 MCH (27 - 35 pg) 26.7 L 26.4 L MCHC (32.2 - 34.1 gm/dL) 30.7 L 30.6 L RDW (12.4 - 16.5 %) 15.2 15.1 Plt Count (133 - 385 K/mm3) 429 H 626 H MPV (9.1 - 12.7 fl) 9.8 10.2 Neut % (Auto) (56.5 - 79.4 %) 81.9 H 71.4 Lymph % (Auto) (14.3 - 34.3 %) 10.0 L 19.5 [place] % (Auto) (5.1 - 10.4 %) 6.4 5.1 Eos % (Auto) (0.1 - 3.0 %) 0.3 2.5 Baso % (Auto) (0.1 - 1.0 %) 0.4 1.1 H Neut # (Auto) (K/mm3) 6.0 5.2 Lymph # (Auto) (K/mm3) 0.7 1.4 [place] # (Auto) (K/mm3) 0.5 0.4 Eos # (Auto) (K/mm3) 0.02 0.18 Baso # (Auto) (K/mm3) 0.0 0.1 Serology SARS CoV-2 RNA Rapid FANG (Negative) Negative 06/24 2345 Urines Urine Color (YELLOW) FAMILIA A Urine Appearance (CLEAR) CLOUDY A Urine pH (5 - 9) 6.0 Ur Specific [place] (1.001 - 1.035) 1.014 Urine Protein (NEG) 2+ H Urine Glucose (UA) (NEG) NEGATIVE Urine Ketones (NEG) 1+ H Urine Blood (NEG) 3+ H Urine Nitrite (NEG) POSITIVE H Urine Bilirubin (NEG) NEGATIVE Urine Urobilinogen (NEG mg/dL) NEGATIVE Ur Leukocyte Esterase (NEG) 3+ H Urine RBC (NONE SEEN #/hpf) TOO NUMEROUS TO CNT H Urine WBC (NONE SEEN #/hpf) TOO NUMEROUS TO CNT H Ur Epithelial Cells (RARE - FEW #/HPF) RARE Urine Bacteria (RARE - FEW /HPF) NEGATIVE Urine Mucus (NONE SEEN) 3+ Urine Yeast (NONE SEEN #/hpf) RARE H A/P: Sepsis with suspected urinary source. Review of CT with concern for possible 4cm right-sided pelvic abscess. Will broaden coverage to zosyn for now. Labs stable and lactic acid 0.7. Will continue to monitor on MSU. If clinically worsens, will transfer to ICU. Strict I/O. at 1231 Addendum 1: 06/25/20 1328 by Laureano Wolf MD Pt with amoxicillin allergy (hives). Will plan to continue ceftriaxone, add clindamycin. at 1329 Addendum 2: 06/25/20 1446 by Laureano Wolf MD Repeat vitals: temp 99.8, BP 96/64, pulse 102, O2 98%, RR 20 Improving. Continue plan as above. at 1446 RPT #:[id number] END OF REPORT [facility] 2020-06-25 10:52:00 [facility] ([facility]) Urology Consult Note REPORT#:[id number] REPORT STATUS: Signed DATE:06/25/20 TIME: 1052 PATIENT: WILMA BATRES UNIT #: [id number] ROOM/BED: [address] : 97 AGE: 24 SEX: F ATTEND: Laureano Wolf MD ADM AUTHOR: Gilmar Oh MD * ALL edits or amendments must be made on the electronic/computer document * History of Present Illness HPI HPI: Ms. Batres is a 24yo female who had an iatrogenic bladder injury about 2.5 weeks ago during a requiring complex repair as well as bilateral ureteral stent placement. She was seen in the office yesterday after cystogram was obtained and vasquez catheter was removed. She presented to the ER last night with fever and abdominal pain. She reports fever around 8-9pm with tmax of 103.2. She also reports decreased appetite and denies nausea, vomiting, and dysuria. She is voiding spontaneously without issues. Today she states that her abdominal pain has resolved, however continues to have complaints of chills. She has not had a bowel movement since 06/07/20. History Allergies: Coded Allergies: amoxicillin (HIVES 06/24/20) Review of Systems ROS Constitutional: Reports: chills. GI: Denies: abdominal pain, nausea, vomiting. : Denies: dysuria, flank pain, urinary retention. All systems rev neg: except as marked Objective VS/I O: Last Documented: Result Date Time Pulse Ox 97 06/25 724 B/P 94/60 06/25 724 B/P Mean 71.1 06/25 724 Temp 99.1 06/25 724 Pulse 107 06/25 07 Resp 18 06/25 724 O2 Delivery Room air 06/25 419 24 hour I O ending at 0700: 06/25 0700 06/24 1900 Intake Total Output Total Balance Patient 45.5 kg Weight Weight Standing scale Measurement Method PATIENT WEIGHT: Weight (lb): Weight (oz): Weight (kg): 45.500 General appearance: alert, awake, oriented Neck: full range of motion Abdomen: soft, non-tender Extremities: moves all Musculoskeletal: full range of motion Results Radiology data: Recent Impressions: RADIOLOGY - XR CHEST 1 V 06/24 6719 Report Impression - Status: SIGNED Entered: 06/25/2020 0036 Impression: No acute cardiopulmonary findings. Impression By: Jose - ADAM NAVAS MD CAT SCAN - CT ABD PELVIS W/CONT 06/25 012 Report Impression - Status: SIGNED Entered: 06/25/2020 0156 IMPRESSION: Mild to moderate induration within the [...] placement. Prominent to enlarged recently uterus. SL: TPAINTER-H Impression By: David Shields MD ULTRASOUND - DUP AB/PEL/SC/LTD 06/25 134 Report Impression - Status: SIGNED Entered: 06/25/2020 0213 IMPRESSION: Mildly prominent to enlarged heterogeneous recently uterus. Mild endometrial fluid without solid components or hyperemia to suggest retained products of conception. The right hemipelvis fluid seen on recent CT is not demonstrated on this examination. However, no right ovarian cystic lesion is present on ultrasound suggesting the fluid seen on recent CT either represents free fluid or developing abscess. Incompletely visualized under distended thick-walled urinary bladder containing the distal extents of bilateral ureteral stents. SL: TPAINTER-H Impression By: David Shields MD ULTRASOUND - US PELVIS COMPLETE 06/25 134 Report Impression - Status: SIGNED Entered: 06/25/2020 0213 IMPRESSION: Mildly prominent to enlarged heterogeneous recently uterus. Mild endometrial fluid without solid components or hyperemia to suggest retained products of conception. The right hemipelvis fluid seen on recent CT is not demonstrated on this examination. However, no right ovarian cystic lesion is present on ultrasound suggesting the fluid seen on recent CT either represents free fluid or developing abscess. Incompletely visualized under distended thick-walled urinary bladder containing the distal extents of bilateral ureteral stents. SL: TPAINTER-H Impression By: [email or web address] - Maksim Shields MD Diagnosis, Assessment Plan Diagnosis, Assessment Plan Free Text A P: 1. Pyelonephritis - Schedule Rocephin once daily - Treat with targeted therapy when urine culture is finalized - F/u on fluid creatinine 2. Constipation - Start 2L mag citrate Imaging reviewed and discussed plan with patient at 1106 RPT #:[id number] END OF REPORT [facility] 2020-06-25 09:14:00 [facility] ([facility]) History Physical - Adult REPORT#:[id number] REPORT STATUS: Signed DATE:06/25/20 TIME: 913 PATIENT: WILMA BATRES UNIT #: [id number] ROOM/BED: [address] : 97 AGE: 24 SEX: F ATTEND: Laureano Wolf MD ADM AUTHOR: Laureano Wolf MD * ALL edits or amendments must be made on the electronic/computer document * History of Present Illness HPI Chief complaint: Fever, pain HPI: 24yo who is POD17 (06/08) s/p primary complicated by bladder injury (requiring extensive repair by urology, Dr. Oh), PPH (transfusion of multiple blood products) who presents with onset of fever and pain. Pt was discharged home on 06/14 from her initial hospital stay with vasquez and YELENA drain in place. She was seen in office on 06/18 and worsening abdominal pain. Pt had CT in ER which revealed constipation, but no other acute findings. UA was concerning for infection and was discharged home on macrobid. She was given Golytely for her constipation. Pt had follow up with urology yesterday after cystogram was obtained and vasquez catheter was removed and with plan to remove YELENA drain in 24 hours. Pt reports onset of fever around 8-9 pm last night. She also reports right sided abdominal pain and back pain. Pt reports recently with low appetite, no nausea or vomiting. No URI symptoms. Pt reports she called answering service due to fever and was instructed to present to ER. Pt voiding spontaneously without difficulty, feels that she can empty her bladder. Ambulating. Pt reports feeling fatigued currently. Feels mildly improved now that her fever has improved. Has not had a BM since prior to C/S (almost 3 weeks ago). Did not take golytely as prescribed. Ran out of oxycodone 4 days ago, has been taking tylenol. Now feels sensation of needing to have a bowel movement. History Medication/Allergy-Vaccine Hx Allergies: Coded Allergies: amoxicillin (HIVES 06/24/20) Review of Systems Constitutional: Reports: chills, fatigue, fever. GI: Reports: abdominal pain, constipation. : Reports: flank pain. All systems rev neg: except as marked Physical Exam VS/I O Vital Signs: Date Time Temp Pulse Resp B/P B/P Pulse O2 O2 Flow FiO2 Mean Ox Delivery Rate 06/25 1110 120 16 96 06/25 1109 39.5 208 16 94/60 71.6 95 06/25 0725 37.3 107 18 94/60 71.1 97 06/25 0601 37.7 18 / 0543 100 06/25 0502 38.7 06/25 0420 39.4 120 19 102/64 77.0 97 Room air 06/25 0337 38.6 124 18 104/72 82 100 Room air 06/25 0328 38.6 06/25 0300 116 112/78 89 / 0108 93/59 70 / 0048 100 17 84/60 68 98 Room air 06/24 2350 91/61 71 06/24 2333 38.0 115 17 88/58 68 97 Room air 24 hour I O ending at 0700: 06/25 0700 06/24 1900 Intake Total Output Total Balance Patient 45.5 kg Weight Weight Standing scale Measurement Method PATIENT WEIGHT: Weight (lb): Weight (oz): Weight (kg): 45.500 General appearance: underweight, awake, oriented, ill appearing Cardiovascular: tachycardia (pulse 112 on exam) Respiratory: aerating well, symmetric expansion Abdomen/GI: soft, non-tender, no guarding, no CVA tenderness, YELENA drain- draining serous fluid Extremities: moves all, no edema-all extremities Results Findings/Data: Laboratory Tests: 06/25 06/24 06/24 0121 2347 2347 Chemistry Sodium (135 - 145 mEq/L) 138 Potassium (3.5 - 5.0 mEq/L) 3.1 L Chloride (100 - 115 mEq/L) 101 Carbon Dioxide (22 - 31 mEq/L) 27 Anion Gap (10 - 20) 13.30 BUN (7 - 18 mg/dL) 13 Creatinine (0.5 - 1.0 mg/dL) 0.9 Glomerular Filtr Rate (>60 ml/min) 78 Glucose (65 - 110 mg/dL) 163 H Lactic Acid (0.5 - 2.2 MMOL/L) 1.2 Calcium (8.4 - 10.2 mg/dL) 8.0 L Total Bilirubin (0.2 - 1.0 mg/dL) 0.3 AST (15 - 37 units/L) 14 L ALT (12 - 78 units/L) 13 Total Alk Phosphatase (46 - 116 units/L) 88 Troponin I (<0.056 ng/mL) <0.017 Total Protein (6.3 - 8.2 gm/dL) 6.7 Albumin (3.4 - 4.8 gm/dL) 2.7 L Lipase (73 - 393 units/L) 84 Coagulation PT (10.4 - 12.4 secs) 13.2 H INR 1.22 PTT (Boo) (22 - 38 secs) 35.9 Hematology WBC (6.6 - 12.1 K/mm3) 7.3 RBC (3.45 - 5.01 M/mm3) 3.56 Hgb (10.7 - 13.9 g/dL) 9.4 L Hct (32.1 - 42.1 %) 30.7 L MCV (84.1 - 94.8 fL) 86 MCH (27 - 35 pg) 26.4 L MCHC (32.2 - 34.1 gm/dL) 30.6 L RDW (12.4 - 16.5 %) 15.1 Plt Count (133 - 385 K/mm3) 626 H MPV (9.1 - 12.7 fl) 10.2 Neut % (Auto) (56.5 - 79.4 %) 71.4 Lymph % (Auto) (14.3 - 34.3 %) 19.5 [place] % (Auto) (5.1 - 10.4 %) 5.1 Eos % (Auto) (0.1 - 3.0 %) 2.5 Baso % (Auto) (0.1 - 1.0 %) 1.1 H Neut # (Auto) (K/mm3) 5.2 Lymph # (Auto) (K/mm3) 1.4 [place] # (Auto) (K/mm3) 0.4 Eos # (Auto) (K/mm3) 0.18 Baso # (Auto) (K/mm3) 0.1 Serology SARS CoV-2 RNA Rapid FANG (Negative) Negative 06/24 2345 Urines Urine Color (YELLOW) FAMILIA A Urine Appearance (CLEAR) CLOUDY A Urine pH (5 - 9) 6.0 Ur Specific [place] (1.001 - 1.035) 1.014 Urine Protein (NEG) 2+ H Urine Glucose (UA) (NEG) NEGATIVE Urine Ketones (NEG) 1+ H Urine Blood (NEG) 3+ H Urine Nitrite (NEG) POSITIVE H Urine Bilirubin (NEG) NEGATIVE Urine Urobilinogen (NEG mg/dL) NEGATIVE Ur Leukocyte Esterase (NEG) 3+ H Urine RBC (NONE SEEN #/hpf) TOO NUMEROUS TO CNT H Urine WBC (NONE SEEN #/hpf) TOO NUMEROUS TO CNT H Ur Epithelial Cells (RARE - FEW #/HPF) RARE Urine Bacteria (RARE - FEW /HPF) NEGATIVE Urine Mucus (NONE SEEN) 3+ Urine Yeast (NONE SEEN #/hpf) RARE H Diagnosis, Assessment Plan Free Text DxA P Notes Free Text DxA P Notes: I saw and examined patient at 0830 today. 24yo who is POD17 (06/08) s/p primary complicated by bladder injury (repair by urology Dr. Oh) who presents with sepsis with suspect urinary source (pyelonephritis) and severe constipation. S/p removal of vasquez catheter yesterday. - Sepsis: on mIVF, continue ceftriaxone 1g q24 hours, trend labs. Follow up UCx/ BCx - : appreciate urology consultation and recommendations. Per urology- ok to leave vasquez out for now. Suspect voiding dysfunction related to severe constipation - GI: bowel regimen for constipation. Will need to have BM prior to discharge at 1210 RPT #:[id number] END OF REPORT [facility] 2020-06-25 01:35:00 [facility] ([facility]) EMERGENCY PROVIDER REPORT REPORT#:[id number] REPORT STATUS: Signed DATE:06/25/20 TIME: 013 PATIENT: WILMA BATERS UNIT #: [id number] [address] AGE: 24 SEX: F PCP PHYS: Laureano Wolf MD SERVICE AUTHOR: Alf Patel MD * ALL edits or amendments must be made on the electronic/computer document * HPI-General Illness Free Text HPI Notes Free Text HPI Notes 24-year-old female G1, P1 status post , bladder injury, status post bladder repair with YELENA drain in place, stent today complaining of abdominal pain , fever, chills x1 day. Today patient saw urology Dr. Oh, had Vasquez catheter removed and cystogram. After urology follow-up patient started to have dysuria, fever and weakness. Pyelonephritis Cystitis Status post Vasquez removal Status post cystogram Bladder injury, status post repair Renal stent in place Fever Tachycardia Constipation UA: Nitrite, leukocyte, WBC, Normal CBC, CMP, lipase Sepsis protocol initiated CT abdomen pelvis with IV contrast showed pelvic inflammation, suspicion for abscess versus ovarian cyst, left kidney nephritis, thick urinary bladder wall. Pelvic ultrasound; did not show abscess or cyst suspected on CT, no POC. IV fluid, Rocephin Pyridium Toradol Discussed patient with Dr. Oh, urology accepted consult Dr. Maryann sears, I spoke to dr. Cristina, accepted for dr. Wolf, will see pt on the floor. General Initial Greet Date/Time 06/24/20 9173 Presentation Chief Complaint dysuria, fever Review of Systems ROS Statements All systems rev neg except as marked. Complete sys rev neg except as marked. Past Medical History - Adult Stated Complaint FEVER,SP 06/08,VASQUEZ CATH REMOVAL Allergies Coded Allergies: amoxicillin (HIVES 06/24/20) Home Medications Active Scripts IBUPROFEN (MOTRIN) 600 MG PO QID PRN PRN PAIN IBUPROFEN (MOTRIN) 600 MG PO QID PRN PRN PAIN #30 TABS Prov: 06/14/20 Discontinued Scripts NITROFURANTOIN/NITROFURAN MAC (MACROBID) 100 MG PO BID NITROFURANTOIN/NITROFURAN MAC (MACROBID) 100 MG PO BID #14 CAPS Prov: 06/18/20 DC: 07/01/20 1642 Change of medication oxyCODONE (ROXICODONE) 10 MG PO Q4H PRN PRN pain oxyCODONE (ROXICODONE) 10 MG PO Q4H PRN PRN pain #30 TABS Prov: 06/14/20 DC: 07/01/20 1643 Change of medication HYOSCYAMINE ODT (OSCIMIN) 0.125 MG PO Q4H PRN PRN bladder spasm HYOSCYAMINE ODT (OSCIMIN) 0.125 MG PO Q4H PRN PRN bladder spasm #30 TABS Prov: 06/14/20 DC: 07/01/20 1642 Change of medication Review of Nursing Notes Rev avail, and agree Smoking status for patients 13 years old or older: Never Smoker Physical Exam Vital Signs Vital Signs First Documented: Result Date Time Pulse Ox 97 06/24 2332 B/P 88/58 06/24 2332 B/P Mean 68 06/24 2332 O2 Delivery Room air 06/24 2332 Temp 38.0 06/24 2332 Pulse 115 06/24 2332 Resp 17 06/24 2332 Last Documented: Result Date Time B/P 93/59 06/25 107 B/P Mean 70 06/25 010 Pulse Ox 98 06/25 47 O2 Delivery Room air 06/25 47 Pulse 100 06/258 Resp 17 06/25 47 Temp 38.0 06/24 2332 Review of Vital Signs Reviewed Physical Exam General/Const General/Const Awake, Alert, Well appearing MS Head Head Normocephalic Ears/Nose/Throat Ears/Nose/Throat Airway patent, Mucous membranes moist, Pharynx NL Resp/Chest Respiratory/Chest Breath sounds NL, Breath sounds = bilat, No respiratory distress, No rales, No rhonchi, No wheezing Cardiovascular Cardiovascular Heart rate NL, Regular rhythm, Heart sounds NL, Cap refill not delayed, Peripheral circulation NL Abdomen/GI Abdomen/GI Soft, Non-tender, No guarding, No rebound Tenderness/Guarding/Rebound Tender suprapubic. Negative: Tender diffuse. MS Upper Extrem Upper Extremity/MS Inspection NL, No swelling, Non-tender, No erythema, No deformity, Neurologic intact, Vascular intact, No clubbing/cyanosis MS Wrist/Hand Wrist/Hand Inspection NL, No swelling, No erythema, Non-tender, No deformity, Neurologic intact, Vascular intact, No clubbing/cyanosis MS Lower Extrem Lower Ext/Pelvis/MS Inspection NL, No swelling, Non-tender, No erythema, No deformity, Neurologic intact, Vascular intact, No edema MS Ankle/Foot Ankle/Foot Inspection NL, No swelling, No erythema, Non-tender, No deformity, Neurologic intact, Vascular intact, No edema Skin Skin Color NL, Warm, Dry, Turgor NL Neurologic Neurologic Oriented X3, Speech NL, No motor deficits, No sensory deficits Psychiatric Psychiatric Affect NL, Mood NL, Thought content NL Interpretation Diagnostics Lab Results Interpretation Results Laboratory Tests 06/24/20 2347: [Embedded Image Not Available] Laboratory Tests: 06/25 06/24 06/24 0121 2347 2347 Chemistry Sodium (135 - 145 mEq/L) 138 Potassium (3.5 - 5.0 mEq/L) 3.1 L Chloride (100 - 115 mEq/L) 101 Carbon Dioxide (22 - 31 mEq/L) 27 Anion Gap (10 - 20) 13.30 BUN (7 - 18 mg/dL) 13 Creatinine (0.5 - 1.0 mg/dL) 0.9 Glomerular Filtr Rate (>60 ml/min) 78 Glucose (65 - 110 mg/dL) 163 H Lactic Acid (0.5 - 2.2 MMOL/L) 1.2 Calcium (8.4 - 10.2 mg/dL) 8.0 L Total Bilirubin (0.2 - 1.0 mg/dL) 0.3 AST (15 - 37 units/L) 14 L ALT (12 - 78 units/L) 13 Total Alk Phosphatase (46 - 116 units/L) 88 Troponin I (<0.056 ng/mL) <0.017 Total Protein (6.3 - 8.2 gm/dL) 6.7 Albumin (3.4 - 4.8 gm/dL) 2.7 L Lipase (73 - 393 units/L) 84 Coagulation PT (10.4 - 12.4 secs) 13.2 H INR 1.22 PTT (Boo) (22 - 38 secs) 35.9 Hematology WBC (6.6 - 12.1 K/mm3) 7.3 RBC (3.45 - 5.01 M/mm3) 3.56 Hgb (10.7 - 13.9 g/dL) 9.4 L Hct (32.1 - 42.1 %) 30.7 L MCV (84.1 - 94.8 fL) 86 MCH (27 - 35 pg) 26.4 L MCHC (32.2 - 34.1 gm/dL) 30.6 L RDW (12.4 - 16.5 %) 15.1 Plt Count (133 - 385 K/mm3) 626 H MPV (9.1 - 12.7 fl) 10.2 Neut % (Auto) (56.5 - 79.4 %) 71.4 Lymph % (Auto) (14.3 - 34.3 %) 19.5 [place] % (Auto) (5.1 - 10.4 %) 5.1 Eos % (Auto) (0.1 - 3.0 %) 2.5 Baso % (Auto) (0.1 - 1.0 %) 1.1 H Neut # (Auto) (K/mm3) 5.2 Lymph # (Auto) (K/mm3) 1.4 [place] # (Auto) (K/mm3) 0.4 Eos # (Auto) (K/mm3) 0.18 Baso # (Auto) (K/mm3) 0.1 Serology SARS CoV-2 RNA Rapid FANG (Negative) Negative 06/24 2345 Urines Urine Color (YELLOW) FAMILIA A Urine Appearance (CLEAR) CLOUDY A Urine pH (5 - 9) 6.0 Ur Specific [place] (1.001 - 1.035) 1.014 Urine Protein (NEG) 2+ H Urine Glucose (UA) (NEG) NEGATIVE Urine Ketones (NEG) 1+ H Urine Blood (NEG) 3+ H Urine Nitrite (NEG) POSITIVE H Urine Bilirubin (NEG) NEGATIVE Urine Urobilinogen (NEG mg/dL) NEGATIVE Ur Leukocyte Esterase (NEG) 3+ H Urine RBC (NONE SEEN #/hpf) TOO NUMEROUS TO CNT H Urine WBC (NONE SEEN #/hpf) TOO NUMEROUS TO CNT H Ur Epithelial Cells (RARE - FEW #/HPF) RARE Urine Bacteria (RARE - FEW /HPF) NEGATIVE Urine Mucus (NONE SEEN) 3+ Urine Yeast (NONE SEEN #/hpf) RARE H Microbiology: Date/Time Procedure - Status Source Growth 06/24 2346 Blood Culture - COMP BLOOD 06/24 2346 Blood Culture Gram Stain - COMP BLOOD 06/24 2346 Blood Culture - COMP BLOOD 06/24 2346 Blood Culture Gram Stain - COMP BLOOD 06/24 2344 Urine Culture - COMP URINE PSEUDOMONAS AERUGINOSA Recent Impressions: RADIOLOGY - XR CHEST 1 V 06/24 2359 Report Impression - Status: SIGNED Entered: 06/25/2020 0036 Impression: No acute cardiopulmonary findings. Impression By: [email or web address] - ADAM NAVAS MD CAT SCAN - CT ABD PELVIS W/CONT 06/25 0121 Report Impression - Status: SIGNED Entered: 06/25/2020 0156 IMPRESSION: Mild to moderate induration within the [...] placement. Prominent to enlarged recently uterus. SL: TPAINTER-H Impression By: David Shields MD ULTRASOUND - DUP AB/PEL/SC/LTD 06/25 0135 Report Impression - Status: SIGNED Entered: 06/25/2020 0213 IMPRESSION: Mildly prominent to enlarged heterogeneous recently uterus. Mild endometrial fluid without solid components or hyperemia to suggest retained products of conception. The right hemipelvis fluid seen on recent CT is not demonstrated on this examination. However, no right ovarian cystic lesion is present on ultrasound suggesting the fluid seen on recent CT either represents free fluid or developing abscess. Incompletely visualized under distended thick-walled urinary bladder containing the distal extents of bilateral ureteral stents. SL: TPAINTER-H Impression By: David Shields MD ULTRASOUND - US PELVIS COMPLETE 06/25 0135 Report Impression - Status: SIGNED Entered: 06/25/2020 0213 IMPRESSION: Mildly prominent to enlarged heterogeneous recently uterus. Mild endometrial fluid without solid components or hyperemia to suggest retained products of conception. The right hemipelvis fluid seen on recent CT is not demonstrated on this examination. However, no right ovarian cystic lesion is present on ultrasound suggesting the fluid seen on recent CT either represents free fluid or developing abscess. Incompletely visualized under distended thick-walled urinary bladder containing the distal extents of bilateral ureteral stents. SL: TPAINTER-H Impression By: David Shields MD Lab Statement Laboratory studies reviewed and considered in the medical decision-making. Imaging Statement Radiographic studies reviewed and considered in the medical decision-making. Lab Imaging Statement Laboratory radiographic studies reviewed and considered in the medical decision-making. Point of Care Testing Pulse Oximetry Pulse Ox % 99 On: Room air Interpretation Interpreted by me, Pulse oximetry normal Time 0619 ECG #1 Interpretation ECG Documented in MUSE Yes Date 06/24/20 Time 2354 Interpreted by and reviewed by me, ED physician NL ECG Interpretation Normal rate, No acute ischemic changes, No STEMI, Normal QRS, Normal ST waves, Normal T waves, Normal axis, Normal intervals, No change from prior ECGs, Adequate tracing Rate 101 Rhythm Tachycardia ECG Interpretation Note The ECG interpretation was done contemporaneously by me. This is an adequate tracing. There is no acute ischemia; the rhythm is normal sinus; VT does not demonstrate AV heart block; QRS does not demonstrate a bundle branch block; ST and T waves do not show any ST elevation to suggest acute [place]; see [place] for details and measurements; agree with computer interpretation. Re-Evaluation MDM ED Course Medication(s) Ordered Medication(s) Ordered: Electrolytic, Caloric, And Bandar Sig/Newton Start time Last Medication Dose Route Stop Time Status Admin Sodium Chloride 1,000 ML X1ED ONE 06/24 2345 DCD 06/24 IV 08/05 [id number] Consultation Consultation Referral/Consult Name Gilmar Oh MD Deputy General Counsel Called GOVERNMENT CLERK, On-call physician Requested Call Time 0142 Requested Call Date 06/25/20 Call Returned Call returned Call Returned Time 0142 Call Returned Date 06/25/20 Deputy General Counsel Will see patient, Will see in office, Agrees with eval, Agrees with plan Free Text Consult Notes accepted consult. will see pt in the morning. Patient Discharge Departure Vital Signs/Condition Vital Signs First Documented: Result Date Time Pulse Ox 97 06/24 2332 B/P 88/58 06/24 2332 B/P Mean 68 06/24 2332 O2 Delivery Room air 06/24 2332 Temp 38.0 06/24 2332 Pulse 115 06/24 2332 Resp 17 06/24 2332 Last Documented: Result Date Time B/P 93/59 06/25 107 B/P Mean 70 06/25 107 Pulse Ox 98 06/25 47 O2 Delivery Room air 06/25 47 Pulse 100 06/25 47 Resp 17 06/25 47 Temp 38.0 06/24 2332 All vital signs available at the time of this entry have been reviewed. Condition Stable, Improved Clinical Impression Clinical Impression Primary Impression: Pyelonephritis Secondary Impressions: [place] corcoran drain site pain, S/P bladder repair, S/P C- section Time of Impression 0153 Disposition Decision Admit Admit Physician Name Laureano Wolf MD Admit Physician Primary Care Physician, GOVERNMENT CLERK, Flight Crew Time Clerk Physician Request Time 015 Request Date 06/25/20 )( Admission Accepts Yes )( Accepted Time 015 )( Accepted Date 06/25/20 Call Information will see patient, agrees with eval, agrees with plan Discharge/Care Plan Counseled Regarding Diagnosis, Lab results, Imaging studies, Need for admission, Need for follow-up, When to return to ED Rx Drug Database Reviewed Yes (Auto) Prescriptions Current Visit Scripts DOCUSATE SODIUM (COLACE) 100 MG PO 00,2099 DOCUSATE SODIUM (COLACE) 100 MG PO 00,2099 #60 CAP MAGNESIUM CITRATE (CITROMA 1.745 GM/30ML) 150 ML PO DAILY MAGNESIUM CITRATE (CITROMA 1.745 GM/30ML) 150 ML PO DAILY #300 ML SENNA (SENOKOT) 1 TAB PO DAILY 1700 SENNA (SENOKOT) 1 TAB PO DAILY 1700 #60 TAB Admit Note I have spoken with the patient and/or caregivers. I have explained the patient's condition, diagnoses and treatment plan based on the information available to me at this time. I have answered the patient's and/or caregiver's questions and addressed any concerns. The patient and/or caregivers have as good an understanding of the patient's diagnosis, condition and treatment plan as can be expected at this point. The patient has been stabilized within the capability of the emergency department. The patient will be transported for further care and management or will be moved to an observation or inpatient service. I have communicated with the staff or medical practitioner taking over this patient's care. Quality Measures BP F/U for HTN F/u with PCP/other doc 12-Lead ECG for CP Performed documented US in Preg w/AP/VB Trans-abd/vag US done, Not Preg Test for Women w/Abd Pain Female age 14-50 Smoking Cessation Screened, non user Tobacco Screening/Cessation 18 years or older, Denies tobacco use at 1641 RPT #:[id number] END OF REPORT [facility] 2020-06-24 23:54:00 [id number] [facility] [address], [place] [address] PATIENT NAME: WILMA BATRES ADMIT DATE: 06/25/20 ACCOUNT NO: [id number] ROOM NO: [id number] AGE: 24 SEX: F ADMITTING PHYSICIAN: Laureano Wolf MD ATTENDING PHYSICIAN: Laureano Wolf MD Order: [id number] Test Reason : CODE SEPSIS PROTOCOL Test Date/Time Stamp: WedJun 24 2020 23:54:35 Blood Pressure : / mmHG Vent. Rate : 101 BPM Atrial Rate : 101 BPM P-R Int : 118 ms QRS Dur : 072 ms QT Int : 350 ms P-R-T Axes : 045 058 042 degrees QTc Int : 453 ms Sinus tachycardia Otherwise normal ECG No previous ECGs available Confirmed by ALBA JACOBO MD ([id number]) on 06/25/2020 2:57:22 PM Referred By: No Physician Confirmed by:ALBA JACOBO MD at 1457 PATIENT NAME: WILMA BATRES [facility] 2020-06-18 18:15:00 [facility] ([facility]) EMERGENCY PROVIDER REPORT REPORT#:[id number] REPORT STATUS: Signed DATE:06/18/20 TIME: 1814 PATIENT: WILMA BATRES UNIT #: [id number] ROOM/BED: AGE: 24 SEX: F PCP PHYS: Laureano Wolf MD SERVICE AUTHOR: Yaw Ross MD * ALL edits or amendments must be made on the electronic/computer document * HPI-General Illness General Initial Greet Date/Time 06/18/20 1649 Presentation Chief Complaint Abdominal pain Context Additional Context 24 years old patient no past medical history presents 10 days status post C- section complicated with a bladder injury s/p repair, currently patient has 2 stents , a YELENA drain and a vasquez catheter, she presents complaining of increasing tenderness in right side of her belly associated to bulging sensation of the area, denies vomiting, fever, chills , urinary symptoms or any other complaints. Review of Systems ROS Statements All systems rev neg except as marked. Review of Systems Constitutional Denies: Fatigue, Fever, Lethargy, Recent wt loss. Eyes Denies: Blurred L, Diplopia, Discharge L, Eye pain R, Eye pain bilat, Redness R, Redness L. Ears/Nose/Throat Denies: Ear drainage L, Ear ringing R, Ear ringing bilat, Earache bilat, Hearing loss R, Mouth pain, Nasal congestion. Respiratory Denies: Cough, productive, Hemoptysis, Pleuritic pain, Wheezing. Cardiovascular Denies: Dyspnea on exertion, Orthopnea, Parox nocturnal dyspnea. GI Reports: Abdominal pain. Denies: Belching, Diarrhea, Hematemesis, Mucousy stool , Nausea, Rectal pain. Female Denies: Hematuria, Pelvic pain, Urinary urgency, Urination increased. Musculoskeletal Denies: Extremity swelling, Joint swelling, Myalgia. Hematologic Denies: Adenopathy, Bruising. Endocrine Denies: Heat intolerance, Polyuria, Weight loss. Skin Denies: Abscess, Erythema, Laceration, Swelling. Past Medical History - Adult Stated Complaint DOC SENT OVER FOR CT Allergies Coded Allergies: amoxicillin (HIVES 06/18/20) Home Medications Active Scripts oxyCODONE (ROXICODONE) 10 MG PO Q4H PRN PRN pain oxyCODONE (ROXICODONE) 10 MG PO Q4H PRN PRN pain #30 TABS Prov: 06/14/20 HYOSCYAMINE ODT (OSCIMIN) 0.125 MG PO Q4H PRN PRN bladder spasm HYOSCYAMINE ODT (OSCIMIN) 0.125 MG PO Q4H PRN PRN bladder spasm #30 TABS Prov: 06/14/20 IBUPROFEN (MOTRIN) 600 MG PO QID PRN PRN PAIN IBUPROFEN (MOTRIN) 600 MG PO QID PRN PRN PAIN #30 TABS Prov: 06/14/20 Discontinued Reported Medications PNV WITH FE FUMARATE/FA () 1 TAB PO DAILY Physical Exam Vital Signs Vital Signs First Documented: Result Date Time Pulse Ox 100 06/18 1708 B/P 93/63 06/18 1708 B/P Mean 73 06/18 1708 O2 Delivery Room air 06/18 1708 Temp 36.8 06/18 1708 Pulse 71 06/18 1708 Resp 16 06/18 1708 Last Documented: Result Date Time Pulse Ox 100 06/18 1708 B/P 93/63 06/18 1708 B/P Mean 73 06/18 1708 O2 Delivery Room air 06/18 1708 Temp 36.8 06/18 1708 Pulse 71 06/18 1708 Resp 16 06/18 1708 Review of Vital Signs Reviewed, Vital signs normal Physical Exam General/Const General/Const Alert, Well appearing, Well developed, Well nourished MS Head Head Atraumatic, Normocephalic Eyes Eyes Atraumatic, EOMI, No nystagmus, No periorbital swelling, No photophobia Ears/Nose/Throat Ears/Nose/Throat Mucous membranes moist, No peritonsillar abscess, No pooling of secretions, No trismus MS Neck Neck Supple, Full range of motion, No swelling, Non-tender Resp/Chest Respiratory/Chest Breath sounds NL, Breath sounds = bilat, No rales, No rhonchi, No wheezing Cardiovascular Cardiovascular Regular rhythm, No gallop, No rubs, Cap refill not delayed Abdomen/GI Tenderness/Guarding/Rebound Tender RLQ, Tender flank R. MS Back Back Inspection NL, Full range of motion, Non-tender, No midline vertebral tend Lymphatic Lymphatic No cervical adenopathy, No axillary adenopathy MS Upper Extrem Upper Extremity/MS Inspection NL, No swelling, Non-tender, No snuffbox tenderness, No erythema Interpretation Diagnostics Lab Results Interpretation Results Laboratory Tests: 06/18 1703 Urines Urine Color (YELLOW) YELLOW Urine Appearance (CLEAR) CLOUDY Urine pH (5 - 9) 6.0 Ur Specific [place] (1.001 - 1.035) 1.011 Urine Protein (NEG) 2+ H Urine Glucose (UA) (NEG) NEGATIVE Urine Ketones (NEG) NEGATIVE Urine Blood (NEG) 3+ H Urine Nitrite (NEG) NEG Urine Bilirubin (NEG) NEGATIVE Urine Urobilinogen (NEG mg/dL) NEGATIVE Ur Leukocyte Esterase (NEG) 2+ H Urine RBC (NONE SEEN #/hpf) TOO NUMEROUS TO CNT H Urine WBC (NONE SEEN #/hpf) 16-20 H Ur Epithelial Cells (RARE - FEW #/HPF) FEW Urine Bacteria (RARE - FEW /HPF) FEW Urine Mucus (NONE SEEN) RARE Microbiology: Date/Time Procedure - Status Source Growth 06/18 1721 Urine Culture - RECD URINE Re-Evaluation MDM ED Course Medication(s) Ordered Medication(s) Ordered: Diagnostic Agents Sig/Newton Start time Last Medication Dose Route Stop Time Status Admin Diatrizoate Meglum/ 40 ML .STK-MED ONE 06/18 175 DC 06/18 Diatrizoate Sod PO 06/18 1754 1753 Patient Discharge Departure Vital Signs/Condition Vital Signs First Documented: Result Date Time Pulse Ox 100 06/18 1708 B/P 93/63 06/18 1708 B/P Mean 73 06/18 1708 O2 Delivery Room air 06/18 1708 Temp 36.8 06/18 1708 Pulse 71 06/18 1708 Resp 16 06/18 1708 Last Documented: Result Date Time Pulse Ox 100 06/18 1708 B/P 93/63 06/18 1708 B/P Mean 73 06/18 1708 O2 Delivery Room air 06/18 1708 Temp 36.8 06/18 1708 Pulse 71 06/18 1708 Resp 16 06/18 1708 All vital signs available at the time of this entry have been reviewed. Condition Stable, Improved Clinical Impression Clinical Impression Primary Impression: Abdominal pain Time of Impression 1825 Pt/Provider Handoff Care Transferred to Dr Hanson Care Transferred at 1825 Discussed Complaint(s) Yes at 1825 RPT #:[id number] END OF REPORT [facility] 2020-06-18 18:15:00 [facility] ([facility]) EMERGENCY PROVIDER REPORT REPORT#:[id number] REPORT STATUS: Signed DATE:06/18/20 TIME: 1814 PATIENT: WILMA BATRES UNIT #: [id number] ROOM/BED: AGE: 24 SEX: F PCP PHYS: Laureano Wolf MD SERVICE AUTHOR: Yaw Ross MD * ALL edits or amendments must be made on the electronic/computer document * Yaw Carlisle 06/18/201814: HPI-General Illness Presentation Chief Complaint Abdominal pain Context Additional Context 24 years old patient no past medical history presents 10 days status post C- section complicated with a bladder injury s/p repair, currently patient has 2 stents , a YELENA drain and a vasquez catheter, she presents complaining of increasing tenderness in right side of her belly associated to bulging sensation of the area, denies vomiting, fever, chills , urinary symptoms or any other complaints. Review of Systems ROS Statements All systems rev neg except as marked. Review of Systems Constitutional Denies: Fatigue, Fever, Lethargy, Recent wt loss. Eyes Denies: Blurred L, Diplopia, Discharge L, Eye pain R, Eye pain bilat, Redness R, Redness L. Ears/Nose/Throat Denies: Ear drainage L, Ear ringing R, Ear ringing bilat, Earache bilat, Hearing loss R, Mouth pain, Nasal congestion. Respiratory Denies: Cough, productive, Hemoptysis, Pleuritic pain, Wheezing. Cardiovascular Denies: Dyspnea on exertion, Orthopnea, Parox nocturnal dyspnea. GI Reports: Abdominal pain. Denies: Belching, Diarrhea, Hematemesis, Mucousy stool , Nausea, Rectal pain. Female Denies: Hematuria, Pelvic pain, Urinary urgency, Urination increased. Musculoskeletal Denies: Extremity swelling, Joint swelling, Myalgia. Hematologic Denies: Adenopathy, Bruising. Endocrine Denies: Heat intolerance, Polyuria, Weight loss. Skin Denies: Abscess, Erythema, Laceration, Swelling. Past Medical History - Adult Stated Complaint DOC SENT OVER FOR CT Allergies Coded Allergies: amoxicillin (HIVES 06/18/20) Home Medications Active Scripts oxyCODONE (ROXICODONE) 10 MG PO Q4H PRN PRN pain oxyCODONE (ROXICODONE) 10 MG PO Q4H PRN PRN pain #30 TABS Prov: 06/14/20 HYOSCYAMINE ODT (OSCIMIN) 0.125 MG PO Q4H PRN PRN bladder spasm HYOSCYAMINE ODT (OSCIMIN) 0.125 MG PO Q4H PRN PRN bladder spasm #30 TABS Prov: 06/14/20 IBUPROFEN (MOTRIN) 600 MG PO QID PRN PRN PAIN IBUPROFEN (MOTRIN) 600 MG PO QID PRN PRN PAIN #30 TABS Prov: 06/14/20 Discontinued Reported Medications PNV WITH FE FUMARATE/FA () 1 TAB PO DAILY Physical Exam Vital Signs Vital Signs First Documented: Result Date Time Pulse Ox 100 06/18 1708 B/P 93/63 06/18 1708 B/P Mean 73 06/18 1708 O2 Delivery Room air 06/18 1708 Temp 98.3 06/18 1708 Pulse 71 06/18 1708 Resp 16 06/18 1708 Last Documented: Result Date Time Pulse Ox 100 06/18 1708 B/P 93/63 06/18 1708 B/P Mean 73 06/18 1708 O2 Delivery Room air 06/18 1708 Temp 98.3 06/18 1708 Pulse 71 06/18 1708 Resp 16 06/18 1708 Review of Vital Signs Reviewed, Vital signs normal Physical Exam General/Const General/Const Alert, Well appearing, Well developed, Well nourished MS Head Head Atraumatic, Normocephalic Eyes Eyes Atraumatic, EOMI, No nystagmus, No periorbital swelling, No photophobia Ears/Nose/Throat Ears/Nose/Throat Mucous membranes moist, No peritonsillar abscess, No pooling of secretions, No trismus MS Neck Neck Supple, Full range of motion, No swelling, Non-tender Resp/Chest Respiratory/Chest Breath sounds NL, Breath sounds = bilat, No rales, No rhonchi, No wheezing Cardiovascular Cardiovascular Regular rhythm, No gallop, No rubs, Cap refill not delayed Abdomen/GI Tenderness/Guarding/Rebound Tender RLQ, Tender flank R. MS Back Back Inspection NL, Full range of motion, Non-tender, No midline vertebral tend Lymphatic Lymphatic No cervical adenopathy, No axillary adenopathy MS Upper Extrem Upper Extremity/MS Inspection NL, No swelling, Non-tender, No snuffbox tenderness, No erythema Interpretation Diagnostics Lab Results Interpretation Results Laboratory Tests 06/18/201829: [Embedded Image Not Available] Laboratory Tests: 06/18 1703 Chemistry Sodium (135 - 145 mEq/L) 142 Potassium (3.5 - 5.0 mEq/L) 4.0 Chloride (100 - 115 mEq/L) 105 Carbon Dioxide (22 - 31 mEq/L) 30 Anion Gap (10 - 20) 11.10 BUN (7 - 18 mg/dL) 11 Creatinine (0.5 - 1.0 mg/dL) 0.8 Glomerular Filtr Rate (>60 ml/min) 90 Glucose (65 - 110 mg/dL) 78 Calcium (8.4 - 10.2 mg/dL) 7.8 L Total Bilirubin (0.2 - 1.0 mg/dL) 0.2 AST (15 - 37 units/L) 22 ALT (12 - 78 units/L) 21 Total Alk Phosphatase (46 - 116 units/L) 96 Total Protein (6.3 - 8.2 gm/dL) 5.7 L Albumin (3.4 - 4.8 gm/dL) 2.2 L Hematology WBC (6.6 - 12.1 K/mm3) 6.6 RBC (3.45 - 5.01 M/mm3) 3.31 L Hgb (10.7 - 13.9 g/dL) 8.8 L Hct (32.1 - 42.1 %) 29.0 L MCV (84.1 - 94.8 fL) 88 MCH (27 - 35 pg) 26.6 L MCHC (32.2 - 34.1 gm/dL) 30.3 L RDW (12.4 - 16.5 %) 14.9 Plt Count (133 - 385 K/mm3) 594 H MPV (9.1 - 12.7 fl) 9.5 Neut % (Auto) (56.5 - 79.4 %) 59.2 Lymph % (Auto) (14.3 - 34.3 %) 28.4 [place] % (Auto) (5.1 - 10.4 %) 4.9 L Eos % (Auto) (0.1 - 3.0 %) 5.9 H Baso % (Auto) (0.1 - 1.0 %) 0.8 Neut # (Auto) (K/mm3) 3.9 Lymph # (Auto) (K/mm3) 1.9 [place] # (Auto) (K/mm3) 0.3 Eos # (Auto) (K/mm3) 0.39 Baso # (Auto) (K/mm3) 0.1 Urines Urine Color (YELLOW) YELLOW Urine Appearance (CLEAR) CLOUDY A Urine pH (5 - 9) 6.0 Ur Specific [place] (1.001 - 1.035) 1.011 Urine Protein (NEG) 2+ H Urine Glucose (UA) (NEG) NEGATIVE Urine Ketones (NEG) NEGATIVE Urine Blood (NEG) 3+ H Urine Nitrite (NEG) NEG Urine Bilirubin (NEG) NEGATIVE Urine Urobilinogen (NEG mg/dL) NEGATIVE Ur Leukocyte Esterase (NEG) 2+ H Urine RBC (NONE SEEN #/hpf) TOO NUMEROUS TO CNT H Urine WBC (NONE SEEN #/hpf) 16-20 H Ur Epithelial Cells (RARE - FEW #/HPF) FEW Urine Bacteria (RARE - FEW /HPF) FEW Urine Mucus (NONE SEEN) RARE Microbiology: Date/Time Procedure - Status Source Growth 06/18 1721 Urine Culture - RECD URINE Recent Impressions: CAT SCAN - CT ABD PELVIS W/CONT 06/18 185 Report Impression - Status: SIGNED Entered: 06/18/2020 1940 IMPRESSION: 1. There are postoperative changes suggesting [...] bowel obstruction or perforation. 6. Normal appendix. Impression By: [email or web address] - Felix Shine, DO Re-Evaluation MDM ED Course Medication(s) Ordered Medication(s) Ordered: Diagnostic Agents Sig/Newotn Start time Last Medication Dose Route Stop Time Status Admin Iopamidol 100 ML .STK-MED ONE 06/18 1905 DC 06/18 IV 06/18 Diatrizoate Meglum/ 40 ML .STK-MED ONE 06/18 1753 DC 06/18 Diatrizoate Sod PO 06/18 Electrolytic, Caloric, And Bandar Sig/Newton Start time Last Medication Dose Route Stop Time Status Admin Sodium Chloride 1,000 ML X1ED STA 06/18 1920 DC 06/18 IV 06/18 Sodium Chloride 50 ML .STK-MED ONE 06/18 190 DC 06/18 IV 06/18 190 190 Patient Discharge Departure Vital Signs/Condition Vital Signs First Documented: Result Date Time Pulse Ox 100 06/18 1708 B/P 93/63 06/18 1708 B/P Mean 73 06/18 1708 O2 Delivery Room air 06/18 1708 Temp 98.3 06/18 1708 Pulse 71 06/18 1708 Resp 16 06/18 1708 Last Documented: Result Date Time Pulse Ox 100 06/18 1708 B/P 93/63 06/18 1708 B/P Mean 73 06/18 1708 O2 Delivery Room air 06/18 1708 Temp 98.3 06/18 1708 Pulse 71 06/18 1708 Resp 16 06/18 1708 All vital signs available at the time of this entry have been reviewed. Condition Stable, Improved Clinical Impression Clinical Impression Primary Impression: Abdominal pain Time of Impression 182 Pt/Provider Handoff Care Transferred to Dr Hanson Care Transferred at 1825 Discussed Complaint(s) Yes Khloe Hanson P 06/18/202128: HPI-General Illness General Initial Greet Date/Time 06/18/20 1649 Re-Evaluation MDM Re-Evaluation/Progress #1 Text/Dict Note Appears well in no distress. Patient states pain is currently 3/10. Patient requesting to eat. Awaiting callback from Dr. Wolf Time of Re-Eval 2128 Re-Eval Status Improved at 1825 RPT #:[id number] END OF REPORT [facility] 2020-06-18 18:15:00 [facility] ([facility]) EMERGENCY PROVIDER REPORT REPORT#:[id number] REPORT STATUS: Signed DATE:06/18/20 TIME: 1814 PATIENT: WILMA BATRES UNIT #: [id number] ROOM/BED: AGE: 24 SEX: F PCP PHYS: Laureano Wolf MD SERVICE AUTHOR: Yaw Ross MD * ALL edits or amendments must be made on the electronic/computer document * Yaw Carlisle 06/18/201814: HPI-General Illness Presentation Chief Complaint Abdominal pain Context Additional Context 24 years old patient no past medical history presents 10 days status post C- section complicated with a bladder injury s/p repair, currently patient has 2 stents , a YELENA drain and a vasquez catheter, she presents complaining of increasing tenderness in right side of her belly associated to bulging sensation of the area, denies vomiting, fever, chills , urinary symptoms or any other complaints. Review of Systems ROS Statements All systems rev neg except as marked. Review of Systems Constitutional Denies: Fatigue, Fever, Lethargy, Recent wt loss. Eyes Denies: Blurred L, Diplopia, Discharge L, Eye pain R, Eye pain bilat, Redness R, Redness L. Ears/Nose/Throat Denies: Ear drainage L, Ear ringing R, Ear ringing bilat, Earache bilat, Hearing loss R, Mouth pain, Nasal congestion. Respiratory Denies: Cough, productive, Hemoptysis, Pleuritic pain, Wheezing. Cardiovascular Denies: Dyspnea on exertion, Orthopnea, Parox nocturnal dyspnea. GI Reports: Abdominal pain. Denies: Belching, Diarrhea, Hematemesis, Mucousy stool , Nausea, Rectal pain. Female Denies: Hematuria, Pelvic pain, Urinary urgency, Urination increased. Musculoskeletal Denies: Extremity swelling, Joint swelling, Myalgia. Hematologic Denies: Adenopathy, Bruising. Endocrine Denies: Heat intolerance, Polyuria, Weight loss. Skin Denies: Abscess, Erythema, Laceration, Swelling. Past Medical History - Adult Stated Complaint DOC SENT OVER FOR CT Allergies Coded Allergies: amoxicillin (HIVES 06/18/20) Home Medications Active Scripts oxyCODONE (ROXICODONE) 10 MG PO Q4H PRN PRN pain oxyCODONE (ROXICODONE) 10 MG PO Q4H PRN PRN pain #30 TABS Prov: 06/14/20 HYOSCYAMINE ODT (OSCIMIN) 0.125 MG PO Q4H PRN PRN bladder spasm HYOSCYAMINE ODT (OSCIMIN) 0.125 MG PO Q4H PRN PRN bladder spasm #30 TABS Prov: 06/14/20 IBUPROFEN (MOTRIN) 600 MG PO QID PRN PRN PAIN IBUPROFEN (MOTRIN) 600 MG PO QID PRN PRN PAIN #30 TABS Prov: 06/14/20 Discontinued Reported Medications PNV WITH FE FUMARATE/FA () 1 TAB PO DAILY Physical Exam Vital Signs Vital Signs First Documented: Result Date Time Pulse Ox 100 06/18 1708 B/P 93/63 06/18 1708 B/P Mean 73 06/18 1708 O2 Delivery Room air 06/18 1708 Temp 98.3 06/18 1708 Pulse 71 06/18 1708 Resp 16 06/18 1708 Last Documented: Result Date Time Pulse Ox 100 06/18 1708 B/P 93/63 06/18 1708 B/P Mean 73 06/18 1708 O2 Delivery Room air 06/18 1708 Temp 98.3 06/18 1708 Pulse 71 06/18 1708 Resp 16 06/18 1708 Review of Vital Signs Reviewed, Vital signs normal Physical Exam General/Const General/Const Alert, Well appearing, Well developed, Well nourished MS Head Head Atraumatic, Normocephalic Eyes Eyes Atraumatic, EOMI, No nystagmus, No periorbital swelling, No photophobia Ears/Nose/Throat Ears/Nose/Throat Mucous membranes moist, No peritonsillar abscess, No pooling of secretions, No trismus MS Neck Neck Supple, Full range of motion, No swelling, Non-tender Resp/Chest Respiratory/Chest Breath sounds NL, Breath sounds = bilat, No rales, No rhonchi, No wheezing Cardiovascular Cardiovascular Regular rhythm, No gallop, No rubs, Cap refill not delayed Abdomen/GI Tenderness/Guarding/Rebound Tender RLQ, Tender flank R. MS Back Back Inspection NL, Full range of motion, Non-tender, No midline vertebral tend Lymphatic Lymphatic No cervical adenopathy, No axillary adenopathy MS Upper Extrem Upper Extremity/MS Inspection NL, No swelling, Non-tender, No snuffbox tenderness, No erythema Interpretation Diagnostics Lab Results Interpretation Results Laboratory Tests 06/18/201829: [Embedded Image Not Available] Laboratory Tests: 06/18 1703 Chemistry Sodium (135 - 145 mEq/L) 142 Potassium (3.5 - 5.0 mEq/L) 4.0 Chloride (100 - 115 mEq/L) 105 Carbon Dioxide (22 - 31 mEq/L) 30 Anion Gap (10 - 20) 11.10 BUN (7 - 18 mg/dL) 11 Creatinine (0.5 - 1.0 mg/dL) 0.8 Glomerular Filtr Rate (>60 ml/min) 90 Glucose (65 - 110 mg/dL) 78 Calcium (8.4 - 10.2 mg/dL) 7.8 L Total Bilirubin (0.2 - 1.0 mg/dL) 0.2 AST (15 - 37 units/L) 22 ALT (12 - 78 units/L) 21 Total Alk Phosphatase (46 - 116 units/L) 96 Total Protein (6.3 - 8.2 gm/dL) 5.7 L Albumin (3.4 - 4.8 gm/dL) 2.2 L Hematology WBC (6.6 - 12.1 K/mm3) 6.6 RBC (3.45 - 5.01 M/mm3) 3.31 L Hgb (10.7 - 13.9 g/dL) 8.8 L Hct (32.1 - 42.1 %) 29.0 L MCV (84.1 - 94.8 fL) 88 MCH (27 - 35 pg) 26.6 L MCHC (32.2 - 34.1 gm/dL) 30.3 L RDW (12.4 - 16.5 %) 14.9 Plt Count (133 - 385 K/mm3) 594 H MPV (9.1 - 12.7 fl) 9.5 Neut % (Auto) (56.5 - 79.4 %) 59.2 Lymph % (Auto) (14.3 - 34.3 %) 28.4 [place] % (Auto) (5.1 - 10.4 %) 4.9 L Eos % (Auto) (0.1 - 3.0 %) 5.9 H Baso % (Auto) (0.1 - 1.0 %) 0.8 Neut # (Auto) (K/mm3) 3.9 Lymph # (Auto) (K/mm3) 1.9 [place] # (Auto) (K/mm3) 0.3 Eos # (Auto) (K/mm3) 0.39 Baso # (Auto) (K/mm3) 0.1 Urines Urine Color (YELLOW) YELLOW Urine Appearance (CLEAR) CLOUDY A Urine pH (5 - 9) 6.0 Ur Specific [place] (1.001 - 1.035) 1.011 Urine Protein (NEG) 2+ H Urine Glucose (UA) (NEG) NEGATIVE Urine Ketones (NEG) NEGATIVE Urine Blood (NEG) 3+ H Urine Nitrite (NEG) NEG Urine Bilirubin (NEG) NEGATIVE Urine Urobilinogen (NEG mg/dL) NEGATIVE Ur Leukocyte Esterase (NEG) 2+ H Urine RBC (NONE SEEN #/hpf) TOO NUMEROUS TO CNT H Urine WBC (NONE SEEN #/hpf) 16-20 H Ur Epithelial Cells (RARE - FEW #/HPF) FEW Urine Bacteria (RARE - FEW /HPF) FEW Urine Mucus (NONE SEEN) RARE Microbiology: Date/Time Procedure - Status Source Growth 06/18 172 Urine Culture - RECD URINE Recent Impressions: CAT SCAN - CT ABD PELVIS W/CONT 06/18 1850 Report Impression - Status: SIGNED Entered: 06/18/2020 1940 IMPRESSION: 1. There are postoperative changes suggesting [...] bowel obstruction or perforation. 6. Normal appendix. Impression By: [id number] - Felix Shine, DO Re-Evaluation MDM ED Course Medication(s) Ordered Medication(s) Ordered: Diagnostic Agents Sig/Newton Start time Last Medication Dose Route Stop Time Status Admin Iopamidol 100 ML .STK-MED ONE 06/18 190 DC 06/18 IV 06/18 Diatrizoate Meglum/ 40 ML .STK-MED ONE 06/18 1753 DC 06/18 Diatrizoate Sod PO 06/18 Electrolytic, Caloric, And Bandar Sig/Newton Start time Last Medication Dose Route Stop Time Status Admin Sodium Chloride 1,000 ML X1ED STA 06/18 1920 DC 06/18 IV 06/18 1921 192 Sodium Chloride 50 ML .STK-MED ONE 06/18 190 DC 06/18 IV 06/18 1906 190 Patient Discharge Departure Vital Signs/Condition Vital Signs First Documented: Result Date Time Pulse Ox 100 06/18 1708 B/P 93/63 06/18 1708 B/P Mean 73 06/18 1708 O2 Delivery Room air 06/18 1708 Temp 98.3 06/18 1708 Pulse 71 06/18 1708 Resp 16 06/18 1708 Last Documented: Result Date Time Pulse Ox 100 06/18 1708 B/P 93/63 06/18 1708 B/P Mean 73 06/18 1708 O2 Delivery Room air 06/18 1708 Temp 98.3 06/18 1708 Pulse 71 06/18 1708 Resp 16 06/18 1708 All vital signs available at the time of this entry have been reviewed. Condition Stable, Improved Clinical Impression Clinical Impression Primary Impression: Abdominal pain Time of Impression 182 Pt/Provider Handoff Care Transferred to Dr Hanson Care Transferred at 182 Discussed Complaint(s) Yes Khloe Hanson P 06/18/202128: HPI-General Illness General Initial Greet Date/Time 06/18/20 164 Re-Evaluation MDM Re-Evaluation/Progress #1 Text/Dict Note Appears well in no distress. Patient states pain is currently 3/10. Patient requesting to eat. Awaiting callback from Dr. Wolf Time of Re-Eval 2128 Re-Eval Status Improved at 1825 RPT #:[id number] END OF REPORT [facility] 2020-06-18 18:15:00 [facility] ([facility]) EMERGENCY PROVIDER REPORT REPORT#:[id number] REPORT STATUS: Signed DATE:06/18/20 TIME: 1814 PATIENT: WILMA BATRES UNIT #: [id number] ROOM/BED: AGE: 24 SEX: F PCP PHYS: Laureano Wolf MD SERVICE AUTHOR: Yaw Ross MD * ALL edits or amendments must be made on the electronic/computer document * Yaw Carlisle 06/18/201814: HPI-General Illness Presentation Chief Complaint Abdominal pain Context Additional Context 24 years old patient no past medical history presents 10 days status post C- section complicated with a bladder injury s/p repair, currently patient has 2 stents , a YELENA drain and a vasquez catheter, she presents complaining of increasing tenderness in right side of her belly associated to bulging sensation of the area, denies vomiting, fever, chills , urinary symptoms or any other complaints. Review of Systems ROS Statements All systems rev neg except as marked. Review of Systems Constitutional Denies: Fatigue, Fever, Lethargy, Recent wt loss. Eyes Denies: Blurred L, Diplopia, Discharge L, Eye pain R, Eye pain bilat, Redness R, Redness L. Ears/Nose/Throat Denies: Ear drainage L, Ear ringing R, Ear ringing bilat, Earache bilat, Hearing loss R, Mouth pain, Nasal congestion. Respiratory Denies: Cough, productive, Hemoptysis, Pleuritic pain, Wheezing. Cardiovascular Denies: Dyspnea on exertion, Orthopnea, Parox nocturnal dyspnea. GI Reports: Abdominal pain. Denies: Belching, Diarrhea, Hematemesis, Mucousy stool , Nausea, Rectal pain. Female Denies: Hematuria, Pelvic pain, Urinary urgency, Urination increased. Musculoskeletal Denies: Extremity swelling, Joint swelling, Myalgia. Hematologic Denies: Adenopathy, Bruising. Endocrine Denies: Heat intolerance, Polyuria, Weight loss. Skin Denies: Abscess, Erythema, Laceration, Swelling. Past Medical History - Adult Stated Complaint DOC SENT OVER FOR CT Allergies Coded Allergies: amoxicillin (HIVES 06/18/20) Home Medications Active Scripts oxyCODONE (ROXICODONE) 10 MG PO Q4H PRN PRN pain oxyCODONE (ROXICODONE) 10 MG PO Q4H PRN PRN pain #30 TABS Prov: 06/14/20 HYOSCYAMINE ODT (OSCIMIN) 0.125 MG PO Q4H PRN PRN bladder spasm HYOSCYAMINE ODT (OSCIMIN) 0.125 MG PO Q4H PRN PRN bladder spasm #30 TABS Prov: 06/14/20 IBUPROFEN (MOTRIN) 600 MG PO QID PRN PRN PAIN IBUPROFEN (MOTRIN) 600 MG PO QID PRN PRN PAIN #30 TABS Prov: 06/14/20 Discontinued Reported Medications PNV WITH FE FUMARATE/FA () 1 TAB PO DAILY Physical Exam Vital Signs Vital Signs First Documented: Result Date Time Pulse Ox 100 06/18 1708 B/P 93/63 06/18 1708 B/P Mean 73 06/18 170 O2 Delivery Room air 06/18 170 Temp 98.3 06/18 170 Pulse 71 06/18 1708 Resp 16 06/18 1708 Last Documented: Result Date Time Pulse Ox 100 06/18 1708 B/P 93/63 06/18 1708 B/P Mean 73 06/18 170 O2 Delivery Room air 06/18 170 Temp 98.3 06/18 170 Pulse 71 06/18 170 Resp 16 06/18 1708 Review of Vital Signs Reviewed, Vital signs normal Physical Exam General/Const General/Const Alert, Well appearing, Well developed, Well nourished MS Head Head Atraumatic, Normocephalic Eyes Eyes Atraumatic, EOMI, No nystagmus, No periorbital swelling, No photophobia Ears/Nose/Throat Ears/Nose/Throat Mucous membranes moist, No peritonsillar abscess, No pooling of secretions, No trismus MS Neck Neck Supple, Full range of motion, No swelling, Non-tender Resp/Chest Respiratory/Chest Breath sounds NL, Breath sounds = bilat, No rales, No rhonchi, No wheezing Cardiovascular Cardiovascular Regular rhythm, No gallop, No rubs, Cap refill not delayed Abdomen/GI Tenderness/Guarding/Rebound Tender RLQ, Tender flank R. MS Back Back Inspection NL, Full range of motion, Non-tender, No midline vertebral tend Lymphatic Lymphatic No cervical adenopathy, No axillary adenopathy MS Upper Extrem Upper Extremity/MS Inspection NL, No swelling, Non-tender, No snuffbox tenderness, No erythema Interpretation Diagnostics Lab Results Interpretation Results Laboratory Tests 06/18/201829: [Embedded Image Not Available] Laboratory Tests: 06/18 1703 Chemistry Sodium (135 - 145 mEq/L) 142 Potassium (3.5 - 5.0 mEq/L) 4.0 Chloride (100 - 115 mEq/L) 105 Carbon Dioxide (22 - 31 mEq/L) 30 Anion Gap (10 - 20) 11.10 BUN (7 - 18 mg/dL) 11 Creatinine (0.5 - 1.0 mg/dL) 0.8 Glomerular Filtr Rate (>60 ml/min) 90 Glucose (65 - 110 mg/dL) 78 Calcium (8.4 - 10.2 mg/dL) 7.8 L Total Bilirubin (0.2 - 1.0 mg/dL) 0.2 AST (15 - 37 units/L) 22 ALT (12 - 78 units/L) 21 Total Alk Phosphatase (46 - 116 units/L) 96 Total Protein (6.3 - 8.2 gm/dL) 5.7 L Albumin (3.4 - 4.8 gm/dL) 2.2 L Hematology WBC (6.6 - 12.1 K/mm3) 6.6 RBC (3.45 - 5.01 M/mm3) 3.31 L Hgb (10.7 - 13.9 g/dL) 8.8 L Hct (32.1 - 42.1 %) 29.0 L MCV (84.1 - 94.8 fL) 88 MCH (27 - 35 pg) 26.6 L MCHC (32.2 - 34.1 gm/dL) 30.3 L RDW (12.4 - 16.5 %) 14.9 Plt Count (133 - 385 K/mm3) 594 H MPV (9.1 - 12.7 fl) 9.5 Neut % (Auto) (56.5 - 79.4 %) 59.2 Lymph % (Auto) (14.3 - 34.3 %) 28.4 [place] % (Auto) (5.1 - 10.4 %) 4.9 L Eos % (Auto) (0.1 - 3.0 %) 5.9 H Baso % (Auto) (0.1 - 1.0 %) 0.8 Neut # (Auto) (K/mm3) 3.9 Lymph # (Auto) (K/mm3) 1.9 [place] # (Auto) (K/mm3) 0.3 Eos # (Auto) (K/mm3) 0.39 Baso # (Auto) (K/mm3) 0.1 Urines Urine Color (YELLOW) YELLOW Urine Appearance (CLEAR) CLOUDY A Urine pH (5 - 9) 6.0 Ur Specific [place] (1.001 - 1.035) 1.011 Urine Protein (NEG) 2+ H Urine Glucose (UA) (NEG) NEGATIVE Urine Ketones (NEG) NEGATIVE Urine Blood (NEG) 3+ H Urine Nitrite (NEG) NEG Urine Bilirubin (NEG) NEGATIVE Urine Urobilinogen (NEG mg/dL) NEGATIVE Ur Leukocyte Esterase (NEG) 2+ H Urine RBC (NONE SEEN #/hpf) TOO NUMEROUS TO CNT H Urine WBC (NONE SEEN #/hpf) 16-20 H Ur Epithelial Cells (RARE - FEW #/HPF) FEW Urine Bacteria (RARE - FEW /HPF) FEW Urine Mucus (NONE SEEN) RARE Microbiology: Date/Time Procedure - Status Source Growth 06/18 1721 Urine Culture - RECD URINE Recent Impressions: CAT SCAN - CT ABD PELVIS W/CONT 06/18 1850 Report Impression - Status: SIGNED Entered: 06/18/2020 1940 IMPRESSION: 1. There are postoperative changes suggesting [...] bowel obstruction or perforation. 6. Normal appendix. Impression By: [id number] - Felix Shine, DO Re-Evaluation MDM ED Course Medication(s) Ordered Medication(s) Ordered: Diagnostic Agents Sig/Newton Start time Last Medication Dose Route Stop Time Status Admin Iopamidol 100 ML .STK-MED ONE 06/18 1905 DC 06/18 IV 06/18 Diatrizoate Meglum/ 40 ML .STK-MED ONE 06/18 1753 DC 06/18 Diatrizoate Sod PO 06/18 Electrolytic, Caloric, And Bandar Sig/Newton Start time Last Medication Dose Route Stop Time Status Admin Sodium Chloride 1,000 ML X1ED STA 06/180 DC 06/18 IV 06/18 1921 1920 Sodium Chloride 50 ML .STK-MED ONE 06/18 190 DC 06/18 IV 06/18 1906 190 Patient Discharge Departure Vital Signs/Condition Vital Signs First Documented: Result Date Time Pulse Ox 100 06/18 1708 B/P 93/63 06/18 1708 B/P Mean 73 06/18 1708 O2 Delivery Room air 06/18 1708 Temp 98.3 06/18 1708 Pulse 71 06/18 1708 Resp 16 06/18 1708 Last Documented: Result Date Time Pulse Ox 100 06/18 1708 B/P 93/63 06/18 1708 B/P Mean 73 06/18 1708 O2 Delivery Room air 06/18 1708 Temp 98.3 06/18 1708 Pulse 71 06/18 1708 Resp 16 06/18 1708 All vital signs available at the time of this entry have been reviewed. Condition Stable, Improved Clinical Impression Clinical Impression Primary Impression: Abdominal pain Time of Impression 182 Pt/Provider Handoff Care Transferred to Dr Hanson Care Transferred at 182 Discussed Complaint(s) Yes Khloe Hanson 06/18/202128: HPI-General Illness General Initial Greet Date/Time 06/18/20 1649 Re-Evaluation MDM Re-Evaluation/Progress #1 Text/Dict Note Appears well in no distress. Patient states pain is currently 3/10. Patient requesting to eat. Awaiting callback from Dr. Wolf Time of Re-Eval 2128 Re-Eval Status Improved Consultation Consultation Referral/Consult Name Laureano Wolf MD Deputy General Counsel Called GOVERNMENT CLERK, On-call physician Requested Call Time 2147 Requested Call Date 06/18/20 Call Returned Call returned Call Returned Time 2147 Call Returned Date 06/18/20 at 1825 RPT #:[id number] END OF REPORT [facility] 2020-06-18 18:15:00 [facility] ([facility]) EMERGENCY PROVIDER REPORT REPORT#:[id number] REPORT STATUS: Signed DATE:06/18/20 TIME: 1814 PATIENT: WILMA BATRES UNIT #: [id number] ROOM/BED: AGE: 24 SEX: F PCP PHYS: Laureano Wolf MD SERVICE AUTHOR: Yaw Ross MD * ALL edits or amendments must be made on the electronic/computer document * Yaw Carlisle 06/18/20 1815: HPI-General Illness Presentation Chief Complaint Abdominal pain Context Additional Context 24 years old patient no past medical history presents 10 days status post C- section complicated with a bladder injury s/p repair, currently patient has 2 stents , a YELENA drain and a vasquez catheter, she presents complaining of increasing tenderness in right side of her belly associated to bulging sensation of the area, denies vomiting, fever, chills , urinary symptoms or any other complaints. Review of Systems ROS Statements All systems rev neg except as marked. Review of Systems Constitutional Denies: Fatigue, Fever, Lethargy, Recent wt loss. Eyes Denies: Blurred L, Diplopia, Discharge L, Eye pain R, Eye pain bilat, Redness R, Redness L. Ears/Nose/Throat Denies: Ear drainage L, Ear ringing R, Ear ringing bilat, Earache bilat, Hearing loss R, Mouth pain, Nasal congestion. Respiratory Denies: Cough, productive, Hemoptysis, Pleuritic pain, Wheezing. Cardiovascular Denies: Dyspnea on exertion, Orthopnea, Parox nocturnal dyspnea. GI Reports: Abdominal pain. Denies: Belching, Diarrhea, Hematemesis, Mucousy stool , Nausea, Rectal pain. Female Denies: Hematuria, Pelvic pain, Urinary urgency, Urination increased. Musculoskeletal Denies: Extremity swelling, Joint swelling, Myalgia. Hematologic Denies: Adenopathy, Bruising. Endocrine Denies: Heat intolerance, Polyuria, Weight loss. Skin Denies: Abscess, Erythema, Laceration, Swelling. Past Medical History - Adult Stated Complaint DOC SENT OVER FOR CT Allergies Coded Allergies: amoxicillin (HIVES 06/18/20) Home Medications Active Scripts oxyCODONE (ROXICODONE) 10 MG PO Q4H PRN PRN pain oxyCODONE (ROXICODONE) 10 MG PO Q4H PRN PRN pain #30 TABS Prov: 06/14/20 HYOSCYAMINE ODT (OSCIMIN) 0.125 MG PO Q4H PRN PRN bladder spasm HYOSCYAMINE ODT (OSCIMIN) 0.125 MG PO Q4H PRN PRN bladder spasm #30 TABS Prov: 06/14/20 IBUPROFEN (MOTRIN) 600 MG PO QID PRN PRN PAIN IBUPROFEN (MOTRIN) 600 MG PO QID PRN PRN PAIN #30 TABS Prov: 06/14/20 Discontinued Reported Medications PNV WITH FE FUMARATE/FA () 1 TAB PO DAILY Physical Exam Vital Signs Vital Signs First Documented: Result Date Time Pulse Ox 100 06/18 1708 B/P 93/63 06/18 1708 B/P Mean 73 06/18 1708 O2 Delivery Room air 06/18 1708 Temp 98.3 06/18 1708 Pulse 71 06/18 1708 Resp 16 06/18 1708 Last Documented: Result Date Time Pulse Ox 100 06/18 1708 B/P 93/63 06/18 1708 B/P Mean 73 06/18 1708 O2 Delivery Room air 06/18 1708 Temp 98.3 06/18 1708 Pulse 71 06/18 170 Resp 16 06/18 1708 Review of Vital Signs Reviewed, Vital signs normal Physical Exam General/Const General/Const Alert, Well appearing, Well developed, Well nourished MS Head Head Atraumatic, Normocephalic Eyes Eyes Atraumatic, EOMI, No nystagmus, No periorbital swelling, No photophobia Ears/Nose/Throat Ears/Nose/Throat Mucous membranes moist, No peritonsillar abscess, No pooling of secretions, No trismus MS Neck Neck Supple, Full range of motion, No swelling, Non-tender Resp/Chest Respiratory/Chest Breath sounds NL, Breath sounds = bilat, No rales, No rhonchi, No wheezing Cardiovascular Cardiovascular Regular rhythm, No gallop, No rubs, Cap refill not delayed Abdomen/GI Tenderness/Guarding/Rebound Tender RLQ, Tender flank R. MS Back Back Inspection NL, Full range of motion, Non-tender, No midline vertebral tend Lymphatic Lymphatic No cervical adenopathy, No axillary adenopathy MS Upper Extrem Upper Extremity/MS Inspection NL, No swelling, Non-tender, No snuffbox tenderness, No erythema Interpretation Diagnostics Lab Results Interpretation Results Laboratory Tests 06/18/201829: [Embedded Image Not Available] Laboratory Tests: 06/18 1703 Chemistry Sodium (135 - 145 mEq/L) 142 Potassium (3.5 - 5.0 mEq/L) 4.0 Chloride (100 - 115 mEq/L) 105 Carbon Dioxide (22 - 31 mEq/L) 30 Anion Gap (10 - 20) 11.10 BUN (7 - 18 mg/dL) 11 Creatinine (0.5 - 1.0 mg/dL) 0.8 Glomerular Filtr Rate (>60 ml/min) 90 Glucose (65 - 110 mg/dL) 78 Calcium (8.4 - 10.2 mg/dL) 7.8 L Total Bilirubin (0.2 - 1.0 mg/dL) 0.2 AST (15 - 37 units/L) 22 ALT (12 - 78 units/L) 21 Total Alk Phosphatase (46 - 116 units/L) 96 Total Protein (6.3 - 8.2 gm/dL) 5.7 L Albumin (3.4 - 4.8 gm/dL) 2.2 L Hematology WBC (6.6 - 12.1 K/mm3) 6.6 RBC (3.45 - 5.01 M/mm3) 3.31 L Hgb (10.7 - 13.9 g/dL) 8.8 L Hct (32.1 - 42.1 %) 29.0 L MCV (84.1 - 94.8 fL) 88 MCH (27 - 35 pg) 26.6 L MCHC (32.2 - 34.1 gm/dL) 30.3 L RDW (12.4 - 16.5 %) 14.9 Plt Count (133 - 385 K/mm3) 594 H MPV (9.1 - 12.7 fl) 9.5 Neut % (Auto) (56.5 - 79.4 %) 59.2 Lymph % (Auto) (14.3 - 34.3 %) 28.4 [place] % (Auto) (5.1 - 10.4 %) 4.9 L Eos % (Auto) (0.1 - 3.0 %) 5.9 H Baso % (Auto) (0.1 - 1.0 %) 0.8 Neut # (Auto) (K/mm3) 3.9 Lymph # (Auto) (K/mm3) 1.9 [place] # (Auto) (K/mm3) 0.3 Eos # (Auto) (K/mm3) 0.39 Baso # (Auto) (K/mm3) 0.1 Urines Urine Color (YELLOW) YELLOW Urine Appearance (CLEAR) CLOUDY A Urine pH (5 - 9) 6.0 Ur Specific [place] (1.001 - 1.035) 1.011 Urine Protein (NEG) 2+ H Urine Glucose (UA) (NEG) NEGATIVE Urine Ketones (NEG) NEGATIVE Urine Blood (NEG) 3+ H Urine Nitrite (NEG) NEG Urine Bilirubin (NEG) NEGATIVE Urine Urobilinogen (NEG mg/dL) NEGATIVE Ur Leukocyte Esterase (NEG) 2+ H Urine RBC (NONE SEEN #/hpf) TOO NUMEROUS TO CNT H Urine WBC (NONE SEEN #/hpf) 16-20 H Ur Epithelial Cells (RARE - FEW #/HPF) FEW Urine Bacteria (RARE - FEW /HPF) FEW Urine Mucus (NONE SEEN) RARE Microbiology: Date/Time Procedure - Status Source Growth 06/18 172 Urine Culture - RECD URINE Recent Impressions: CAT SCAN - CT ABD PELVIS W/CONT 06/18 1850 Report Impression - Status: SIGNED Entered: 06/18/2020 194 IMPRESSION: 1. There are postoperative changes suggesting [...] bowel obstruction or perforation. 6. Normal appendix. Impression By: [id number] - Felix Shine, Re-Evaluation MDM ED Course Medication(s) Ordered Medication(s) Ordered: Diagnostic Agents Sig/Newton Start time Last Medication Dose Route Stop Time Status Admin Iopamidol 100 ML .STK-MED ONE 06/18 1905 DC 06/18 IV 06/18 Diatrizoate Meglum/ 40 ML .STK-MED ONE 06/18 1753 DC 06/18 Diatrizoate Sod PO 06/18 Electrolytic, Caloric, And Bandar Sig/Newton Start time Last Medication Dose Route Stop Time Status Admin Sodium Chloride 1,000 ML X1ED STA 06/18 1920 DC 06/18 IV 06/18 1921 192 Sodium Chloride 50 ML .STK-MED ONE 06/18 190 DC 06/18 IV 06/18 1906 190 Patient Discharge Departure Vital Signs/Condition Vital Signs First Documented: Result Date Time Pulse Ox 100 06/18 1708 B/P 93/63 06/18 1708 B/P Mean 73 06/18 1708 O2 Delivery Room air 06/18 170 Temp 98.3 06/18 170 Pulse 71 06/18 1708 Resp 16 06/18 1708 Last Documented: Result Date Time Pulse Ox 100 06/18 1708 B/P 93/63 06/18 1708 B/P Mean 73 06/18 1708 O2 Delivery Room air 06/18 170 Temp 98.3 06/18 170 Pulse 71 06/18 1708 Resp 16 06/18 1708 All vital signs available at the time of this entry have been reviewed. Condition Stable, Improved Clinical Impression Clinical Impression Primary Impression: Abdominal pain Time of Impression 182 Pt/Provider Handoff Care Transferred to Dr Hanson Care Transferred at 1825 Discussed Complaint(s) Yes Khloe Hanson P 06/18/202128: HPI-General Illness General Initial Greet Date/Time 06/18/20 1649 Re-Evaluation MDM Re-Evaluation/Progress #1 Text/Dict Note Appears well in no distress. Patient states pain is currently 3/10. Patient requesting to eat. Awaiting callback from Dr. Wolf Time of Re-Eval 2128 Re-Eval Status Improved Consultation Consultation Referral/Consult Name Laureano Wolf MD Deputy General Counsel Called GOVERNMENT CLERK, On-call physician Requested Call Time 2147 Requested Call Date 06/18/20 Call Returned Call returned Call Returned Time 2147 Call Returned Date 06/18/20 at 1825 RPT #:[id number] END OF REPORT [facility] 2020-06-18 18:15:00 [facility] ([facility]) EMERGENCY PROVIDER REPORT REPORT#:[id number] REPORT STATUS: Signed DATE:06/18/20 TIME: 1814 PATIENT: WILMA BATRES UNIT #: [id number] ROOM/BED: AGE: 24 SEX: F PCP PHYS: Laureano Wolf MD SERVICE AUTHOR: Yaw Ross MD * ALL edits or amendments must be made on the electronic/computer document * Yaw Carlisle 06/18/201814: HPI-General Illness Presentation Chief Complaint Abdominal pain Context Additional Context 24 years old patient no past medical history presents 10 days status post C- section complicated with a bladder injury s/p repair, currently patient has 2 stents , a YELENA drain and a vasquez catheter, she presents complaining of increasing tenderness in right side of her belly associated to bulging sensation of the area, denies vomiting, fever, chills , urinary symptoms or any other complaints. Review of Systems ROS Statements All systems rev neg except as marked. Review of Systems Constitutional Denies: Fatigue, Fever, Lethargy, Recent wt loss. Eyes Denies: Blurred L, Diplopia, Discharge L, Eye pain R, Eye pain bilat, Redness R, Redness L. Ears/Nose/Throat Denies: Ear drainage L, Ear ringing R, Ear ringing bilat, Earache bilat, Hearing loss R, Mouth pain, Nasal congestion. Respiratory Denies: Cough, productive, Hemoptysis, Pleuritic pain, Wheezing. Cardiovascular Denies: Dyspnea on exertion, Orthopnea, Parox nocturnal dyspnea. GI Reports: Abdominal pain. Denies: Belching, Diarrhea, Hematemesis, Mucousy stool , Nausea, Rectal pain. Female Denies: Hematuria, Pelvic pain, Urinary urgency, Urination increased. Musculoskeletal Denies: Extremity swelling, Joint swelling, Myalgia. Hematologic Denies: Adenopathy, Bruising. Endocrine Denies: Heat intolerance, Polyuria, Weight loss. Skin Denies: Abscess, Erythema, Laceration, Swelling. Past Medical History - Adult Stated Complaint DOC SENT OVER FOR CT Allergies Coded Allergies: amoxicillin (HIVES 06/18/20) Home Medications Active Scripts oxyCODONE (ROXICODONE) 10 MG PO Q4H PRN PRN pain oxyCODONE (ROXICODONE) 10 MG PO Q4H PRN PRN pain #30 TABS Prov: 06/14/20 HYOSCYAMINE ODT (OSCIMIN) 0.125 MG PO Q4H PRN PRN bladder spasm HYOSCYAMINE ODT (OSCIMIN) 0.125 MG PO Q4H PRN PRN bladder spasm #30 TABS Prov: 06/14/20 IBUPROFEN (MOTRIN) 600 MG PO QID PRN PRN PAIN IBUPROFEN (MOTRIN) 600 MG PO QID PRN PRN PAIN #30 TABS Prov: 06/14/20 Discontinued Reported Medications PNV WITH FE FUMARATE/FA () 1 TAB PO DAILY Physical Exam Vital Signs Vital Signs First Documented: Result Date Time Pulse Ox 100 06/18 1708 B/P 93/63 06/18 1708 B/P Mean 73 06/18 170 O2 Delivery Room air 06/18 1708 Temp 98.3 06/18 170 Pulse 71 06/18 1708 Resp 06/18 Last Documented: Result Date Time Pulse Ox 100 06/188 B/P 93/63 06/18 1708 B/P Mean 73 06/18 1708 O2 Delivery Room air 06/18 1708 Temp 98.3 06/18 1708 Pulse 71 06/18 1708 Resp 16 06/18 1708 Review of Vital Signs Reviewed, Vital signs normal Physical Exam General/Const General/Const Alert, Well appearing, Well developed, Well nourished MS Head Head Atraumatic, Normocephalic Eyes Eyes Atraumatic, EOMI, No nystagmus, No periorbital swelling, No photophobia Ears/Nose/Throat Ears/Nose/Throat Mucous membranes moist, No peritonsillar abscess, No pooling of secretions, No trismus MS Neck Neck Supple, Full range of motion, No swelling, Non-tender Resp/Chest Respiratory/Chest Breath sounds NL, Breath sounds = bilat, No rales, No rhonchi, No wheezing Cardiovascular Cardiovascular Regular rhythm, No gallop, No rubs, Cap refill not delayed Abdomen/GI Tenderness/Guarding/Rebound Tender RLQ, Tender flank R. MS Back Back Inspection NL, Full range of motion, Non-tender, No midline vertebral tend Lymphatic Lymphatic No cervical adenopathy, No axillary adenopathy MS Upper Extrem Upper Extremity/MS Inspection NL, No swelling, Non-tender, No snuffbox tenderness, No erythema Interpretation Diagnostics Lab Results Interpretation Results Laboratory Tests 06/18/201829: [Embedded Image Not Available] Laboratory Tests: 06/18 1703 Chemistry Sodium (135 - 145 mEq/L) 142 Potassium (3.5 - 5.0 mEq/L) 4.0 Chloride (100 - 115 mEq/L) 105 Carbon Dioxide (22 - 31 mEq/L) 30 Anion Gap (10 - 20) 11.10 BUN (7 - 18 mg/dL) 11 Creatinine (0.5 - 1.0 mg/dL) 0.8 Glomerular Filtr Rate (>60 ml/min) 90 Glucose (65 - 110 mg/dL) 78 Calcium (8.4 - 10.2 mg/dL) 7.8 L Total Bilirubin (0.2 - 1.0 mg/dL) 0.2 AST (15 - 37 units/L) 22 ALT (12 - 78 units/L) 21 Total Alk Phosphatase (46 - 116 units/L) 96 Total Protein (6.3 - 8.2 gm/dL) 5.7 L Albumin (3.4 - 4.8 gm/dL) 2.2 L Hematology WBC (6.6 - 12.1 K/mm3) 6.6 RBC (3.45 - 5.01 M/mm3) 3.31 L Hgb (10.7 - 13.9 g/dL) 8.8 L Hct (32.1 - 42.1 %) 29.0 L MCV (84.1 - 94.8 fL) 88 MCH (27 - 35 pg) 26.6 L MCHC (32.2 - 34.1 gm/dL) 30.3 L RDW (12.4 - 16.5 %) 14.9 Plt Count (133 - 385 K/mm3) 594 H MPV (9.1 - 12.7 fl) 9.5 Neut % (Auto) (56.5 - 79.4 %) 59.2 Lymph % (Auto) (14.3 - 34.3 %) 28.4 [place] % (Auto) (5.1 - 10.4 %) 4.9 L Eos % (Auto) (0.1 - 3.0 %) 5.9 H Baso % (Auto) (0.1 - 1.0 %) 0.8 Neut # (Auto) (K/mm3) 3.9 Lymph # (Auto) (K/mm3) 1.9 [place] # (Auto) (K/mm3) 0.3 Eos # (Auto) (K/mm3) 0.39 Baso # (Auto) (K/mm3) 0.1 Urines Urine Color (YELLOW) YELLOW Urine Appearance (CLEAR) CLOUDY A Urine pH (5 - 9) 6.0 Ur Specific [place] (1.001 - 1.035) 1.011 Urine Protein (NEG) 2+ H Urine Glucose (UA) (NEG) NEGATIVE Urine Ketones (NEG) NEGATIVE Urine Blood (NEG) 3+ H Urine Nitrite (NEG) NEG Urine Bilirubin (NEG) NEGATIVE Urine Urobilinogen (NEG mg/dL) NEGATIVE Ur Leukocyte Esterase (NEG) 2+ H Urine RBC (NONE SEEN #/hpf) TOO NUMEROUS TO CNT H Urine WBC (NONE SEEN #/hpf) 16-20 H Ur Epithelial Cells (RARE - FEW #/HPF) FEW Urine Bacteria (RARE - FEW /HPF) FEW Urine Mucus (NONE SEEN) RARE Microbiology: Date/Time Procedure - Status Source Growth 06/18 1721 Urine Culture - RECD URINE Recent Impressions: CAT SCAN - CT ABD PELVIS W/CONT 06/18 1850 Report Impression - Status: SIGNED Entered: 06/18/2020 1940 IMPRESSION: 1. There are postoperative changes suggesting [...] bowel obstruction or perforation. 6. Normal appendix. Impression By: [email or web address] - Felix Shine, Re-Evaluation MDM ED Course Medication(s) Ordered Medication(s) Ordered: Anti-Infective Agents Sig/Newton Start time Last Medication Dose Route Stop Time Status Admin Nitrofurantoin 100 MG X1ED STA 06/18 2155 DC Macrocrystals PO 06/18 2156 Diagnostic Agents Sig/Newton Start time Last Medication Dose Route Stop Time Status Admin Iopamidol 100 ML .STK-MED ONE 06/18 1905 DC 06/18 IV 06/18 1906 190 Diatrizoate Meglum/ 40 ML .STK-MED ONE 06/18 1753 DC 06/18 Diatrizoate Sod PO 06/18 175 175 Electrolytic, Caloric, And Bandar Sig/Newton Start time Last Medication Dose Route Stop Time Status Admin Sodium Chloride 1,000 ML X1ED STA 06/18 1920 DC 06/18 IV 06/18 1921 192 Sodium Chloride 50 ML .STK-MED ONE 06/18 1905 DC 06/18 IV 06/18 190 1905 Gastrointestinal Drugs Sig/Newton Start time Last Medication Dose Route Stop Time Status Admin Polyethylene Glycol/ 1,000 ML ONCE ONE 06/18 2200 DC Electrolytes PO 06/18 2201 Patient Discharge Departure Vital Signs/Condition Vital Signs First Documented: Result Date Time Pulse Ox 100 06/18 1708 B/P 93/63 06/18 1708 B/P Mean 73 06/18 1708 O2 Delivery Room air 06/18 1708 Temp 98.3 06/18 170 Pulse 71 06/18 1708 Resp 16 06/18 1708 Last Documented: Result Date Time Pulse Ox 100 06/18 1708 B/P 93/63 06/18 1708 B/P Mean 73 06/18 1708 O2 Delivery Room air 06/18 1708 Temp 98.3 06/18 1708 Pulse 71 06/18 1708 Resp 16 06/18 1708 All vital signs available at the time of this entry have been reviewed. Condition Stable, Improved Clinical Impression Time of Impression 182 Pt/Provider Handoff Care Transferred to Dr Hanson Care Transferred at 1825 Discussed Complaint(s) Yes Khloe Hanson P 06/18/202128: HPI-General Illness General Initial Greet Date/Time 06/18/20 164 Re-Evaluation MDM Re-Evaluation/Progress #1 Text/Dict Note Appears well in no distress. Patient states pain is currently 3/10. Patient requesting to eat. Awaiting callback from Dr. Wolf Time of Re-Eval 2128 Re-Eval Status Improved Consultation Consultation Referral/Consult Name Laureano Wolf MD Deputy General Counsel Called GOVERNMENT CLERK, On-call physician Requested Call Time 2147 Requested Call Date 06/18/20 Call Returned Call returned Call Returned Time 2147 Call Returned Date 06/18/20 Patient Discharge Departure Clinical Impression Clinical Impression Primary Impression: Abdominal pain Secondary Impressions: Chronic anemia, Constipation, UTI (urinary tract infection) Disposition Decision Discharge )( Discharged to Home Yes )( Time 2158 )( Date 06/18/20 Discharge/Care Plan Counseled Regarding Diagnosis, Lab results, Imaging studies, Prescriptions, Need for follow-up, When to return to ED (Auto) Prescriptions Current Visit Scripts NITROFURANTOIN/NITROFURAN MAC (MACROBID) 100 MG PO BID NITROFURANTOIN/NITROFURAN MAC (MACROBID) 100 MG PO BID #14 CAPS Until finished. Take with food. Patient Instructions ED Constipation (Adult), Urinary Tract Infections in Women Additional Instructions Take antibiotic twice daily as prescribed until completed or until told to discontinue by a physician. You have been given a liquid to drink until you pass soft stool. You may also use glycerin suppositories for constipation in the future in addition to continuing daily stool softeners, drinking plenty of water, adding fiber to your diet, and consuming vegetables. Return to the emergency room if you develop fever, worsening symptoms, or you have any other acute concerns. Referrals Jodi Gomez MD, Bryan MD: First Available Discharge Note I have spoken with the patient and/or caregivers. I have explained the patient's condition, diagnoses and treatment plan based on the information available to me at this time. I have answered the patient's and/or caregiver's questions and addressed any concerns. The patient and/or caregivers have as good an understanding of the patient's diagnosis, condition and treatment plan as can be expected at this point. The vital signs have been stable. The patient's condition is stable and appropriate for discharge from the emergency department. The patient will pursue further outpatient evaluation with the primary care physician or other designated or consulting physician as outlined in the discharge instructions. The patient and/or caregivers are agreeable to this plan of care and follow-up instructions have been explained in detail. The patient and/or caregivers have received these instructions in written format and have expressed an understanding of the discharge instructions. The patient and/or caregivers are aware that any significant change in condition or worsening of symptoms should prompt an immediate return to this or the closest emergency department or a call to 911. at 1825 RPT #:[id number] END OF REPORT [facility] 2020-06-18 18:15:00 [facility] ([facility]) EMERGENCY PROVIDER REPORT REPORT#:[id number] REPORT STATUS: Signed DATE:06/18/20 TIME: 1814 PATIENT: WILMA BATRES UNIT #: [id number] ROOM/BED: AGE: 24 SEX: F PCP PHYS: Laureano Wolf MD SERVICE AUTHOR: Yaw Ross MD * ALL edits or amendments must be made on the electronic/computer document * Yaw Carlisle 06/18/20 1815: HPI-General Illness Presentation Chief Complaint Abdominal pain Context Additional Context 24 years old patient no past medical history presents 10 days status post C- section complicated with a bladder injury s/p repair, currently patient has 2 stents , a YELENA drain and a vasquez catheter, she presents complaining of increasing tenderness in right side of her belly associated to bulging sensation of the area, denies vomiting, fever, chills , urinary symptoms or any other complaints. Review of Systems ROS Statements All systems rev neg except as marked. Review of Systems Constitutional Denies: Fatigue, Fever, Lethargy, Recent wt loss. Eyes Denies: Blurred L, Diplopia, Discharge L, Eye pain R, Eye pain bilat, Redness R, Redness L. Ears/Nose/Throat Denies: Ear drainage L, Ear ringing R, Ear ringing bilat, Earache bilat, Hearing loss R, Mouth pain, Nasal congestion. Respiratory Denies: Cough, productive, Hemoptysis, Pleuritic pain, Wheezing. Cardiovascular Denies: Dyspnea on exertion, Orthopnea, Parox nocturnal dyspnea. GI Reports: Abdominal pain. Denies: Belching, Diarrhea, Hematemesis, Mucousy stool , Nausea, Rectal pain. Female Denies: Hematuria, Pelvic pain, Urinary urgency, Urination increased. Musculoskeletal Denies: Extremity swelling, Joint swelling, Myalgia. Hematologic Denies: Adenopathy, Bruising. Endocrine Denies: Heat intolerance, Polyuria, Weight loss. Skin Denies: Abscess, Erythema, Laceration, Swelling. Past Medical History - Adult Stated Complaint DOC SENT OVER FOR CT Allergies Coded Allergies: amoxicillin (HIVES 06/18/20) Home Medications Active Scripts oxyCODONE (ROXICODONE) 10 MG PO Q4H PRN PRN pain oxyCODONE (ROXICODONE) 10 MG PO Q4H PRN PRN pain #30 TABS Prov: 06/14/20 HYOSCYAMINE ODT (OSCIMIN) 0.125 MG PO Q4H PRN PRN bladder spasm HYOSCYAMINE ODT (OSCIMIN) 0.125 MG PO Q4H PRN PRN bladder spasm #30 TABS Prov: 06/14/20 IBUPROFEN (MOTRIN) 600 MG PO QID PRN PRN PAIN IBUPROFEN (MOTRIN) 600 MG PO QID PRN PRN PAIN #30 TABS Prov: 06/14/20 Discontinued Reported Medications PNV WITH FE FUMARATE/FA () 1 TAB PO DAILY Physical Exam Vital Signs Vital Signs First Documented: Result Date Time Pulse Ox 100 06/18 1708 B/P 93/63 06/18 1708 B/P Mean 73 06/18 1708 O2 Delivery Room air 06/18 1708 Temp 98.3 06/18 1708 Pulse 71 06/18 1708 Resp 16 06/18 1708 Last Documented: Result Date Time Pulse Ox 100 06/18 2227 B/P 93/59 06/18 2227 B/P Mean 70 06/18 2227 O2 Delivery Room air 06/18 2227 Temp 98.3 06/18 2227 Pulse 77 06/18 2227 Resp 18 06/18 2227 Review of Vital Signs Reviewed, Vital signs normal Physical Exam General/Const General/Const Alert, Well appearing, Well developed, Well nourished MS Head Head Atraumatic, Normocephalic Eyes Eyes Atraumatic, EOMI, No nystagmus, No periorbital swelling, No photophobia Ears/Nose/Throat Ears/Nose/Throat Mucous membranes moist, No peritonsillar abscess, No pooling of secretions, No trismus MS Neck Neck Supple, Full range of motion, No swelling, Non-tender Resp/Chest Respiratory/Chest Breath sounds NL, Breath sounds = bilat, No rales, No rhonchi, No wheezing Cardiovascular Cardiovascular Regular rhythm, No gallop, No rubs, Cap refill not delayed Abdomen/GI Tenderness/Guarding/Rebound Tender RLQ, Tender flank R. MS Back Back Inspection NL, Full range of motion, Non-tender, No midline vertebral tend Lymphatic Lymphatic No cervical adenopathy, No axillary adenopathy MS Upper Extrem Upper Extremity/MS Inspection NL, No swelling, Non-tender, No snuffbox tenderness, No erythema Interpretation Diagnostics Lab Results Interpretation Results Laboratory Tests 06/18/201829: [Embedded Image Not Available] Laboratory Tests: 06/18 1703 Chemistry Sodium (135 - 145 mEq/L) 142 Potassium (3.5 - 5.0 mEq/L) 4.0 Chloride (100 - 115 mEq/L) 105 Carbon Dioxide (22 - 31 mEq/L) 30 Anion Gap (10 - 20) 11.10 BUN (7 - 18 mg/dL) 11 Creatinine (0.5 - 1.0 mg/dL) 0.8 Glomerular Filtr Rate (>60 ml/min) 90 Glucose (65 - 110 mg/dL) 78 Calcium (8.4 - 10.2 mg/dL) 7.8 L Total Bilirubin (0.2 - 1.0 mg/dL) 0.2 AST (15 - 37 units/L) 22 ALT (12 - 78 units/L) 21 Total Alk Phosphatase (46 - 116 units/L) 96 Total Protein (6.3 - 8.2 gm/dL) 5.7 L Albumin (3.4 - 4.8 gm/dL) 2.2 L Hematology WBC (6.6 - 12.1 K/mm3) 6.6 RBC (3.45 - 5.01 M/mm3) 3.31 L Hgb (10.7 - 13.9 g/dL) 8.8 L Hct (32.1 - 42.1 %) 29.0 L MCV (84.1 - 94.8 fL) 88 MCH (27 - 35 pg) 26.6 L MCHC (32.2 - 34.1 gm/dL) 30.3 L RDW (12.4 - 16.5 %) 14.9 Plt Count (133 - 385 K/mm3) 594 H MPV (9.1 - 12.7 fl) 9.5 Neut % (Auto) (56.5 - 79.4 %) 59.2 Lymph % (Auto) (14.3 - 34.3 %) 28.4 [place] % (Auto) (5.1 - 10.4 %) 4.9 L Eos % (Auto) (0.1 - 3.0 %) 5.9 H Baso % (Auto) (0.1 - 1.0 %) 0.8 Neut # (Auto) (K/mm3) 3.9 Lymph # (Auto) (K/mm3) 1.9 [place] # (Auto) (K/mm3) 0.3 Eos # (Auto) (K/mm3) 0.39 Baso # (Auto) (K/mm3) 0.1 Urines Urine Color (YELLOW) YELLOW Urine Appearance (CLEAR) CLOUDY A Urine pH (5 - 9) 6.0 Ur Specific [place] (1.001 - 1.035) 1.011 Urine Protein (NEG) 2+ H Urine Glucose (UA) (NEG) NEGATIVE Urine Ketones (NEG) NEGATIVE Urine Blood (NEG) 3+ H Urine Nitrite (NEG) NEG Urine Bilirubin (NEG) NEGATIVE Urine Urobilinogen (NEG mg/dL) NEGATIVE Ur Leukocyte Esterase (NEG) 2+ H Urine RBC (NONE SEEN #/hpf) TOO NUMEROUS TO CNT H Urine WBC (NONE SEEN #/hpf) 16-20 H Ur Epithelial Cells (RARE - FEW #/HPF) FEW Urine Bacteria (RARE - FEW /HPF) FEW Urine Mucus (NONE SEEN) RARE Microbiology: Date/Time Procedure - Status Source Growth 06/18 1721 Urine Culture - RES URINE Recent Impressions: CAT SCAN - CT ABD PELVIS W/CONT 06/18 1850 Report Impression - Status: SIGNED Entered: 06/18/2020 194 IMPRESSION: 1. There are postoperative changes suggesting [...] bowel obstruction or perforation. 6. Normal appendix. Impression By: [id number] - Felix Shine DO Re-Evaluation MDM ED Course Medication(s) Ordered Medication(s) Ordered: Anti-Infective Agents Sig/Newton Start time Last Medication Dose Route Stop Time Status Admin Nitrofurantoin 100 MG X1ED STA 06/18 2155 DC Macrocrystals PO 06/18 2156 Diagnostic Agents Sig/Newton Start time Last Medication Dose Route Stop Time Status Admin Iopamidol 100 ML .STK-MED ONE 06/18 1905 DC 06/18 IV 06/18 1906 190 Diatrizoate Meglum/ 40 ML .STK-MED ONE 06/18 175 DC 06/18 Diatrizoate Sod PO 06/18 1754 175 Electrolytic, Caloric, And Bandar Sig/Newton Start time Last Medication Dose Route Stop Time Status Admin Sodium Chloride 1,000 ML X1ED STA 06/18 1920 DC 06/18 IV 06/18 Sodium Chloride 50 ML .STK-MED ONE 06/18 1905 DC 06/18 IV 06/18 Gastrointestinal Drugs Sig/Newton Start time Last Medication Dose Route Stop Time Status Admin Polyethylene Glycol/ 1,000 ML ONCE ONE 06/18 2200 DC Electrolytes PO 06/18 2201 Patient Discharge Departure Vital Signs/Condition Vital Signs First Documented: Result Date Time Pulse Ox 100 06/18 1708 B/P 93/63 06/18 1708 B/P Mean 73 06/18 1708 O2 Delivery Room air 06/18 1708 Temp 98.3 06/18 170 Pulse 71 06/18 1708 Resp 16 06/18 170 Last Documented: Result Date Time Pulse Ox 100 06/18 222 B/P 93/59 06/18 222 B/P Mean 70 06/18 2227 O2 Delivery Room air 06/18 2227 Temp 98.3 06/18 2227 Pulse 77 06/18 2227 Resp 18 06/18 2227 All vital signs available at the time of this entry have been reviewed. Condition Stable, Improved Clinical Impression Time of Impression 1824 Pt/Provider Handoff Care Transferred to Dr Hanson Care Transferred at 1824 Discussed Complaint(s) Yes Khloe Hanson P 06/18/202128: HPI-General Illness General Initial Greet Date/Time 06/18/20 1649 Interpretation Diagnostics Lab Results Interpretation Lab Imaging Statement Laboratory radiographic studies reviewed and considered in the medical decision-making. Re-Evaluation MDM Re-Evaluation/Progress #1 Text/Dict Note Appears well in no distress. Patient states pain is currently 3/10. Patient requesting to eat. Awaiting callback from Dr. Wolf Time of Re-Eval 2128 Re-Eval Status Improved Consultation Consultation Referral/Consult Name Laureano Wolf MD Deputy General Counsel Called GOVERNMENT CLERK, On-call physician Requested Call Time 2147 Requested Call Date 06/18/20 Call Returned Call returned Call Returned Time 2147 Call Returned Date 06/18/20 Patient Discharge Departure Clinical Impression Clinical Impression Primary Impression: Abdominal pain Secondary Impressions: Chronic anemia, Constipation, UTI (urinary tract infection) Disposition Decision Discharge )( Discharged to Home Yes )( Time 2158 )( Date 06/18/20 Discharge/Care Plan Counseled Regarding Diagnosis, Lab results, Imaging studies, Prescriptions, Need for follow-up, When to return to ED (Auto) Prescriptions Current Visit Scripts NITROFURANTOIN/NITROFURAN MAC (MACROBID) 100 MG PO BID NITROFURANTOIN/NITROFURAN MAC (MACROBID) 100 MG PO BID #14 CAPS Until finished. Take with food. Patient Instructions ED Constipation (Adult), Urinary Tract Infections in Women Additional Instructions Take antibiotic twice daily as prescribed until completed or until told to discontinue by a physician. You have been given a liquid to drink until you pass soft stool. You may also use glycerin suppositories for constipation in the future in addition to continuing daily stool softeners, drinking plenty of water, adding fiber to your diet, and consuming vegetables. Return to the emergency room if you develop fever, worsening symptoms, or you have any other acute concerns. Referrals Jodi Gomez MD, Bryan MD: First Available Discharge Note I have spoken with the patient and/or caregivers. I have explained the patient's condition, diagnoses and treatment plan based on the information available to me at this time. I have answered the patient's and/or caregiver's questions and addressed any concerns. The patient and/or caregivers have as good an understanding of the patient's diagnosis, condition and treatment plan as can be expected at this point. The vital signs have been stable. The patient's condition is stable and appropriate for discharge from the emergency department. The patient will pursue further outpatient evaluation with the primary care physician or other designated or consulting physician as outlined in the discharge instructions. The patient and/or caregivers are agreeable to this plan of care and follow-up instructions have been explained in detail. The patient and/or caregivers have received these instructions in written format and have expressed an understanding of the discharge instructions. The patient and/or caregivers are aware that any significant change in condition or worsening of symptoms should prompt an immediate return to this or the closest emergency department or a call to 911. at [phone] at [phone] RPT #:[id number] END OF REPORT [facility] 2020-06-14 11:39:00 [facility] ([facility]) OB Postpart Progr Note REPORT#:[id number] REPORT STATUS: Signed DATE:06/14/20 TIME: 1139 PATIENT: WILMA BATRES UNIT #: [id number] ROOM/BED: [address] : 97 AGE: 24 SEX: F ATTEND: Laureano Wolf MD ADM AUTHOR: Gayatri Allen MD * ALL edits or amendments must be made on the electronic/computer document * Subjective Subjective Admission EGA: Weeks: 39 Days: 5 Status/day: post , post operative (d6) Patient reports: Patient reports: Yes: normal lochia, pain management effective, tolerating po well, tolerating ambulation. No: complaints. Comments: Patient states pain much improved and ready to go home today Objective Nursing Documentation Review Nursing data: The data set between the solid lines has been imported from nursing documentation. Any exceptions have been noted below under Provider comments. Feeding preference: Provider comments on imported nursing data: [] General VS: Vital Signs Date Temp Pulse Resp B/P B/P Mean Pulse Ox FiO2 06/13-06/14 97.5-99.1 71-100 18- 87-110/58-74 70.0-86.0 97-99 Last Documented: Result Date Time B/P Mean 86.0 06/14 0444 Pulse Ox 97 12/25 0444 B/P 110/74 06/14 444 Temp 99.1 06/14 444 Pulse 82 06/14 444 Resp 18 06/14 444 PATIENT WEIGHT: Weight (lb): 118 Weight (oz): Weight (kg): [phone] Physical Exam Lungs: unlabored breathing Neuro: Exam: alert, oriented x3 Abdomen: soft, no abnormal tenderness Incision site: well approximated edges, dry, no drainage, no inflammation, YELENA drain in place, serous fluid in drain Uterus: firm, involution appropriate, non-tender Lochia: normal Lower extremities: Edema: none Result Results: no new labs, labs reviewed, vital signs stable Diagnosis, Assessment Plan Diagnosis, Assessment Plan Free text A P: POD#6, s/p emergent complicated by bladder injury (requiring extensive repair by urology, Dr. Oh), PPH (transfused 4u PRBC, 2u FFP, 2u cryo). - : Vasquez in place, exchanged yesterday, no further episodes of blocked vasquez output. Appreciate urology recommendations (continue vasquez, plan removal as outpatient 10-14 days, plan to keep YELENA drain until vasquez removed). Levsin prn for bladder/ureteral spasm - GI: no BM yet, add senna to bowel regimen. - Heme: anemia secondary to acute blood loss, hemodynamically stable and H/H stable. -Anesthesia: pain better controlled today and ambulated without difficulty. - Dispo: DC home today. DC states she understands DC instructions given by Dr. Wolf Discharge planning: - Dr. Oh's office will contact patient to schedule appropriate follow up. RN will teach patient how to use leg bag with vasquez. Dr. Wolf have taught patient YELENA drain care (as well as RN yesterday). YELENA drain will stay in place per urology - Pt to follow up with Dr. Wolf in office next week at 1146 RPT #:[id number] END OF REPORT [facility] 2020-06-13 07:12:00 [facility] ([facility]) OB Postpart Progr Note REPORT#:[id number] REPORT STATUS: Signed DATE:06/13/20 TIME: 711 PATIENT: WILMA BATRES UNIT #: [id number] ROOM[facility]BED: [facility] : 97 AGE: 24 SEX: F ATTEND: Laureano Wolf MD ADM AUTHOR: Laureano Wolf MD * ALL edits or amendments must be made on the electronic/computer document * Subjective Subjective Admission EGA: Weeks: 39 Days: 5 Status/day: post (POD#5) Patient reports: Comments: Patient reports overall pain is improving. Still having intermittent right sided pain (this worsened yesterday around 1600), but currently is only mild. Yesterday ambulated around the unit x1 time. Pt states she did not ambulate more due to timing (with waiting on RN, then eating, , etc) and does not feel comfortable getting up on her own. Passing flatus, no BM yet. Vasquez replaced yesterday. Pt has not had another other episodes of bladder fullness (that would require flushing vasquez to relieve) Nursing reports: Comments: Spoke to RN yesterday- she made several attempts to get patient to ambulated. Pt would not want to due to pain, baby. Objective Nursing Documentation Review Nursing data: The data set between the solid lines has been imported from nursing documentation. Any exceptions have been noted below under Provider comments. Feeding preference: Provider comments on imported nursing data: [] General VS: Vital Signs Date Temp Pulse Resp B/P B/P Mean Pulse Ox FiO2 06/12-06/13 36.4-36.7 72-106 18-20 90-95/51-62 69.0 98-100 Last Documented: Result Date Time Pulse Ox 98 06/13 041 B/P 92/56 06/13 416 Temp 36.4 06/13 041 Pulse 73 06/13 0416 Resp 20 06/13 041 B/P Mean 69.0 06/12 1630 PATIENT WEIGHT: Weight (lb): 118 Weight (oz): Weight (kg): 53.693575 Physical Exam Neuro: Exam: alert, oriented x3 Abdomen: soft, no abnormal tenderness, no guarding Incision site: well approximated edges, dry, no drainage, no inflammation, YELENA drain in place, serous fluid in drain Uterus: firm Fundus: firm Lochia: normal Vulva/perineum: mild swelling of left labia, improving Lower extremities: Edema: none Result Findings/data: Laboratory Tests: 06/12 1840 Hematology WBC (6.6 - 12.1 K/mm3) 8.2 RBC (3.45 - 5.01 M/mm3) 3.23 L Hgb (10.7 - 13.9 g/dL) 8.8 L Hct (32.1 - 42.1 %) 28.0 L MCV (84.1 - 94.8 fL) 87 MCH (27 - 35 pg) 27.2 MCHC (32.2 - 34.1 gm/dL) 31.4 L RDW (12.4 - 16.5 %) 15.2 Plt Count (133 - 385 K/mm3) 367 MPV (9.1 - 12.7 fl) 10.6 Neut % (Auto) (56.5 - 79.4 %) 67.9 Lymph % (Auto) (14.3 - 34.3 %) 22.9 [place] % (Auto) (5.1 - 10.4 %) 5.0 L Eos % (Auto) (0.1 - 3.0 %) 3.3 H Baso % (Auto) (0.1 - 1.0 %) 0.2 Neut # (Auto) (K/mm3) 5.6 Lymph # (Auto) (K/mm3) 1.9 [place] # (Auto) (K/mm3) 0.4 Eos # (Auto) (K/mm3) 0.27 Baso # (Auto) (K/mm3) 0.0 Diagnosis, Assessment Plan Diagnosis, Assessment Plan Free text A P: 24yo s/p emergent complicated by bladder injury (requiring extensive repair by urology, Dr. Oh), PPH (transfused 4u PRBC, 2u FFP, 2u cryo ). Now POD#5. - Goal for today is ambulation. Discussed importance of ambulation to help with surgical healing and bowel function. Reviewed with RN to help patient ambulate with her partner, so they are not relying only on staff to help with ambulation. Discussed with patient needs to ambulate at least 3-4 times today. - : Vasquez in place, exchanged yesterday, no further episodes of blocked vasquez output. Appreciate urology recommendations (continue vasquez, plan removal as outpatient 10-14 days, plan to keep YELENA drain until vasquez removed). Levsin prn for bladder/ureteral spasm - GI: no BM yet, add senna to bowel regimen. - Heme: H/H stable. - Dispo: Pt still not ambulating consistently. Discussed for discharge home- needs to ambulate more frequently. Pt seems motivated to do so. If does well with ambulation today- plan for discharge home tomorrow. Discharge planning: - Dr. Oh's office will contact patient to schedule appropriate follow up. RN today will teach patient how to use leg bag with vasquez. I have taught patient YELENA drain care (as well as RN yesterday). YELENA drain will stay in place per urology - Pt to follow up with me in office next week - Will send prescriptions today (oxycodone, ibuprofen, levsin) at 0806 RPT #:[id number] END OF REPORT [facility] 2020-06-12 12:12:00 [facility] ([facility]) OB Postpart Progr Note REPORT#:[id number] REPORT STATUS: Signed DATE:06/12/20 TIME: 1212 PATIENT: WILMA BATRES UNIT #: [id number] ROOM/BED: [facility] : 97 AGE: 24 SEX: F ATTEND: Laureano Wolf MD ADM AUTHOR: Laureano Wolf MD * ALL edits or amendments must be made on the electronic/computer document * Subjective Subjective Admission EGA: Weeks: 39 Days: 5 Status/day: post (POD#4) Patient reports: Comments: Pt report pain is improving. Still having intermittent right sided pain, but less severe and less frequent. Ambulated yesterday. Passing flatus, no BM yet. Vasqeuz in place. Nursing reports: Comments: Vasquez irrigated x2 overnight- pt reports sensation of bladder fullness and vasquez will start draining again after irrigation Objective Nursing Documentation Review Nursing data: The data set between the solid lines has been imported from nursing documentation. Any exceptions have been noted below under Provider comments. Feeding preference: Provider comments on imported nursing data: [] General VS: Vital Signs Date Temp Pulse Resp B/P B/P Mean Pulse Ox FiO2 06/11-06/12 36.4-37.2 70-112 - 85-93/54-63 72.0-99.0 97-100 Last Documented: Result Date Time B/P Mean 99.0 06/12 0800 Pulse Ox 99 06/12 0800 B/P 85/57 06/12 0800 Temp 36.8 06/12 0800 Pulse 102 06/12 0800 Resp 20 06/12 0800 PATIENT WEIGHT: Weight (lb): 118 Weight (oz): Weight (kg): 53.582970 Notes: YELENA drain output per RN- 10cc so far this AM, 60cc overnight Physical Exam Neuro: Exam: alert, oriented x3 Abdomen: soft, no abnormal tenderness Incision site: well approximated edges, dry, no drainage, no inflammation, YELENA drain in place, serous fluid in drain Uterus: firm Fundus: firm Lochia: normal Vulva/perineum: mild swelling of left labia, improving Lower extremities: Edema: none Diagnosis, Assessment Plan Diagnosis, Assessment Plan Free text A P: 24yo s/p emergent complicated by bladder injury (requiring extensive repair by urology, Dr. Oh), PPH (transfused 4u PRBC, 2u FFP, 2u cryo ). Now POD#4. - Pain: continue oxycodone 10mg q4 hr prn for pain. Continue ibuprofen prn. - Postop: Continue ambulation - : Good UOP, vasquez in place. Appreciate urology recommendations (continue vasquez, plan removal as outpatient 10-14 days, plan to keep YELENA drain until vasquez removed). Multiple episodes of blocked vasquez output, which resolves after irrigation. Discussed with Dr. Oh today- recommends exchange for new catheter (2-way 20 moldovan) to see if this improves. - Heme: Vitals stable. H/H stable. - Dispo: reviewed with RN regarding vasquez teaching, leg back and YELENA drain care prior to discharge. Vasquez exchange today. Possible discharge home tomorrow at 1218 RPT #:[id number] END OF REPORT [facility] 2020-06-11 10:35:00 [facility] ([facility]) OB Postpart Progr Note REPORT#:[id number] REPORT STATUS: Signed DATE:06/11/20 TIME: 1035 PATIENT: WILMA BATRES UNIT #: [id number] ROOM/BED: [address] : 97 AGE: 24 SEX: F ATTEND: Laureano Wolf MD ADM AUTHOR: Laureano Wolf MD * ALL edits or amendments must be made on the electronic/computer document * Subjective Subjective Admission EGA: Weeks: 39 Days: 5 Status/day: post (POD#3) Patient reports: Comments: Pt reports pain is improving on oxycodone 10mg. Was able to ambulate in room yesterday. Has not showered. Passing gas, no BM yet. Tolerating PO without difficulty. Vasquez in place Objective Nursing Documentation Review Nursing data: The data set between the solid lines has been imported from nursing documentation. Any exceptions have been noted below under Provider comments. Feeding preference: Provider comments on imported nursing data: [] General VS: Vital Signs Date Temp Pulse Resp B/P B/P Mean Pulse Ox FiO2 06/10-06/11 36.5-36.7 65-90 14-18 85-91/52-64 69.0 96-99 Last Documented: Result Date Time B/P Mean 69.0 06/11 753 Pulse Ox 99 06/11 753 B/P 90/57 06/11 753 Temp 36.5 06/11 753 Pulse 84 06/11 753 Resp 16 06/11 753 PATIENT WEIGHT: Weight (lb): 118 Weight (oz): Weight (kg): 53.198355 Notes: 24 hours ending at 0700 06/11 0700 06/10 2300 06/10 1500 Intake Total 1800.00 1050.00 Output Total 1320.00 2170.00 Balance 480.00 -1120.00 Intake, Other 1800.00 1050.00 Output, Other 1320.00 2170.00 24 Hour I O Total 06/11 0700 Intake Total 2850.00 Output Total 3490.00 Balance -640.00 Physical Exam Neuro: Exam: alert, oriented x3 Abdomen: soft, no abnormal tenderness Incision site: well approximated edges, dry, no drainage, no inflammation, YELENA drain in place, serous fluid in drain Uterus: firm Fundus: firm Lochia: normal Lower extremities: Edema: none Add'l comments: Vasquez draining pink urine Result Findings/data: Laboratory Tests: 06/11 0845 Chemistry Sodium (135 - 145 mEq/L) 142 Potassium (3.5 - 5.0 mEq/L) 3.9 Chloride (100 - 115 mEq/L) 107 Carbon Dioxide (22 - 31 mEq/L) 29 Anion Gap (10 - 20) 10.00 BUN (7 - 18 mg/dL) 5 L Creatinine (0.5 - 1.0 mg/dL) 0.6 Glomerular Filtr Rate (>60 ml/min) 125 Glucose (65 - 110 mg/dL) 81 Calcium (8.4 - 10.2 mg/dL) 7.5 L Total Bilirubin (0.2 - 1.0 mg/dL) 0.2 AST (15 - 37 units/L) 24 ALT (12 - 78 units/L) 20 Total Alk Phosphatase (46 - 116 units/L) 105 Total Protein (6.3 - 8.2 gm/dL) 4.0 L Albumin (3.4 - 4.8 gm/dL) 1.5 L Hematology WBC (6.6 - 12.1 K/mm3) 7.7 RBC (3.45 - 5.01 M/mm3) 2.96 L Hgb (10.7 - 13.9 g/dL) 8.0 L Hct (32.1 - 42.1 %) 25.8 L MCV (84.1 - 94.8 fL) 87 MCH (27 - 35 pg) 27.0 MCHC (32.2 - 34.1 gm/dL) 31.0 L RDW (12.4 - 16.5 %) 15.0 Plt Count (133 - 385 K/mm3) 261 MPV (9.1 - 12.7 fl) 11.1 Neut % (Auto) (56.5 - 79.4 %) 71.0 Lymph % (Auto) (14.3 - 34.3 %) 22.0 [place] % (Auto) (5.1 - 10.4 %) 4.4 L Eos % (Auto) (0.1 - 3.0 %) 1.7 Baso % (Auto) (0.1 - 1.0 %) 0.1 Neut # (Auto) (K/mm3) 5.5 Lymph # (Auto) (K/mm3) 1.7 [place] # (Auto) (K/mm3) 0.3 Eos # (Auto) (K/mm3) 0.13 Baso # (Auto) (K/mm3) 0.0 Diagnosis, Assessment Plan Diagnosis, Assessment Plan Free text A P: 24yo s/p emergent complicated by bladder injury (requiring extensive repair by urology, Dr. Oh), PPH (transfused 4u PRBC, 2u FFP, 2u cryo ). Now POD#3. - Pain: continue oxycodone 10mg q4 hr prn for pain. Continue ibuprofen prn. - Postop: Continue ambulation. Shower today - : Good UOP, vasquez in place. Appreciate urology recommendations (continue vasquez, plan removal as outpatient 10-14 days, plan to keep YELENA drain until vasquez removed) - Heme: Vitals stable. H/H stable. - rooming in - Continue postop care. Consider discharge home tomorrow if continued improvement at 1042 RPT #:[id number] END OF REPORT [facility] 2020-06-10 18:31:00 [facility] ([facility]) Urology Progress Note REPORT#:[id number] REPORT STATUS: Signed DATE:06/10/20 TIME: 1830 PATIENT: WILMA BATRES UNIT #: [id number] ROOM/BED: [address] : 97 AGE: 24 SEX: F ATTEND: Laureano Wolf MD ADM AUTHOR: Steven Oh MD * ALL edits or amendments must be made on the electronic/computer document * Subjective Chief Complaint: POD2 from bladder repair HPI: Wilma is doing well. She has not ambulated much. She did have feeling of bladder fullness that resolved after the vasquez was irrigated. She has some pain in the RLQ. Objective General VS/I O: Last Documented: Result Date Time Pulse Ox 98 06/10 1630 B/P 85/52 06/10 1630 Temp 97.9 06/10 1630 Pulse 65 06/10 1630 Resp 16 06/10 1630 B/P Mean 76.0 06/10 0051 24 hour I O ending at 0700: 06/10 0700 06/09 1900 Intake Total 750.00 Output Total 1470.00 2415.00 Balance -1470.00 -1665.00 Intake, Other 750.00 Output, Other 1470.00 2415.00 PATIENT WEIGHT: Weight (lb): 118 Weight (oz): Weight (kg): 53.622912 Physical Exam General appearance: awake Head/Eyes: atraumatic ENT: normal nose Neck: supple Genitourinary: vasquez catheter in place (red tinged urine) Diagnosis, Assessment Plan Hospital course to date: Wilma is s/p bladder repair 06/08/20 - Given the complexity of repair, will likely leave the drain until after the vasquez is removed unless output is minimal - She will need a cystogram prior to vasquez removal as an outpatient about 10-14 days after surgery - PRN vasquez irrigation if output is low or she has feelings of fulness - She can be placed in 10mg Ditropan XL daily to help with bladder spasms if needed but she has not yet had a bowel movement at 1835 RPT #:[id number] END OF REPORT [facility] 2020-06-10 18:22:00 [facility] ([facility]) Full Op Note REPORT#:[id number] REPORT STATUS: Signed DATE:06/10/20 TIME: 1821 PATIENT: WILMA BATRES UNIT #: [id number] ROOM/BED: [address] : 97 AGE: 24 SEX: F ATTEND: Laureano Wolf MD ADM AUTHOR: Steven Oh MD * ALL edits or amendments must be made on the electronic/computer document * Operative Report Start date: 06/08/20 Start time: 929 Pre-procedure diagnosis: Bladder injury Post-procedure diagnosis: Bladder unjury Procedures performed: Omental flap interposition, bilateral ureteral stent placement Technique/Procedure: This is an interaoperative consult for Wilma. I was called intraoperatively to assist in evaluating for bladder injury and repair. The bladder was dissected free from the anterior vaginal wall and is dicated by Dr. Oh in a seperate note. The bladder had multiple cystotomies and it was evident that the ureteral orifices were very close to the cystotomies so we decided to place bilateral ureteral stents. A wire was advanced into the left ureteral orifice then a 6x26cm ureteral stent was advanced over the wire and wire removed. This was repeated on the right side. There were good distal coils noted. The bladder was then repaired by Dr. Oh and the vagina was repaired by gynecology which is dictated in a sepearte note. We then mobilize the omentum and interposed it between the bladder and vagina to help prevent fistula formation. The flap was pexed in five different points with 3-0 vicryl to ensure adequate coverage of the entire anterior vaginal wall. The procedure was then turned back to gynecology. Plan: Depending on the drain output, it may stay until after the vasquez is removed in 2 weeks after a cystogram. Primary Surgeon: Steven Oh MD [employer] Machine Operator(s): none Anesthesia: general anesthesia Operative findings: Bilateral stents placed and omental flap interposed between vagina and baldder Complications: none Estimated blood loss in ml's: none Specimens removed/altered: none Implant(s): Bilateral 6x26cm ureteral stents at 1830 RPT #:[id number] END OF REPORT [facility] 2020-06-10 09:55:00 [facility] ([facility]) OB Postpart Progr Note REPORT#:[id number] REPORT STATUS: Signed DATE:06/10/20 TIME: 954 PATIENT: WILMA BATRES UNIT #: [id number] ROOM/BED: [address] : 97 AGE: 24 SEX: F ATTEND: Laureano Wolf MD ADM AUTHOR: Laureano Wolf MD * ALL edits or amendments must be made on the electronic/computer document * Subjective Subjective Admission EGA: Weeks: 39 Days: 5 Status/day: post (POD#2) Patient reports: Comments: Pt c/o pain. Was switched to demerol overnight- reports this helps with pain for 1-2 hours then pain returns. Feels sharp pain in RLQ- constant. Has not ambulated. Sat up on side of bed yesterday. Ambulation has been limited by pain. Passing flatus. Tolerating PO. No BM yet. Vasquez in place. Pt reports overnight had strong urge to urinate, vasquez was flushed by RN and now is draining red- colored urine. Objective Nursing Documentation Review Nursing data: The data set between the solid lines has been imported from nursing documentation. Any exceptions have been noted below under Provider comments. Feeding preference: Provider comments on imported nursing data: [] General VS: Vital Signs Date Temp Pulse Resp B/P B/P Mean Pulse Ox FiO2 06/09-06/10 36.6-37.2 71-90 17- 93-101/55-62 69.0-76.0 97-100 Last Documented: Result Date Time Pulse Ox 98 06/10 740 B/P 93/59 06/10 740 Temp 36.6 06/10 740 Pulse 71 06/10 740 Resp 18 06/10 740 B/P Mean 76.0 06/10 0051 PATIENT WEIGHT: Weight (lb): 118 Weight (oz): Weight (kg): 53.244147 Notes: 24 hours ending at 0700 06/10 0700 06/09 2300 06/09 1500 Intake Total 750.00 Output Total 1470.00 2415.00 Balance -1470.00 -1665.00 Intake, Other 750.00 Output, Other 1470.00 2415.00 24 Hour I O Total 06/10 0700 Intake Total 750.00 Output Total 3885.00 Balance -3135.00 YELENA drain: 40cc overnight, 30cc so far today Physical Exam Neuro: Exam: alert, oriented x3 Abdomen: soft, no abnormal tenderness Incision site: well approximated edges, dry, no drainage, no inflammation, YELENA drain in place, serous fluid in drain Uterus: firm Fundus: firm Lochia: normal Vulva/perineum: left labia majora edematous, non-tender, does not extend vaginally Lower extremities: Edema: none Add'l comments: Vasquez draining red-tinged urine Result Findings/data: Laboratory Tests: 06/10 633 Chemistry Sodium (135 - 145 mEq/L) 138 Potassium (3.5 - 5.0 mEq/L) 3.6 Chloride (100 - 115 mEq/L) 105 Carbon Dioxide (22 - 31 mEq/L) 26 Anion Gap (10 - 20) 10.40 BUN (7 - 18 mg/dL) 7 Creatinine (0.5 - 1.0 mg/dL) 0.6 Glomerular Filtr Rate (>60 ml/min) 125 Glucose (65 - 110 mg/dL) 91 Calcium (8.4 - 10.2 mg/dL) 7.5 L Total Bilirubin (0.2 - 1.0 mg/dL) 0.2 AST (15 - 37 units/L) 28 ALT (12 - 78 units/L) 16 Total Alk Phosphatase (46 - 116 units/L) 107 Total Protein (6.3 - 8.2 gm/dL) 3.8 L Albumin (3.4 - 4.8 gm/dL) 1.5 L Hematology WBC (6.6 - 12.1 K/mm3) 15.1 H RBC (3.45 - 5.01 M/mm3) 2.83 L Hgb (10.7 - 13.9 g/dL) 7.9 L Hct (32.1 - 42.1 %) 24.6 L MCV (84.1 - 94.8 fL) 87 MCH (27 - 35 pg) 27.9 MCHC (32.2 - 34.1 gm/dL) 32.1 L RDW (12.4 - 16.5 %) 14.9 Plt Count (133 - 385 K/mm3) 221 MPV (9.1 - 12.7 fl) 11.6 Neut % (Auto) (56.5 - 79.4 %) 78.8 Lymph % (Auto) (14.3 - 34.3 %) 13.9 L [place] % (Auto) (5.1 - 10.4 %) 4.8 L Eos % (Auto) (0.1 - 3.0 %) 1.7 Baso % (Auto) (0.1 - 1.0 %) 0.1 Neut # (Auto) (K/mm3) 11.9 Lymph # (Auto) (K/mm3) 2.1 [place] # (Auto) (K/mm3) 0.7 Eos # (Auto) (K/mm3) 0.26 Baso # (Auto) (K/mm3) 0.0 Diagnosis, Assessment Plan Diagnosis, Assessment Plan Free text A P: 24yo s/p emergent complicated by bladder injury (requiring extensive repair by urology, Dr. Oh), PPH (transfused 4u PRBC, 2u FFP, 2u cryo ). Now POD#2. - Pain: add oxycodone 10mg q4 hr prn for pain. Continue ibuprofen prn. - Postop: Needs to ambulate, SCDs while in bed - : Good UOP, red-tinged urine. Discussed with Dr. Oh- this can be expected. Plan to keep vasquez x2 weeks. Has stents in place. Continue YELENA drain- will likey remove wednesday. Urology to see patient today. - Heme: Vitals stable. H/H slightly decreased today. Will repeat tomorrow. - Infant rooming in at 1114 RPT #:[id number] END OF REPORT [facility] 2020-06-09 12:58:00 [facility] ([facility]) OB Postpart Progr Note REPORT#:[id number] REPORT STATUS: Signed DATE:06/09/20 TIME: 1258 PATIENT: WILMA BATRES UNIT #: [id number] ROOM/BED: [address] : 97 AGE: 24 SEX: F ATTEND: Laureano Wolf MD ADM AUTHOR: Mary Diaz MD * ALL edits or amendments must be made on the electronic/computer document * Subjective Subjective Admission EGA: Weeks: 39 Days: 5 Status/day: post (POD#1) Comments: Pt c/o right side pain. Tolerating PO, no nausea. Objective General VS: Laboratory Tests: 06/09 06/09 06/08 06/08 0600 0128 1225 1020 Chemistry Sodium (135 - 145 mEq/L) 140 Potassium (3.5 - 5.0 mEq/L) 4.5 Chloride (100 - 115 mEq/L) 108 Carbon Dioxide (22 - 31 mEq/L) 27 Anion Gap (10 - 20) 9.80 L BUN (7 - 18 mg/dL) 6 L Creatinine (0.5 - 1.0 mg/dL) 0.8 Glomerular Filtr Rate (>60 ml/min) 90 Glucose (65 - 110 mg/dL) 59 L Calcium (8.4 - 10.2 mg/dL) 7.6 L Total Bilirubin (0.2 - 1.0 mg/dL) 0.4 AST (15 - 37 units/L) 39 H ALT (12 - 78 units/L) 16 Total Alk Phosphatase (46 - 116 units/L) 119 H Total Protein (6.3 - 8.2 gm/dL) 3.8 L Albumin (3.4 - 4.8 gm/dL) 1.6 L Amylase (30 - 110 units/L) 127 H Lipase (73 - 393 units/L) 43 L Coagulation PT (10.4 - 12.4 secs) 11.5 PTT (Boo) (22 - 38 secs) 26.0 Fibrinogen (309 - 518 mg/dL) 313 Hematology WBC (6.6 - 12.1 K/mm3) 15.0 H 17.3 H 14.6 H RBC (3.45 - 5.01 M/mm3) 2.87 L 3.71 2.47 L Hgb (10.7 - 13.9 g/dL) 8.6 L 7.8 L 10.2 L 6.7 *L Hct (32.1 - 42.1 %) 27.2 L 23.9 L 32.8 21.4 L MCV (84.1 - 94.8 fL) 83 L 88 87 MCH (27 - 35 pg) 27.2 27.5 27.1 MCHC (32.2 - 34.1 gm/dL) 32.6 31.1 L 31.3 L RDW (12.4 - 16.5 %) 14.4 13.9 14.2 Plt Count (133 - 385 K/mm3) 156 165 155 MPV (9.1 - 12.7 fl) 11.4 12.3 11.6 Neut % (Auto) (56.5 - 79.4 %) 82.5 H 92.0 H 91.9 H Lymph % (Auto) (14.3 - 34.3 %) 13.0 L 2.8 L 2.9 L [place] % (Auto) (5.1 - 10.4 %) 3.7 L 4.6 L 4.8 L Eos % (Auto) (0.1 - 3.0 %) 0.1 0.0 L 0.0 L Baso % (Auto) (0.1 - 1.0 %) 0.2 0.1 0.1 Neut # (Auto) (K/mm3) 12.4 15.9 13.4 Lymph # (Auto) (K/mm3) 2.0 0.5 0.4 [place] # (Auto) (K/mm3) 0.6 0.8 0.7 Eos # (Auto) (K/mm3) 0.02 0 0 Baso # (Auto) (K/mm3) 0.0 0.0 0.0 06/08 06/08 06/08 06/08 0913 0615 0552 4760 Blood Gas Capillary pH (7.35 - 7.45) 7.172 *L 7.272 L Capillary pCO2 (mmHg) 65.5 45.4 Capillary pO2 (mmHg) 18.5 Capillary HCO3 (meq/L) 23.5 20.5 Capillary Base Excess -6.3 -6.4 Capillary O2 Sat Calc (%) 23.1 Patient On Oxygen CBLA CBLV FiO2 (%) 21.0 21.0 Coagulation PT (10.4 - 12.4 secs) 11.9 11.0 PTT (Isabella) (22 - 38 secs) 27.1 28.0 Fibrinogen (309 - 518 mg/dL) 266 L 138 L Hematology WBC (6.6 - 12.1 K/mm3) 12.5 H RBC (3.45 - 5.01 M/mm3) 3.30 L Hgb (10.7 - 13.9 g/dL) 8.4 L Hct (32.1 - 42.1 %) 28.7 L MCV (84.1 - 94.8 fL) 87 MCH (27 - 35 pg) 25.5 L MCHC (32.2 - 34.1 gm/dL) 29.3 L RDW (12.4 - 16.5 %) 13.9 Plt Count (133 - 385 K/mm3) 230 MPV (9.1 - 12.7 fl) 11.9 Neut % (Auto) (56.5 - 79.4 %) 79.7 H Lymph % (Auto) (14.3 - 34.3 %) 15.3 [place] % (Auto) (5.1 - 10.4 %) 4.1 L Eos % (Auto) (0.1 - 3.0 %) 0.2 Baso % (Auto) (0.1 - 1.0 %) 0.2 Neut # (Auto) (K/mm3) 10.0 Lymph # (Auto) (K/mm3) 1.9 [place] # (Auto) (K/mm3) 0.5 Eos # (Auto) (K/mm3) 0.03 Baso # (Auto) (K/mm3) 0.0 06/07 06/07 1637 1528 Chemistry Sodium (135 - 145 mEq/L) 137 Potassium (3.5 - 5.0 mEq/L) 4.1 Chloride (100 - 115 mEq/L) 103 Carbon Dioxide (22 - 31 mEq/L) 25 Anion Gap (10 - 20) 13.30 BUN (7 - 18 mg/dL) 6 L Creatinine (0.5 - 1.0 mg/dL) 0.6 Glomerular Filtr Rate (>60 ml/min) 125 Glucose (65 - 110 mg/dL) 64 L Calcium (8.4 - 10.2 mg/dL) 8.0 L Total Bilirubin (0.2 - 1.0 mg/dL) 0.4 AST (15 - 37 units/L) 17 ALT (12 - 78 units/L) 11 L Total Alk Phosphatase (46 - 116 units/L) 259 H Total Protein (6.3 - 8.2 gm/dL) 6.0 L Albumin (3.4 - 4.8 gm/dL) 2.6 L Hematology WBC (6.6 - 12.1 K/mm3) 7.2 RBC (3.45 - 5.01 M/mm3) 3.75 Hgb (10.7 - 13.9 g/dL) 9.4 L Hct (32.1 - 42.1 %) 30.9 L MCV (84.1 - 94.8 fL) 82 L MCH (27 - 35 pg) 25.1 L MCHC (32.2 - 34.1 gm/dL) 30.4 L RDW (12.4 - 16.5 %) 13.8 Plt Count (133 - 385 K/mm3) 253 MPV (9.1 - 12.7 fl) 11.7 Neut % (Auto) (56.5 - 79.4 %) 69.0 Lymph % (Auto) (14.3 - 34.3 %) 23.6 [place] % (Auto) (5.1 - 10.4 %) 6.2 Eos % (Auto) (0.1 - 3.0 %) 0.4 Baso % (Auto) (0.1 - 1.0 %) 0.4 Neut # (Auto) (K/mm3) 4.9 Lymph # (Auto) (K/mm3) 1.7 [place] # (Auto) (K/mm3) 0.4 Eos # (Auto) (K/mm3) 0.03 Baso # (Auto) (K/mm3) 0.0 Serology Treponema pallidum Ab (NONREACTIVE) NONREACTIVE Hep Bs Antigen (NONREACTIVE) NONREACTIVE Hepatitis C Antibody (NONREACTIVE) NONREACTIVE Hep C Ab Signal/Cutoff (<0.80) 0.06 Vital Signs Date Temp Pulse Resp B/P B/P Mean Pulse Ox FiO2 06/08-06/09 98.3-99.1 70-119 - 86-107/50-74 66.0-86.0 97-100 Last Documented: Result Date Time B/P Mean 73.0 06/09 08 Pulse Ox 99 06/09 0844 B/P 94/61 06/09 0844 Temp 98.4 06/09 0844 Pulse 85 06/09 0844 Resp 17 06/09 08 PATIENT WEIGHT: Weight (lb): 118 Weight (oz): Weight (kg): 53.207271 Notes: UOP 700cc/4hours Physical Exam Neuro: Exam: alert, oriented x3 Abdomen: soft, no abnormal tenderness Incision site: well approximated edges, dressing clean dry, drain in place Uterus: firm Fundus: firm Lochia: normal Lower extremities: Edema: none Add'l comments: Pt c/o right side pain, low and on her side. benign post op exam. Diagnosis, Assessment Plan Diagnosis, Assessment Plan Free text A P: 24yo s/p emergent complicated by bladder injury, PPH with transfusion 2u PRBC and 1uFFP. Now POD#1, drain in place. Continue to monitor labs and UOP. H H stable, pt afebrile with stable vital signs. No signs of hemodynamic instability. Recheck labs in AM and monitor progress at [address] [facility] #:[id number] END OF REPORT [facility] 2020-06-08 13:56:00 [id number] [facility] [address] [address] PATIENT NAME: WILMA BATRES ADMIT DATE: 06/07/20 ACCOUNT NO: [id number] ROOM NO: [facility] AGE: 24 SEX: F ADMITTING PHYSICIAN: Laureano Wolf MD ATTENDING PHYSICIAN: Laureano Wolf MD OPERATION DATE: 06/08/2020 PREOPERATIVE DIAGNOSES: 1. Term intrauterine at 40 weeks and 1 day. 2. intolerance to second stage of labor. 3. Maternal anemia. POSTOPERATIVE DIAGNOSES: 1. Term intrauterine at 40 weeks and 1 day. 2. intolerance to second stage of labor. 3. Maternal anemia. PROCEDURES PERFORMED: Primary delivery. SURGEON: Bharati Mcguire MD MAITRE D: Ranjeet. ADDITIONAL SURGEONS: Urology; MD Althea ANESTHESIA: Epidural. ESTIMATED BLOOD LOSS: 1500 mL. URINE OUTPUT: 400 mL INPUT: 1. 4 units packed RBCs. 2. 2 units fresh frozen plasma. 3. 2 units cryoprecipitate. 4. 500 mL of Hextend. 5. 3500 of crystalloid. COMPLICATIONS: Inadvertent through and through cystotomy and anterior vaginal laceration. FINDINGS: Include the following; a viable vigorous female infant wedged in the pelvis in vertex presentation, Apgars of 8 and 9, clear amniotic fluid, weight 8 pounds 10 ounces. Pelvic anatomy otherwise normal. Bladder intact. Functional ureteral orifices. Excellent closure without evidence of urinary extravasation. Closed anterior vagina. Placenta was grossly normal and sent for pathological evaluation. PATIENT NAME: WILMA BATRES OPERATIVE NOTE IN DETAIL: As follows; Wilma was taken to the operating room at [facility] in labor and delivery after being diagnosed with a category 3 tracing with late decelerations during the second stage of labor, repetitive and nonresponsive to conservative measures. The risks, benefits, and indications for such were discussed with both the patient and her prior to proceeding. Upon arrival to the operating room, Wilma was dosed via her indwelling epidural catheter. heart tones were reassuring on the monitor upon entrance into the operating room. At that time, the decision was made to go with a standard prep as opposed to a splash prep due to no immediate need. SCDs were placed. A Vasquez catheter was placed and the patient was prepped and draped abdominally in standard fashion. Once an adequate level of anesthesia was ascertained with an Allis test, and a timeout was performed, an incision was created 2 cm above the symphysis pubis with a skin knife. Deeper tissues were dissected with Bovie cautery to the level of the fascia, which was incised on either side of the midline and extended sharply. Two O[place] were placed on the superior portion of the fascia, which was dissected off the rectus muscles superiorly and inferiorly bluntly as well as with sharp dissection. Same was performed inferiorly. The midline of the muscles was identified in a natural diastasis and this was furthered superiorly and inferiorly with additional sharp dissection as needed. Peritoneum was entered bluntly high in the pelvis, dissected inferiorly with Bovie cautery with care being taken not to penetrate the urinary bladder or any intraperitoneal contents dissecting only through clear space. The bladder blade was placed. Bladder flap was created with Russians and Metzenbaums and then bluntly dissected. The bladder blade was replaced and then the uterus was scored in a curvilinear fashion with the deep knife. Successive passes resulted in presence of amnion and incision into the amnion producing clear fluid and visualization of vertex. Blunt stretch furthered the incision bilaterally. The vertex was. ADDENDUM: Incision through the amniotic membranes, entering the amniotic fluid compartment with clear fluid and vertex being visualized, blunt stretch furthered the incision bilaterally. The vertex was stabilized at the level of the incision and gentle fundal pressure resulted in delivery of the vertex. Nose and mouth were bulb suctioned. Cord was clamped and cut. A cord segment was collected for cord gases and the was passed to the awaiting neonatology team. The placenta was extracted and sent for pathological evaluation. Uterus was exteriorized and upon visualization to close the hysterotomy it was realized that what appeared to be hysterotomy was actually uterine cervix and that the hysterotomy incision was actually an incision into the anterior vagina. Thus, the uterine musculature was intact; however, upon further delineation of the surgical planes it was found that the bladder was entered upon visualization of the Vasquez catheter deep in the pelvis. Urology was therefore called and presented to assist in the OR for a significant portion of the remainder of the surgical procedure. Once the bladder was closed and felt to be adequately dissected free from the vaginal tissues and clear of extravasation of urine upon filling then the decision was made to close the anterior vagina, which was closed with a running-locked stitch of 2-0 Vicryl. An omental flap was created to assist with fistula prevention. A drain was placed in the pelvis and then the decision was made to close. During the procedure, additional antibiotics were ordered as well as blood products and coagulant products to prevent DIC. Once the urologic portion of the procedure were complete including stent placement, closure of both the anterior and posterior aspects of the bladder the PATIENT NAME: WILMA BATRES remainder of the female anatomy was closed in the usual fashion. Peritoneum was closed with a running stitch of 2-0 Vicryl for the superior aspect and then anchored to the serosal surface of the bladder as recommended by the urologist. The muscles were then reapproximated using interrupted 2-0 sutures. Fascia was closed with 0 PDS x2. Subcutaneous tissues were irrigated, inspected, found to be hemostatic and reapproximated with 2-0 plain and skin was closed with a subcuticular stitch. Sponge, lap, needle, and instrument counts reported as correct. Infant was transitioned immediately to the transitional nursery in the PACU. Mom was given a dose of Duramorph through her epidural catheter as well as a dose of Toradol and then transferred to the recovery room to be with her and daughter. ADDENDUM: WT: OP:TAMI/PATI.DIANA Conf#: [id number]/DID#: [id number] Dictated By: Bharati Mcguire MD WT: OP:TAMI/PATI. Conf#: [id number]/DID#: [id number] Authenticated by Yenifer Mcguire MD On 06/15/2020 11:21:10 AM at 1121 PATIENT NAME: WILMA BATRES [facility] 2020-06-08 12:33:00 [facility] ([facility]) OB Delivery Note REPORT#:[id number] REPORT STATUS: Signed DATE:06/08/20 TIME: 1233 PATIENT: WILMA BATRES UNIT #: [id number] ROOM/BED: [address] : [address] AGE: 24 SEX: F ATTEND: Laureano Wolf MD ADM AUTHOR: Bharati Mcguire MD * ALL edits or amendments must be made on the electronic/computer document * OB Delivery Pre-delivery GBS status: GBS status: negative Baby A Information Baby A information Delivery date: 06/08/20 Delivery time: 0547 status: live born Wt of baby (lbs/oz): 8#10 Gender: female 1 minute: 8 5 minutes: 9 Presentation: vertex Delivery section indication: category 3 Priority: emergent Antibiotic prior to incision: 1 dose )(SCDs applied activated: Yes Uterine incision: NONE; SEE DETAILED OP NOTE Consent: indication discussed, questions answered, pt consent to op delivery Mother's condition: mother stable Infant's condition: stable in room Additional comments: SEE FULL OP NOTE: BRIEFLY- SURGERY WAS PER ROUTINE UNTIL "REPAIR OF HYSTEROTOMY" WAS BEGUN; AT THAT TIME, WHAT WAS IDENTIFIABLE WAS CERVIX, AND A SOFT TISSUE POUCH, EVENTUALLY IDENTIFIED TO BE THE BLADDER, DESPITE A BLADDER FLAP BEING CREATED AND AMNIOTOMY PROCEEDED PER USUAL. UROLOGY WAS CALLED DUE TO EXTENT OF NEEDED REPAIR ONCE HEMOSTASIS WAS OBTAINED, EBL was felt to be [id number] and 2u PRBC and 1FFP were ordered while labs were sent. Clindamycin was added and a Second dose of preo op abtcs was given at 3hr tao and additional blood products were ordered when intraop hgb:6.7. pelvic drain was placed stents are present in ureters bilaterally clean vasquez cathether was placed pt then transferred to pacu. Blood Loss/Details Blood loss at delivery: >/= 1000ml = pp hemorr, 1500 cc; Cause of bleeding: vag./perineal laceration at 1243 RPT #:[id number] END OF REPORT [facility] 2020-06-08 12:20:00 [facility] ([facility]) Clinical Note REPORT#:[id number] REPORT STATUS: Signed DATE:06/08/20 TIME: 1220 PATIENT: WILMA BATRES UNIT #: [id number] ROOM[address]BED: [address]: 97 AGE: 24 SEX: F ATTEND: Laureano Wolf MD ADM AUTHOR: Bharati Mcguire MD * ALL edits or amendments must be made on the electronic/computer document * Clinical Note Note: SUMMARY OF INTRAPARTUM COURSE AND DELIVERY: pt progressed well from 2/80/-2 with usual doses of pitocin received epidural SROM, CLEAR FLUID after epidural progressed to complete at approximately 0330; Report given by RN to me and told to begin pushing Called by RN at 0445 and asked to review strip due to late decelerations while pushing; good maternal effort, but not . Strip reviewed and decision made to call c/s for delivery INDICATIONS REVIEWED W/PT AND wrt intolerance to labor and vtx too high for OPERATIVE VAGINAL DELIVERY. C/S RECOMMENDED AND PT rapidly transferred to OR with all team members present including anesthesia. upon arrival to OR, fht: reassuring. Jose E was called to attend delivery; pt was dosed via indwelling epidural for surgical level of anesthesia usual sterile prep was done after scd were placed and vasquez was replaced. For remainder, see delivery note. at 1233 RPT #:[id number] END OF REPORT [facility] 2020-06-08 08:57:00 [facility] ([facility]) Clinical Note REPORT#:[id number] REPORT STATUS: Signed DATE:06/08/20 TIME: 08 PATIENT: WILMA BATRES UNIT #: [id number] ROOM/BED: 027[address] : 97 AGE: 24 SEX: F ATTEND: Laureano Wolf MD ADM AUTHOR: Esha Pollack MD * ALL edits or amendments must be made on the electronic/computer document * Clinical Note Note: I assisted with this as indicated by the procedure at 0857 RPT #:[id number] END OF REPORT [facility] 2020-06-07 18:44:00 [facility] ([facility]) Clinical Note REPORT#:[id number] REPORT STATUS: Signed DATE:06/07/20 TIME: 1843 PATIENT: WILMA BATRES UNIT #: [id number] [facility] AGE: 24 SEX: F ATTEND: Laureano Wolf MD ADM AUTHOR: Bharati Mcguire MD * ALL edits or amendments must be made on the electronic/computer document * Clinical Note Note: emilie issa MD... plan for IOL discussed with patient. pit 2x2; epidural when desired; vasquez to follow. reassuring mat/ status. 120 W/ACCELS; no decels; at 1846 RPT #:[id number] END OF REPORT [facility] 2020-06-07 16:31:00 [facility] ([facility]) OB Admission / H P REPORT#:[id number] REPORT STATUS: Signed DATE:06/07/20 TIME: 1631 PATIENT: WILMA BATRES UNIT #: [id number] ROOM/BED: [address] : 97 AGE: 24 SEX: F ATTEND: Laureano Wolf MD ADM AUTHOR: Laureano Wolf MD * ALL edits or amendments must be made on the electronic/computer document * OB History HPI: 24 yo G1 at 40w0d who presents for scheduled elective IOL. Pt reports feeling mild dizziness and nausea. Pt ate at 12:30 waiting for induction due to symptoms above. 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), neural tube defect (AFP normal) Past medical history: Underweight/low BMI: 24 lb weight gain this Past surgical history: removal of cyst on leg (age 8) Social history: no alcohol use, no tobacco use, no drug use Medications: Home Medications: PNV WITH FE FUMARATE/FA () 1 TAB PO DAILY Allergies Coded Allergies: amoxicillin (HIVES 05/23/20) Objective General VS: Last Documented: Result Date Time B/P Mean 70.0 06/07 1551 B/P 92/59 06/07 1551 Pulse 76 06/07 1551 Temp 36.7 06/07 1511 Resp 18 06/07 1511 Vital Signs Date Temp Pulse Resp B/P B/P Mean Pulse Ox FiO2 06/07 36.7 76-103 17-18 85-92/57-60 67.0-70.0 PATIENT WEIGHT: Weight (lb): 118 Weight (oz): Weight (kg): 53.069288 Physical Exam Neuro: Exam: alert, oriented x3 Abdomen: gravid, soft Uterine activity: Monitor: toco Frequency (description): irritability Pelvic exam: Pelvis clinically adequate: yes, inlet appears appropriate, pubic bone config appropr, no midpelvic contraction Cervical/ exam: Dilatation (cm): 2 Effacement (%): 80 Est wt (gms): 7 (lbs) station: - 2 presentation: cephalic Membranes: Membranes: Intact Lower extremities: Edema: none Baby A: Baby A baseline: 130 bpm Baby A variability: moderate 6-25 bpm Baby A accelerations: 15 X 15 Baby A decelerations: none Baby A FHR category: category 1 Result Findings/Data: Laboratory Tests: 06/07 1528 Hematology WBC (6.6 - 12.1 K/mm3) 7.2 RBC (3.45 - 5.01 M/mm3) 3.75 Hgb (10.7 - 13.9 g/dL) 9.4 L Hct (32.1 - 42.1 %) 30.9 L MCV (84.1 - 94.8 fL) 82 L MCH (27 - 35 pg) 25.1 L MCHC (32.2 - 34.1 gm/dL) 30.4 L RDW (12.4 - 16.5 %) 13.8 Plt Count (133 - 385 K/mm3) 253 MPV (9.1 - 12.7 fl) 11.7 Neut % (Auto) (56.5 - 79.4 %) 69.0 Lymph % (Auto) (14.3 - 34.3 %) 23.6 [place] % (Auto) (5.1 - 10.4 %) 6.2 Eos % (Auto) (0.1 - 3.0 %) 0.4 Baso % (Auto) (0.1 - 1.0 %) 0.4 Neut # (Auto) (K/mm3) 4.9 Lymph # (Auto) (K/mm3) 1.7 [place] # (Auto) (K/mm3) 0.4 Eos # (Auto) (K/mm3) 0.03 Baso # (Auto) (K/mm3) 0.0 Serology Treponema pallidum Ab (NONREACTIVE) NONREACTIVE Hep Bs Antigen (NONREACTIVE) NONREACTIVE Diagnosis, Assessment Plan Diagnosis, Assessment Plan Free Text A P: 24 yo G1 at 40w0d here for eIOL. FHTs cat I. Cervix favorable. - Pt ate at 1230, will be able to start pitocin for IOL at 1830 per L D protocol - Check CMP due to c/o nausea, dizziness (now improving after IVF) - GBS negative - Anticipate at 1726 RPT #:[id number] END OF REPORT [facility] 2020-05-23 13:19:00 [facility] ([facility]) Clinical Note REPORT#:[id number] REPORT STATUS: Signed DATE:05/23/20 TIME: 1319 PATIENT: WILMA BATRES UNIT #: [id number] ROOM/BED: : 97 AGE: 24 SEX: F ATTEND: Laureano Wolf MD ADM DT: AUTHOR: Laureano Wolf MD * ALL edits or amendments must be made on the electronic/computer document * Clinical Note Note: MAC Note G1 at 37w6d who presented with possible ROM. Pt c/o nausea- resolved with PO zofran, no emesis. No e/o rupture of membranes on exam per RN. Cvx 1 cm. ROM plus negative. Ctx irregularly on monitor. PNormal vitals. NST reactive. Discharged home. at [address] [facility] #:[id number] END OF REPORT [facility] 2019-03-21 09:46:00 EXAM: XR LEFT SHOULD ER 3 VIEWS DATE: 03/21/2019 9:46 CDT INDICATION: - r/o fx COMPARISON: None. TECHNIQUE: AP views in internal and external rotation, and an axillary view of the shoulder FINDINGS: No acute fracture or malalignment is identified. The acromioclavicular joint and coracoclavicular distance are preserved. No soft tissue abnormality is identified. IMPRESSION: No acute abnormality. [facility] 2019-03-21 09:46:00 EXAM: XR LEFT ELBOW 3 VIEWS DATE: 03/21/2019 9:46 CDT INDICATION: - r/o fx COMPARISON: None. TECHNIQUE: AP, lateral and oblique radiographs of the elbow FINDINGS: No acute fracture or malalignment is identified. No elbow joint effusion is present. No soft tissue abnormality is identified. IMPRESSION: No acute abnormality. [facility] SECTION: ER [facility] 2019-03-21 09:37:00 EXAM: XR CHEST 1 VIEW DATE: 03/21/2019 9:37 CDT INDICATION: - r/o fx/ pneumo/ hemo COMPARISON: None. TECHNIQUE: AP chest. FINDINGS: Lines, tubes and hardware: None. Lungs and pleura: Lungs are clear. No focal consolidation. No pleural effusions. No pneumothorax could be appreciated on the supine radiograph. Heart and mediastinum: The heart size is normal for technique. The mediastinal contours are normal. Bones, soft tissues: No acute osseous abnormality. Soft tissues are within normal limits. IMPRESSION: No acute radiographic abnormality. [facility] SECTION: ER [facility] 2019-03-21 09:37:00 EXAM: CT CERVICAL SP INE WITHOUT CONTRAST DATE: 03/21/2019 9:37 CDT INDICATION: Neck pain, evaluate for cervical spine fracture COMPARISON: None TECHNIQUE: Volumetric acquisition of the cervical spine without contrast. Axial, sagittal and coronal reconstructions. IV contrast: None. DLP: 399.4 mGy-cm FINDINGS: The spine is imaged from the skull base to the level of . No acute fracture or malalignment is identified. Vertebral body and disc heights are preserved. No soft tissue abnormality is identified. IMPRESSION: No acute fracture or malalignment of the cervical spine. [facility] 2019-03-21 09:36:00 EXAM: CT HEAD WITHOU T CONTRAST DATE: 03/21/2019 9:36 CDT INDICATION: 23 years old Female patient with history of - r/o bleed. TECHNIQUE: Multiple axial images were obtained through the head from vertex to the skull base. Axial bone algorithm reconstruction images are provided. COMPARISON: None. FINDINGS: Subdural no acute intracranial hemorrhage is identified. Large arachnoid cyst is seen overlying the right frontal lobe measuring 5.0 cm in transverse, 2.2 cm in AP diameter and 6.0 cm craniocaudally. Associated mass effect over the anterior right frontal lobe. Otherwise no brain parenchymal mass, mass effect or midline shift is present. The lam-white matter differentiation is maintained. Otherwise, no pathologic extra axial fluid is identified. The visualized paranasal sinuses are clear. No mastoid effusion is identified. The bony calvarium is intact. IMPRESSION: 1. No acute intracranial hemorrhage. A 6.0 cm arachnoid cyst overlying exerting mass effect on the right anterior frontal lobe. [facility]
[2025-01-26] MEDS ORDERED: KETOROLAC 30 MG/ML INJ ONE (22:29)
[2025-01-26] MEDS ORDERED: NA CHLORIDE 0.9% 1,000 ML ONE (22:29)
[2025-01-26] MEDS ORDERED: ONDANSETRON 4 MG/2 ML VIAL ONE (22:29)
[2025-01-26 22:41] LABS: Hematocrit 37.2 % (36.0-45.0); Hemoglobin 12.7 g/dL (12.0-15.0); MCH 27.1 pg (27.0-35.0); MCHC 34.1 g/dL (32.0-36.0); MCV 79.4 fL (80-100); MPV 9.2 fL (7.6-11.3); Nucleated Red Blood Cells % 0.0 % (0-0); RBC Red Blood Cell Count 4.68 M/uL (3.86-4.86); White Blood Count 8.50 thou/uL (4.3-10.9)
[2025-01-26 22:42] LABS: Absolute Lymphocytes (CBC) 0.6 K/uL (0.7-4.9); Nucleated RBC Absolute Count 0.0 (0-0)
[2025-01-26 22:55] LABS: Albumin 3.6 g/dL (3.4-5.0); Albumin/Globulin Ratio 0.9 (1.1-1.8); Alkaline Phosphatase 72 U/L (45-117); Anion Gap 12.7 mEq/L (5.0-15.0); BUN Blood Urea Nitrogen 14 mg/dL (7-18); Globulin 4.1 g/dL (2.3-3.5); Glucose Level 101 mg/dL (74-106); Lipase 24 U/L (13-75); Potassium 3.7 mEq/L (3.5-5.1)
[2025-01-26 22:57] LABS: ALT/SGPT < 14 U/L (13-56); AST/SGOT < 10 U/L (15-37)
[2025-01-27 00:07] LABS: Sqamous Epithelial <5 /HPF (None Seen); Urine Culture Reflex Order REFLEXED; Urine Microscopic Reflex YN ORDER UMIC
[2025-01-27 00:41] LABS: Blood Morphology Comment NOT SEEN (NOT SEEN); Differential Total Cells Count 100; Segmented Neutrophils 69 % (40-80)
[2025-01-27] MEDS ORDERED: CEFTRIAXONE 1000 MG/VIAL ONE (01:52)
[2025-01-27] MEDS ORDERED: NA CHLORIDE 0.9% 2,000 ML ONE (01:52)
[2025-01-27 02:51] LABS: PT Prothrombin Time 13.5 SECONDS (10-13.0); PTT, Activated Partial Thromb 32.7 SECONDS (27.2-37.4); Protime INR 1.2
[2025-01-27] MEDS ORDERED: ONDANSETRON 4 MG/2 ML VIAL ONE (02:55)
[2025-01-27] MEDS ORDERED: MORPHINE 2 MG/ML SYR ONE (02:55)
[2025-01-27] MEDS ORDERED: KETOROLAC 30 MG/ML INJ ONE (02:55)
[2025-01-27] MEDS ORDERED: METRONIDAZOLE 500mg IVPB 500 MG/100 ML BAG IV ONE (02:56)
[2025-01-27] MEDS ORDERED: ALBUMIN HUMAN 25% 100 ML IV ONE (02:56)
[2025-01-27] MEDS ORDERED: CIPROFLOXACIN 400mg IV 400 MG/200 ML BAG IV ONE (02:56)
--- NOTE | 2025-01-27 03:03 | ER ---
Nurse's Notes [facility] Name: Wilma Batres Age: 29 yrs Sex: Female : 1995 Arrival Date: 01/26/2025 Time: 21:28 Bed 13 Private MD: Diagnosis: Acute left pyelonephritis, ;Severe sepsis without septic shock Presentation: 01/26 22:19 Chief complaint: Patient states: I have some flank pain that started yesterday. I went kd3 to my PCP yesterday and got some antibiotics because i have a history of bad UTI and kidney infections. The pain is worse now. I have had a fever of 103 at home. Ebola Screen: No symptoms or risks identified at this time. Initial Sepsis Screen: Does the patient meet any 2 criteria?. Risk Assessment: Do you want to hurt yourself or someone else? Patient reports no desire to harm self or others. Onset of symptoms was January 25, 2025. 22:19 Method Of Arrival: Ambulatory kd3 22:19 Acuity: AMOR 3 kd3 01/27 01:49 Initial Sepsis Screen: Does the patient have a suspected source of infection?. kd3 02:05 Coronavirus screen: unknown. kd3 Triage Assessment: 01/26 22:21 General: Appears uncomfortable, Behavior is calm, cooperative. Pain: Complains of pain kd3 in left low back and right low back. Musculoskeletal: Circulation, motion, and sensation intact. BEVERAGE HOST: 23:00 LMP N/A - control method, Not rg5 Historical: - Allergies: 22:21 Amoxicillin; kd3 22:21 PENICILLINS; kd3 - PSHx: 22:21 Bladder repair (after cut from ); section; I\T\D; kd3 - Immunization history:: Adult Immunizations up to date. - Infectious Disease History:: Denies. - Social history:: Smoking status: unknown. Screenin:14 [facility] ED Fall Risk Assessment (Adult) History of falling in the last 3 months, rg5 including since admission No falls in past 3 months (0 pts) Confusion or Disorientation No (0 pts) Intoxicated or Sedated No (0 pts) Impaired Gait No (0 pts) Mobility Assist Device Used No (0 pt) Altered Elimination No (0 pt) Score/Fall Risk Level 0 - 2 = Low Risk Oriented to surroundings, Maintained a safe environment. Abuse screen: Denies threats or abuse. Nutritional screening: No deficits noted. Tuberculosis screening: No symptoms or risk factors identified. Assessment: 22:14 General: Appears uncomfortable, Behavior is cooperative, appropriate for age, crying, rg5 restless. Pain: Complains of pain in back. Neuro: Level of Consciousness is awake, alert, obeys commands, Oriented to person, place, time, situation. 22:14 Cardiovascular: Denies chest pain, Patient's skin is warm and dry. GI: Abdomen is flat, rg5 non-distended, Abd is soft and non tender. : No signs and/or symptoms were reported regarding the genitourinary system. EENT: No signs and/or symptoms were reported regarding the EENT system. Derm: Skin is intact, Skin is dry, Skin is normal, Skin temperature is warm. Musculoskeletal: Circulation, motion, and sensation intact. Range of motion:. 23:20 Reassessment: No changes from previously documented assessment. Patient and/or family rg5 updated on plan of care and expected duration. Pain level reassessed. Patient is alert, oriented x 3, equal unlabored respirations, skin warm/dry/pink. 01/27 03:28 Reassessment: Patient and/or family updated on plan of care and expected duration. Pain kd3 level reassessed. Patient states feeling better. Patient states symptoms have improved. General: Appears uncomfortable, Behavior is calm, cooperative. Neuro: Level of Consciousness is awake, alert, obeys commands, Oriented to person, place, time, situation. Vital Signs: 01/26 23:17 BP 101 / 73; Pulse 113; Resp 19; Pulse Ox 95% ; Pain 7/10; rg5 01/27 00:00 BP 91 / 59; Pulse 115; Resp 19; Pulse Ox 99% ; Pain 5/10; rg5 01:47 Weight 52 kg; vc1 01:49 BP 102 / 68; Pulse 111; Resp 18; Temp 99.8(O); Pulse Ox 100% on R/A; kd3 02:04 BP 99 / 76; Pulse 110; Resp 17; Pulse Ox 100% on R/A; kd3 03:27 BP 92 / 63; Pulse 120; Resp 18; Pulse Ox 100% on R/A; kd3 03:32 BP 101 / 79; Pulse 123; Resp 17; Pulse Ox 100% on R/A; kd3 03:33 Pulse 108; kd3 04:25 BP 93 / 62; Pulse 117; Resp 18; Temp 99.3(O); Pulse Ox 99% on R/A; kd3 05:15 BP 95 / 58; Pulse 108; Resp 18 S; Pulse Ox 98% on R/A; ss12 01/26 23:17 Pain Scale: Adult rg5 01/27 00:00 Pain Scale: Adult rg5 ED Course: 01/26 22:05 Patient arrived in ED. al6 22:06 [facility]C [facility] kb 22:06 Mark Marcus MD is Attending Physician. kb 22:14 Patient has correct armband on for positive identification. Door closed. Noise rg5 minimized. Warm blanket given. 22:14 No provider procedures requiring assistance completed. rg5 22:16 Elmer Ornelas, ABDULLAHI is Primary Nurse. rg5 22:21 Triage completed. kd3 22:21 Arm band placed on. kd3 22:34 Inserted saline lock: 20 gauge in left forearm, using aseptic technique. Blood ts3 collected. Flushed with 10 mL NS. 22:35 Initial lab(s) drawn, by ED staff, sent to lab. ts3 23:50 Urine collected: clean catch specimen, sent to lab. ts3 01/27 00:47 CT Abd/Pelvis - IV Contrast Only In Process Unspecified. EDMS 01:48 Blood Culture Adult (2) Sent. kd3 01:48 Lactate w/ 2H reflex if indic. Sent. kd3 01:48 Protime (+inr) Sent. kd3 01:48 Ptt, Activated Sent. kd3 01:48 Repeat lab(s) drawn. by me, sent to lab. First set of blood cultures drawn by me, kd3 Second set of blood cultures drawn by me. Inserted saline lock: 22 gauge in right antecubital area, using aseptic technique. Blood collected. Flushed with 10 mL NS. 03:01 Johnson Liu, RN is Hospitalizing Provider. sp4 05:50 Patient admitted, IV remains in place. ss12 05:51 Provided Education on: plan of care. ss12 Administered Medications: 01/26 22:35 Drug: Ondansetron IVP 4 mg IVP once; over 2 minutes Route: IVP; Site: left forearm; rg5 01/27 00:07 Follow up: Response: No adverse reaction; Pain is decreased rg5 01/26 22:35 Drug: NS 0.9% IV 1000 ml IV at 1 bolus Per protocol; to be given as a bolus over 60 rg5 minutes Route: IV; Rate: 1 bolus; Site: left forearm; 01/27 00:07 Follow up: IV Status: Completed infusion; IV Intake: 1000ml rg5 01/26 22:36 Drug: TORadol - Ketorolac IVP 15 mg IVP once Route: IVP; Site: left forearm; rg5 01/27 00:07 Follow up: Response: No adverse reaction; Pain is decreased rg5 02:04 Drug: NS 0.9% IV (30 ml/kg) 30 ml/kg IV at bolus once; give over 90 minutes, subtract kd3 1L already administered Route: IV; Rate: bolus; Site: left forearm; 03:25 Follow up: IV Status: Completed infusion kd3 02:04 Drug: Rocephin IV 1 grams IV at calculated rate once; Given slow IV push per pharmacy kd3 instructions Route: IV; Rate: calculated rate; Site: left forearm; 03:25 Follow up: IV Status: Completed infusion kd3 03:24 Drug: Ketorolac IVP 15 mg IVP once Route: IVP; Site: left forearm; kd3 03:26 Follow up: Response: No adverse reaction; Pain is decreased kd3 03:24 Drug: Ciprofloxacin IVPB 400 mg 200 ml IVPB once over 60 mins Volume: 200 ml; Route: kd3 IVPB; Infused Over: 60 mins; Site: right antecubital; 04:27 Follow up: IV Status: Completed infusion kd3 03:25 Drug: metroNIDAZOLE IVPB 500 mg 100 ml IVPB at 200 ml/hr once over 30 mins Volume: 100 kd3 ml; Route: IVPB; Rate: 200 ml/hr; Infused Over: 30 mins; Site: right antecubital; 03:25 Follow up: IV Status: Completed infusion kd3 03:25 Drug: Albumin IVPB 25 grams 100 ml IVPB once; (Note: Albumin 25% concentration) Volume: kd3 100 ml; Route: IVPB; Site: right forearm; 03:26 Follow up: IV Status: Completed infusion kd3 03:25 Drug: morphine IVP or IV 2 mg IVP once over 4 mins Route: IVP; Infused Over: 4 mins; kd3 Site: left forearm; 03:26 Follow up: Response: No adverse reaction; Pain is decreased kd3 03:25 Drug: Ondansetron IVP 4 mg IVP once; over 2 minutes Route: IVP; Site: left forearm; kd3 03:26 Follow up: Response: No adverse reaction; Nausea is decreased kd3 03:41 Drug: D5-1/2 NS IV 1000 ml IV at 125 ml/hr once; 1000 mL bolus; followed by 125 mL/hr kd3 continuous Route: IV; Rate: 125 ml/hr; Site: left antecubital; 05:52 Follow up: IV Status: Infusion continued ss12 Medication: 01/26 22:14 VIS not applicable for this client. rg5 Intake: 01/27 00:07 IV: 1000ml; Total: 1000ml. rg5 Outcome: 03:02 Decision to Hospitalize by Provider. sp4 05:50 Admitted to Med/surg accompanied by tech, via wheelchair, room 224, ss12 05:50 Condition: stable 05:51 Patient left the ED. ss12 Signatures: Dispatcher [employer] EDMS Keturah Garg, LELAND-C COAL HANDLER-Carmen Motley, ABDULLAHI RN kd3 Marcy Burdick RN RN vc1 Mark Marcus MD MD sp4 Elmer Ornelas RN RN rg5 Bette Pinedo6 Janet Harris 3 Jhonny Barry RN RN ss12
--- NOTE | 2025-01-27 03:03 | EDPHYS ---
Physician Documentation [facility] Name: Wilma Batres Age: 29 yrs Sex: Female : 1995 Arrival Date: 01/26/2025 Time: 21:28 Bed 13 Private MD: ED Physician Mark Marcus HPI: 01/27 01:38 This 29 yrs old Female presents to ER via Ambulatory with complaints of Back kb Pain. 01:38 Patient is a 29-year-old female who presents for left flank pain that started kb yesterday. States she was seen by her PCP today, had a UA completed and was started on antibiotics. States she did not get the results of the UA but has a long history of kidney infections so her doctor started her on antibiotics now. Reports fever 103 this morning. Denies urinary symptoms, nausea or vomiting.. 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 - Infectious Disease History:: Denies. - Social history:: Smoking status: unknown. ROS: 01/27 01:37 Constitutional: As per HPI kb Exam: 01:39 Constitutional: This is a well developed, well nourished patient who is awake, alert, kb and in no acute distress. Head/Face: Normocephalic, atraumatic. ENT: Moist Mucous membranes Cardiovascular: Regular rate Respiratory: Respirations even and unlabored. No increased work of breathing. Talking in full sentences Skin: Warm, dry with normal turgor. Normal color. MS/ Extremity: Pulses equal, no cyanosis. Neurovascular intact. Full, normal range of motion. Neuro: Awake and alert, GCS 15, oriented to person, place, time, and situation. 01:39 Abdomen/GI: Inspection: abdomen appears normal, Bowel sounds: normal, Palpation: soft, in all quadrants, mild abdominal tenderness, in the left upper quadrant and left lower quadrant, 01:39 Back: CVA tenderness, that is mild, is noted on the left, Vital Signs: 01/26 23:17 BP 101 / 73; Pulse 113; Resp 19; Pulse Ox 95% ; Pain 7/10; rg5 01/27 00:00 BP 91 / 59; Pulse 115; Resp 19; Pulse Ox 99% ; Pain 5/10; rg5 01:47 Weight 52 kg; vc1 01:49 BP 102 / 68; Pulse 111; Resp 18; Temp 99.8(O); Pulse Ox 100% on R/A; kd3 02:04 BP 99 / 76; Pulse 110; Resp 17; Pulse Ox 100% on R/A; kd3 03:27 BP 92 / 63; Pulse 120; Resp 18; Pulse Ox 100% on R/A; kd3 03:32 BP 101 / 79; Pulse 123; Resp 17; Pulse Ox 100% on R/A; kd3 03:33 Pulse 108; kd3 04:25 BP 93 / 62; Pulse 117; Resp 18; Temp 99.3(O); Pulse Ox 99% on R/A; kd3 05:15 BP 95 / 58; Pulse 108; Resp 18 S; Pulse Ox 98% on R/A; ss12 01/26 23:17 Pain Scale: Adult rg5 01/27 00:00 Pain Scale: Adult rg5 MDM: 01/26 22:06 Medical Screening Exam initiated kb 01/27 01:39 Differential diagnosis: nephrolithiasis, pyelonephritis, UTI. Data reviewed: vital kb signs, nurses notes. 01:56 Transition of care: After a detail discussion of the patient's case, care is kb transferred to Mark Marcus MD. 02:39 Differential diagnosis: Obesity Osteoporosis Pyelonephritis sprain, sp4 Ureterolithiasis. Data reviewed: old medical records, lab test result(s), radiologic studies, CT scan. Consideration of Admission/Observation Escalation of care including admission/observation considered. ED course: EXAM DESCRIPTION: Abdomen Pelvis W Contrast RadLex: CTABDOMEN PELVIS WITH IV CONTRAST CLINICAL HISTORY: 29 years Female; ABD PAIN; IV ONLYBed Name: 13 TECHNIQUE: CT of the abdomen and pelvis [with] intravenous contrast. All CT scans at this facility use dose modulation, iterative reconstruction, and/or weight based dosing when appropriate to reduce radiation dose to as low as reasonably achievable. COMPARISON: CT abdomen pelvis 03/08/2021 FINDINGS: Lower thorax: Lung bases are clear Abdomen: Stomach:Within normal limits Liver:No focal lesions. No intrahepatic ductal distention. Gallbladder:Nondistended Pancreas:Within normal limits Spleen:Within normal limits Right kidney:No hydronephrosis. No focal lesion. Left kidney:No hydronephrosis. Superior pole cortical scarring. Multifocal cortical hypoattenuation. Adrenal glands:Within normal limits Vascular structures:Within normal limits Nodes:No lymphadenopathy by size criteria Pelvis: Small bowel:No significant distention. Appendix:Not visualized Colon:No distention or acute pericolonic edema. Peritoneum: No free intraperitoneal fluid or air. Bones: No acute bone findings. Bladder: Tiny foci of gas in the anterior bladder Reproductive organs: No acute findings. IMPRESSION: 1. Multifocal cortical hypo attenuation in the left kidney, can be seen in setting of pyelonephritis. Correlate with urinalysis. 2. Tiny foci of gas in the anterior bladder, can be seen in setting of recent instrumentation versus cystitis. Correlate with urinalysis. Electronically signed by: Trey Stevenson MD 01/27/2025 02:33 AM. 02:52 ED course: Patient was advised to get admitted for further management in the hospital. sp4 02:59 ED course: Sepsis reevaluation completed. Patient was given 30 mL per kg septic fluid sp4 bolus. . 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 03:02 ED course: Severe sepsis without septic shock. sp4 01/26 22:16 Order name: CBC with Diff; Complete Time: 00:46 kb 01/26 22:16 Order name: CMP; Complete Time: 22:58 kb 01/26 22:16 Order name: Lipase; Complete Time: 22:58 kb 01/26 22:45 Order name: Manual Differential; Complete Time: 00:46 EDMS 08 22:58 Order name: UA Rfx Vladimir Cult if indicated; Complete Time: 00:09 kb 01/26 22:58 Order name: Test, Urine; Complete Time: 00:08 kb 01/27 00:11 Order name: Urine Culture EDMS 01/27 00:47 Order name: Blood Culture Adult (2) kb 01/27 00:47 Order name: Lactate w/ 2H reflex if indic.; Complete Time: 14:21 kb 01/27 00:47 Order name: Protime (+inr); Complete Time: 02:56 kb 01/27 00:47 Order name: Ptt, Activated; Complete Time: 02:56 kb 01/26 22:16 Order name: CT Abd/Pelvis - IV Contrast Only; Complete Time: 14:21 kb 01/26 22:16 Order name: IV Saline Lock; Complete Time: 22:34 kb 01/26 22:16 Order name: Labs collected and sent; Complete Time: 22:34 kb Administered Medications: 01/26 22:35 Drug: Ondansetron IVP 4 mg IVP once; over 2 minutes Route: IVP; Site: left forearm; rg5 01/27 00:07 Follow up: Response: No adverse reaction; Pain is decreased rg5 01/26 22:35 Drug: NS 0.9% IV 1000 ml IV at 1 bolus Per protocol; to be given as a bolus over 60 rg5 minutes Route: IV; Rate: 1 bolus; Site: left forearm; 01/27 00:07 Follow up: IV Status: Completed infusion; IV Intake: 1000ml 5 01/26 22:36 Drug: TORadol - Ketorolac IVP 15 mg IVP once Route: IVP; Site: left forearm; rg5 01/27 00:07 Follow up: Response: No adverse reaction; Pain is decreased rg5 02:04 Drug: NS 0.9% IV (30 ml/kg) 30 ml/kg IV at bolus once; give over 90 minutes, subtract kd3 1L already administered Route: IV; Rate: bolus; Site: left forearm; 03:25 Follow up: IV Status: Completed infusion kd3 02:04 Drug: Rocephin IV 1 grams IV at calculated rate once; Given slow IV push per pharmacy kd3 instructions Route: IV; Rate: calculated rate; Site: left forearm; 03:25 Follow up: IV Status: Completed infusion kd3 03:24 Drug: Ketorolac IVP 15 mg IVP once Route: IVP; Site: left forearm; kd3 03:26 Follow up: Response: No adverse reaction; Pain is decreased kd3 03:24 Drug: Ciprofloxacin IVPB 400 mg 200 ml IVPB once over 60 mins Volume: 200 ml; Route: kd3 IVPB; Infused Over: 60 mins; Site: right antecubital; 04:27 Follow up: IV Status: Completed infusion kd3 03:25 Drug: metroNIDAZOLE IVPB 500 mg 100 ml IVPB at 200 ml/hr once over 30 mins Volume: 100 kd3 ml; Route: IVPB; Rate: 200 ml/hr; Infused Over: 30 mins; Site: right antecubital; 03:25 Follow up: IV Status: Completed infusion kd3 03:25 Drug: Albumin IVPB 25 grams 100 ml IVPB once; (Note: Albumin 25% concentration) Volume: kd3 100 ml; Route: IVPB; Site: right forearm; 03:26 Follow up: IV Status: Completed infusion kd3 03:25 Drug: morphine IVP or IV 2 mg IVP once over 4 mins Route: IVP; Infused Over: 4 mins; kd3 Site: left forearm; 03:26 Follow up: Response: No adverse reaction; Pain is decreased kd3 03:25 Drug: Ondansetron IVP 4 mg IVP once; over 2 minutes Route: IVP; Site: left forearm; kd3 03:26 Follow up: Response: No adverse reaction; Nausea is decreased kd3 03:41 Drug: D5-1/2 NS IV 1000 ml IV at 125 ml/hr once; 1000 mL bolus; followed by 125 mL/hr kd3 continuous Route: IV; Rate: 125 ml/hr; Site: left antecubital; 05:52 Follow up: IV Status: Infusion continued ss12 Disposition: 03:00 Co-signature as Attending Physician, Mark Marcus MD I agree with the assessment sp4 and plan of care. I reviewed the patient's care provided by Advanced Practice Provider \T\ agree w/ the diagnosis \T\ care plan. I personally saw the pt \T\ performed a substantive portion of the visit, incldng all aspects of the (History/Exam/Medical Decision Making). 03:02 Chart complete. sp4 Disposition Summary: 01/27/25 03:02 Hospitalization Ordered Notes: Hospitalization Status: Inpatient Admission sp4 Provider: Johnson Liu spAntwan Condition: Stable sp4 Problem: new sp4 Symptoms: have improved sp4 Bed/Room Type: Standard sp4 [facility]f Room Assignment: [facility](01/27/25 04:48) [facility] Diagnosis - Acute left pyelonephritis, sp4 - Severe sepsis without septic shock sp4 Forms: - Medication Reconciliation Form sp4 - SBAR form sp4 - Leadership Thank You Letter sp4 Critical care time excluding procedures: 03:02 Critical care time: Bedside Care: 36 minutes, Consultation: 12 minutes, Family sp4 Intervention: 12 minutes. Total time: 60 minutes Signatures: Dispatcher [employer] EDMS Keturah Garg, STNA-Aparna STNA-Carmen Motley, RN RN kd3 Mark Marcus MD MD sp4 Nicole Ribera [facility] Elmer Ornelas RN RN rg5 Jhonny Barry RN ss12 Corrections: (The following items were deleted from the chart) 01/26 22:16 22:16 Abdomen Pelvis W Con+CT.RAD.BRZ ordered. EDMS EDMS 01/27 00:48 00:48 BLOOD CULTURE*+BA.LAB.BRZ ordered. EDMS EDMS 00:48 00:48 LACTATE+C.LAB.BRZ ordered. EDMS EDMS 00:48 00:48 PROTIME (+INR)+COAG.LAB.BRZ ordered. EDMS EDMS 00:48 00:48 PTT, ACTIVATED+COAG.LAB.BRZ ordered. EDMT EDMT 04:38 03:02 Telemetry/MedSurg (Inpatient) sp4 kmf 04:38 03:02 sp4 kmf 04:48 04:38 Intensive Care Unit [facility] km 04:48 04:38 4- kmf [facility]
[2025-01-27] MEDS ORDERED: ONDANSETRON 4 MG/2 ML VIAL IV PRN (03:25)
[2025-01-27] MEDS ORDERED: D5 0.45 NS 1,000 ML IV ONE (03:36)
--- NOTE | 2025-01-27 03:37 | P.HP ---
Certification for Inpatient Patient admitted to: Inpatient With expected LOS: >2 Midnights Patient will require the following post-hospital care: None Practitioner: I am a practitioner with admitting privileges, knowledge of patient current condition, hospital course, and medical plan of care. Services: Services provided to patient in accordance with Admission requirements found in Title 42 Section 412.3 of the Code of Federal Regulations Patient History Date of Service: 01/27/25 Reason for admission: Acute Pyelonephritis History of Present Illness: Patient is a 29-year-old female with past medical history of frequent UTIs for which she states resulted from injury that was caused to her urinary bladder during her , and surgery to her urinary bladder, low blood pressure, who presents to the ER complaining of severe and excruciating pain to her left costovertebral angle with no associated nausea or vomiting, chest pain, or shortness of breath.. Patient states she started having pain to her left costovertebral angle, and foul smelling urine on , and had fever of 103 Fahrenheit, states she went to see her PCP on Wednesday, had urinalysis done that showed UTI, states she was prescribed cephalexin 500 mg p.o. twice daily, states upon arriving home, she went and picked up the antibiotic, states she took a tablet, but the pain was so excruciating and not relieving prompting her to report to the ER. Patient describes the pain as constant, aching and throbbing pain, with a pain scale of 10/10, none aggravating factors. Course in ER: CT abdomen/pelvis with IV contrast. Impression: (1) multifocal cortical hypoattenuation in the left kidney, can be setting of pyelonephritis. Correlate with urinalysis. (2)Tiny foci of gas in the anterior bladder, can be seen setting of recent instrumentation versus cystitis. Correlate with urinalysis. Allergies Penicillins Allergy (Mild, Verified 07/24/11 15:37) Hives Amoxicillin-Pot Clavulanate Allergy (Uncoded 01/11/15 20:12) Unknown Home medications list reviewed: No Home Medications: cephALEXin [Cephalexin] 500 mg PO BID 10 Days #20 tab 07/10/23 - Past Medical/Surgical History Diabetic: No -: Multiple UTI'S -: Low BP -: section x2 -: Bladder repair Psychosocial/ Personal History: Lives at home with family - Social History Smoking Status: Never smoker Alcohol use: No CD- Drugs: No Caffeine use: Yes Place of Residence: Home Review of Systems 10-point ROS is otherwise unremarkable Gastrointestinal: Other (Left costal vertebral angle pain) Genitourinary: Dysuria, Frequency, Urgency Physical Examination - Physical Exam General: Alert, Oriented x3, Cooperative HEENT: Atraumatic, Normocephalic, PERRLA Neck: Supple, 2+ carotid pulse no bruit, No Thyromegaly, No LAD, Without JVD or thyroid abnormality Respiratory: Clear to auscultation bilaterally, Normal air movement Cardiovascular: No edema, Normal pulses, No gallops, Other (Tachycardia) Capillary refill: <2 Seconds Gastrointestinal: Normal bowel sounds, Soft and benign, Non-distended, W/out hepatomegaly, No ascites, Tenderness (Left costal vertebral angle pain), Guarding Musculoskeletal: No clubbing, No swelling, No contractures, No erythema, No tenderness, No warmth Integumentary: No rashes, No breakdown, No significant lesion, No tenderness/swelling, No erythema, No warmth, No cyanosis Neurological: Normal gait, Normal speech, Normal strength at 5/5 x4 extr, Normal tone, Sensation intact, Cranial nerves 3-12 intact, Normal reflexes 2+, Normal affect Lymphatics: No axilla or inguinal lymphadenopathy - Studies Laboratory Data (last 24 hrs) 01/27/25 01/26/25 01/26/25 01:42 22:25 22:25 WBC 8.50 Hgb 12.7 Hct 37.2 Plt Count 238 PT 13.5 H INR 1.20 APTT 32.7 Sodium 136 Potassium 3.7 BUN 14 Creatinine 0.83 Glucose 101 Total Bilirubin 0.5 AST < 10 L ALT < 14 Alkaline Phosphatase 72 Lipase 24 Female Exam - Breasts Breasts: Normal configuration, Normal contours, Symmetrical Assessment and Plan - Plan Patient admitted inpatient with diagnosis of acute pyelonephritis, with associated fever, no nausea, vomiting, chest pain or shortness of breath. Patient was also tachycardia during admission assessment. States she has not been able to drink enough water or good p.o. intake today. (1)Acute pyelonephritis. Patient received initial dose of ceftriaxone 1 g in ER . -Ceftriaxone 2 g IV daily. -IV fluid NS at 100 mL/ hr. Patient is tachycardia which may be related to volume depletion since she has not been able to take adequate amount of p.o. fluid today. -Morphine 4 mg IV as needed every 6 hours. -Zofran 4 mg IV as needed every 6 hours. -Order for urine culture. (2)Chronic hypotensive. 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 Patient hypotensive in ER, received albumin in ER, intravenous fluid NS 1000ml. -Continue midodrine 5 mg p.o. 3 times daily. (3) DVT prophylaxis. -Lovenox 40 mg subcu daily. (4)Explained the entire treatment plan to the patient, solicit questions answered and voiced understanding. Discharge Plan: Home Plan to discharge in: Greater than 2 days - Advance Directives Does patient have a Living Will: No Does patient have a Durable POA for Healthcare: No - Code Status/Comfort Care Code Status Assessed: Yes Code Status: Full Code Critical Care: No Time Spent Managing Pts Care (In Minutes): 55
[2025-01-27] MEDS: NA CHLORIDE 0.9% 1,000 ML IV SCH (06:09)
[2025-01-27 06:29] VITALS: BMI 20.9
[2025-01-27 06:30] VITALS: O2SAT 98
--- NOTE | 2025-01-27 07:00 | RAD REPORT ---
EXAM DESCRIPTION: Abdomen Pelvis W Contrast RadLex: CT ABDOMEN PELVIS WITH IV CONTRAST CLINICAL HISTORY: 29 years Female; ABD PAIN; IV ONLY Bed Name: 13 TECHNIQUE: CT of the abdomen and pelvis [with] intravenous contrast. All CT scans at this facility use dose modulation, iterative reconstruction, and/or weight based dosi ng when appropriate to reduce radiation dose to as low as reasonably achievable. COMPARISON: CT abdomen pelvis 03/08/2021 FINDINGS: Lower thorax: Lung bases are clear Abdomen: Stomach: Within normal limits Liver: No focal lesions. No intrahepatic ductal distention. Gallbladder: Nondistended Pancreas: Within normal limits Spleen: Within normal limits Right kidney: No hydronephrosis. No focal lesion. Left kidney: No hydronephrosis. Superior pole cortical scarring. Multifocal cortical hypoattenuation. Adrenal glands: Within normal limits Vascular structures: Within normal limits Nodes: No lymphadenopathy by size criteria Pelvis: Small bowel: No significant distention. Appendix: Not visualized Colon: No distention or acute pericolonic edema. Peritoneum: No free intraperitoneal fluid or air. Bones: No acute bone findings. Bladder: Tiny foci of gas in the anterior bladder Reproductive organs: No acute findings. IMPRESSION: 1. Multifocal cortical hypoattenuation in the left kidney, can be seen in setting of pyelonephritis . Correlate with urinalysis. 2. Tiny foci of gas in the anterior bladder, can be seen in setting of recent instrumentation versu s cystitis. Correlate with urinalysis. Electronically signed by: Trey Stevenson MD 01/27/2025 02:33 AM CDT TYG Due to temporary technical issues with the PACS[employer] reporting system, reports are being hazel d by the in-house radiologist without review as a courtesy to ensure prompt reporting the interpreting radiologist is fully responsible for the content of the report. Transcribed Date/Time: 01/27/2025 7:00 AM
[2025-01-27] MEDS: ACETAMINOPHEN 325 MG TABLET PO PRN ×2 (07:38→20:16)
[2025-01-27] MEDS: POTASSIUM CL SA 10 MEQ TAB PO ONE (08:21)
[2025-01-27] MEDS: CEFTRIAXONE 2,000 MG in NA CHLORIDE 0.9% 100 ML IV SCH (08:22)
[2025-01-27] MEDS: ENOXAPARIN 40 MG/0.4 ML SQ SCH (08:22)
[2025-01-27] MEDS: MIDODRINE HCL 5 MG TABLET PO SCH (08:22)
[2025-01-27] MEDS: MORPHINE 4 MG/ML SYR IV PRN (09:55)
--- NOTE | 2025-01-27 15:27 | P.PN ---
Date of Service: 01/27/25 Patient seen and examined. She had an episode of fever up to 101 this morning. Continue IV Rocephin Urine culture and blood cultures are pending to be followed. Diet as tolerated. Analgesics as needed.
[2025-01-28 05:15] LABS: Absolute Lymphocytes (CBC) 0.9 K/uL (0.7-4.9); Hematocrit 31.3 % (36.0-45.0); Hemoglobin 10.4 g/dL (12.0-15.0); MCH 26.8 pg (27.0-35.0); MCHC 33.2 g/dL (32.0-36.0); MCV 80.8 fL (80-100); MPV 9.9 fL (7.6-11.3); Nucleated RBC Absolute Count 0.0 (0-0); Nucleated Red Blood Cells % 0.6 % (0-0); RBC Red Blood Cell Count 3.87 M/uL (3.86-4.86); White Blood Count 5.60 thou/uL (4.3-10.9)
[2025-01-28 05:26] LABS: AST/SGOT 11 U/L (15-37); Albumin 2.7 g/dL (3.4-5.0); Albumin/Globulin Ratio 0.8 (1.1-1.8); Alkaline Phosphatase 47 U/L (45-117); Anion Gap 8.7 mEq/L (5.0-15.0); BUN Blood Urea Nitrogen 6 mg/dL (7-18); Globulin 3.2 g/dL (2.3-3.5); Glucose Level 83 mg/dL (74-106); Magnesium 2.0 mg/dL (1.6-2.4); Potassium 3.7 mEq/L (3.5-5.1)
[2025-01-28 05:41] LABS: ALT/SGPT < 14 U/L (13-56)
[2025-01-28] MEDS: NA CHLORIDE 0.9% 1,000 ML IV SCH (07:52)
[2025-01-28] MEDS: POTASSIUM CL SA 10 MEQ TAB PO ONE (07:52)
[2025-01-28] MEDS: Meropenem 1,000 MG in NA CHLORIDE 0.9% 100 ML IV SCH (09:20)
--- NOTE | 2025-01-28 14:44 | P.PN ---
Subjective Date of Service: 01/28/25 Chief Complaint: Acute Pyelonephritis Patient continues to experience intermittent fever. She is tolerating diet. Blood pressure readings have been borderline low. Physical Examination - Vital Signs Temperature: 98.2 F Blood Pressure: 97/63 Pulse: 59 Respirations: 16 Pulse Ox (%): 98 Assessment And Plan - Plan Physical examination General: Alert and oriented x3, NAD, HEENT: Conjunctiva not pale, anicteric sclera Neck: Supple, no elevated JVD Heart: Heart sounds 1 and 2 normal, regular rhythm, normal rate, no pedal edema Lungs: Clear to auscultation bilaterally, adequate breath sounds bilaterally, no rhonchi or crackles. Abdomen: Soft, nondistended, nontender, normal bowel sounds. Extremities: No tenderness, no deformity Skin: Normal skin turgor, no rash, no nodules or ulcers. Neuro: No focal motor deficit. Normal speech. Psychiatry: Normal mood, no agitation. Diagnosis Sepsis Acute pyelonephritis Chronic hypotension Plan: Patient met criteria for sepsis with tachycardia and fever. She continues to experience intermittent fever. Blood cultures have yielded no growth, urine culture is still pending. Patient experiencing intermittent fever despite being on IV Rocephin IV Rocephin changed to IV meropenem. Follow cultures. Continue midodrine for chronic hypotension. IV hydration. DVT prophylaxis: lovenox
[2025-01-28] MEDS: HYDROCODONE/APAP 5/325 MG TAB PO PRN (16:44)
[2025-01-29 05:18] LABS: Absolute Lymphocytes (CBC) 1.1 K/uL (0.7-4.9); Hematocrit 31.6 % (36.0-45.0); Hemoglobin 11.0 g/dL (12.0-15.0); MCH 27.8 pg (27.0-35.0); MCHC 34.9 g/dL (32.0-36.0); MCV 79.5 fL (80-100); MPV 9.0 fL (7.6-11.3); Nucleated RBC Absolute Count 0.0 (0-0); Nucleated Red Blood Cells % 0.1 % (0-0); RBC Red Blood Cell Count 3.98 M/uL (3.86-4.86); White Blood Count 4.30 thou/uL (4.3-10.9)
[2025-01-29 05:33] LABS: Albumin 2.8 g/dL (3.4-5.0); Albumin/Globulin Ratio 0.8 (1.1-1.8); Alkaline Phosphatase 48 U/L (45-117); Anion Gap 6.8 mEq/L (5.0-15.0); BUN Blood Urea Nitrogen 5 mg/dL (7-18); Globulin 3.4 g/dL (2.3-3.5); Glucose Level 87 mg/dL (74-106); Magnesium 2.0 mg/dL (1.6-2.4); Potassium 3.8 mEq/L (3.5-5.1)
[2025-01-29 05:38] LABS: ALT/SGPT < 14 U/L (13-56); AST/SGOT < 10 U/L (15-37)
[2025-01-29] MEDS: Levofloxacin500mg IV 500 MG/100 ML BAG IV SCH (11:37)
--- NOTE | 2025-01-29 14:53 | P.PN ---
Subjective Date of Service: 01/29/25 Chief Complaint: Acute Pyelonephritis Patient reports headache. No fever for more than 24 hours. Patient felt she was not tolerating the meropenem with headache and chest tightness. Physical Examination - Vital Signs Temperature: 98.2 F Blood Pressure: 91/52 Pulse: 66 Respirations: 16 Pulse Ox (%): 97 - Studies Microbiology Data (last 24 hrs): 01/27/25 01:42 Blood - Blood Blood Culture Gram Stain - Final 01/26/25 23:46 Clean Catch Urine Collins Count - Final No growth. 01/26/25 23:46 Clean Catch Urine - Final Assessment And Plan - Plan Physical examination General: Alert and oriented x3, NAD, Neck: Supple. Heart: Heart sounds 1 and 2 normal, regular rhythm, normal rate, no pedal edema Lungs: Clear to auscultation bilaterally, adequate breath sounds bilaterally, no rhonchi or crackles. Abdomen: Soft, nondistended, nontender, normal bowel sounds. Extremities: No tenderness, no deformity Skin: Normal skin turgor, no rash, no nodules or ulcers. Neuro: No focal motor deficit. Normal speech. Psychiatry: Normal mood, no agitation. Diagnosis Sepsis Acute pyelonephritis Chronic hypotension Plan: Patient met criteria for sepsis with tachycardia and fever. She continues to experience intermittent fever. Blood cultures have yielded no growth, urine culture is still pending. Patient experiencing intermittent fever despite being on IV Rocephin IV Rocephin changed to IV meropenem. Follow cultures. Continue midodrine for chronic hypotension. IV hydration. 01/29 1 blood culture Gram stain showing gram-negative rods, final culture result is pending. Urine culture done outside the hospital grew E. coli sensitive to multiple antibiotics including Rocephin and Levaquin. Reported history of allergy to penicillin. Will switch IV meropenem to IV Levaquin. Repeat blood culture. Infectious disease consult. Supportive measures with analgesics as needed. DVT prophylaxis: lovenox
[2025-01-30] MEDS: ALPRAZOLAM 0.25 MG TABLET PO ONE ×2 (00:34→21:50)
[2025-01-30 06:51] LABS: Absolute Lymphocytes (CBC) 1.6 K/uL (0.7-4.9); Hematocrit 34.8 % (36.0-45.0); Hemoglobin 12.1 g/dL (12.0-15.0); MCH 27.6 pg (27.0-35.0); MCHC 34.7 g/dL (32.0-36.0); MCV 79.6 fL (80-100); MPV 8.6 fL (7.6-11.3); Nucleated RBC Absolute Count 0.0 (0-0); Nucleated Red Blood Cells % 0.1 % (0-0); RBC Red Blood Cell Count 4.38 M/uL (3.86-4.86); White Blood Count 3.80 thou/uL (4.3-10.9)
[2025-01-30 07:09] LABS: Albumin 3.2 g/dL (3.4-5.0); Albumin/Globulin Ratio 0.8 (1.1-1.8); Alkaline Phosphatase 55 U/L (45-117); Anion Gap 9.8 mEq/L (5.0-15.0); BUN Blood Urea Nitrogen 11 mg/dL (7-18); Globulin 4.0 g/dL (2.3-3.5); Glucose Level 80 mg/dL (74-106); Magnesium 2.2 mg/dL (1.6-2.4); Potassium 3.8 mEq/L (3.5-5.1)
[2025-01-30 07:10] LABS: ALT/SGPT < 14 U/L (13-56); AST/SGOT < 10 U/L (15-37)
--- NOTE | 2025-01-30 09:27 | P.PN ---
Date of Service: 01/30/25 Subjective: feeling some improvement each day Afebrile for over 48 hrs now has minimal appetite reports some vaginal bleeding / spotting that started yesterday. Recently started her period ~1 week ago and has been off her control while hospitalized. Physical Exam: GEN: Alert, oriented, NAD CV: Regular rate and rhythm, no edema Pulm: Nonlabored respirations on room air, clear bilaterally ABD: soft, nontender, nondistended Neuro: Normal speech, normal affect Problem List: Sepsis secondary to acute pyelonephritis E. coli bacteremia Hx recurrent UTI Chronic Hypotension Sepsis secondary to acute pyelonephritis E. coli bacteremia Hx recurrent UTI on admission, presents with severe left flank pain, foul smelling urine, [address] abd/pelvis (01/27): Multifocal cortical hypoattenuation in the left kidney consistent with acute pyelonephritis. Tiny foci of gas in the anterior bladder Had Urine culture done at PCP office. Culture grew E. coli sensitive to multiple antibiotics including Rocephin and Levaquin Blood cx (01/27): E. coli in 1/4 bottles. Repeat blood cx (01/29): 1/2 bottles positive, now with GPC on stain ID consulted IV Rocephin (01/27) switched to IV merrem given continued fevers IV Merrem (01/28-01/29) switched to IV levaquin given chest discomfort and headache Continue IV levaquin (01/29-) Chest discomfort likely side effect from IV merrem Troponin negative. Monitor on telemetry Afebrile > 48 hours, no leukocytosis Chronic Hypotension Monitor BP. Continue midodrine VTE: DC Lovenox Code: Full Dispo: Home, ~1 day Pending blood cultures, ID recs Time Spent Managing Pts Care (In Minutes): 55
--- NOTE | 2025-01-30 18:59 | CON ---
History Of Present Illness: This is a 29-year-old female, I was consulted for evaluation of pyelonep hritis with the blood culture showing E coli and second set of culture showing gram-positive cocci in pairs and chains. The patient is currently on Levaquin. She has received Rocephin till the culture came back. She has significant history of recurrent urinary tract infections, which started after s he had a and her bladder was nicked. The patient came to the emergency room with excruciat ing pain to the left costovertebral angle with no nausea, vomiting, chest pain, shortness of breath. The patient has significant past history of penicillin allergies. As per patient, she had foul-smel ling urine, left-sided back pain, and fever of 103. She was seen by her primary care physician and u rinalysis shows signs of urinary tract infection. She was given cephalexin 500 mg twice daily, but s he decided to come to the emergency room after she had severe pain to her back. She is feeling much better today and afebrile for 48 hours since patient has been on antibiotic. Past Medical History: 1. Recurrent urinary tract infections. 2. Low blood pressure. 3. x2. 4. Bladder repair. Social History: Nonsmoker. Nondrinker. Family History: Noncontributory. Medications: Levaquin. See MARs for other medications. Allergies: PENICILLIN CAUSES HIVES. Review of Systems: A 10-point review was performed. Physical Examination: General: This is a 29-year-old, otherwise, healthy female, not in any acute cardiopulmonary distress . Vital Signs: Temperature 98, pulse 84, respirations 18, blood pressure 93/58. HEENT: Unremarkable. Neck: Supple. Lungs: Basal crackles. Heart: S1, S2. Regular. Abdomen: Soft. Bowel sounds present. Left CVA tenderness noted. Extremities: No edema. Laboratory Data: Shows WBC 3.8, hemoglobin 12.1, platelets are 255. BUN of 11, creatinine 0.5, albu min level 3.2. Blood cultures from 01/27 shows E coli showing sensitivity to quinolone. CT scan don e on January 26 shows that the patient has multifocal cortical hypoattenuation in the left kidney, john elating with pyelonephritis, and tiny foci of gas in the anterior bladder in the setting of recent in strumentation versus cystitis. Urinalysis done on January 26 showed 500 leukocytes, with more than 50 wbc noted, bacteria was also noted in the urine, with clarity being turbid. Assessment And Plan: 1. Left-sided pyelonephritis in a patient with recurrent urinary tract infections, status post bladde r injury during surgery. 2. Urosepsis. 3. Bacteremia secondary to Escherichia coli. 4. Chronic hypotension. 5. Continue Levaquin for 2 weeks. 6. Bacteriuria. 7. Leukorrhea. 8. Blood cultures 1/2 showing gram-positive cocci in chain. We will continue to monitor signs of inf ection with WBC and fever trends. No other recommendation at this time. Thank you, Dr. Chance and Dr. Driscoll, for consult. NF/MODL Voice ID: [id number] Report ID: [id number]
[2025-01-31 05:06] LABS: Absolute Lymphocytes (CBC) 2.2 K/uL (0.7-4.9); Hematocrit 35.3 % (36.0-45.0); Hemoglobin 12.1 g/dL (12.0-15.0); MCH 27.2 pg (27.0-35.0); MCHC 34.3 g/dL (32.0-36.0); MCV 79.2 fL (80-100); MPV 9.5 fL (7.6-11.3); Nucleated RBC Absolute Count 0.0 (0-0); Nucleated Red Blood Cells % 0.1 % (0-0); RBC Red Blood Cell Count 4.46 M/uL (3.86-4.86); White Blood Count 4.70 thou/uL (4.3-10.9)
[2025-01-31 05:21] LABS: Anion Gap 6.7 mEq/L (5.0-15.0); BUN Blood Urea Nitrogen 13.0 mg/dL (7-18); Glucose Level 101.0 mg/dL (74-106); Magnesium 2.2 mg/dL (1.6-2.4); Potassium 3.7 mEq/L (3.5-5.1)
[2025-01-31] MEDS: POTASSIUM CL SA 10 MEQ TAB PO ONE (10:00)
--- NOTE | 2025-01-31 11:04 | P.DS ---
Admission Date: 01/27/25 Discharge Date: 01/31/25 Disposition: ROUTINE DISCHARGE Discharge Condition: GOOD Reason for Admission: Acute Pyelonephritis Consultations: ID - Dr. Dooley Brief History of Present Illness: 29yo F, PMH: frequent UTIs for which she states resulted from injury that was caused to her urinary bladder during her , and surgery to her urinary bladder, chronic hypotension Patient presents to the ER complaining of severe and excruciating pain to her left costovertebral angle with no associated nausea or vomiting, chest pain, or shortness of breath. Patient states she started having pain to her left costovertebral angle, and foul smelling urine on , and had fever of 103 Fahrenheit, states she went to see her PCP on Wednesday, had urinalysis done that showed UTI, states she was prescribed cephalexin 500 mg p.o. twice daily, states upon arriving home, she went and picked up the antibiotic, states she took a tablet, but the pain was so excruciating and not relieving prompting her to report to the ER. Patient describes the pain as constant, aching and throbbing pain, with a pain scale of 10/10, none aggravating factors. Course in ER: CT abdomen/pelvis with IV contrast. Impression: (1) multifocal cortical hypoattenuation in the left kidney, can be setting of pyelonephritis. Correlate with urinalysis. (2)Tiny foci of gas in the anterior bladder, can be seen setting of recent instrumentation versus cystitis. Correlate with urinalysis. Hospital Course: Problem List: Sepsis secondary to acute pyelonephritis E. coli bacteremia Hx recurrent UTI Chronic Hypotension Physician discharge instructions: Patient presented with left flank pain, foul smelling urine, fever secondary to acute pyelonephritis further complicate by E. coli Bacteremia. CT abdomen on admission was consistent with acute left sided pyelonephritis. Urine culture done here was without growth, however patient was able to obtain her urine culture that was just done in the office prior to admission. Outpatient culture was reviewed which had grown E. coli sensitive to multiple antibiotics including Rocephin and Levaquin. Blood cultures grew E. coli in 1 of 4 bottles susceptible to all antibiotics received during hospitalization. Repeat blood cultures were noted to have some gram positive cocci seen on the stain, which is most likely / consistent with contaminated specimen given her continued daily improvement on current antibiotics. Patient was started on IV rocephin however continued to have intermittent fever. IV antibiotics were switched to IV merrem however patient was noted to develop some mild chest discomfort associated with some headaches after starting merrem. Chest pain and headache resolved after switching over from IV merrem to IV levaquin and patient continued to improve. Suspect symptoms were a side effect from IV merrem. Patient was feeling better, afebrile for > 48 hours without leukocytosis, flank pain improved and was deemed stable for discharge. Patient tolerating diet without issues on day of discharge. Patient completed ~4 days of IV Merrem/Levaquin and is to complete 10 more days of oral levaquin on discharge to complete 14 day total course. Medications: 10 days of levaquin (Start 02/01 am) Follow up: PCP 3-5 days OBGYN as scheduled Please call to schedule / confirm appointments Patient hospitalized from 01/26-01/31. Okay to return to work on Wednesday, 02/02 without restrictions. Physical Exam: GEN: Alert, oriented, NAD CV: Regular rate and rhythm, no edema Pulm: Nonlabored respirations on room air, clear bilaterally ABD: soft, nontender, nondistended Neuro: Normal speech, normal affect Vital Signs/Physical Exam: Temp Pulse Resp BP Pulse Ox 98.1 F 78 16 90/69 99 01/31/25 08:00 01/31/25 08:00 01/31/25 08:00 01/31/25 08:00 01/31/25 08:00 Laboratory Data at Discharge: WBC 4.70 thou/uL (4.3-10.9) 01/31/25 04:22 Hgb 12.1 g/dL (12.0-15.0) 01/31/25 04:22 Hct 35.3 % (36.0-45.0) L 01/31/25 04:22 Plt Count 291 thou/uL (152-406) 01/31/25 04:22 PT 13.5 SECONDS (10-13.0) H 01/27/25 01:42 INR 1.20 01/27/25 01:42 APTT 32.7 SECONDS (27.2-37.4) 01/27/25 01:42 Sodium 139 mEq/L (136-145) 01/31/25 04:22 Potassium 3.7 mEq/L (3.5-5.1) 01/31/25 04:22 BUN 13 mg/dL (7-18) 01/31/25 04:22 Creatinine 0.72 mg/dL (0.55-1.02) 01/31/25 04:22 Glucose 101 mg/dL (74-106) 01/31/25 04:22 Magnesium 2.2 mg/dL (1.6-2.4) 01/31/25 04:22 Total Bilirubin 0.3 mg/dL (0.2-1.0) 01/30/25 06:34 AST < 10 U/L (15-37) L 01/30/25 06:34 ALT < 14 U/L (13-56) 01/30/25 06:34 Alkaline Phosphatase 55 U/L (45-117) 01/30/25 06:34 Lipase 24 U/L (13-75) 01/26/25 22:25 Home Medications: levoFLOXacin [Levaquin] 750 mg PO DAILY 10 Days #10 tab 01/31/25 New Medications: levoFLOXacin [Levaquin] 750 mg PO DAILY 10 Days #10 tab Physician Discharge Instructions: Physician discharge instructions: Patient presented with left flank pain, foul smelling urine, fever secondary to acute pyelonephritis further complicate by E. coli Bacteremia. CT abdomen on admission was consistent with acute left sided pyelonephritis. Urine culture done here was without growth, however patient was able to obtain her urine culture that was just done in the office prior to admission. Outpatient culture was reviewed which had grown E. coli sensitive to multiple antibiotics including Rocephin and Levaquin. Blood cultures grew E. coli in 1 of 4 bottles susceptible to all antibiotics received during hospitalization. Repeat blood cultures were noted to have some gram positive cocci seen on the stain, which is most likely / consistent with contaminated specimen given her continued daily improvement on current antibiotics. Patient was started on IV rocephin however continued to have intermittent fever. IV antibiotics were switched to IV merrem however patient was noted to develop some mild chest discomfort associated with some headaches after starting merrem. Chest pain and headache resolved after switching over from IV merrem to IV levaquin and patient continued to improve. Suspect symptoms were a side effect from IV merrem. Patient was feeling better, afebrile for > 48 hours without leukocytosis, flank pain improved and was deemed stable for discharge. Patient tolerating diet without issues on day of discharge. Patient completed ~4 days of IV Merrem/Levaquin and is to complete 10 more days of oral levaquin on discharge to complete 14 day total course. Medications: 10 days of levaquin (Start 8/14 am) Follow up: PCP 3-5 days OBGYN as scheduled Please call to schedule / confirm appointments Patient hospitalized from 01/26-01/31. Okay to return to work on Wednesday, 02/02 without restrictions. Followup: Kenya Bennett MD [Primary Care Provider] - 1-2 Weeks Time spent managing pt's care (in minutes): 45
--- NOTE | 2025-01-31 11:15 | P.PN ---
Date of Service: 01/31/25 subjective: states doing better. no issue with current abx. wbc wnl. VS stable objective: Temp Pulse Resp BP Pulse Ox 98.1 F 78 16 90/69 99 01/31/25 08:00 01/31/25 08:00 01/31/25 08:00 01/31/25 08:00 01/31/25 08:00 Physical Exam: GEN: Alert, oriented, NAD CV: Regular rate and rhythm, no edema Pulm: Nonlabored respirations on room air, clear bilaterally ABD: soft, nontender, nondistended, BS present Neuro: Normal speech, respond appropriately to question MSK: no edema Labs: wbc 4.7, hgb 12.1, plt count 291, bun 13, cr 0.72 Asssessment and Planning Sepsis secondary to acute pyelonephritis E. coli bacteremia Hx recurrent UTI hx bladder repair blood culture grew E coli. repeat blood culture no growth continue levaquin x 2 weeks will follow up with patient as needed recommend pt to f/u with urogyn as schedule after discharge case discussed and in agreement wit Dr Dooley
[2025-01-31 12:28] VITALS: BP 91/69; TEMP 97.9
--- NOTE | 2025-02-01 08:55 | ECHO ---
HEIGHT: 5 ft 2 in WEIGHT: 114 lb 9.6 oz DATE OF STUDY: 01/31/[address]: Judy Oh NP 2-DIMENSIONAL: YES M.MODE: YES DOPPLER: YES COLOR FLOW: YES TDS: NO PORTABLE: YES DEFINITY: NO BUBBLE STUDY: NO DIAGNOSIS: ENDOCARDITIS CARDIAC HISTORY: CATHERIZATION: NO SURGERY: NO PROSTHETIC VALVE: NO PACEMAKER: NO MEASUREMENTS (cm) DIASTOLIC (NORMALS) SYSTOLIC (NORMALS) IVSd 0.8 (0.6-1.2) LA Diam 2.8 (1.9-4.0) LVEF 55-60% LVIDd 4.0 (3.5-5.7) LVIDs 3.0 (2.0-3.5) %FS 26% LVPWd 0.9 (0.6-1.2) Ao Diam 2.6 (2.0-3.7) 2 DIMENSIONAL ASSESSMENT: RIGHT ATRIUM: NORMAL LEFT ATRIUM: NORMAL RIGHT VENTRICLE: NORMAL LEFT VENTRICLE: NORMAL TRICUSPID VALVE: TRACE OF TRICUSPID REGURGITATION MITRAL VALVE: TRACE OF MITRAL REGURGITATION PULMONIC VALVE: NORMAL AORTIC VALVE: TRACE OF AORTIC REGURGITATION PERICARDIAL EFFUSION: NONE AORTIC ROOT: NORMAL LEFT VENTRICULAR WALL MOTION: NORMAL. DOPPLER/COLOR FLOW: NORMAL. COMMENTS: 1. NORMAL LEFT VENTRICULAR SYSTOLIC FUNCTION, EJECTION FRACTION 55-60%, NORMAL WALL MOTION. 2. NORMAL DIASTOLIC FUNCTION. 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
== END 2025-01-31 12:37 | disposition home or self-care (01) | DRG 872 ==
LOC: ER 21:28 → ERHOLD 01-27 03:20 → 2ND 01-27 04:57
PROVIDERS: ADMIT Internal Medicine; ATTEND Hospitalist
DX: A41.51 Sepsis due to Escherichia coli [E. coli] (principal); N10 Acute pyelonephritis; R65.20 Severe sepsis without septic shock; Z87.440 Personal history of urinary (tract) infections; Z88.1 Allergy status to other antibiotic agents; Z88.0 Allergy status to penicillin; Z98.890 Other specified postprocedural states
CPT/HCPCS: 36415; 74177; 80048; 80053; 81001; 81025; 83605; 83690; 83735; 84484; 85025; 85610; 85730; 87040; 87077; 87086; 87088; 87186; 87205; 93005; 93306; 99285; J0696; J0744; J1650; J2185; J2270; J2405; J7030; J7799; P9047; Q9967